=== PATIENT | female | born 1945 | race Caucasian/White ===

== ENCOUNTER 2022-12-16 03:12 | Emergency (ER) | payer MEDICARE, OTHER, SELFPAY ==
[2022-12-16 03:15] VITALS: BP 134/64; PULSE 85; RESP 14; TEMP 36.8; O2SAT 97; BMI 23.8
--- NOTE | 2022-12-16 03:32 | XR_ITS ---
The [address] [address] Patient Name: CORNELIUS CAMPBELL MRN: [id number] date: 1945 Sex: F Assigned Patient Location: ER Current Patient Location: ER Accession/Order Number: [id number] Exam Date: 12/16/2022 03:45 Report Date: 12/16/2022 03:57 At the request of: ROBBIE MARKER Procedure: XR chest 1V EXAM: XR chest 1V HISTORY: SOB COMPARISON: None. TECHNIQUE: One view of the chest was obtained. FINDINGS: The cardiac silhouette is mildly enlarged. There is a small hiatal hernia. There is mild bibasilar atelectasis and/or scarring. There is no significant pneumothorax or pleural effusion. No acute osseous abnormality is seen. XR/XR chest 1V IMPRESSION: 1. Mildly enlarged cardiac silhouette with bibasilar atelectasis. 2. Small hiatal hernia. Electronically authenticated by: Anrdes ANGEL Date: 12/16/2022 03:57
--- NOTE | 2022-12-16 03:33 | CT_ITS ---
The [address] [address] Patient Name: CORNELIUS CAMPBELL MRN: [id number] date: 1945 Sex: F Assigned Patient Location: ER Current Patient Location: ER Accession/Order Number: [id number] Exam Date: 12/16/2022 04:18 Report Date: 12/16/2022 05:14 At the request of: ROBBIE MARKER Procedure: CT abdomen pelvis w con EXAM: CT abdomen pelvis w con HISTORY: Abdominal and back pain. COMPARISON: None. TECHNIQUE: Routine CT abdomen/pelvis with intravenous contrast. FINDINGS: There are atelectatic densities at both lung bases. There are several hypodense lesions scattered within the liver, largest measuring 0.9 cm (0.7 Hounsfield units) which most commonly represent cysts and/or hemangioma. The gallbladder and biliary tree are unremarkable. The pancreas and spleen are unremarkable. The bilateral adrenal glands and the bilateral kidneys are unremarkable. There are diverticula along the sigmoid colon. There is bowel wall thickening along the mid sigmoid colon with associated pericolonic inflammatory reaction. In the right clinical setting these findings can be associated with acute diverticulitis. In the absence of appropriate clinical symptoms, a developing mass lesion cannot be excluded. There is no free air, free fluid or abscess. There is a moderate amount of formed and liquid stool within the colon. There is a large hiatal hernia. There is thickening of the gastric mucosal which may in part be related to underdistention. Fluid and air-fluid levels are seen within jejunal and ileal small bowel loops. Some of the jejunal small bowel loops appear dilated thickened. Correlation should be made with clinical findings of an enteritis. The appendix is not visualized. There are a few small atheromatous calcifications within the abdominal aorta. The IVC is unremarkable. There are no pathologically enlarged lymph nodes within the abdomen/pelvis. The underdistended unopacified urinary bladder is unremarkable. The patient has had a prior hysterectomy. There is a 1.5 cm left ovarian cyst. There are several pelvic phleboliths. The bony structures are osteopenic. There is moderate levoscoliosis of the lumbar spine. There are degenerative changes throughout the thoracolumbar spine. There is a 0.3 cm bone island within the intertrochanteric region of the left femur. CT/CT abdomen pelvis w con IMPRESSION: There are diverticula along the sigmoid colon. There is bowel wall thickening along the mid sigmoid colon with associated pericolonic inflammatory reaction. In the right clinical setting these findings can be associated with acute diverticulitis. In the absence of appropriate clinical symptoms, a developing mass lesion cannot be excluded. There is no free air, free fluid or abscess. There is a moderate amount of formed and liquid stool within the colon. There is a large hiatal hernia. There is thickening of the gastric mucosal which may in part be related to underdistention. Fluid and air-fluid levels are seen within jejunal and ileal small bowel loops. Some of the jejunal small bowel loops appear dilated thickened. Correlation should be made with clinical findings of an enteritis. Several hypodense lesions scattered within the liver, largest measuring 0.9 cm (0.7 Hounsfield units) which most commonly represent cysts and/or hemangioma. Electronically authenticated by: ARCENIO MALCOLM Date: 12/16/2022 05:14
--- NOTE | 2022-12-16 03:37 | ECG_ITS ---
The [facility] Test Date: 2022-12-16 Pat Name: CORNELIUS CAMPBELL Department: Room: - Gender: Female Resident Caregiver: : 1945 Requested By: BEKAH DIAZ Order Number: [id number] Reading MD: BEKAH DIAZ Measurements Intervals [place] Rate: 70 P: 67 LA: 174 QRS: -53 QRSD: 92 T: 51 QT: 382 QTc: 404 Interpretive Statements 1100 Sinus rhythm 2630 Left anterior fascicular block 8003 Consistent with pulmonary disease 9150 abnormal ECG No previous ECG available for comparison Electronically Signed On 12-16-2022 6:38:13 EDT by BEKAH DIAZ
--- NOTE | 2022-12-16 03:39 | ED_ITS ---
HPI - Abdominal Pain General Chief Complaint: Abdominal Pain Stated Complaint: ABD BACK PAIN Time Seen by Provider: 12/16/22 03:32 Source: patient History of Present Illness HPI narrative: This 77-year-old female presents for evaluation of lower abdominal pain that is now radiating into her low back. The patient states she started having lower abdominal pain yesterday and was going to call her family physician later today however during the night the pain became worse. She states it is sharp and stabbing in her lower abdomen and now radiates into her low back where her kidneys are. She denies any nausea or vomiting. She has no hematuria or dysuria. She denies any fever or chills. She states she has not had an appetite since yesterday. She has been having normal bowel movements without any diarrhea or constipation. She has a history of rheumatoid arthritis. She denies any cardiac history. She denies any chest pain, shortness of breath, dizziness or syncope. She has chronic swelling of her left lower leg greater than her right which is not new. She states she has not taken any medications for the pain because she did not know what to take. She states that she had her appendix removed when she had a hysterectomy years ago. MD elicited complaint: Reports abdominal pain and flank pain Related Data Home Medications Medication Instructions Recorded Confirmed folic acid 1 mg tablet 1 mg PO DAILY 12/16/22 12/16/22 methotrexate sodium 2.5 mg tablet 2.5 mg PO .weekly 12/16/22 12/16/22 prednisone 5 mg tablet 5 mg PO Q12H PRN pain 12/16/22 12/16/22 Allergies Allergy/AdvReac Type Severity Reaction Status Date / Time No Known Drug Allergies Allergy Verified 12/16/22 03:19 Review of Systems ROS Status of ROS 10 or more systems reviewed and unremarkable except as noted in history and below [facility] Medical History (Updated 12/16/22 @ 05:51 by Tracy Jamison MD) Exam Narrative Exam Narrative: Nurses note and vital signs reviewed and patient is not hypoxic. General: The patient appears well and in no apparent distress. Patient is resting comfortably on cart. Skin: Warm, dry, no pallor noted. Mild chronic erythematous skin changes of bilateral lower extremities noted Head: Normocephalic, atraumatic Eye: Normal conjunctiva, no drainage, EOMI. PERRL Ears, Nose, Mouth, and Throat: oral mucosa is dry Cardiovascular: Regular Rate and Rhythm S1S2, no murmurs, rubs or gallops noted. Radial and femoral pulses are brisk and equal bilaterally Respiratory: Patient is in no distress, no accessory muscle use, lungs are clear to auscultation, no wheezing, rales or rhonchi Back: non-tender, no CVA tenderness bilaterally to percussion. GI: Decreased bowel sounds, RLQ tenderness to palpation with voluntary guarding and rebound, questionable Rovsings test, She has a well-healed Pfannenstiel incision but no notable incision in the right lower quadrant Musculoskeletal: LLE is mildly erythematous and slightly larger than the right, (this is normal for the patient according to her), There is no CVA tenderness or midline bony vertebral tenderness of the thoracic or lumbar spine. Neurological: A&O x4, normal speech Psychiatric: Cooperative Constitutional Vital Signs, click to edit/add: Last Vital Signs Temp 98.2 F 12/16/22 03:15 Pulse 85 12/16/22 03:15 Resp 14 12/16/22 03:15 BP 134/64 H 12/16/22 03:15 Pulse Ox 97 12/16/22 03:15 Course Vital Signs Vital signs: Vital Signs Temperature 98.2 F 12/16/22 03:15 Pulse Rate 85 12/16/22 03:15 Respiratory Rate 14 12/16/22 03:15 Blood Pressure 134/64 H 12/16/22 03:15 Pulse Oximetry 97 12/16/22 03:15 Temperature 98.2 F 12/16/22 03:15 Pulse Rate 85 12/16/22 03:15 Respiratory Rate 14 12/16/22 03:15 Blood Pressure 134/64 H 12/16/22 03:15 Pulse Oximetry 97 12/16/22 03:15 MDM - Abdominal Pain MDM Narrative Medical decision making narrative: This 77-year-old female with a history of rheumatoid arthritis presents for evaluation of lower abdominal pain that is radiating into her low back. The pain started presently 24 hours prior to arrival and a lower abdomen and then radiated into her back. She had no appetite. She denies any fever. She had no chest pain or shortness of breath. She denies any urinary symptoms. She is status post appendectomy and hysterectomy although is only able to find a Pfannenstiel incision and was concerned that she is still may have appendicitis as she was tender in the right lower quadrant with voluntary guarding and re bound. An IV was placed and she is medicated with IV fluids, Zofran and 2 mg of morphine. This reduced her pain but did not take it away however she declined any additional pain medication. Routine labs including CBC with differential, comprehensive metabolic profile, lactic acid and troponin were ordered and are reviewed and are normal. CT scan of the abdomen and pelvis with IV contrast shows diverticula along the sigmoid colon with bowel wall thickening along the mid sigmoid colon associated with pericolonic inflammatory reaction consistent with acute diverticulitis. There is no free air, free fluid or abscess. There is moderate amount of formed and liquid stool in the colon is a large hiatal hernia. The results of the CT scan were discussed with the patient and she was given a copy of the CT scan to share with her family physician. Reevaluation she was feeling better. Her symptoms are consistent with acute diverticulitis. She was medicated emergency department with oral Cipro and oral Flagyl and was given a [place] prior to being discharged. She'll be discharged home with a prescription for Zofran, [place] and Cipro and Flagyl to use for the next week. She was encouraged to drink plenty of fluids. I did explain to her that she may end up having diarrhea as well but she states she can deal with that. Differential Diagnosis Differential diagnosis: Likely abdominal pain, acute appendicitis, calculus of kidney, constipation, diverticulitis and small bowel obstruction Lab Data Attestation: I reviewed the patient's lab results. Lab results narrative: Labs are reviewed and are normal Labs: Lab Results 12/16/22 12/16/22 Range/Units 03:34 05:37 WBC 9.7 (4.0-11.0) 10^3/uL RBC 4.21 (4.20-5.40) 10^6/uL Hgb 13.2 (12.0-16.0) g/dL Hct 38.1 (36.0-48.0) % MCV 90.5 (81.0-99.0) fL MCH 31.4 (26.7-34.0) pg MCHC 34.6 (29.9-35.2) g/dL RDW 13.2 (11.0-15.0) % Plt Count 218 (150-450) 10^3/uL MPV 11.0 (9.5-13.5) fL Neut % (Auto) 82.8 H (43.0-75.0) % Lymph % (Auto) 5.4 L (20.5-60.0) % Miller % (Auto) 9.3 (1.7-12.0) % Eos % (Auto) 1.9 (0.9-7.0) % Baso % (Auto) 0.3 (0.2-2.0) % Neut # (Auto) 8.1 H (1.4-6.5) 10^3/uL Lymph # (Auto) 0.5 L (1.2-3.8) 10^3/uL Miller # (Auto) 0.9 H (0.3-0.8) 10^3/uL Eos # (Auto) 0.2 (0.0-0.7) 10^3/uL Baso # (Auto) 0.0 (0.0-0.1) 10^3/uL Abs Immat Gran (auto) 0.03 (0.00-0.03) 10^3/uL Imm/Tot Granulo (auto) 0.3 (0.0-0.5) % Sodium 136 (136-145) mmol/L Potassium 3.6 (3.5-5.1) mmol/L Chloride 102 (98-107) mmol/L Carbon Dioxide 26.1 (21.0-32.0) mmol/L Anion Gap 11.5 BUN 9.0 (7.0-18.0) mg/dL Creatinine 0.82 (0.55-1.02) mg/dL Est GFR ( Amer) >60 (>=60) Est GFR (Non-Af Amer) >60 (>=60) BUN/Creatinine Ratio 11.0 Glucose 105 (74-106) mg/dL Lactate 0.9 (0.4-2.0) mmol/L Calcium 9.7 (8.5-10.1) mg/dL Total Bilirubin 0.6 (0.2-1.0) mg/dL AST 17 (15-37) U/L ALT 22 (14-59) U/L Alkaline Phosphatase 94 (46-116) U/L Troponin I High Sens 7.0 (4.0-51.3) pg/mL Total Protein 6.9 (6.4-8.2) g/dL Albumin 3.6 (3.4-5.0) g/dL Globulin 3.3 g/dL Albumin/Globulin Ratio 1.1 Urine Color Lt. yellow (YELLOW) Urine Clarity Clear (CLEAR) Urine pH 6.0 (5.0-9.0) Ur Specific [place] <=1.005 A (1.005-1.025) Urine Protein Negative (NEG/TRACE) mg/dL Urine Glucose (UA) Negative (NEGATIVE) mg/dL Urine Ketones Negative (NEGATIVE) mg/dL Urine Occult Blood Negative (NEGATIVE) Urine Nitrite Negative (NEGATIVE) Urine Bilirubin Negative (NEGATIVE) Urine Urobilinogen 0.2 (0.2-1.0) EU/dL Ur Leukocyte Esterase Small A (NEGATIVE) Urine RBC 0-2 (0-2) #/HPF Urine WBC 2-5 A (NONE SEEN) #/HPF Ur Squamous Epith Cells Rare (NONE/RARE) #/LPF Urine Crystals None seen (None Seen) #/HPF Urine Bacteria None seen (NONE SEEN) #/HPF Urine Casts None seen (NONE SEEN) #/LPF Urine Mucus None seen (NONE SEEN) Ur Culture Indicated? No ECG Data Attestation: I personally reviewed and interpreted this ECG as follows: (Sinus rhythm at 70 beats for minute, left axis deviation, left anterior hemiblock, no acute ST segment elevation or T-wave inversion) Discharge Plan Discharge Chief Complaint: Abdominal Pain Clinical Impression: Diverticulitis Patient Disposition: Home, Self-Care Time of Disposition Decision: 05:51 Condition: Good Prescriptions / Home Meds: No Action methotrexate sodium 2.5 mg tablet 2.5 mg PO .weekly prednisone 5 mg tablet 5 mg PO Q12H PRN (Reason: pain) folic acid 1 mg tablet 1 mg PO DAILY Instructions: Diverticulitis (ED) Stand Alone Forms: Portal Instructions Referrals: ELAINE AGUILAR [Primary Care Provider] - 1 week
[2022-12-16] MEDS: MORPHINE SULFATE 2 MG/ML SYRINGE IV (03:50)
[2022-12-16] MEDS: 0.9 % SODIUM CHLORIDE 1,000 ML 1000 ML IV (03:51)
[2022-12-16] MEDS: ONDANSETRON PF 4 MG/2 ML VIAL IV (03:51)
[2022-12-16 03:54] LABS: Basophils Percent Auto 0.3 % (0.2-2.0); Eosinophils Absolute Auto 0.2 10^3/uL (0.0-0.7); Eosinophils Percent Auto 1.9 % (0.9-7.0); Hematocrit 38.1 % (36.0-48.0); Hemoglobin 13.2 g/dL (12.0-16.0); Immature Granulocytes Abs Auto 0.03 10^3/uL (0.00-0.03); Immature Granulocytes Pct Auto 0.3 % (0.0-0.5); Lymphocytes Absolute Auto 0.5 10^3/uL (1.2-3.8); Lymphocytes Percent Auto 5.4 % (20.5-60.0); Mean Corpuscular HGB Conc 34.6 g/dL (29.9-35.2); Mean Corpuscular Hemoglobin 31.4 pg (26.7-34.0); Mean Corpuscular Volume 90.5 fL (81.0-99.0); Monocytes Absolute Auto 0.9 10^3/uL (0.3-0.8); Monocytes Percent Auto 9.3 % (1.7-12.0); Neutrophils Absolute Auto 8.1 10^3/uL (1.4-6.5); Neutrophils Percent Auto 82.8 % (43.0-75.0); Platelet Count 218 10^3/uL (150-450); Red Blood Count 4.21 10^6/uL (4.20-5.40); Red Cell Distribution Width 13.2 % (11.0-15.0); White Blood Count 9.7 10^3/uL (4.0-11.0)
[2022-12-16 04:08] LABS: Alanine Aminotransferase 22 U/L (14-59); Albumin Globulin Ratio 1.1; Albumin Level 3.6 g/dL (3.4-5.0); Alkaline Phosphatase 94 U/L (46-116); Anion Gap 11.5; Aspartate Amino Transferase 17 U/L (15-37); Bilirubin Total 0.6 mg/dL (0.2-1.0); Calcium 9.7 mg/dL (8.5-10.1); Carbon Dioxide 26.1 mmol/L (21.0-32.0); Chloride 102 mmol/L (98-107); Estimated GFR (African America >60 (>=60); Estimated GFR (Non-African Ame >60 (>=60); Globulin 3.3 g/dL; Glucose 105 mg/dL (74-106); Potassium 3.6 mmol/L (3.5-5.1); Sodium 136 mmol/L (136-145); Total Protein 6.9 g/dL (6.4-8.2)
[2022-12-16 04:13] LABS: Lactate/Lactic Acid 0.9 mmol/L (0.4-2.0)
[2022-12-16 05:44] LABS: Bilirubin Urine NEGATIVE (NEGATIVE); Blood Urine NEGATIVE (NEGATIVE); Clarity Urine CLEAR (CLEAR); Color Urine LT. YELLOW (YELLOW); Glucose Urine UA NEGATIVE (NEGATIVE); Ketones Urine NEGATIVE (NEGATIVE); Leukocyte Esterase Urine SMALL (NEGATIVE); Nitrite Urine NEGATIVE (NEGATIVE); Protein Urine NEGATIVE (NEG/TRACE); Specific Gravity Urine <=1.005 (1.005-1.025); Urobilinogen Urine 0.2 EU/dL (0.2-1.0)
[2022-12-16 05:52] LABS: Bacteria Urine NONE SEEN #/HPF (NONE SEEN); Cast Seen? NONE SEEN #/LPF (NONE SEEN); Crystals Seen? None Seen #/HPF (None Seen); Mucus Urine NONE SEEN (NONE SEEN); RBC Urine 0-2 #/HPF (0-2); Squamous Epithelial Cell Urine RARE #/LPF (NONE/RARE); Urine Culture Indicated NO
[2022-12-16] MEDS: METRONIDAZOLE 250 MG TABLET 500 MG PO (06:07)
[2022-12-16] MEDS: CIPROFLOXACIN HCL 500 MG TABLET PO (06:07)
[2022-12-16] MEDS: HYDROCODONE/ACETAMINOPHEN 5-325 MG TABLET 0.5 TAB PO (06:07)
== END 2022-12-16 06:18 | disposition home or self-care (01) ==
PROVIDERS: Emergency Provider Emergency Medicine; PCP Family Medicine
DX: K57.32 Diverticulitis of large intestine without perforation or abscess without bleeding (principal); M06.9 Rheumatoid arthritis, unspecified; K44.9 Diaphragmatic hernia without obstruction or gangrene; Z79.899 Other long term (current) drug therapy; Z90.710 Acquired absence of both cervix and uterus
CPT/HCPCS: 36415; 71045; 74177; 80053; 81001; 83605; 84484; 85025; 93005; 96374; 96375; 99285; Q9967

== ENCOUNTER 2023-02-09 12:07 | Outpatient (OUT) | payer MEDICARE, OTHER, SELFPAY ==
[2023-02-09 12:39] LABS: Basophils Percent Auto 0.7 % (0.2-2.0); Eosinophils Absolute Auto 0.2 10^3/uL (0.0-0.7); Eosinophils Percent Auto 3.2 % (0.9-7.0); Hematocrit 38.8 % (36.0-48.0); Immature Granulocytes Abs Auto 0.02 10^3/uL (0.00-0.03); Immature Granulocytes Pct Auto 0.3 % (0.0-0.5); Lymphocytes Absolute Auto 0.9 10^3/uL (1.2-3.8); Lymphocytes Percent Auto 14.6 % (20.5-60.0); Mean Corpuscular HGB Conc 33.5 g/dL (29.9-35.2); Mean Corpuscular Hemoglobin 30.6 pg (26.7-34.0); Mean Corpuscular Volume 91.3 fL (81.0-99.0); Monocytes Absolute Auto 0.9 10^3/uL (0.3-0.8); Monocytes Percent Auto 15.6 % (1.7-12.0); Neutrophils Absolute Auto 3.9 10^3/uL (1.4-6.5); Neutrophils Percent Auto 65.6 % (43.0-75.0); Platelet Count 189 10^3/uL (150-450); Red Blood Count 4.25 10^6/uL (4.20-5.40); Red Cell Distribution Width 13.2 % (11.0-15.0)
[2023-02-09 12:53] LABS: Erythrocyte Sedimentation Rate 10 mm/hr (<=30)
[2023-02-09 12:57] LABS: Alanine Aminotransferase 27 U/L (14-59); Albumin Globulin Ratio 1.2; Albumin Level 3.6 g/dL (3.4-5.0); Alkaline Phosphatase 88 U/L (46-116); Aspartate Amino Transferase 18 U/L (15-37); Bilirubin Direct 0.1 mg/dL (0.0-0.2); Bilirubin Total 0.4 mg/dL (0.2-1.0); Estimated GFR (African America >60 (>=60); Estimated GFR (Non-African Ame >60 (>=60); Total Protein 6.6 g/dL (6.4-8.2)
== END 2023-02-09 12:08 | disposition home or self-care (01) ==
LOC: LAB 12:09
PROVIDERS: PCP Family Medicine; Visit Provider Internal Medicine Rheumatology
DX: M05.79 Rheumatoid arthritis with rheumatoid factor of multiple sites without organ or systems involvement (principal); Z79.899 Other long term (current) drug therapy
CPT/HCPCS: 36415; 80076; 82565; 85025; 85652

== ENCOUNTER 2023-06-09 12:20 | Outpatient (OUT) | payer MEDICARE, OTHER, SELFPAY ==
[2023-06-09 12:58] LABS: Basophils Percent Auto 0.4 % (0.2-2.0); Eosinophils Absolute Auto 0.1 10^3/uL (0.0-0.7); Eosinophils Percent Auto 2.7 % (0.9-7.0); Hematocrit 38.9 % (36.0-48.0); Hemoglobin 13.4 g/dL (12.0-16.0); Immature Granulocytes Abs Auto 0.01 10^3/uL (0.00-0.03); Immature Granulocytes Pct Auto 0.2 % (0.0-0.5); Lymphocytes Absolute Auto 0.9 10^3/uL (1.2-3.8); Lymphocytes Percent Auto 18.1 % (20.5-60.0); Mean Corpuscular HGB Conc 34.4 g/dL (29.9-35.2); Mean Corpuscular Hemoglobin 31.6 pg (26.7-34.0); Mean Corpuscular Volume 91.7 fL (81.0-99.0); Mean Platelet Volume 11.2 fL (9.5-13.5); Monocytes Absolute Auto 0.6 10^3/uL (0.3-0.8); Monocytes Percent Auto 11.7 % (1.7-12.0); Neutrophils Absolute Auto 3.5 10^3/uL (1.4-6.5); Neutrophils Percent Auto 66.9 % (43.0-75.0); Platelet Count 225 10^3/uL (150-450); Red Blood Count 4.24 10^6/uL (4.20-5.40); Red Cell Distribution Width 13.6 % (11.0-15.0); White Blood Count 5.2 10^3/uL (4.0-11.0)
[2023-06-09 13:03] LABS: Erythrocyte Sedimentation Rate 10 mm/hr (<=30)
[2023-06-09 14:23] LABS: Alanine Aminotransferase 22 U/L (14-59); Albumin Globulin Ratio 1.2; Albumin Level 3.7 g/dL (3.4-5.0); Alkaline Phosphatase 105 U/L (46-116); Aspartate Amino Transferase 15 U/L (15-37); Bilirubin Direct 0.1 mg/dL (0.0-0.2); Bilirubin Total 0.5 mg/dL (0.2-1.0); Estimated GFR (African America >60 (>=60); Estimated GFR (Non-African Ame >60 (>=60); Globulin 3.2 g/dL; Total Protein 6.9 g/dL (6.4-8.2)
== END 2023-06-09 12:21 | disposition home or self-care (01) ==
LOC: LAB 12:22
PROVIDERS: PCP Family Medicine; Visit Provider Internal Medicine Rheumatology
DX: M05.79 Rheumatoid arthritis with rheumatoid factor of multiple sites without organ or systems involvement (principal); Z79.899 Other long term (current) drug therapy
CPT/HCPCS: 36415; 80076; 82565; 85025; 85652

== ENCOUNTER 2023-11-24 11:12 | Outpatient (OUT) | payer MEDICARE, OTHER, SELFPAY ==
--- OUTSIDE RECORDS SUMMARY | 2023-11-24 11:26 | XMS_ITS | CCD ---
Author Organization [facility] Care Team Providers Care Monotype Machinist Name Role Phone NANCY GOODWIN Unavailable Unavailable NANCY GOODWIN Unavailable Unavailable CHANELLE CHO Unavailable Unavailable BRENDA, DR ROCA Consulting Unavailable BRENDA, DR ROCA Admitting Unavailable JEFF, DR HENRY Primary Care Unavailable BRENDA, DR ROCA Attending Unavailable BRENDA, DR ROCA Admitting Unavailable BRENDA, DR ROCA Attending Unavailable JEFF, DR HENRY Referring Unavailable JEFF, DR HENRY Primary Care Unavailable HALINDIANA, DR ROCA Consulting Unavailable BRENDA, DR ROCA Consulting Unavailable BRENDA, DR ROCA Admitting Unavailable JEFF, DR HENRY Primary Care Unavailable HALINDIANA, DR ROCA Attending Unavailable BRENDA, DR ROCA Admitting Unavailable JEFF, DR HENRY Primary Care Unavailable BRENDA, DR ROCA Attending Unavailable MD Salvador Hernandez Primary Care Provider [phone] MD Chanelle Cho Attending Provider MD Salvador Hernandez Primary Care Provider [phone] MD Salvador Hernandez Attending Provider [phone] MD Joe Anderson Attending Provider Joe Anderson Admitting UnavailJoe Dumas Attending UnavailSalvador Ross Primary Care Unavailable Chanelle Cho Admitting Unavailable Chanelle Cho Attending Unavailable Salvador Hernandez Primary Care Unavailable Salvador Hernandez Admitting Unavailable Salvador Hernandez Primary Care Unavailable Salvador Hernandez Attending Unavailable Unavailable Primary Care Provider UnavailALEKSANDR Doan Attending Unavailable JOSE LEVINE Attending Unavailable ALEKSANDR CLAIRE Attending Unavailable Medications Current Medications Medication Drug Class(es) Dates Sig (Normalized) Sig (Original) calcium carbonate 1500 mg / cholecalciferol 200 unt oral tablet (1 source) Vitamin D Start: 3 take 1 tablet by mouth once daily Calcium Carbonate-Vitamin D3 Active 1 TAB PO Daily March 23, 2023 12:00am folic acid 1 mg oral tablet (3 sources) Start: 7 take 1 mg by mouth once daily Folic Acid Active 1 MG PO Daily February 16, 2017 12:00am hydroxychloroquine sulfate 200 mg oral tablet (1 source) Antimalarial, Antirheumatic Agent Start: 3 take 1 tablet by mouth once daily Hydroxychloroquine (Plaquenil) 200 mg Tablet Active 200 MG PO Daily March 23, 2023 12:00am methotrexate 2.5 mg oral tablet (3 sources) Folate Analog Metabolic Inhibitor Start: 7 take 20 mg by mouth every week Methotrexate Sodium Active 20 MG PO every week February 16, 2017 12:00am Start: 02-16-2017 take 17.5 mg by mout h every week Methotrexate Sodium Active 17.5 MG PO every week February 16, 2017 12:00am pantoprazole 40 mg delayed release oral tablet (1 source) Proton Pump Inhibitor Start: 03-23-2023 take 40 mg by mouth once daily Pantoprazole Active 40 MG PO Daily March 23, 2023 12:00am Completed/Discontinued Medications Medication Drug Class(es) Dates Sig (Normalized) Sig (Original) acetaminophen 500 mg oral tablet (3 sources) Start: 10-15-2020 End: 01-22-2021 take 2 tablets by mouth every eight hours Acetaminophen (Tylenol Extra Strength) 500 mg tablet Discontinued 1000 MG PO Every 8 hours 180 30 October 15, 2020 12:00am January 22, 2021 6:08am acetaminophen 325 mg / HYDROcodone bitartrate 5 mg oral tablet (3 sources) Opioid Agonist Start: 10-15-2020 End: 03-23-2023 take 1 tablet by mouth every four hours Hydrocodone-Acetami nophen Discontinued 5 - 325 TAB PO Every 4 hours October 15, 2020 12:00am March 23, 2023 9:08am aspirin 81 mg delayed release oral tablet (3 sources) Platelet Aggregation Inhibitor, Nonsteroidal Anti-inflammatory Drug Start: 10-15-2020 End: 03-23-2023 take 81 mg by mouth twice daily Aspirin Discontinued 81 MG PO Twice daily 42 October 15, 2020 12:00am March 23, 2023 9:08am Wsaqxawd-Dpk-Bg-Lyc open-Lutein (Centrum Silver) 0.4-300-250 mg-mcg-mcg Tablet (3 sources) Start: 02-16-2017 End: 07-19-2019 take 1 tablet by mouth once daily Wjyxytbc-Ynj-Bg-Lyc open-Lutein (Centrum Silver) 0.4-300-250 mg-mcg-mcg Tablet Discontinued 1 TAB PO Daily February 16, 2017 12:00am July 19, 2019 9:51am naproxen sodium 220 mg oral capsule (3 sources) Nonsteroidal Anti-inflammatory Drug Start: 10-14-2020 End: 03-23-2023 take 1 capsule by mouth twice daily Naproxen Sodium (Aleve) 220 mg Capsule Discontinued 220 MG PO Twice daily October 14, 2020 12:00am March 23, 2023 9:08am omeprazole 20 mg delayed release oral tablet (3 sources) Proton Pump Inhibitor Start: 02-16-2017 End: 07-19-2019 take 20 mg by mouth once daily Omeprazole Discontinued 20 MG PO Daily February 16, 2017 12:00am July 19, 2019 9:52am oxyCODONE hydrochloride 5 mg oral tablet (3 sources) Opioid Agonist Start: 10-15-2020 End: 01-22-2021 take 1 tablet by mouth every six hours Oxycodone (Roxicodone) 5 mg tablet Discontinued 5 MG PO Q6H 20 7 October 15, 2020 January 22, 2021 6:08am predniSONE 5 mg oral tablet (3 sources) Start: 02-16-2017 End: 03-23-2023 Prednisone Discontinued 5 MG PO As Directed February 16, 2017 12:00am March 23, 2023 9:08am Needed Problems Active Problems Problem Classification Problem Date Documented Da te Episodic/Chronic Essential hypertension (1 source) Essential (primary) hypertension; Translations: [Essential (primary) hypertension] Onset: 01-19-2023 Chronic Fracture of lower limb (3 sources) Fracture of patella; Translations: [Unspecified fracture of unspecified patella, initial encounter for closed fracture] 10-15-2020 Episodic Other aftercare (1 source) Other parts counterman (current) drug therapy; Translations: [OTH DIRECTOR MOBILE MEDIA SOLUTIONS CURRENT DRUG THERAPY] Onset: 10-06-2022 Episodic Other endocrine disorders (1 source) Other adrenocortical insufficiency; Translations: [Other adrenocortical insufficiency] Onset: 04-07-2017 Chronic Other gastrointestinal disorders (1 source) Occult blood in stools; Translations: [Other fecal abnormalities] 03-23-2023 Episodic Other gastrointestinal disorders (2 sources) Other fecal abnormalities; Translations: [Nonspecific abnormal findings in stool contents] Onset: 03-23-2023 03-23-2023 Episodic Rheumatoid arthritis and related disease (4 sources) Rheumatoid arthritis with rheumatoid factor of multiple sites without organ or systems involvement; Translations: [RA W/RH FACTOR MX SITE NO ORGAN/SYS] Onset: 09-29-2022 Chronic Unclassified (1 source) Unknown / UNK(Unknown) Onset: 04-07-2017 Unclassified (1 source) Rheumatoid arthritis with rheumatoid factor of multiple sites without organ or systems involvement; Translations: [Rheumatoid arthritis with rheumatoid factor of multiple sites without organ or systems involvement] Onset: 10-07-2022 Past or Other Problems Problem Classification Problem Date Documented Da te Episodic/Chronic Administrative/social admission (1 source) Dietary counseling and surveillance; Translations: [DIETARY COUNSELING AND SURVEILLANCE] Onset: 01-01-2022 Episodic Results Test Name Value Interpretation Reference Range Facility Alanine aminotransferase [En zymatic activity/volume] in Serum or PlasmaOrdered By: Salvador Hernandez on 01-19-2023 ALT [Catalytic activity/Vol] 11 U/L 7-52 [facility] Albumin [Mass/volume] in Ser um or Plasma by Bromocresol green (BCG) dye binding methoOrdered By: Salvador Hernandez on 01-19-2023 Albumin BCG dye [Mass/Vol] 3.9 g/dL 3.5-5.7 [facility] Alkaline phosphatase [Enzyma tic activity/volume] in Serum or PlasmaOrdered By: Salvador Hernandez on 01-19-2023 ALP [Catalytic activity/Vol] 72 U/L 34-104 [facility] Aspartate aminotransferase [ Enzymatic activity/volume] in Serum or PlasmaOrdered By: Salvador Hernandez on 01-19-2023 AST [Catalytic activity/Vol] 15 U/L 13-39 [facility] Basophils Auto (Bld) [#/Vol] Ordered By: Salvador Hernandez on 01-19-2023 Basophils (Bld) [#/Vol] 0.1 10*3/uL 0.0-0.2 [facility] Basophils/100 WBC Auto (Bld) Ordered By: Salvador Hernandez on 01-19-2023 Basophils/100 WBC (Bld) 1.0 % . [facility] Bilirubin.total [Mass/volume ] in Serum or PlasmaOrdered By: Salvador Hernandez on 01-19-2023 Bilirubin [Mass/Vol] 0.6 mg/dL 0.3-1.0 [facility] Calcium [Mass/volume] in Ser um or PlasmaOrdered By: Salvador Hernandez on 01-19-2023 Calcium [Mass/Vol] 9.3 mg/dL 8.6-10.3 [facility] Carbon dioxide, total [Moles /volume] in Serum or PlasmaOrdered By: Salvador Hernandez on 01-19-2023 CO2 [Moles/Vol] 27.6 mmol/L 21.0-31.0 [facility] Chloride [Moles/volume] in S inocente or PlasmaOrdered By: Salvador Hernandez on 01-19-2023 Chloride [Moles/Vol] 111 mmol/L 98-107 [facility] Cholesterol [Mass/volume] in Serum or PlasmaOrdered By: Salvador Hernandez on 01-19-2023 Cholesterol [Mass/Vol] 195 mg/dL 140-200 [facility] Comment on above: Chol less than 200 m g/dl low riskChol 201-239 mg/dl borderline riskChol 240 mg/dl and greater high risk Cholesterol in LDL Calc [Mas s/Vol]Ordered By: Salvador Hernandez on 01-19-2023 Cholesterol in LDL [Mass/Vol] 112 mg/dL 0-100 [facility] Comment on above: LDL ATP III CLASSIFI CATIONLDL less than 100 mg/dL OptimalLDL 100-129 mg/dL Near or above optimalLDL 130-159 mg/dL Borderline highLDL 160-189 mg/dL HighLDL greater than 189 mg/dL Very high Cholesterol in VLDL Calc [Ma ss/Vol]Ordered By: Salvador Hernandez on 01-19-2023 Cholesterol in VLDL [Mass/Vol] 20 mg/dL [facility] Complete Blood Count Auto Di ffon 01-19-2023 Basophils (Bld) [#/Vol] 0.1 10*3/uL Normal 0.0-0.2 [facility] Comment on above: Result Comment: PERF ORMED BY: [place] [address] PATHOLOGIST BEEF GRINDER JAEL REED M.D. Performed By: #### T SH3, LIPID, CMP, T4F, CBC #### [address] Basophils/100 WBC (Bld) 1.0 % Normal . [facility] Comment on above: Performed By: #### T SH3, LIPID, CMP, T4F, CBC #### [address] Eosinophils (Bld) [#/Vol] 0.3 10*3/uL Normal 0.0-0.45 [facility] Comment on above: Performed By: #### T SH3, LIPID, CMP, T4F, CBC #### [address] Eosinophils/100 WBC (Bld) 4.8 % Normal . [facility] Comment on above: Performed By: #### T SH3, LIPID, CMP, T4F, CBC #### [address] Erythrocyte distribution width (RBC) [Ratio] 14.7 % Normal 11.9-15.3 [facility] Comment on above: Performed By: #### T SH3, LIPID, CMP, T4F, CBC #### [address] Hematocrit (Bld) [Volume fraction] 39.1 % Normal 34.0-46.4 [facility] Comment on above: Performed By: #### T SH3, LIPID, CMP, T4F, CBC #### [address] Hemoglobin (Bld) [Mass/Vol] 13.1 g/dL Normal 11.8-15.4 [facility] Comment on above: Performed By: #### T SH3, LIPID, CMP, T4F, CBC #### [address] [address] [place] Lymphocytes (Bld) [#/Vol] 1.0 10*3/uL Normal 1.00-4.8 [facility] Comment on above: Performed By: #### T SH3, LIPID, CMP, T4F, CBC #### [address] Lymphocytes/100 WBC (Bld) 17.6 % Normal . [facility] Comment on above: Performed By: #### T SH3, LIPID, CMP, T4F, CBC #### [address] MCH (RBC) [Entitic mass] 30.5 pg Normal 24.7-34.3 [facility] Comment on above: Performed By: #### T SH3, LIPID, CMP, T4F, CBC #### [address] MCV (RBC) [Entitic vol] 90.9 fL Normal 80-100 [facility] Comment on above: Performed By: #### T SH3, LIPID, CMP, T4F, CBC #### [facility] [address] [place] [address] Mean Corpuscular HGB Conc 33.5 g/dL Normal 32.0-35.0 [facility] Comment on above: Performed By: #### T SH3, LIPID, CMP, T4F, CBC #### [address] Monocytes (Bld) [#/Vol] 0.7 10*3/uL Normal 0.0-0.8 [facility] Comment on above: Performed By: #### T SH3, LIPID, CMP, T4F, CBC #### [address] Monocytes/100 WBC (Bld) 13.1 % Normal . [facility] Comment on above: Performed By: #### T SH3, LIPID, CMP, T4F, CBC #### [address] Neutrophils (Bld) [#/Vol] 3.6 10*3/uL Normal 1.8-7.7 [facility] Comment on above: Performed By: #### T SH3, LIPID, CMP, T4F, CBC #### [facility] [address] [place] [address] Neutrophils/100 WBC (Bld) 63.5 % Normal . [facility] Comment on above: Performed By: #### T SH3, LIPID, CMP, T4F, CBC #### [facility] [address] [place] [address] NRBC% 0.1 /100{WBC} Normal 0-0.5 [facility] Comment on above: Performed By: #### T SH3, LIPID, CMP, T4F, CBC #### [address] Platelet mean volume (Bld) [Entitic vol] 9.9 fL Normal 6.3-10.7 [facility] Comment on above: Performed By: #### T SH3, LIPID, CMP, T4F, CBC #### [address] Platelets (Bld) [#/Vol] 202 10*3/uL Normal 150-450 [facility] Comment on above: Performed By: #### T SH3, LIPID, CMP, T4F, CBC #### [address] RBC (Bld) [#/Vol] 4.30 10*6/uL Normal 3.60-5.00 [facility] Comment on above: Performed By: #### T SH3, LIPID, CMP, T4F, CBC #### [address] WBC (Bld) [#/Vol] 5.6 10*3/uL Normal 3.8-11.6 [facility] Comment on above: Performed By: #### T SH3, LIPID, CMP, T4F, CBC #### [address] Comprehensive Metabolic Pane maury 01-19-2023 Albumin [Mass/Vol] 3.9 g/dL Normal 3.5-5.7 [facility] Comment on above: Performed By: #### T SH3, LIPID, CMP, T4F, CBC #### [address] Albumin/Globulin [Mass ratio] 1.9 {ratio} Normal [facility] Comment on above: Performed By: #### T SH3, LIPID, CMP, T4F, CBC #### [address] ALP [Catalytic activity/Vol] 72 U/L Normal 34-104 [facility] Comment on above: Performed By: #### T SH3, LIPID, CMP, T4F, CBC #### [address] ALT [Catalytic activity/Vol] 11 U/L Normal 7-52 [facility] Comment on above: Performed By: #### T SH3, LIPID, CMP, T4F, CBC #### [address] Anion gap [Moles/Vol] 9.5 mmol/L Normal 6.0-15.0 [facility] Comment on above: Performed By: #### T SH3, LIPID, CMP, T4F, CBC #### [address] AST [Catalytic activity/Vol] 15 U/L Normal 13-39 [facility] Comment on above: Performed By: #### T SH3, LIPID, CMP, T4F, CBC #### [address] Bilirubin [Mass/Vol] 0.6 mg/dL Normal 0.3-1.0 [facility] Comment on above: Performed By: #### T SH3, LIPID, CMP, T4F, CBC #### [address] Calcium [Mass/Vol] 9.3 mg/dL Normal 8.6-10.3 [facility] Comment on above: Performed By: #### T SH3, LIPID, CMP, T4F, CBC #### [facility] [address] Chloride [Moles/Vol] 111 mmol/L High 98-107 [facility] Comment on above: Performed By: #### T SH3, LIPID, CMP, T4F, CBC #### [facility] [address] CO2 [Moles/Vol] 27.6 mmol/L Normal 21.0-31.0 [facility] Comment on above: Performed By: #### T SH3, LIPID, CMP, T4F, CBC #### [facility] [address] Creatinine [Mass/Vol] 0.65 mg/dL Normal 0.60-1.20 [facility] Comment on above: Performed By: #### T SH3, LIPID, CMP, T4F, CBC #### [facility] [address] GFR/1.73 sq M.predicted MDRD (S/P/Bld) [Vol rate/Area] mL/min/{1.73_m2} Normal [facility] Comment on above: Performed By: #### T SH3, LIPID, CMP, T4F, CBC #### [facility] [address] Globulin (S) [Mass/Vol] 2.1 g/dL Normal [facility] Comment on above: Performed By: #### T SH3, LIPID, CMP, T4F, CBC #### [facility] [address] Glucose [Mass/Vol] 86 mg/dL Normal 70-100 [facility] Comment on above: Result Comment: [place] Glucose Reference Range is dependent on time and content of last meal. Glucose of more than 200 mg/dL in a nonstressed, ambulatory subject supports the diagnosis of Diabetes Mellitus. ADA recommended reference range Performed By: #### T SH3, LIPID, CMP, T4F, CBC #### [facility] [address] Potassium [Moles/Vol] 4.1 mmol/L Normal 3.5-5.1 [facility] Comment on above: Performed By: #### T SH3, LIPID, CMP, T4F, CBC #### [facility] [address] Protein [Mass/Vol] 6.0 g/dL Low 6.4-8.9 [facility] Comment on above: Performed By: #### T SH3, LIPID, CMP, T4F, CBC #### [facility] [address] Sodium [Moles/Vol] 144 mmol/L Normal 136-145 [facility] Comment on above: Performed By: #### T SH3, LIPID, CMP, T4F, CBC #### [facility] [address] Urea nitrogen [Mass/Vol] 10 mg/dL Normal 7-25 [facility] Comment on above: Performed By: #### T SH3, LIPID, CMP, T4F, CBC #### [facility] [address] [place] [address] Creatinine [Mass/volume] in Serum or PlasmaOrdered By: Salvador Hernandez on 01-19-2023 Creatinine [Mass/Vol] 0.65 mg/dL 0.60-1.20 [facility] Eosinophils Auto (Bld) [#/Vo l]Ordered By: Salvador Hernandez on 01-19-2023 Eosinophils (Bld) [#/Vol] 0.3 10*3/uL 0.0-0.45 [facility] Eosinophils/100 WBC Auto (Bl d)Ordered By: Salvador Hernandez on 01-19-2023 Eosinophils/100 WBC (Bld) 4.8 % . [facility] Erythrocyte distribution wid th Auto (RBC) [Ratio]Ordered By: Salvador Hernandez on 01-19-2023 Erythrocyte distribution width (RBC) [Ratio] 14.7 % 11.9-15.3 [facility] Free T4 (Free Thyroxine)on 0 01-19-2023 Free T4 [Mass/Vol] 0.95 ng/dL Normal 0.61-1.12 [facility] Comment on above: Performed By: #### T SH3, LIPID, CMP, T4F, CBC #### [facility] [address] [place] [id number] [facility] Globulin Calc (S) [Mass/Vol] Ordered By: Salvador Hernandez on 01-19-2023 Globulin (S) [Mass/Vol] 2.1 g/dL [facility] Glucose [Mass/volume] in Ser um or PlasmaOrdered By: Salvador Hernandez on 01-19-2023 Glucose [Mass/Vol] 86 mg/dL 70-100 [facility] Comment on above: ADA recommended refe rence rangeRandom Glucose Reference Range is dependent on time and content of last meal. Glucose of more than 200 mg/dL in a nonstressed, ambulatory subject supports the diagnosis of Diabetes Mellitus. Hematocrit Auto (Bld) [Volum e fraction]Ordered By: Salvador Hernandez on 01-19-2023 Hematocrit (Bld) [Volume fraction] 39.1 % 34.0-46.4 [facility] Hemoglobin [Mass/volume] in BloodOrdered By: Salvador Hernandez on 01-19-2023 Hemoglobin (Bld) [Mass/Vol] 13.1 g/dL 11.8-15.4 [facility] Leukocytes [#/volume] correc maurice for nucleated erythrocytes in Blood by Automated counOrdered By: Salvador Hernandez on 01-19-2023 WBC corrected for nucl RBC Auto (Bld) [#/Vol] 5.6 10*3/uL 3.8-11.6 [facility] Lipid Panelon 01-19-2023 Cholesterol [Mass/Vol] 195 mg/dL Normal 140-200 [facility] Comment on above: Result Comment: Chol less than 200 mg/dl low risk Chol 201-239 mg/dl borderline risk Chol 240 mg/dl and greater high risk Performed By: #### T SH3, LIPID, CMP, T4F, CBC #### [facility] [address] [place] [address] [facility] Cholesterol in HDL [Mass/Vol] 62 mg/dL Normal 23-92 [facility] Comment on above: Result Comment: HDL CHOL ATP-III CLASSIFICATION Cardiovascular Risk HDL > or equal to 60 mg/dL LOW HDL < 40 mg/dL HIGH Performed By: #### T SH3, LIPID, CMP, T4F, CBC #### [facility] [address] Cholesterol.total/Frances sterol in HDL [Mass ratio] 3.1 {ratio} Normal <5.0 [facility] Comment on above: Performed By: #### T SH3, LIPID, CMP, T4F, CBC #### [facility] [address] LDL Cholesterol,Calculated 112 mg/dL High 0-100 [facility] Comment on above: Result Comment: LDL ATP III CLASSIFICATION LDL less than 100 mg/dL Optimal LDL 100-129 mg/dL Near or above optimal LDL 130-159 mg/dL Borderline high LDL 160-189 mg/dL High LDL greater than 189 mg/dL Very high Performed By: #### T SH3, LIPID, CMP, T4F, CBC #### [facility] [address] Triglyceride w/Reflex 103 mg/dL Normal 0-149 [facility] Comment on above: Result Comment: TRIG ATP III CLASSIFICATION TRIG less than 150 mg/dL Normal TRIG 150-199 mg/dL Borderline high TRIG 200-500 mg/dL High TRIG greater than 500 mg/dL Very high Standard traceable to the Center for Disease Conrtrol and Prevention (CDC) test method. Performed By: #### T SH3, LIPID, CMP, T4F, CBC #### [facility] [address] VLDL CHOLESTEROL 20 mg/dL Normal [facility] Comment on above: Performed By: #### T SH3, LIPID, CMP, T4F, CBC #### [facility] [address] Lymphocytes Auto (Bld) [#/Vo l]Ordered By: Salvador Hernandez on 01-19-2023 Lymphocytes (Bld) [#/Vol] 1.0 10*3/uL 1.00-4.8 [facility] Lymphocytes/100 WBC Auto (Bl d)Ordered By: Salvador Hernandez on 01-19-2023 Lymphocytes/100 WBC (Bld) 17.6 % . [facility] MCH Auto (RBC) [Entitic mass ]Ordered By: Salvador Hernandez on 01-19-2023 MCH (RBC) [Entitic mass] 30.5 pg 24.7-34.3 [facility] MCHC Auto (RBC) [Mass/Vol]Or dered By: Salvador Hernandez on 01-19-2023 MCHC (RBC) [Mass/Vol] 33.5 g/dL 32.0-35.0 [facility] MCV Auto (RBC) [Entitic vol] Ordered By: Salvador Hernandez on 01-19-2023 MCV (RBC) [Entitic vol] 90.9 fL 80-100 [facility] Monocytes Auto (Bld) [#/Vol] Ordered By: Salvador Hernandez on 01-19-2023 Monocytes (Bld) [#/Vol] 0.7 10*3/uL 0.0-0.8 [facility] Monocytes/100 WBC Auto (Bld) Ordered By: Salvador Hernandez on 01-19-2023 Monocytes/100 WBC (Bld) 13.1 % . [facility] Neutrophils Auto (Bld) [#/Vo l]Ordered By: Salvador Hernandez on 01-19-2023 Neutrophils (Bld) [#/Vol] 3.6 10*3/uL 1.8-7.7 [facility] Neutrophils/100 WBC Auto (Bl d)Ordered By: Salvador Hernandez on 01-19-2023 Neutrophils/100 WBC (Bld) 63.5 % . [facility] No Panel InformationOrdered By: Salvador Hernandez on 01-19-2023 Estimated GFR (CKD-EPI) > 60.0 mL/Min [facility] Creatinine Clearance (Chem N/A [facility] Nucleated erythrocytes [Pres ence] in Blood by Automated countOrdered By: Salvador Hernandez on 01-19-2023 Nucleated RBC Auto Ql (Bld) 0.1 /100{WBC} 0-0.5 [facility] Platelet mean volume Auto (B ld) [Entitic vol]Ordered By: Salvador Hernandez on 01-19-2023 Platelet mean volume (Bld) [Entitic vol] 9.9 fL 6.3-10.7 [facility] Platelets Auto (Bld) [#/Vol] Ordered By: Salvador Hernandez on 01-19-2023 Platelets (Bld) [#/Vol] 202 10*3/uL 150-450 [facility] Potassium [Moles/volume] in Serum or PlasmaOrdered By: Salvador Hernandez on 01-19-2023 Potassium [Moles/Vol] 4.1 mmol/L 3.5-5.1 [facility] Protein [Mass/volume] in Ser um or PlasmaOrdered By: Salvador Hernandez on 01-19-2023 Protein [Mass/Vol] 6.0 g/dL 6.4-8.9 [facility] RBC Auto (Bld) [#/Vol]Ordere d By: Salvador Hernandez on 01-19-2023 RBC (Bld) [#/Vol] 4.30 10*6/uL 3.60-5.00 [facility] Serum or plasma albumin/glob ulin mass ratioOrdered By: Salvador Hernandez on 01-19-2023 Albumin/Globulin [Mass ratio] 1.9 {ratio} [facility] Serum or plasma anion gap de terminationOrdered By: Salvador Hernandez on 01-19-2023 Anion gap [Moles/Vol] 9.5 mmol/L 6.0-15.0 [facility] Serum or plasma high density lipoprotein (HDL) cholesterol measurementOrdered By: Salvador Hernandez on 01-19-2023 Cholesterol in HDL [Mass/Vol] 62 mg/dL 23-92 [facility] Comment on above: HDL CHOL ATP-III CLA SSIFICATION Cardiovascular RiskHDL > or equal to 60 mg/dL LOWHDL < 40 mg/dL HIGH Serum or plasma total choles terol/high density lipoprotein (HDL) cholesterol mass ratOrdered By: Salvador Hernandez on 01-19-2023 Cholesterol.total/Frances sterol in HDL [Mass ratio] 3.1 {ratio} <5.0 [facility] Sodium [Moles/volume] in Ser um or PlasmaOrdered By: Salvador Hernandez on 01-19-2023 Sodium [Moles/Vol] 144 mmol/L 136-145 [facility] Thyroid Stimulating Hormoneo n 01-19-2023 TSH Qn 1.44 m[IU]/L Normal 0.45-5.33 [facility] Comment on above: Result Comment: PERF ORMED BY: [facility] [address] [place] [address] PATHOLOGIST BEEF GRINDER JAEL REED M.D. Performed By: #### E SR, CRP, CBC #### [facility] [address] #### QUANT TB, ROSA SERUM, SPE #### [facility] , Thyrotropin [Units/volume] i n Serum or PlasmaOrdered By: Salvador Hernandez on 01-19-2023 TSH Qn 1.44 m[IU]/L 0.45-5.33 [facility] Thyroxine (T4) free [Mass/vo lume] in Serum or PlasmaOrdered By: Salvador Hernandez on 01-19-2023 Free T4 [Mass/Vol] 0.95 ng/dL 0.61-1.12 [facility] Triglyceride [Mass/volume] i n Serum or PlasmaOrdered By: Salvador Hernandez on 01-19-2023 Triglyceride [Mass/Vol] 103 mg/dL 0-149 [facility] Comment on above: TRIG ATP III CLASSIF ICATIONTRIG less than 150 mg/dL NormalTRIG 150-199 mg/dL Borderline highTRIG 200-500 mg/dL High TRIG greater than 500 mg/dL Very highStandard traceable to the Center for Disease Conrtrol and Prevention (CDC) test method. Urea nitrogen [Mass/volume] in Serum or PlasmaOrdered By: Salvador Hernandez on 01-19-2023 Urea nitrogen [Mass/Vol] 10 mg/dL 7-25 [facility] WBC Auto (Bld) [#/Vol]Ordere d By: Salvador Hernandez on 01-19-2023 WBC (Bld) [#/Vol] 5.6 10*3/uL 3.8-11.6 [facility] Basophils Auto (Bld) [#/Vol] Ordered By: Chanelle Cho on 10-07-2022 Basophils (Bld) [#/Vol] 0.0 10*3/uL 0.0-0.2 [facility] Basophils/100 WBC Auto (Bld) Ordered By: Chanelle Cho on 10-07-2022 Basophils/100 WBC (Bld) 0.4 % . [facility] C reactive protein [Mass/vol ume] in Serum or PlasmaOrdered By: Chanelle Cho on 10-07-2022 CRP [Mass/Vol] 3.1 mg/dL 0.0-0.5 [facility] C-Reactive Proteinon 023 C-Reactive Protein 3.1 mg/dL High 0.0-0.5 [facility] Comment on above: Result Comment: PERF ORMED BY: [place] [address] PATHOLOGIST BEEF GRINDER JAEL REED M.D. Performed By: #### E SR, CRP, CBC #### [address] #### QUANT TB, ROSA SERUM, SPE #### [facility] , Complete Blood Count Auto Di ffon 10-07-2022 Basophils (Bld) [#/Vol] 0.0 10*3/uL Normal 0.0-0.2 [facility] Comment on above: Performed By: #### E SR, CRP, CBC #### [address] #### QUANT TB, ROSA SERUM, SPE #### [facility] , Basophils/100 WBC (Bld) 0.4 % Normal . [facility] Comment on above: Performed By: #### E SR, CRP, CBC #### [address] #### QUANT TB, ROSA SERUM, SPE #### [facility] , Eosinophils (Bld) [#/Vol] 0.1 10*3/uL Normal 0.0-0.45 [facility] Comment on above: Performed By: #### E SR, CRP, CBC #### [place] [address] [place] #### QUANT TB, ORSA SERUM, SPE #### [facility] , Eosinophils/100 WBC (Bld) 2.2 % Normal . [facility] Comment on above: Performed By: #### E SR, CRP, CBC #### [address] #### QUANT TB, ROSA SERUM, SPE #### [facility] , Erythrocyte distribution width (RBC) [Ratio] 13.9 % Normal 11.9-15.3 [facility] Comment on above: Performed By: #### E SR, CRP, CBC #### [place] [address] [place] #### QUANT TB, ROSA SERUM, SPE #### [facility] , Hematocrit (Bld) [Volume fraction] 41.8 % Normal 34.0-46.4 [facility] Comment on above: Performed By: #### E SR, CRP, CBC #### [address] #### QUANT TB, ROSA SERUM, SPE #### [facility] , Hemoglobin (Bld) [Mass/Vol] 14.1 g/dL Normal 11.8-15.4 [facility] Comment on above: Performed By: #### E SR, CRP, CBC #### [address] #### QUANT TB, ROSA SERUM, SPE #### [facility] , Lymphocytes (Bld) [#/Vol] 1.5 10*3/uL Normal 1.00-4.8 [facility] Comment on above: Performed By: #### E SR, CRP, CBC #### [place] [address] [place] #### QUANT TB, ROSA SERUM, SPE #### [facility] , Lymphocytes/100 WBC (Bld) 24.2 % Normal . [facility] Comment on above: Performed By: #### E SR, CRP, CBC #### [address] #### QUANT TB, ROSA SERUM, SPE #### [facility] , MCH (RBC) [Entitic mass] 31.1 pg Normal 24.7-34.3 [facility] Comment on above: Performed By: #### E SR, CRP, CBC #### [address] #### QUANT TB, ROSA SERUM, SPE #### [facility] , MCV (RBC) [Entitic vol] 92.2 fL Normal 80-100 [facility] Comment on above: Performed By: #### E SR, CRP, CBC #### [address] #### QUANT TB, ROSA SERUM, SPE #### [facility] , Mean Corpuscular HGB Conc 33.7 g/dL Normal 32.0-35.0 [facility] Comment on above: Performed By: #### E SR, CRP, CBC #### [address] #### QUANT TB, ROSA SERUM, SPE #### [facility] , Monocytes (Bld) [#/Vol] 0.7 10*3/uL Normal 0.0-0.8 [facility] Comment on above: Performed By: #### E SR, CRP, CBC #### [place] [address] [place] #### QUANT TB, ROSA SERUM, SPE #### [facility] , Monocytes/100 WBC (Bld) 11.7 % Normal . [facility] Comment on above: Performed By: #### E SR, CRP, CBC #### [place] [address] [place] #### QUANT TB, ROSA SERUM, SPE #### [facility] , Neutrophils (Bld) [#/Vol] 3.8 10*3/uL Normal 1.8-7.7 [facility] Comment on above: Performed By: #### E SR, CRP, CBC #### [place] [address] [place] #### QUANT TB, ROSA SERUM, SPE #### [facility] , Neutrophils/100 WBC (Bld) 61.5 % Normal . [facility] Comment on above: Performed By: #### E SR, CRP, CBC #### [address] #### QUANT TB, ROSA SERUM, SPE #### [facility] , NRBC% 0.2 /100{WBC} Normal 0-0.5 [facility] Comment on above: Performed By: #### E SR, CRP, CBC #### [address] #### QUANT TB, ROSA SERUM, SPE #### [facility] , Platelet mean volume (Bld) [Entitic vol] 9.5 fL Normal 6.3-10.7 [facility] Comment on above: Performed By: #### E SR, CRP, CBC #### [address] #### QUANT TB, ROSA SERUM, SPE #### [facility] , Platelets (Bld) [#/Vol] 250 10*3/uL Normal 150-450 [facility] Comment on above: Performed By: #### E SR, CRP, CBC #### [place] [address] [place] #### QUANT TB, ORSA SERUM, SPE #### [facility] , RBC (Bld) [#/Vol] 4.53 10*6/uL Normal 3.60-5.00 [facility] Comment on above: Performed By: #### E SR, CRP, CBC #### [place] [address] [place] #### QUANT TB, ROSA SERUM, SPE #### [facility] , WBC (Bld) [#/Vol] 6.1 10*3/uL Normal 3.8-11.6 [facility] Comment on above: Performed By: #### E SR, CRP, CBC #### [facility] [address] [place] [address] #### QUANT TB, ROSA SERUM, SPE #### [facility] , Eosinophils Auto (Bld) [#/Vo l]Ordered By: Chanelle Cho on 10-07-2022 Eosinophils (Bld) [#/Vol] 0.1 10*3/uL 0.0-0.45 [facility] Eosinophils/100 WBC Auto (Bl d)Ordered By: Chanelle Cho on 10-07-2022 Eosinophils/100 WBC (Bld) 2.2 % . [facility] Erythrocyte Sedimentation Ra kanika 10-07-2022 ESR (Bld) [Velocity] 26 mm/h Normal 0-29 [facility] Comment on above: Result Comment: PERF ORMED BY: [place] [address] PATHOLOGIST BEEF GRINDER JAEL REED M.D. Performed By: #### E SR, CRP, CBC #### [facility] [address] [place] [address] #### QUANT TB, ROSA SERUM, SPE #### [facility] , Erythrocyte distribution wid th Auto (RBC) [Ratio]Ordered By: Chanelle Cho on 10-07-2022 Erythrocyte distribution width (RBC) [Ratio] 13.9 % 11.9-15.3 [facility] Erythrocyte sedimentation ra te by Photometric methodOrdered By: Chanelle Cho on 10-07-2022 ESR Photometric method (Bld) [Velocity] 26 mm/hr 0-29 [facility] Hematocrit Auto (Bld) [Volum e fraction]Ordered By: Chanelle Cho on 10-07-2022 Hematocrit (Bld) [Volume fraction] 41.8 % 34.0-46.4 [facility] Hemoglobin [Mass/volume] in BloodOrdered By: Chanelle Cho on 10-07-2022 Hemoglobin (Bld) [Mass/Vol] 14.1 g/dL 11.8-15.4 [facility] Immunofixation,Serumon 10-07 Immunofixation, Serum Normal . [facility] Comment on above: Result Comment: No m onoclonality detected. Performed By: #### E SR, CRP, CBC #### [facility] [address] [place] [address] [place] #### QUANT TB, ROSA SERUM, SPE #### [facility] , Immunoglobulin A, Serum 293 mg/dL Normal 64-422 [facility] Comment on above: Performed By: #### E SR, CRP, CBC #### [facility] [address] [place] [address] [place] #### QUANT TB, ROSA SERUM, SPE #### [facility] , Immunoglobulin G 671 mg/dL Normal 586-1602 [facility] Comment on above: Performed By: #### E SR, CRP, CBC #### [facility] [address] [place] [address] [place] #### QUANT TB, ROSA SERUM, SPE #### [facility] , Immunoglobulin M, Serum 82 mg/dL Normal 26-217 [facility] Comment on above: Result Comment: Perf ormed at: - [facility] [place] [id number] Purchasing Coordinator: Nish Russell PhD, Phone: [phone] Performed By: #### E SR, CRP, CBC #### [facility] [address] [place] [address] [place] #### QUANT TB, ROSA SERUM, SPE #### [facility] , Leukocytes [#/volume] correc maurice for nucleated erythrocytes in Blood by Automated counOrdered By: Chanelle Cho on 10-07-2022 WBC corrected for nucl RBC Auto (Bld) [#/Vol] 6.1 10*3/uL 3.8-11.6 [facility] Lymphocytes Auto (Bld) [#/Vo l]Ordered By: Chanelle Cho on 10-07-2022 Lymphocytes (Bld) [#/Vol] 1.5 10*3/uL 1.00-4.8 [facility] Lymphocytes/100 WBC Auto (Bl d)Ordered By: Chanelle Cho on 10-07-2022 Lymphocytes/100 WBC (Bld) 24.2 % . [facility] MCH Auto (RBC) [Entitic mass ]Ordered By: Chanelle Cho on 10-07-2022 MCH (RBC) [Entitic mass] 31.1 pg 24.7-34.3 [facility] MCHC Auto (RBC) [Mass/Vol]Or dered By: Chanelle Cho on 10-07-2022 MCHC (RBC) [Mass/Vol] 33.7 g/dL 32.0-35.0 [facility] MCV Auto (RBC) [Entitic vol] Ordered By: Chanelle Cho on 10-07-2022 MCV (RBC) [Entitic vol] 92.2 fL 80-100 [facility] Monocytes Auto (Bld) [#/Vol] Ordered By: Chanelle Cho on 10-07-2022 Monocytes (Bld) [#/Vol] 0.7 10*3/uL 0.0-0.8 [facility] Monocytes/100 WBC Auto (Bld) Ordered By: hCanelle Cho on 10-07-2022 Monocytes/100 WBC (Bld) 11.7 % . [facility] Neutrophils Auto (Bld) [#/Vo l]Ordered By: Chanelle Cho on 10-07-2022 Neutrophils (Bld) [#/Vol] 3.8 10*3/uL 1.8-7.7 [facility] Neutrophils/100 WBC Auto (Bl d)Ordered By: Chanelle Cho on 10-07-2022 Neutrophils/100 WBC (Bld) 61.5 % . [facility] Nucleated erythrocytes [Pres ence] in Blood by Automated countOrdered By: Chanelle Cho on 10-07-2022 Nucleated RBC Auto Ql (Bld) 0.2 /100{WBC} 0-0.5 [facility] Platelet mean volume Auto (B ld) [Entitic vol]Ordered By: Chanelle Cho on 10-07-2022 Platelet mean volume (Bld) [Entitic vol] 9.5 fL 6.3-10.7 [facility] Platelets Auto (Bld) [#/Vol] Ordered By: Chanelle Cho on 10-07-2022 Platelets (Bld) [#/Vol] 250 10*3/uL 150-450 [facility] Protein Electrophoresis, Ser umon 10-07-2022 Albumin [Mass/Vol] 3.9 g/dL Normal 2.9-4.4 [facility] Comment on above: Performed By: #### E SR, CRP, CBC #### [address] #### QUANT TB, ROSA SERUM, SPE #### [facility] , Albumin/Globulin [Mass ratio] 1.4 {ratio} Normal 0.7-1.7 [facility] Comment on above: Performed By: #### E SR, CRP, CBC #### [facility] [address] [place] [address] [place] #### QUANT TB, ROSA SERUM, SPE #### [facility] , Ueqpo-1-Kswojsjs 0.3 g/dL Normal 0.0-0.4 [facility] Comment on above: Performed By: #### E SR, CRP, CBC #### [facility] [address] [place] [address] [place] #### QUANT TB, ROSA SERUM, SPE #### [facility] , Qxdmz-3-Pxrtxmll 0.9 g/dL Normal 0.4-1.0 [facility] Comment on above: Performed By: #### E SR, CRP, CBC #### [place] [address] [place] #### QUANT TB, ROSA SERUM, SPE #### [facility] , Beta Globulin 1.0 g/dL Normal 0.7-1.3 [facility] Comment on above: Performed By: #### E SR, CRP, CBC #### [address] #### QUANT TB, ROSA SERUM, SPE #### [facility] , Gamma Globulin 0.6 g/dL Normal 0.4-1.8 [facility] Comment on above: Performed By: #### E SR, CRP, CBC #### [address] #### QUANT TB, ROSA SERUM, SPE #### [facility] , Globulin (S) [Mass/Vol] 2.8 g/dL Normal 2.2-3.9 [facility] Comment on above: Performed By: #### E SR, CRP, CBC #### [address] #### QUANT TB, ROSA SERUM, SPE #### [facility] , M-Kvng Not Observed Normal Not Observed [facility] Comment on above: Performed By: #### E SR, CRP, CBC #### [address] #### QUANT TB, ROSA SERUM, SPE #### [facility] , Protein [Mass/Vol] 6.7 g/dL Normal 6.0-8.5 [facility] Comment on above: Performed By: #### E SR, CRP, CBC #### [address] #### QUANT TB, ROSA SERUM, SPE #### [facility] , SPE-Note Normal . [facility] Comment on above: Result Comment: Prot ein electrophoresis scan will follow via computer, mail, or grinder carbon plant delivery. PERFORMED BY: [place] [address] PATHOLOGIST BEEF GRINDER JIANLAN SUN M.D. Performed By: #### E SR, CRP, CBC #### [facility] [address] [place] [address] [place] #### QUANT TB, ROSA SERUM, SPE #### [facility] , QuantiFERON TB Goldon 2022 QFTB Criteria Normal . [facility] Comment on above: Result Comment: Onel tiFERON-TB Gold Plus is a qualitative indirect test for M tuberculosis infection (including disease) and is intended for use in conjunction with risk assessment, radiography, and other medical and diagnostic evaluations. The QuantiFERON-TB Gold Plus result is determined by subtracting the Nil value from either TB antigen (Ag) value. The Mitogen tube serves as a control for the test. Performed By: #### E SR, CRP, CBC #### [place] [address] [place] #### QUANT TB, ROSA SERUM, SPE #### [facility] , Quant TB Ag Value 0.09 Normal . [facility] Comment on above: Performed By: #### E SR, CRP, CBC #### [place] [address] [place] #### QUANT TB, ROSA SERUM, SPE #### [facility] , Quant TB Gold Plus Negative Normal Negative [facility] Comment on above: Result Comment: No r esponse to M tuberculosis antigens detected. Infection with M tuberculosis is unlikely, but high risk individuals should be considered for additional testing (ATS/IDSA/CDC Clinical Practice Guidelines, 2017). The reference range is an Antigen minus Nil result of <0.35 IU/mL. The specimen received for QuantiFERON testing was incubated by the ordering institution. Specific procedures outlined in our Directory of Services and in the package insert for the QuantiFERON Gold (In Tube) test must be followed to enable for proper stimulation of cells for the production of interferon gamma. Chemiluminescence immunoassay methodology Performed at: [facility] [address] [id number] Purchasing Coordinator: Nish Russell PhD, Phone: [phone] PERFORMED BY: [address] [address] PATHOLOGIST BEEF GRINDER JAEL REED M.D. Performed By: #### E SR, CRP, CBC #### [place] [address] [place] #### QUANT TB, ROSA SERUM, SPE #### [facility] , Quant TB2 Ag Value 0.19 Normal . [facility] Comment on above: Performed By: #### E SR, CRP, CBC #### [place] [address] [place] #### QUANT TB, ROSA SERUM, SPE #### [facility] , Quantiferon Nil Value 0.[address] [facility] Comment on above: Performed By: #### E SR, CRP, CBC #### [place] [address] [place] #### QUANT TB, ROSA SERUM, SPE #### [facility] , Quantiferon TB Mitogen 3.[address] [facility] Comment on above: Performed By: #### E SR, CRP, CBC #### [facility] [address] [place] [address] [place] #### QUANT TB, ROSA SERUM, SPE #### [facility] , RBC Auto (Bld) [#/Vol]Ordere d By: Chanelle Cho on 10-07-2022 RBC (Bld) [#/Vol] 4.53 10*6/uL 3.60-5.00 [facility] WBC Auto (Bld) [#/Vol]Ordere d By: Chanelle Cho on 10-07-2022 WBC (Bld) [#/Vol] 6.1 10*3/uL 3.8-11.6 [facility] CBC AUTO DIFFon 09-29-2022 BASO # 0.0 103/ul Normal 0.0-0.1 [facility] Comment on above: Performed By: #### C BC #### [facility] [address] [place] [address] Dr. Quintin Kaur Basophils/100 WBC (Bld) 0.5 % Normal 0.2-2.0 [facility] Comment on above: Performed By: #### C BC #### [facility] [address] [place] [address] Dr. Quintin Kaur EO # 0.2 103/ul Normal 0.0-0.7 [facility] Comment on above: Performed By: #### C BC #### [facility] [address] [place] [address] Dr. Quintin Kaur Eosinophils/100 WBC (Bld) 3.2 % Normal 0.9-7.0 [facility] Comment on above: Performed By: #### C BC #### [facility] [address] [place] [address] Dr. Quintin Kaur Erythrocyte distribution width (RBC) [Ratio] 13.2 % Normal 11.0-15.0 [facility] Comment on above: Performed By: #### C BC #### [facility] [address] [place] [address] Dr. Quintin Kaur Hematocrit (Bld) [Volume fraction] 41.3 % Normal 36.0-48.0 [facility] Comment on above: Performed By: #### C BC #### [facility] [address] [place] [address] Dr. Quintin Kaur Hemoglobin (Bld) [Mass/Vol] 13.9 g/dL Normal 12.0-16.0 [facility] Comment on above: Performed By: #### C BC #### [facility] [address] [place] [address] Dr. Quintin Kaur IG # 0.02 10e3/ul Normal 0.00-0.03 [facility] Comment on above: Performed By: #### C BC #### [facility] [address] [place] [address] Dr. Quintin Kaur IG % 0.3 % Normal 0.0-0.5 [facility] Comment on above: Performed By: #### C BC #### [facility] [address] [place] [address] Dr. Quintin Kaur LYMPH # 1.0 103/ul Critically low 1.2-3.8 [facility] Comment on above: Performed By: #### C BC #### [facility] [address] [place] [address] Dr. Quintin Kaur Lymphocytes/100 WBC (Bld) 13.9 % Critically low 20.5-60.0 [facility] Comment on above: Performed By: #### C BC #### [facility] [address] [place] [address] Dr. Quintin Kaur MANUAL DIFF REQ NO Normal [facility] Comment on above: Performed By: #### C BC #### [facility] [address] [place] [address] Dr. Quintin Kaur MCH (RBC) [Entitic mass] 30.9 pg Normal 26.7-34.0 [facility] Comment on above: Performed By: #### C BC #### [facility] [address] [place] [address] Dr. Quintin Kaur MCHC (RBC) [Mass/Vol] 33.7 g/dL Normal 29.9-35.2 [facility] Comment on above: Performed By: #### C BC #### [facility] [address] [place] [address] Dr. Quintin Kaur MCV (RBC) [Entitic vol] 91.8 fL Normal 81.0-99.0 [facility] Comment on above: Performed By: #### C BC #### [facility] [address] [place] [address] Dr. Quintin Kaur MONO # 0.6 103/ul Normal 0.3-0.8 [facility] Comment on above: Performed By: #### C BC #### [facility] [address] [place] [address] Dr. Quintin Kaur Monocytes/100 WBC (Bld) 8.1 % Normal 1.7-12.0 [facility] Comment on above: Performed By: #### C BC #### [facility] [address] [place] [address] Dr. Quintin Kaur NEUT # 5.4 103/ul Normal 1.4-6.5 [facility] Comment on above: Performed By: #### C BC #### [facility] [address] [place] [address] Dr. Quintin Kaur Neutrophils/100 WBC (Bld) 74.0 % Normal 43.0-75.0 [facility] Comment on above: Performed By: #### C BC #### [facility] [address] [place] [address] Dr. Quintin Kaur Platelet mean volume (Bld) [Entitic vol] 10.7 fL Normal 9.5-13.5 [facility] Comment on above: Performed By: #### C BC #### [facility] [address] [place] [address] Dr. Quintin Kaur PLT 228 103/ul Normal 150-450 [facility] Comment on above: Performed By: #### C BC #### [facility] [address] [place] [address] Dr. Quintin Kaur RBC 4.50 106/ul Normal 4.20-5.40 [facility] Comment on above: Performed By: #### C BC #### [facility] [address] [place] [address] Dr. Quintin Kaur WBC 7.3 103/ul Normal 4.0-11.0 [facility] Comment on above: Performed By: #### C BC #### [facility] [address] [place] [address] Dr. Quintin Kaur CREATININEon 09-29-2022 Creatinine [Mass/Vol] 0.72 mg/dL Normal 0.55-1.02 [facility] Comment on above: Performed By: #### SERGEI WEAVER #### [facility] [address] [place] [address] Dr. Quintin Kaur EGFR-AF WELSH >60 Normal >=60 [facility] Comment on above: Performed By: #### SERGEI WEAVER #### [facility] [address] [place] [address] Dr. Quintin Kaur EGFR-NON AF WELSH >60 Normal >=60 [facility] Comment on above: Performed By: #### SERGEI WEAVER #### [facility] [address] [place] [address] Dr. Quintin Kaur LIVER PROFILEon 09-29-2022 Albumin [Mass/Vol] 3.7 g/dL Normal 3.4-5.0 [facility] Comment on above: Performed By: #### SERGEI WEAVER #### [facility] [address] [place] [address] Dr. Quintin Kaur Albumin/Globulin [Mass ratio] 1.0 {ratio} Normal [facility] Comment on above: Performed By: #### SERGEI WEAVER #### [facility] [address] [place] [address] Dr. Quintin Kaur ALP [Catalytic activity/Vol] 100 U/L Normal 46-116 [facility] Comment on above: Performed By: #### SERGEI WEAVER #### [facility] [address] [place] [address] Dr. Quintin Kaur ALT [Catalytic activity/Vol] 22 U/L Normal 14-59 [facility] Comment on above: Performed By: #### SERGEI WEAVER #### [facility] [address] [place] [address] Dr. Quintin Kaur AST [Catalytic activity/Vol] 12 U/L Critically low 15-37 [facility] Comment on above: Performed By: #### SERGEI WEAVER #### [facility] [address] [place] [address] Dr. Quintin Karu BILI, CONJUGATED 0.1 mg/dL Normal 0.0-0.2 [facility] Comment on above: Performed By: #### SERGEI WEAVER #### [facility] [address] [place] [address] Dr. Quintin Kaur Bilirubin [Mass/Vol] 0.3 mg/dL Normal 0.2-1.0 [facility] Comment on above: Performed By: #### SERGEI WEAVER #### [facility] [address] [place] [address] Dr. Quintin Kaur Globulin (S) [Mass/Vol] 3.6 g/dL Normal [facility] Comment on above: Performed By: #### Andrei HARDY CREA #### [facility] Laboratory [address] [place] [address] Dr. Quintin Kaur Protein [Mass/Vol] 7.3 g/dL Normal 6.4-8.2 [facility] Comment on above: Performed By: #### Andrei HARDY CREA #### [facility] [address] [place] [address] Dr. Quintin Kaur SED RATE WESTERGRENon 2022 SED RATE 10 mm/hr Normal <=30 [facility] Comment on above: Performed By: #### Andrei HARDY CREA #### [facility] [address] [place] [address] Dr. Quintin Kaur CBC AUTO DIFFon 06-02-2022 BASO # 0.0 103/ul Normal 0.0-0.1 [facility] Comment on above: Performed By: #### Andrei HARDY CREA #### [facility] [address] [place] [address] Dr. Quintin Kaur Basophils/100 WBC (Bld) 0.6 % Normal 0.2-2.0 [facility] Comment on above: Performed By: #### Andrei HARDY CREA #### [facility] [address] [place] [address] Dr. Quintin Kaur EO # 0.2 103/ul Normal 0.0-0.7 [facility] Comment on above: Performed By: #### L HAYLEY CREA #### [facility] [address] [place] [address] Dr. Quintin Kaur Eosinophils/100 WBC (Bld) 3.9 % Normal 0.9-7.0 [facility] Comment on above: Performed By: #### L HAYLEY CREA #### [facility] [address] [place] [address] Dr. Quintin Kaur Erythrocyte distribution width (RBC) [Ratio] 12.2 % Normal 11.0-15.0 [facility] Comment on above: Performed By: #### SERGEI WEAVER #### [facility] [address] [place] [address] Dr. Quintin Kaur Hematocrit (Bld) [Volume fraction] 40.8 % Normal 36.0-48.0 [facility] Comment on above: Performed By: #### SERGEI WEAVER #### [facility] [address] [place] [address] Dr. Quintin Kaur Hemoglobin (Bld) [Mass/Vol] 13.7 g/dL Normal 12.0-16.0 [facility] Comment on above: Performed By: #### SERGEI WEAVER #### [facility] [address] [place] [address] Dr. Quintin Kaur IG # 0.01 10e3/ul Normal 0.00-0.03 [facility] Comment on above: Performed By: #### SERGEI WEAVER #### [facility] [address] [place] [address] Dr. Quintin Kaur IG % 0.2 % Normal 0.0-0.5 [facility] Comment on above: Performed By: #### SERGEI WEAVER #### [facility] [address] [place] [address] Dr. Quintin Kaur LYMPH # 1.2 103/ul Normal 1.2-3.8 [facility] Comment on above: Performed By: #### SERGEI WEAVER #### [facility] [address] [place] [address] Dr. Quintin Kaur Lymphocytes/100 WBC (Bld) 25.2 % Normal 20.5-60.0 [facility] Comment on above: Performed By: #### SERGEI WEAVER #### [facility] [address] [place] [address] Dr. Quintin Kaur MANUAL DIFF REQ NO Normal [facility] Comment on above: Performed By: #### SERGEI WEAVER #### [facility] [address] [place] [address] Dr. Quintin Kaur MCH (RBC) [Entitic mass] 30.5 pg Normal 26.7-34.0 [facility] Comment on above: Performed By: #### SERGEI WEAVER #### [facility] [address] [place] [address] Dr. Quintin Kaur MCHC (RBC) [Mass/Vol] 33.6 g/dL Normal 29.9-35.2 [facility] Comment on above: Performed By: #### Andrei HARDY CREA #### [facility] [address] [place] [address] Dr. Quintin Kaur MCV (RBC) [Entitic vol] 90.9 fL Normal 81.0-99.0 [facility] Comment on above: Performed By: #### TREVON WEAVERA #### [facility] [address] [place] [address] Dr. Quintin Kaur MONO # 0.6 103/ul Normal 0.3-0.8 [facility] Comment on above: Performed By: #### TREVON WEAVERA #### [facility] [address] [place] [address] Dr. Quintin Kaur Monocytes/100 WBC (Bld) 12.3 % Critically high 1.7-12. 0 [facility] Comment on above: Performed By: #### TREVON WEAVERA #### [facility] [address] [place] [address] Dr. Quintin Kaur NEUT # 2.7 103/ul Normal 1.4-6.5 [facility] Comment on above: Performed By: #### Andrei HARDY CREA #### [facility] [address] [place] [address] Dr. Quintin Kaur Neutrophils/100 WBC (Bld) 57.8 % Normal 43.0-75.0 [facility] Comment on above: Performed By: #### TREVON WEAVERA #### [facility] [address] [place] [address] Dr. Quintin Kaur Platelet mean volume (Bld) [Entitic vol] 10.9 fL Normal 9.5-13.5 [facility] Comment on above: Performed By: #### L HAYLEY CREA #### [facility] [address] [place] [address] Dr. Quintin Kaur PLT 204 103/ul Normal 150-450 [facility] Comment on above: Performed By: #### L HAYLEY CREA #### [facility] [address] [place] [address] Dr. Quintin Kaur RBC 4.49 106/ul Normal 4.20-5.40 [facility] Comment on above: Performed By: #### L HAYLEY CREA #### [facility] [address] [place] [address] Dr. Quintin Kaur WBC 4.6 103/ul Normal 4.0-11.0 [facility] Comment on above: Performed By: #### L HAYLEY CREA #### [facility] [address] [place] [address] Dr. Quintin Kaur CREATININEon 06-02-2022 Creatinine [Mass/Vol] 0.66 mg/dL Normal 0.55-1.02 [facility] Comment on above: Performed By: #### Andrei HARDY CREA #### [facility] [address] [place] [address] Dr. Quintin Kaur EGFR-AF WELSH >60 Normal >=60 [facility] Comment on above: Performed By: #### Andrei HARDY CREA #### [facility] [address] [place] [address] Dr. Quintin Kaur EGFR-NON AF WELSH >60 Normal >=60 [facility] Comment on above: Performed By: #### L HAYLEY CREA #### [facility] [address] [place] [address] Dr. Quintin Kaur LIVER PROFILEon 06-02-2022 Albumin [Mass/Vol] 3.6 g/dL Normal 3.4-5.0 [facility] Comment on above: Performed By: #### L HAYLEY CREA #### [facility] [address] [place] [address] Dr. Quintin Kaur Albumin/Globulin [Mass ratio] 1.2 {ratio} Normal [facility] Comment on above: Performed By: #### L HAYLEY CREA #### [facility] [address] [address] [address] Quintin Kaur ALP [Catalytic activity/Vol] 92 U/L Normal 46-116 [facility] Comment on above: Performed By: #### L HAYLEY, CREA #### [facility] [address] [address] [address] Quintin Kaur ALT [Catalytic activity/Vol] 16 U/L Normal 14-59 [facility] Comment on above: Performed By: #### L HAYLEY CREA #### [facility] [address] [address] [address] Quintin Kaur AST [Catalytic activity/Vol] 17 U/L Normal 15-37 [facility] Comment on above: Performed By: #### L HAYLEY CREA #### [facility] [address] [place] [address] Dr. Quintin Kaur BILI, CONJUGATED 0.1 mg/dL Normal 0.0-0.2 [facility] Comment on above: Performed By: #### L HAYLEY CREA #### [facility] [address] [address] [address] Quintin Kaur Bilirubin [Mass/Vol] 0.4 mg/dL Normal 0.2-1.0 [facility] Comment on above: Performed By: #### L HAYLEY CREA #### [facility] [address] [address] [address] Quintin Kaur Globulin (S) [Mass/Vol] 3.1 g/dL Normal [facility] Comment on above: Performed By: #### L HAYLEY CREA #### [facility] [address] [address] [address] Quintin Kaur Protein [Mass/Vol] 6.7 g/dL Normal 6.4-8.2 [facility] Comment on above: Performed By: #### L HAYLEY CREA #### [facility] [address] [place] [address] Dr. Quintin Kaur SED [facility]on 2022 SED RATE 6 mm/hr Normal <=30 [facility] Comment on above: Performed By: #### S EDR #### [facility] [address] [place] [address] Dr. Quintin Kaur CBC AUTO DIFFon 12-12-2021 BASO # 0.0 103/ul Normal 0.0-0.1 [facility] Comment on above: Performed By: #### C BC #### [facility] [address] [place] [address] Dr. Quintin Kaur Basophils/100 WBC (Bld) 0.6 % Normal 0.2-2.0 [facility] Comment on above: Performed By: #### C BC #### [facility] [address] [place] [address] Dr. Quintin Kaur EO # 0.3 103/ul Normal 0.0-0.7 [facility] Comment on above: Performed By: #### C BC #### [facility] [address] [place] [address] Dr. Quintin Kaur Eosinophils/100 WBC (Bld) 5.3 % Normal 0.9-7.0 [facility] Comment on above: Performed By: #### C BC #### [facility] [address] [place] [address] Dr. Quintin Kaur Erythrocyte distribution width (RBC) [Ratio] 13.4 % Normal 11.0-15.0 [facility] Comment on above: Performed By: #### C BC #### [facility] [address] [place] [address] Dr. Quintin Kaur Hematocrit (Bld) [Volume fraction] 38.1 % Normal 36.0-48.0 [facility] Comment on above: Performed By: #### C BC #### [facility] [address] [place] [address] Dr. Quintin Kaur Hemoglobin (Bld) [Mass/Vol] 13.0 g/dL Normal 12.0-16.0 [facility] Comment on above: Performed By: #### C BC #### [facility] [address] [place] [address] Dr. Quintin Kaur IG # 0.01 10e3/ul Normal 0.00-0.03 [facility] Comment on above: Performed By: #### C BC #### [facility] [address] [place] [address] Dr. Quintin Kaur IG % 0.2 % Normal 0.0-0.5 [facility] Comment on above: Performed By: #### C BC #### [facility] [address] [place] [address] Dr. Quintin Kaur LYMPH # 1.0 103/ul Critically low 1.2-3.8 [facility] Comment on above: Performed By: #### C BC #### [facility] [address] [place] [address] Dr. Quintin Kaur Lymphocytes/100 WBC (Bld) 19.0 % Critically low 20.5-60.0 [facility] Comment on above: Performed By: #### C BC #### [facility] [address] [place] [address] Dr. Quintin Kaur MANUAL DIFF REQ NO Normal [facility] Comment on above: Performed By: #### C BC #### [facility] [address] [place] [address] Dr. Quintin Kaur MCH (RBC) [Entitic mass] 31.3 pg Normal 26.7-34.0 [facility] Comment on above: Performed By: #### C BC #### [facility] [address] [place] [address] Dr. Quintin Kaur MCHC (RBC) [Mass/Vol] 34.1 g/dL Normal 29.9-35.2 [facility] Comment on above: Performed By: #### C BC #### [facility] [address] [place] [address] Dr. Quintin Kaur MCV (RBC) [Entitic vol] 91.8 fL Normal 81.0-99.0 [facility] Comment on above: Performed By: #### C BC #### [facility] [address] [place] [address] Dr. Quintin Kaur MONO # 0.5 103/ul Normal 0.3-0.8 [facility] Comment on above: Performed By: #### C BC #### [facility] [address] [place] [address] Dr. Quintin Kaur Monocytes/100 WBC (Bld) 9.9 % Normal 1.7-12.0 [facility] Comment on above: Performed By: #### C BC #### [facility] [address] [place] [address] Dr. Quintin Kaur NEUT # 3.3 103/ul Normal 1.4-6.5 [facility] Comment on above: Performed By: #### C BC #### [facility] [address] [place] [address] Dr. Quintin Kaur Neutrophils/100 WBC (Bld) 65.0 % Normal 43.0-75.0 [facility] Comment on above: Performed By: #### C BC #### [facility] [address] [place] [address] Dr. Quintin Kaur Platelet mean volume (Bld) [Entitic vol] 10.7 fL Normal 9.5-13.5 [facility] Comment on above: Performed By: #### C BC #### [facility] [address] [place] [address] Dr. Quintin Kaur PLT 196 103/ul Normal 150-450 [facility] Comment on above: Performed By: #### C BC #### [facility] [address] [place] [address] Dr. Quintin Kaur RBC 4.15 106/ul Critically low 4.20-5.40 [facility] Comment on above: Performed By: #### C BC #### [facility] [address] [place] [address] Dr. Quintin Kaur WBC 5.1 103/ul Normal 4.0-11.0 [facility] Comment on above: Performed By: #### C BC #### [facility] [address] [place] [address] Dr. Quintin Kaur CREATININEon 12-12-2021 Creatinine [Mass/Vol] 0.85 mg/dL Normal 0.55-1.02 [facility] Comment on above: Performed By: #### L HAYLEY CREA #### [facility] [address] [place] [address] Dr. Quintin Kaur EGFR-AF WELSH >60 Normal >=60 [facility] Comment on above: Performed By: #### L HAYLEY CREA #### [facility] [address] [place] [address] Dr. Quintin Kaur EGFR-NON AF WELSH >60 Normal >=60 [facility] Comment on above: Performed By: #### Andrei HARDY CREA #### [facility] [address] [place] [address] Dr. Quintin Kaur LIVER PROFILEon 12-12-2021 Albumin [Mass/Vol] 3.7 g/dL Normal 3.4-5.0 [facility] Comment on above: Performed By: #### TREVON WEAVERA #### [facility] [address] [place] [address] Dr. Quintin Kaur Albumin/Globulin [Mass ratio] 1.4 {ratio} Normal [facility] Comment on above: Performed By: #### TREVON WEAVERA #### [facility] [address] [place] [address] Dr. Quintin Kaur ALP [Catalytic activity/Vol] 86 U/L Normal 46-116 [facility] Comment on above: Performed By: #### TREVON WEAVERA #### [facility] [address] [place] [address] Dr. Quintin Kaur ALT [Catalytic activity/Vol] 21 U/L Normal 14-59 [facility] Comment on above: Performed By: #### Andrei HARDY CREA #### [facility] [address] [place] [address] Dr. Quintin Kaur AST [Catalytic activity/Vol] 16 U/L Normal 15-37 [facility] Comment on above: Performed By: #### L HAYLEY CREA #### [facility] [address] [place] [address] Dr. Quintin Kaur BILI, CONJUGATED 0.1 mg/dL Normal 0.0-0.2 [facility] Comment on above: Performed By: #### L SERGEI HARDY #### [facility] [address] [place] [address] Dr. Quintin Kaur Bilirubin [Mass/Vol] 0.4 mg/dL Normal 0.2-1.0 [facility] Comment on above: Performed By: #### L SERGEI HARDY #### [facility] [address] [place] [address] Dr. Quintin Kaur Globulin (S) [Mass/Vol] 2.7 g/dL Normal [facility] Comment on above: Performed By: #### L SERGEI HARDY #### [facility] [address] [place] [address] Dr. Quintin Kaur Protein [Mass/Vol] 6.4 g/dL Normal 6.4-8.2 [facility] Comment on above: Performed By: #### L SERGEI HARDY #### [facility] [address] [place] [address] Dr. Quintin Kaur SED RATE [facility] 2021 SED RATE 3 mm/hr Normal <=30 [facility] Comment on above: Performed By: #### S EDR #### [facility] [address] [place] [address] Dr. Quintin Lorenz 04-09-2017 [facility] [place] CAMPBELL ([id number]) 1945 [facility] Time Provider Bicsrtsdtb15/10/17 NANCY GOODWIN [facility] During your visit today, we recorded the following information about you:Nancy Goodwin MD 04/09/2017 3:39 PM SignedLeft on home phone.ACTH stimulation test for adrenal function was normal. This means patient doesnot need prednisone for adrenal, but she may need it for her rheumatoidarthritis as per her doctor's directions.Please send ACTH stimulation lab result from 04/07/2017 toReferring Physician: Chanelle Cho MD ([facility])[address] [place] [address]Ytshw Obey Gonzales 04/09/2017 4:29 PM SignedOffice note and ACTH stimulation test results faxed to Dr. Chanelle Cho'soffice at [phone].Confirmatio n received.Leah Ornelas R.N.Allergies As of Date: 04/09/2017(No Known Allergies)Date Reviewed: 04/07/2017Reviewed by: Mario Rolon Ma - Fully AssessedReason for Visit: Results [95]Prescriptions as of 04/09/2017 Sig: OMEPRAZOLE 40 MG CAPSULE,ANN* Take 1 capsule by mouth once * COSYNTROPIN 0.25 MG SOLUTION * Inject 0.25 mg once * FOLIC ACID 1 MG TABLET Take 1 mg by mouth once daily. * PREDNISONE 5 MG TABLET Take 5 mg by mouth once daily. * METHOTREXATE SODIUM 2.5 MG TA* Take 7.5 mg by mouth once eac*Problem List As Of Date: 04/09/2017(None)[facility] r Number: [id number] Status:Closed by NANCY GOODWIN MD on 04/09/17 Normal [facility] ACTH Stim 3 Time Ptson 04-07 .Cortisol,Basal LK USE ONLY 10.5 ug/dL Normal [facility] Comment on above: Result Comment: Lonnie isol Reference Range: AM = 5.3-22.5, PM = 3.4-16.8 Performed By: #### A CTHST ####[facility] [address], [place] [phone] Cortisol, 30 min 19.8 ug/dL Normal [facility] Comment on above: Performed By: #### A CTHST ####[facility] [address], [place] [phone] Cortisol, 60 min 25.8 ug/dL Normal [facility] Comment on above: Performed By: #### A CTHST ####[facility] [address] [place], [place] [phone] Interpretation A peak value of at l east 18 ug/dL is a normal response to cortrosyn stimulation. Normal [facility] Comment on above: Performed By: #### A CTHST ####[facility] [address] [place], [place] [phone] CNOVon 04-07-2017 CNOV Office Visit ([facility]) [place] CAMPBELL ([id number]) 1945 [facility] Cbgyryojgb52/8/17 2:45 PM NANCY GOODWIN [facility] During your visit today, we recorded the following information about you: Pulse Blood pressure Weight Height 67/minute 104/67 76.1 kg 1.676 Cresencio Goodwin MD 04/07/2017 3:36 PM SignedReason for Consultation: Secondary adrenal insufficiencyReferring Physician: Chanelle Cho MD ([facility])[address] [place] [phone] final recommendations will be communicated back to the requesting physicianby way of shared Medical record or letter via US mail.Date: April 07, 2017HISTORY OF PRESENT ILLNESS;Ms. Campbell is a 71 year old female presenting as a new patient to me regardingassessment of adrenal insufficiency. She reports a longstanding history ofprogressive rheumatoid arthritis. She was treated with Humira and is now onRituxan infusions every 6 months in addition to methotrexate 7.5 mg per weekand folic acid. The patient takes Ca/D supplement once daily. She isfollowing with lead medical technologist Dr. Chanelle Cho in [place]. She has been onprednisone for 25 years. Her maintenance prednisone dose is 5 mg daily, butshe has not taken it in 2 weeks at the direction of her doctor. She is to useprednisone if needed. She triples dose of prednisone about 6 times per yearfor RA flare, last 2 months ago. The patient was briefly treated with Fosamax1.5 years ago for a couple of months but had GI upset on bisphosphonate. Shesuffered a right ankle fracture 3-4 years ago treated with a cast but deniesprior vertebral or hip fracture. She has no hx of HTN, HPL, or DM. She isfeeling fatigued and weak without lightheadedness or dizziness. She deniesnausea, emesis or abdominal pain. She admits decreased appetite. She feelsmuch better (in her words normal) on prednisone.ANDquot; She lost 5 lbs in last2 months. She has easy bruising of the skin.BP 104/67 Pulse 67 Ht 167.6 cm (5' 6ANDquot;) Wt 76.1 kg (167 lb 12.8 oz) BMI 27.08 kg/m9Aqwnaisv, modifying factors, context and associated signs and symptoms are asfollows:? Hypertension: no? Palpitations: no? Diaphoresis: no? Headache: no? Pallor: no? Tremor: no? Proximal Muscle Weakness: yes: proximal left thigh? Thin Skin: yes: hands? [place]ushing: no? Hirsutism: noOverall, patient has complains of fatigue.PAST MEDICAL HISTORYDiagnosis Date- Rheumatoid arthritis- Steroid long-term usePAST SURGICAL HISTORYProcedure Laterality Date- CATARACT EXTRACTION HX Bilateral 09/2016- PAST SURGICAL HISTORY OF 1967, 1969 parotid tumor excision- TOTAL ABDOM HYSTERECTOMY Hysterectomy, TAHFAMILY HISTORYProblem Relation Age of Onset- Cancer Mother lymphoma- Heart Father MISocial History Marital status: Spouse name: Years of education: Number of children:Social History Main Topics Smoking status: Never Smoker Smokeless status: Never Used Alcohol use: No Drug use: NoCurrent Outpatient Prescriptions:folic acid 1 mg ORAL tablet Take 1 mg by mouth once daily. Disp: Rfl:predniSONE 5 mg ORAL tablet Take 5 mg by mouth once daily. Disp: Rfl:Methotrexate Sodium (METHOTREXATE, ANTI-RHEUMATIC,) 2.5 mg ORAL tablet Take 7.5mg by mouth once each week. Disp: Rfl:gabapentin (NEURONTIN) 300 mg ORAL capsule Take by mouth. 1 cap qhs x 3 daysthen bid x 3 days thereafter 2 caps qhs, 1 cap q am Disp: 90 capsule Rfl: 1acetaminophen-codeine (TYLENOL-CODEINE #3) 300-30 mg per tablet Take 1 tabletby mouth every 6 hours as needed. Disp: 40 tablet Rfl: 0No current facility-administered medications for this visit.Allergies As of Date: 04/07/2017(No Known Allergies)Fully Assessed 04/07/2017REVIEW OF SYSTEMS:General: no fever, chills. Lost 5 lbs in past 2 months.Skin: no rashes, pruritus or dry skinEyes: no blurred or double vision or eye painCardiac: denies chest pain, heart palpitations or orthopneaResp: denies wheezing, productive cough or exertional dyspneaHematologic: Negative for anemia, easy bleeding but reports easy bruising.Genitourinary: denies nocturia,polyuriaOther systems were reviewed per HPI.PHYSICAL EXAM:BP 104/67 Pulse 67 Ht 167.6 cm (5' 6ANDquot;) Wt 76.1 kg (167 lb 12.8 oz) BMI 27.08 kg/g0Lrzdngi: Well appearing, alert, in no acute distress, well-hydrated, wellnourished.Skin: color, texture, turgor normal, no rashes or lesionsHead:normocephali c, no masses, lesions, tenderness or abnormalities.Eyes: Anicteric sclera. Pupils are equally round and reactive to light.Extraocular movements are intact.Oropharynx: Lips, mucosa, and tongue normal, teeth and gums normal, oropharynxnormalNeck: Supple, no adenopathy; thyroid symmetric, normal size, no bruitsHeart: RRR without murmur, gallop, or rubs. No ectopyLungs: CTABAbdomen: soft, non-tenderExtremities: no edema, no anterior tibial tenderness is present.DATA:No labs or imaging for review.ASSESSMENT:Ms. Campbell is a 71 year old female presenting as a new patient to me regardingadrenal function. The patient reports longstanding history of rheumatoidarthritis with long-term systemic steroid treatment. She should be presumed tohave secondary adrenal insufficiency. She has been off 5 mg of prednisone forover 2 weeks and reports fatigue, weight loss, decreased appetite, andweakness. Blood pressure is 104/67.RECOMMENDATIONS:? I will evaluate the patient with ACTH stimulation test today. 60 minutecortisol level should be above 18.? If the patient is found to have suboptimal response to ACTH steroids shouldbe resumed. Patient's body surface area is 1.88 meters squared. Physiologicalsteroid replacement would be 15 mg of hydrocortisone per day or 2.5-5 mg ofprednisone per day.? If adrenal insufficiency is confirmed, doubling or tripling steroid dose isadvised on ANDquot;sickANDquot; days (e.g. febrile illness)? Serum 25OHD levels should be checked and optimized to above 32 ng/mL. Agreewith calcium/D supplement at least once daily as patient is doing.? Bone density should be monitored and treatment of low bone density should beconsidered due to long-term systemic steroid exposure. As patient could nottolerate oral bisphosphonate, consider IV zoledronic acid yearly or denosumabtwice per yearReturn to clinic as neededLeslie Blanco MD 04/07/2017 3:17 PM SignedACTH stimulation test today.Consider taking 1/2 of your 5 mg prednisone tablet daily instead of none.Will call you with results.Return to clinic as needed.Referring Provider: CHANELLE CHO [[id number]]Allergies As of Date: 04/07/2017(No Known Allergies)Date Reviewed: 04/07/2017Reviewed by: Mario Rolon Ma - Fully AssessedReason for Visit: New Patient [172]Primary Visit Diagnosis:Secondary adrenal insufficiency (HCC) [E27.49]Order(s):Omepraz ole (PRILOSEC) 40 mg capsuleTake 1 capsule by mouth once daily.Disp: Rfl: 0 ACTH STIMULATION,3 TIME POINTS [SQACTHST] Order #: [id number] FUTURE cosyntropin (CORTROSYN) 0.25 mg injectionInject 0.25 mg onceDisp: 1 EachRfl: 0Prescriptions as of 04/07/2017 Sig: * FOLIC ACID 1 MG TABLET Take 1 mg by mouth once daily. * PREDNISONE 5 MG TABLET Take 5 mg by mouth once daily. * METHOTREXATE SODIUM 2.5 MG TA* Take 7.5 mg by mouth once eac* OMEPRAZOLE 40 MG CAPSULE,ANN* Take 1 capsule by mouth once * COSYNTROPIN 0.25 MG SOLUTION * Inject 0.25 mg onceProblem List As Of Date: 04/07/2017(None) Other instructions from your clinician: ACTH stimulation test today. Consider taking 1/2 of your 5 mg prednisone tablet daily instead of none. Will call you with results. Return to clinic as needed.Prescriptions ordered this encounter Disp Refills Start End OMEPRAZOLE 40 MG CAPSULE,DELAYED REL* 0 04/07/2017 Class: Med Update Route: ORAL Sig: Take 1 capsule by mouth once daily. COSYNTROPIN 0.25 MG SOLUTION FOR INJ* 1 Ea* 0 04/07/2017 Class: In Office Sig: Inject 0.25 mg onceMedications Discontinued During This Encounter acetaminophen-codeine (TYLENOL-CODEI* 40 t* 0 11/06/2011 04/07/2017 Class: Print RX Route: ORAL Sig: Take 1 tablet by mouth every 6 hours as needed. Disc: Reason for discontinue is not on file. gabapentin (NEURONTIN) 300 mg ORAL c* 90 c* 1 08/31/2011 04/07/2017 Class: Print RX Route: ORAL Sig: Take by mouth. 1 cap qhs x 3 days then bid x 3 days thereafter 2 caps qhs, 1 cap q am Disc: Reason for discontinue is not on file.Level of Service: NEW PATIENT VISIT LEVEL 4 [[id number]]Follow-up and Disposition History RecordedEncounter Number: [id number] Status:Closed by NANCY GOODWIN MD on 04/07/17 [facility] PROGRESSon 04-07-2017 PROGRESS HNO ID: [id number]: Nancy Prasadervice: (none)Author Type: PhysicianType: Progress NotesFiled: 04/07/2017 3:36 PMNote Text:Reason for Consultation: Secondary adrenal insufficiencyReferring Physician: Chanelle Cho MD ([facility])[address] [facility] [place] [address]Fd final recommendations will be communicated back to the requestingphysician by way of shared Medical record or letter via [place] mail.Date: April 07, 2017HISTORY OF PRESENT ILLNESS;Ms. Campbell is a 71 year old female presenting as a new patient to meregarding assessment of adrenal insufficiency. She reports a longstandinghistory of progressive rheumatoid arthritis. She was treated with Humiraand is now on Rituxan infusions every 6 months in addition to methotrexate7.5 mg per week and folic acid. The patient takes Ca/D supplement oncedaily. She is following with lead medical technologist Dr. Chanelle Falk. She has been on prednisone for 25 years. Her maintenanceprednisone dose is 5 mg daily, but she has not taken it in 2 weeks at thedirection of her doctor. She is to use prednisone if needed. She triplesdose of prednisone about 6 times per year for RA flare, last 2 months ago. The patient was briefly treated with Fosamax 1.5 years ago for a coupleof months but had GI upset on bisphosphonate. She suffered a right anklefracture 3-4 years ago treated with a cast but denies prior vertebral orhip fracture. She has no hx of HTN, HPL, or DM. She is feeling fatiguedand weak without lightheadedness or dizziness. She denies nausea, emesisor abdominal pain. She admits decreased appetite. She feels much better(in her words normal) on prednisone. She lost 5 lbs in last 2 months.She has easy bruising of the skin.BP 104/67 Pulse 67 Ht 167.6 cm (5' 6 ) Wt 76.1 kg (167 lb 12.8 oz) BMI 27.08 kg/e0Qtokeuhh, modifying factors, context and associated signs and symptoms areas follows:? Hypertension: no? Palpitations: no? Diaphoresis: no? Headache: no? Pallor: no? Tremor: no? Proximal Muscle Weakness: yes: proximal left thigh? Thin Skin: yes: hands? Flushing: no? Hirsutism: noOverall, patient has complains of fatigue.PAST MEDICAL HISTORYDiagnosis Date- Rheumatoid arthritis- Steroid long-term usePAST SURGICAL HISTORYProcedure Laterality Date- CATARACT EXTRACTION HX Bilateral 09/2016- PAST SURGICAL HISTORY OF 1967, 1969 parotid tumor excision- TOTAL ABDOM HYSTERECTOMY Hysterectomy, TAHFAMILY HISTORYProblem Relation Age of Onset- Cancer Mother lymphoma- Heart Father MISocial History Marital status: Spouse name: Years of education: Number of children:Social History Main Topics Smoking status: Never Smoker Smokeless status: Never Used Alcohol use: No Drug use: NoCurrent Outpatient Prescriptions:folic acid 1 mg ORAL tablet Take 1 mg by mouth once daily. Disp: Rfl:predniSONE 5 mg ORAL tablet Take 5 mg by mouth once daily. Disp: Rfl:Methotrexate Sodium (METHOTREXATE, ANTI-RHEUMATIC,) 2.5 mg ORAL tabletTake 7.5 mg by mouth once each week. Disp: Rfl:gabapentin (NEURONTIN) 300 mg ORAL capsule Take by mouth. 1 cap qhs x 3days then bid x 3 days thereafter 2 caps qhs, 1 cap q am Disp: 90 capsuleRfl: 1acetaminophen-codeine (TYLENOL-CODEINE #3) 300-30 mg per tablet Take 1tablet by mouth every 6 hours as needed. Disp: 40 tablet Rfl: 0No current facility-administered medications for this visit.Allergies As of Date: 04/07/2017(No Known Allergies)Fully Assessed 04/07/2017REVIEW OF SYSTEMS:General: no fever, chills. Lost 5 lbs in past 2 months.Skin: no rashes, pruritus or dry skinEyes: no blurred or double vision or eye painCardiac: denies chest pain, heart palpitations or orthopneaResp: denies wheezing, productive cough or exertional dyspneaHematologic: Negative for anemia, easy bleeding but reports easy bruising.Genitourinary: denies nocturia,polyuriaOther systems were reviewed per HPI.PHYSICAL EXAM:BP 104/67 Pulse 67 Ht 167.6 cm (5' 6 ) Wt 76.1 kg (167 lb 12.8 oz) BMI 27.08 kg/f6Zpwimif: Well appearing, alert, in no acute distress, well-hydrated, wellnourished.Skin: color, texture, turgor normal, no rashes or lesionsHead:normocephali c, no masses, lesions, tenderness or abnormalities.Eyes: Anicteric sclera. Pupils are equally round and reactive to light.Extraocular movements are intact.Oropharynx: Lips, mucosa, and tongue normal, teeth and gums normal,oropharynx normalNeck: Supple, no adenopathy; thyroid symmetric, normal size, no bruitsHeart: RRR without murmur, gallop, or rubs. No ectopyLungs: CTABAbdomen: soft, non-tenderExtremities: no edema, no anterior tibial tenderness is present.DATA:No labs or imaging for review.ASSESSMENT:Ms. Campbell is a 71 year old female presenting as a new patient to [facility] adrenal function. The patient reports longstanding history ofrheumatoid arthritis with long-term systemic steroid treatment. Sheshould be presumed to have secondary adrenal insufficiency. She has beenoff 5 mg of prednisone for over 2 weeks and reports fatigue, weight loss,decreased appetite, and weakness. Blood pressure is 104/67.RECOMMENDATIONS:? I will evaluate the patient with ACTH stimulation test today. 60 minutecortisol level should be above 18.? If the patient is found to have suboptimal response to ACTH steroidsshould be resumed. Patient's body surface area is 1.88 meters squared.Physiological steroid replacement would be 15 mg of hydrocortisone per dayor 2.5-5 mg of prednisone per day.? If adrenal insufficiency is confirmed, doubling or tripling steroid doseis advised on sick days (e.g. febrile illness)? Serum 25OHD levels should be checked and optimized to above 32 ng/mL.Agree with calcium/D supplement at least once daily as patient is doing.? Bone density should be monitored and treatment of low bone densityshould be considered due to long-term systemic steroid exposure. Aspatient could not tolerate oral bisphosphonate, consider IV zoledronicacid yearly or denosumab twice per yearReturn to clinic as neededNancy Goodwin MD Normal [facility] Vital Signs Date Time Vital Sign Value Performing Clinician Sullyi taz 03-23-2023 10:36-0400 Diastolic blood pressure 61 mm[Hg] MD Salvador Hernandez Work Phone: [facility] 03-23-2023 10:36-0400 Heart rate 69 /min MD Salvador Hernandez Work Phone: [facility] 03-23-2023 10:36-0400 Respiratory rate 16 /min MD Salvador Hernandez Work Phone: [facility] 03-23-2023 10:36-0400 SaO2% (BldA) [Mass fraction] 97 % MD Salvador Hernandez Work Phone: [facility] 03-23-2023 10:36-0400 Systolic blood pressure 110 mm[Hg] MD Salvador Hernandez Work Phone: [facility] 03-23-2023 09:17040 Body height 152.4 cm MD Salvador Hernandez Work Phone: [facility] 03-23-2023 09:17040 Body weight 63.5 kg MD Salvador Hernandez Work Phone: [facility] Encounters Encounter Date Encounter Type Care Provider Facility Start: 09-13-2023 End: 09-13-2023 ambulatory ALEKSANDR CLAIRE Not Available Start: 08-02-2023 End: 08-02-2023 ambulatory JOSE MELENDEZLOGAN Not Available Start: 07-06-2023 Chart abstracting Aleksandr Claire DPM Work Phone: [facility] Start: 07-06-2023 End: 07-06-2023 ambulatory ALEKSANDR CLAIRE Not Available Start: 03-23-2023 End: 03-23-2023 ambulatory Joe Anderson Facility:[facility] Start: 03-23-2023 End: 03-23-2023 Admission to same day surgery center MD Salvador Hernandez Work Phone: [facility] Work Phone: Start: 03-23-2023 End: 03-23-2023 ambulatory MD Salvador Hernandez Work Phone: [facility] Work Phone: Start: 01-19-2023 End: 01-19-2023 ambulatory Salvador Hernandez Facility:[facility] Start: 01-19-2023 End: 01-19-2023 ambulatory MD Salvador Hernandez Work Phone: [facility] Work Phone: Start: 01-19-2023 End: 01-19-2023 Patient encounter procedure MD Salvador Hernandez Work Phone: [facility] Start: 10-07-2022 End: 10-07-2022 ambulatory Chanelle Cho Facility:[facility] Start: 10-07-2022 End: 10-07-2022 ambulatory MD Salvador Hernandez Work Phone: [facility] Work Phone: Start: 10-07-2022 End: 10-07-2022 Patient encounter procedure MD Salvador Hernandez Work Phone: [facility] [address] Work Phone: Start: 09-29-2022 End: 09-30-[address] CHANELLE CHO Facility:[facility] Start: 06-02-2022 End: 06-03-[address] CHANELLE CHO Facility:[facility] Start: 01-01-[address] CHANELLE CHO [facility] ity:[facility] Start: 12-12-2021 End: 12-13-[address] CHANELLE CHO Facility:[facility] Start: 04-07-2017 End: 04-07-2017 Ambulatory NANCY GOODWIN [facility] Procedures Date Procedure Procedure Detail Performing Clinician Start: 03-23-2023 Screening colonoscopy Matt Hernandez Work Phone: Plan of Treatment Date Care Activity Detail Author Start: 07-06-2023 End: 07-06-2023 Patient encounter procedure 07/06/2023 11:00 AM EST Office Visit [facility] [address] [place] [address] Aleksandr Claire DPM [address] [place] [address] [facility] Start: 03-23-2023 [facility] Start: 10-07-2022 [facility] Albumin [Mass/volume ] in Serum or Plasma [facility] Albumin/Globulin ratio [facility] Electrophoresis: [id number] [facility] Electrophoresis: [id number] [facility] Electrophoresis: beta-globulin [facility] Electrophoresis: roberto ma globulin [facility] Globulin [Mass/volum e] in Serum [facility] IgA [Mass/volume] in Serum or Plasma [facility] IgG [Mass/volume] in Serum or Plasma [facility] IgM [Mass/volume] in Serum or Plasma [facility] Interferon gamma assay [facility] and[facility] Mycobacterium tuberculosis stimulated gamma interferon [Interpretation] in Blood Qualitative [facility] Mycobacterium tuberculosis stimulated gamma interferon release by CD4+ and CD8+ T-cells [Units/volume] corrected for background in Blood [facility] Mycobacterium tuberculosis tuberculin stimulated gamma interferon [Presence] in Blood [facility] Patient Education Hemorrhoids (D C) Diverticulosis (DC) [facility] Work Phone: Protein [Mass/volume ] in Serum or Plasma [facility] Serum immunofixation [facility] Payers Date Payer Category Payer Self-pay [id number] 2009 Medicare MEDICARE MEDICAR E RAILROAD [id number] 2009-Present [facility] RAIL[facility]AD MEDICARE [address] [address] [place] [address] Medicare [id number] 1959 Medicare [id number] 1959 Private Health Insurance [id number] 1959 Self-pay [id number] 1944 Unknown [id number] .593 1944 Unknown [id number] [id number] .59 1944 Unknown [id number] [id number] .593 1944 Unknown [id number] 2.16.840.1.098981.3.579.2 .593 1944 Unknown [id number] 2.16.840.1.230312.3.579.2 .1259 1944 Unknown [id number] 2.16.840.1.896538.3.579.2 .1259 1944 Unknown [id number] 2..[id number] .1259 Unknown [id number] 2.16.840.1.345991.3.579.2 .531 Unknown [id number] [id number] .531 Unknown [id number] 2..[id number] .531 Social History Date Type Detail Facility Start: 01-22-2021 End: 07-06-2023 Tobacco smoking status NHIS Never smoked tobacco (finding) [facility] Start: 1945 Sex Assigned At Female F [facility] Start: 07-06-2023 Tobacco use and exposure Smokeless tobacco non-user [facility] Start: 07-06-2023 Alcohol intake Lifetime non-d laure (finding) [facility] Start: 1945 Sex Assigned At Not on file [facility] Gender identity Not on file [facility] are Medical Equipment Procedure Code Equipment Code Equipment Origin al Text Equipment Identifier Dates ORIF, fracture, patella Orthopaedic bone screw, non-bioabsorbable, non-sterile ()[id number] FDA Start: 10-15-2020 ORIF, fracture, patella Orthopaedic bone screw, non-bioabsorbable, non-sterile ()[id number] FDA Start: 10-15-2020 ORIF, fracture, patella Orthopaedic bone screw, non-bioabsorbable, non-sterile ()[id number] FDA Start: 10-15-2020 ORIF, fracture, patella Orthopaedic bone wire ()[id number] FDA Start: 10-15-2020 Goals Date Patient Goal Desired Activity /State Procedure note 03-23-2023 Note Date & Type Note Facility 03-23-2023 Procedure note [facility] Evaluation note Note Date & Type Note Facility Evaluation note No assessment information availa ble [facility] Work Phone: Evaluation note Note Date & Type Note Facility Evaluation note Diagnosis Onset Date Heme + stool acute [facility] Work Phone: Hospital Discharge instructions Note Date & Type Note Facility Hospital Discharge instructions Additional Instructions DISCHARGE INSTRUCTIONS FOR ENDOSCOPY FOR COLONOSCOPY: -Expect a gassy or full feeling after a colonoscopy. Report any NEW abdominal pain or vomiting. -Watch for rectal bleeding. You may have oozing, but notify the doctor if you pass clots. -It is important to keep your appointments for follow up examinations because polyps can grow back. FOR SEDATION FOR 24 HOURS: -NO driving -Do NOT operate machinery such as power tools, lawn mowers, snow blowers, sewing machines, etc. -Avoid alcoholic beverages and drugs for allergies, nerves, or sleep. -Do NOT stay alone. Do NOT leave your child unattended. -Do NOT make important personal or business decisions or sign any legal documents. -Eat solid foods and drink liquids in smaller amounts than usual until normal appetite returns. If you should experience an upset stomach, liquids high in sugar content (soda, Franc-aid, non-acid juices) are recommended. -You can resume normal activities tomorrow. FOLLOW UP Please call the office and make a follow up appointment to see me as needed. No need for further screening colonoscopies -Notify the doctor if you have any problems. -Office number [phone] [facility] Work Phone: Summary Purpose Family History No Family History Records Found Relationship Condition Age at Onset Recorded Date/T soni grandparent Rheumatoid arthritis Unknown Not Specified Lymphoma Unknown father Myocardial infarction Unknown Relationship Condition Age at Onset Recorded Date/T soni grandparent Rheumatoid arthritis Unknown Not Specified Lymphoma Unknown father Myocardial infarction Unknown natural son Neoplasm of brain Unknown Advance Directives No Advanced Directives Records Found Advance Directive Response Recorded Date/ Time Advance Directives No January 10:20am Chief Complaint and Reason for Visit Chief Complaint I10 E78.0 Z13.296 Chief Complaint I10 E78.0 Z13.296 Screening Reason for Visit Heme + stool Additional Source Comments INFORMATION SOURCE (unrecogn ized section and content) DATE CREATED AUTHOR 11/23/2017 [facility] DATE CREATED AUTHOR AUTHOR'S ORGANIZ ATION 10/07/2022 [facility] DATE CREATED AUTHOR AUTHOR'S ORGANIZ ATION 03/24/2023 [facility] DATE CREATED AUTHOR AUTHOR'S ORGANIZ ATION 09/14/2023 [facility] EPIC Care Teams (unrecognized sec tion and content) Team Status: Active Member Role Status Dates Salvador Hernandez MD Primary Care Provider Active Team Status: Inactive Member Role Status Dates Salvador Hernandez MD Primary Care Provider Active Chanelle Cho MD Attending Provider Active Team Status: Inactive Member Role Status Dates Salvador Hernandez MD Primary Care Provider, Attending Jelani granados Active Team Status: Inactive Member Role Status Dates Salvador Hernandez MD Primary Care Provider Active Joe Anderson MD Attending Provider Active Goals (unrecognized section and content) Goals may be documented in a n alternate sectionGoals may be documented in an alternate section FOR RECORDS PERTAINING TO PATIENTS WHO ARE OR HAVE BEEN ENROLLED IN A CHEMICAL DEPENDENCY/SUBSTANCEABUSE PROGRAM, SOME INFORMATION MAY BE OMITTED. This clinical summary was aggregated from multiple sources. Caution should be exercised in using it in the provision of clinical care. This summary normalizes information from multiple sources, and as a consequence, information in this document may materially change the coding, format and clinical context of patient data. In addition, data may be omitted in some cases. CLINICAL DECISIONS SHOULD BE BASED ON THE PRIMARY CLINICAL RECORDS. [facility]. provides no warranty or guarantee of the accuracy or completeness of information in this document.
[2023-11-24 11:40] LABS: Basophils Percent Auto 0.8 % (0.2-2.0); Eosinophils Absolute Auto 0.2 10^3/uL (0.0-0.7); Hematocrit 36.8 % (36.0-48.0); Hemoglobin 12.5 g/dL (12.0-16.0); Lymphocytes Percent Auto 20.9 % (20.5-60.0); Mean Corpuscular Hemoglobin 31.8 pg (26.7-34.0); Mean Corpuscular Volume 93.6 fL (81.0-99.0); Monocytes Absolute Auto 0.6 10^3/uL (0.3-0.8); Monocytes Percent Auto 11.7 % (1.7-12.0); Neutrophils Percent Auto 62.6 % (43.0-75.0); Platelet Count 196 10^3/uL (150-450); Red Blood Count 3.93 10^6/uL (4.20-5.40); Red Cell Distribution Width 13.2 % (11.0-15.0); White Blood Count 4.8 10^3/uL (4.0-11.0)
[2023-11-24 12:02] LABS: Erythrocyte Sedimentation Rate 10 mm/hr (<=30)
[2023-11-24 12:10] LABS: Alanine Aminotransferase 19 U/L (14-59); Albumin Globulin Ratio 1.3; Albumin Level 3.6 g/dL (3.4-5.0); Alkaline Phosphatase 88 U/L (46-116); Aspartate Amino Transferase 18 U/L (15-37); Bilirubin Direct 0.1 mg/dL (0.0-0.2); Bilirubin Total 0.4 mg/dL (0.2-1.0); Estimated GFR (African America >60 (>=60); Estimated GFR (Non-African Ame >60 (>=60); Globulin 2.8 g/dL; Total Protein 6.4 g/dL (6.4-8.2)
== END 2023-11-24 11:13 | disposition home or self-care (01) ==
LOC: LAB 11:13
PROVIDERS: PCP Family Medicine; Visit Provider Internal Medicine Rheumatology
DX: M05.79 Rheumatoid arthritis with rheumatoid factor of multiple sites without organ or systems involvement (principal); Z79.899 Other long term (current) drug therapy
CPT/HCPCS: 36415; 80076; 82565; 85025; 85652

== ENCOUNTER 2024-01-14 12:55 | Outpatient (OUT) | payer MEDICARE, OTHER, SELFPAY ==
[2024-01-14 14:04] LABS: C Reactive Protein <0.50 mg/dL (<=0.50)
[2024-01-14 19:13] LABS: Erythrocyte Sedimentation Rate 10 mm/hr (<=30)
[2024-01-15 04:10] LABS: Immunoglobulin G, Qn 672 mg/dL (586-1602)
[2024-01-17 12:08] LABS: Albumin 3.7 g/dL (2.9-4.4); Alpha-1-Globulin 0.3 g/dL (0.0-0.4); Alpha-2-Globulin 0.6 g/dL (0.4-1.0); Gamma Globulin 0.7 g/dL (0.4-1.8); Protein, Total 6.2 g/dL (6.0-8.5)
== END 2024-01-14 12:56 | disposition home or self-care (01) ==
LOC: LAB 12:59
PROVIDERS: PCP Family Medicine; Visit Provider Internal Medicine Rheumatology
DX: M05.79 Rheumatoid arthritis with rheumatoid factor of multiple sites without organ or systems involvement (principal); Z79.899 Other long term (current) drug therapy
CPT/HCPCS: 36415; 82784; 84155; 84165; 85652; 86140

== ENCOUNTER 2024-03-27 08:58 | Outpatient (OUT) | payer MEDICARE, OTHER, SELFPAY ==
--- OUTSIDE RECORDS SUMMARY | 2024-03-27 09:22 | XMS_ITS | CCD ---
Author Organization [facility] Inform ion Partnership [facility] Care Team Providers Care Central Supply Manager Name Role Phone NANCY GOODWIN Unavailable Unavailable NANCY GOODWIN Unavailable Unavailable CHANELLE CHO Unavailable Unavailable BRENDA, DR ROCA Consulting Unavailable BRENDA, DR ROCA Admitting Unavailable DAVID, DR HENRY Primary Care Unavailable HALINDIANA, DR ROCA Attending Unavailable BRENDA, DR ROCA Admitting Unavailable BRENDA, DR ROCA Attending Unavailable DAVID, DR HENRY Referring Unavailable DAVID, DR HENRY Primary Care Unavailable HALADARamses, DR ROCA Consulting Unavailable BRENDA, DR ROCA Consulting Unavailable BRENDA, DR ROCA Admitting Unavailable DAVID, DR HENRY Primary Care Unavailable HALADARamses, DR ROCA Attending Unavailable BRENDA, DR ROCA Admitting Unavailable DAVID, DR HENRY Primary Care Unavailable BRENDA, DR ROCA Attending Unavailable MD Salvador Hernandez Primary Care Provider [phone] MD Chanelle Cho Attending Provider [phone] MD Salvador Hernandez Primary Care Provider [phone] MD Salvador Hernandez Attending Provider MD Joe Anderson Attending Provider Unavailable Primary Care Provider UnavailMD Salvador Ross Primary Care Provider [phone] MD Chanelle Cho Attending Provider MD Salvador Hernandez Attending Provider Joe Anderson Admitting UnavailJoe Dumas Attending UnavailSalvador Ross Primary Care Unavailable Chanelle Cho Admitting Unavailable Chanelle Cho Attending Unavailable Salvador Hernandez Primary Care Unavailable Salvador Hernandez Admitting Unavailable Salvador Hernandez Primary Care Unavailable Salvador Hernandez Attending Unavailable ALEKSANDR CLAIRE Attending Unavailable JOSE LEVINE Attending Unavailable ALEKSANDR CLAIRE Attending Unavailable ALEKSANDR CLAIRE Attending Unavailable ALEKSANDR CLAIRE Attending Unavailable David DENNIS, Salvador Churchill Primary Care Provider [phone] Medications Current Medications Medication Drug Class(es) Dates Sig (Normalized) Sig (Original) acetaminophen 325 mg / HYDROcodone bitartrate 5 mg oral tablet (7 sources) Opioid Agonist Start: 12-16-2022 take 0.5-1 tablets by mouth every four to six hours as needed for pain HYDROcodone-aceta minophen ([place]) 5-325 MG tablet TAKE 1/2 - 1 TABLET BY MOUTH EVERY 4 TO 6 HOURS NEEDED FOR PAIN 12/16/2022 Active Start: 10-15-2020 End: 03-23-2023 take 1 tablet by mouth every four hours Hydrocodone-Acetaminophen Discontinued 5 - 325 TAB PO Every 4 hours October 15, 2020 12:00am March 23, 2023 9:08am calcium carbonate 1500 mg / cholecalciferol 200 unt oral tablet (3 sources) Vitamin D Start: 03-23-2023 take 1 tablet by mouth once daily Calcium Carbonate-Vitamin D3 Active 1 TAB PO Daily March 23, 2023 12:00am ciprofloxacin 500 mg oral tablet (2 sources) Quinolone Antimicrobial Start: 12-16-2022 take 1 tablet by mouth in the morning ciprofloxacin (Cipro) 500 MG tablet Take 500 mg by mouth in the morning and 500 mg before bedtime. 12/16/2022 Active folic acid 1 mg oral tablet (7 sources) Start: 02-16-2017 take 1 mg by mouth once daily Folic Acid Active 1 MG PO Daily February 16, 2017 12:00am hydroxychloroquine sulfate 200 mg oral tablet (5 sources) Antimalarial, Antirheumatic Agent Start: 03-23-2023 take 1 tablet by mouth once daily Hydroxychloroquine (Plaquenil) 200 mg Tablet Active 200 MG PO Daily March 23, 2023 12:00am methotrexate 2.5 mg oral tablet (7 sources) Folate Analog Metabolic Inhibitor Start: 06-30-2023 methotrexate 2.5 MG tablet TAKE 7 TABS BY MOUTH EVERY WEEK, ONCE A WEEK, REMEBER YOUR STANDING LAB 06/30/2023 Active Start: 02-16-2017 take 20 mg by mouth every week Methotrexate Sodium Active 20 MG PO every week February 16, 2017 12:00am Start: 02-16-2017 take 17.5 mg by mout h every week Methotrexate Sodium Active 17.5 MG PO every week February 16, 2017 12:00am metroNIDAZOLE 500 mg oral tablet (2 sources) Nitroimidazole Antimicrobial Start: 12-16-2022 take 1 tablet by mouth in the morning metroNIDAZOLE (Flagyl) 500 MG tablet Take 500 mg by mouth in the morning and 500 mg before bedtime. 12/16/2022 Active pantoprazole 40 mg delayed release oral tablet (5 sources) Proton Pump Inhibitor Start: 03-23-2023 take 40 mg by mouth once daily Pantoprazole Active 40 MG PO Daily March 23, 2023 12:00am Completed/Discontinued Medications Medication Drug Class(es) Dates Sig (Normalized) Sig (Original) acetaminophen 500 mg oral tablet (5 sources) Start: 10-15-2020 End: 01-22-2021 take 2 tablets by mouth every eight hours Acetaminophen (Tylenol Extra Strength) 500 mg tablet Discontinued 1000 MG PO Every 8 hours 180 October 15, 2020 12:00am January 22, 2021 6:08am aspirin 81 mg delayed release oral tablet (5 sources) Platelet Aggregation Inhibitor, Nonsteroidal Anti-inflammatory Drug Start: 10-15-2020 End: 03-23-2023 take 81 mg by mouth twice daily Aspirin Discontinued 81 MG PO Twice daily 42 October 15, 2020 12:00am March 23, 2023 9:08am Iljbcbut-Zqa-Gf-Lyc open-Lutein (Centrum Silver) 0.4-300-250 mg-mcg-mcg Tablet (5 sources) Start: 02-16-2017 End: 07-19-2019 take 1 tablet by mouth once daily Vgiolann-Ste-Ra-Lyc open-Lutein (Centrum Silver) 0.4-300-250 mg-mcg-mcg Tablet Discontinued 1 TAB PO Daily February 16, 2017 12:00am July 19, 2019 9:51am naproxen sodium 220 mg oral capsule (5 sources) Nonsteroidal Anti-inflammatory Drug Start: 10-14-2020 End: 03-23-2023 take 1 capsule by mouth twice daily Naproxen Sodium (Aleve) 220 mg Capsule Discontinued 220 MG PO Twice daily October 14, 2020 12:00am October 24th, 2023 9:08am omeprazole 20 mg delayed release oral tablet (5 sources) Proton Pump Inhibitor Start: 02-16-2017 End: 07-19-2019 take 20 mg by mouth once daily Omeprazole Discontinued 20 MG PO Daily February 16, 2017 12:00am July 19, 2019 9:52am oxyCODONE hydrochloride 5 mg oral tablet (5 sources) Opioid Agonist Start: 10-15-2020 End: 01-22-2021 take 1 tablet by mouth every six hours Oxycodone (Roxicodone) 5 mg tablet Discontinued 5 MG PO Q6H 20 7 October 15, 2020 January 22, 2021 6:08am predniSONE 5 mg oral tablet (5 sources) Start: 02-16-2017 End: 03-23-2023 Prednisone Discontinued 5 MG PO As Directed February 16, 2017 12:00am March 23, 2023 9:08am Needed Problems Active Problems Problem Classification Problem Date Documented Da te Episodic/Chronic Disorders of lipid metabolism (1 source) Pure hypercholesterolemia , unspecified; Translations: [Pure hypercholesterolemia , unspecified] Onset: 01-18-2024 Chronic Fracture of lower limb (5 sources) Fracture of patella; Translations: [Unspecified fracture of unspecified patella, initial encounter for closed fracture] 10-15-2020 Episodic Mycoses (1 source) Onychomycosis; Translations: [Tinea unguium] 03-08-2024 Episodic Osteoporosis (1 source) Age-related osteoporosis without current pathological fracture; Translations: [Age-related osteoporosis without current pathological fracture] Onset: 01-14-2024 Chronic Other aftercare (1 source) Other longterm (current) drug therapy; Translations: [OTH [facility] CURRENT DRUG THERAPY] Onset: 10-06-2022 Episodic Other connective tissue disease (1 source) Pain in both feet; Translations: [Pain in right foot] 03-08-2024 Episodic Other endocrine disorders (1 source) Other adrenocortical insufficiency; Translations: [Other adrenocortical insufficiency] Onset: 04-07-2017 Chronic Other gastrointestinal disorders (3 sources) Occult blood in stools; Translations: [Other fecal abnormalities] 03-23-2023 Episodic Other nervous system disorders (1 source) Neuropathy; Translations: [Polyneuropathy, unspecified] 03-08-2024 Chronic Other skin disorders (1 source) Callosity; Translations: [Corns and callosities] 03-08-2024 Episodic Rheumatoid arthritis and related disease (4 sources) Rheumatoid arthritis with rheumatoid factor of multiple sites without organ or systems involvement; Translations: [RA W/RH FACTOR MX SITE NO ORGAN/SYS] Onset: 09-29-2022 Chronic Unclassified (1 source) Unknown / UNK(Unknown) Onset: 04-07-2017 Past or Other Problems Problem Classification Problem Date Documented Da te Episodic/Chronic Administrative/social admission (1 source) Dietary counseling and surveillance; Translations: [DIETARY COUNSELING AND SURVEILLANCE] Onset: 01-01-2022 Episodic Other gastrointestinal disorders (2 sources) Other fecal abnormalities; Translations: [Nonspecific abnormal findings in stool contents] Onset: 03-23-2023 03-23-2023 Episodic Results Test Name Value Interpretation Reference Range Facility Alanine aminotransferase [En zymatic activity/volume] in Serum or PlasmaOrdered By: Salvador Hernandez on 01-18-2024 ALT [Catalytic activity/Vol] 11 U/L Normal 7-52 [facility] Comment on above: Performed By: #### C MP, LIPID, T4F, TSH3, CBC, [id number] #### [facility] [address] [place] [address] [place] Albumin [Mass/volume] in Ser um or Plasma by Bromocresol green (BCG) dye binding methoOrdered By: Salvador Hernandez on 01-18-2024 Albumin BCG dye [Mass/Vol] 4.1 g/dL 3.5-5.7 [facility] Alkaline phosphatase [Enzyma tic activity/volume] in Serum or PlasmaOrdered By: Salvador Hernandez on 01-18-2024 ALP [Catalytic activity/Vol] 77 U/L Normal 34-104 [facility] Comment on above: Performed By: #### C MP, LIPID, T4F, TSH3, CBC, [id number] #### [facility] [address] [place] [address] [place] Aspartate aminotransferase [ Enzymatic activity/volume] in Serum or PlasmaOrdered By: Salvador Hernandez on 01-18-2024 AST [Catalytic activity/Vol] 15 U/L Normal 13-39 [facility] Comment on above: Performed By: #### C MP, LIPID, T4F, TSH3, CBC, [id number] #### [address] Automated basophil %Ordered By: Salvador Hernandez on 01-18-2024 Basophils/100 WBC (Bld) 0.7 % Normal . [facility] Comment on above: Performed By: #### C MP, LIPID, T4F, TSH3, CBC, [id number] #### [address] Automated basophil countOrde red By: Salvador Hernandez on 01-18-2024 Basophils (Bld) [#/Vol] 0.0 10*3/uL Normal 0.0-0.2 [facility] Comment on above: Result Comment: PERF ORMED BY: [place] [address] PATHOLOGIST FLOOR RUNNER JAEL REED M.D. Performed By: #### C MP, LIPID, T4F, TSH3, CBC, [id number] #### [address] Automated blood monocyte cou ntOrdered By: Salvador Hernandez on 01-18-2024 Monocytes (Bld) [#/Vol] 0.5 10*3/uL Normal 0.0-0.8 [facility] Comment on above: Performed By: #### C MP, LIPID, T4F, TSH3, CBC, [id number] #### [address] Automated eosinophil %Ordere d By: Salvador Hernandez on 01-18-2024 Eosinophils/100 WBC (Bld) 5.3 % Normal . [facility] Comment on above: Performed By: #### C MP, LIPID, T4F, TSH3, CBC, [id number] #### [address] Automated eosinophil countOr dered By: Salvador Hernandez on 01-18-2024 Eosinophils (Bld) [#/Vol] 0.2 10*3/uL Normal 0.0-0.45 [facility] Comment on above: Performed By: #### C MP, LIPID, T4F, TSH3, CBC, [id number] #### [facility] [address] Automated monocyte %Ordered By: Salvador Hernandez on 01-18-2024 Monocytes/100 WBC (Bld) 11.7 % Normal . [facility] Comment on above: Performed By: #### C MP, LIPID, T4F, TSH3, CBC, [id number] #### [facility] [address] Automated neutrophil %Ordere d By: Salvador Hernandez on 01-18-2024 Neutrophils/100 WBC (Bld) 59.5 % Normal . [facility] Comment on above: Performed By: #### C MP, LIPID, T4F, TSH3, CBC, [id number] #### [address] Bilirubin.total [Mass/volume ] in Serum or PlasmaOrdered By: Salvador Hernandez on 01-18-2024 Bilirubin [Mass/Vol] 0.7 mg/dL Normal 0.3-1.0 [facility] Comment on above: Performed By: #### C MP, LIPID, T4F, TSH3, CBC, [id number] #### [address] Calcium [Mass/volume] in Ser um or PlasmaOrdered By: Salvador Hernandez on 01-18-2024 Calcium [Mass/Vol] 9.4 mg/dL Normal 8.6-10.3 [facility] Comment on above: Performed By: #### C MP, LIPID, T4F, TSH3, CBC, [id number] #### [address] Carbon dioxide, total [Moles /volume] in Serum or PlasmaOrdered By: Salvador Hernandez on 01-18-2024 CO2 [Moles/Vol] 26.8 mmol/L Normal 21.0-31.0 [facility] Comment on above: Performed By: #### C MP, LIPID, T4F, TSH3, CBC, [id number] #### [facility] [address] [place] [id number] [place] Chloride [Moles/volume] in S inocente or PlasmaOrdered By: Salvador Hernandez on 01-18-2024 Chloride [Moles/Vol] 107 mmol/L Normal 98-107 [facility] Comment on above: Performed By: #### C MP, LIPID, T4F, TSH3, CBC, [id number] #### [facility] [address] [place] [id number] [place] Cholesterol [Mass/volume] in Serum or PlasmaOrdered By: Salvador Hernandez on 01-18-2024 Cholesterol [Mass/Vol] 185 mg/dL Normal 140-200 [facility] Comment on above: Chol less than 200 m g/dl low riskChol 201-239 mg/dl borderline riskChol 240 mg/dl and greater high risk Result Comment: Chol less than 200 mg/dl low risk Chol 201-239 mg/dl borderline risk Chol 240 mg/dl and greater high risk Performed By: #### C MP, LIPID, T4F, TSH3, CBC, [id number] #### [facility] [address] [place] [id number] [facility] Cholesterol in LDL Calc [Mas s/Vol]Ordered By: Salvador Hernandez on 01-18-2024 Cholesterol in LDL [Mass/Vol] 103 mg/dL High 0-100 [facility] Comment on above: LDL ATP III CLASSIFI CATIONLDL less than 100 mg/dL OptimalLDL 100-129 mg/dL Near or above optimalLDL 130-159 mg/dL Borderline highLDL 160-189 mg/dL HighLDL greater than 189 mg/dL Very high Cholesterol in VLDL Calc [Ma ss/Vol]Ordered By: Salvador Hernandez on 01-18-2024 Cholesterol in VLDL [Mass/Vol] 21 mg/dL [facility] Complete Blood Count Auto Di ffon 01-18-2024 Mean Corpuscular HGB Conc 34.6 g/dL Normal 32.0-35.0 [facility] Comment on above: Performed By: #### C MP, LIPID, T4F, TSH3, CBC, [id number] #### [facility] [address] [place] [phone] [facility] NRBC% 0.1 /100{WBC} Normal 0-0.5 [facility] Comment on above: Performed By: #### C MP, LIPID, T4F, TSH3, CBC, [id number] #### [address] Comprehensive Metabolic Pane maury 01-18-2024 Albumin [Mass/Vol] 4.1 g/dL Normal 3.5-5.7 [facility] Comment on above: Performed By: #### C MP, LIPID, T4F, TSH3, CBC, [id number] #### [address] GFR/1.73 sq M.predicted MDRD (S/P/Bld) [Vol rate/Area] mL/min/{1.73_m2} Normal [facility] Comment on above: Performed By: #### C MP, LIPID, T4F, TSH3, CBC, [id number] #### [address] Creatinine [Mass/volume] in Serum or PlasmaOrdered By: Salvador Hernandez on 01-18-2024 Creatinine [Mass/Vol] 0.77 mg/dL Normal 0.60-1.20 [facility] Comment on above: Performed By: #### C MP, LIPID, T4F, TSH3, CBC, [id number] #### [address] Erythrocyte distribution wid th [Ratio] by Automated countOrdered By: Salvador Hernandez on 01-18-2024 Erythrocyte distribution width (RBC) [Ratio] 13.3 % Normal 11.9-15.3 [facility] Comment on above: Performed By: #### C MP, LIPID, T4F, TSH3, CBC, [id number] #### [address] Erythrocytes [#/volume] in B lood by Automated countOrdered By: Salvador Hernandez on 01-18-2024 RBC (Bld) [#/Vol] 4.15 10*6/uL Normal 3.60-5.00 [facility] Comment on above: Performed By: #### C MP, LIPID, T4F, TSH3, CBC, [id number] #### [facility] [address] Glucose [Mass/volume] in Ser um or PlasmaOrdered By: Salvador Hernandez on 01-18-2024 Glucose [Mass/Vol] 81 mg/dL Normal 70-100 [facility] Comment on above: ADA recommended refe rence rangeRandom Glucose Reference Range is dependent on time and content of last meal. Glucose of more than 200 mg/dL in a nonstressed, ambulatory subject supports the diagnosis of Diabetes Mellitus. Result Comment: [place] om Glucose Reference Range is dependent on time and content of last meal. Glucose of more than 200 mg/dL in a nonstressed, ambulatory subject supports the diagnosis of Diabetes Mellitus. ADA recommended reference range Performed By: #### C MP, LIPID, T4F, TSH3, CBC, [id number] #### [address] Hematocrit [Volume Fraction] of Blood by Automated countOrdered By: Salvador Hernandez on 01-18-2024 Hematocrit (Bld) [Volume fraction] 38.8 % Normal 34.0-46.4 [facility] Comment on above: Performed By: #### C MP, LIPID, T4F, TSH3, CBC, [id number] #### [facility] [address] Hemoglobin [Mass/volume] in BloodOrdered By: Salvador Hernandez on 01-18-2024 Hemoglobin (Bld) [Mass/Vol] 13.4 g/dL Normal 11.8-15.4 [facility] Comment on above: Performed By: #### C MP, LIPID, T4F, TSH3, CBC, [id number] #### [facility] [address] [place] [address] [place] Leukocytes [#/volume] correc maurice for nucleated erythrocytes in Blood by Automated counOrdered By: Salvador Hernandez on 01-18-2024 WBC corrected for nucl RBC Auto (Bld) [#/Vol] 4.5 10*3/uL 3.8-11.6 [facility] Leukocytes [#/volume] in Blo od by Automated countOrdered By: Salvador Hernandez on 01-18-2024 WBC (Bld) [#/Vol] 4.5 10*3/uL Normal 3.8-11.6 [facility] Comment on above: Performed By: #### C MP, LIPID, T4F, TSH3, CBC, [id number] #### [facility] [address] Lipid Panelon 01-18-2024 LDL Cholesterol,Calculated 103 mg/dL High 0-100 [facility] Comment on above: Result Comment: LDL ATP III CLASSIFICATION LDL less than 100 mg/dL Optimal LDL 100-129 mg/dL Near or above optimal LDL 130-159 mg/dL Borderline high LDL 160-189 mg/dL High LDL greater than 189 mg/dL Very high Performed By: #### C MP, LIPID, T4F, TSH3, CBC, [id number] #### [facility] [address] Triglyceride w/Reflex 109 mg/dL Normal 0-149 [facility] Comment on above: Result Comment: TRIG ATP III CLASSIFICATION TRIG less than 150 mg/dL Normal TRIG 150-199 mg/dL Borderline high TRIG 200-500 mg/dL High TRIG greater than 500 mg/dL Very high Standard traceable to the Center for Disease Conrtrol and Prevention (CDC) test method. Performed By: #### C MP, LIPID, T4F, TSH3, CBC, [id number] #### [facility] [address] VLDL CHOLESTEROL 21 mg/dL Normal [facility] Comment on above: Performed By: #### C MP, LIPID, T4F, TSH3, CBC, [id number] #### [facility] [address] Lymphocytes [#/volume] in Bl ood by Automated countOrdered By: Salvador Hernandez on 01-18-2024 Lymphocytes (Bld) [#/Vol] 1.0 10*3/uL Normal 1.00-4.8 [facility] Comment on above: Performed By: #### C MP, LIPID, T4F, TSH3, CBC, [id number] #### [address] Lymphocytes/100 leukocytes i n Blood by Automated countOrdered By: Salvador Hernandez on 01-18-2024 Lymphocytes/100 WBC (Bld) 22.8 % Normal . [facility] Comment on above: Performed By: #### C MP, LIPID, T4F, TSH3, CBC, [id number] #### [address] MCH [Entitic mass] by Automa maurice countOrdered By: Salvador Hernandez on 01-18-2024 MCH (RBC) [Entitic mass] 32.4 pg Normal 24.7-34.3 [facility] Comment on above: Performed By: #### C MP, LIPID, T4F, TSH3, CBC, [id number] #### [address] MCHC Auto (RBC) [Mass/Vol]Or dered By: Salvador Hernandez on 01-18-2024 MCHC (RBC) [Mass/Vol] 34.6 g/dL 32.0-35.0 [facility] MCV [Entitic volume] by Auto mated countOrdered By: Salvador Hernandez on 01-18-2024 MCV (RBC) [Entitic vol] 93.6 fL Normal 80-100 [facility] Comment on above: Performed By: #### C MP, LIPID, T4F, TSH3, CBC, [id number] #### [address] Neutrophils [#/volume] in Bl ood by Automated countOrdered By: Salvador Hernandez on 01-18-2024 Neutrophils (Bld) [#/Vol] 2.7 10*3/uL Normal 1.8-7.7 [facility] Comment on above: Performed By: #### C MP, LIPID, T4F, TSH3, CBC, [id number] #### [address] No Panel InformationOrdered By: Salvador Hernandez on 01-18-2024 Estimated GFR (CKD-EPI) > 60.0 mL/Min [facility] Creatinine Clearance (Chem N/A [facility] Nucleated erythrocytes [Pres ence] in Blood by Automated countOrdered By: Salvador Hernandez on 01-18-2024 Nucleated RBC Auto Ql (Bld) 0.1 /100{WBC} 0-0.5 [facility] Platelet mean volume [Entiti c volume] in Blood by Automated countOrdered By: Salvador Hernandez on 01-18-2024 Platelet mean volume (Bld) [Entitic vol] 10.1 fL Normal 6.3-10.7 [facility] Comment on above: Performed By: #### C MP, LIPID, T4F, TSH3, CBC, [id number] #### [facility] [address] [place] [address] [place] Platelets [#/volume] in Bloo d by Automated countOrdered By: Salvador Hernandez on 01-18-2024 Platelets (Bld) [#/Vol] 183 10*3/uL Normal 150-450 [facility] Comment on above: Performed By: #### C MP, LIPID, T4F, TSH3, CBC, [id number] #### [facility] [address] [place] [address] [place] Potassium [Moles/volume] in Serum or PlasmaOrdered By: Salvador Hernandez on 01-18-2024 Potassium [Moles/Vol] 4.3 mmol/L Normal 3.5-5.1 [facility] Comment on above: Performed By: #### C MP, LIPID, T4F, TSH3, CBC, [id number] #### [facility] [address] [place] [address] [place] Protein [Mass/volume] in Ser um or PlasmaOrdered By: Salvador Hernandez on 01-18-2024 Protein [Mass/Vol] 6.3 g/dL Low 6.4-8.9 [facility] Comment on above: Performed By: #### C MP, LIPID, T4F, TSH3, CBC, [id number] #### [facility] [address] [place] [address] Serum globulin measurement b y calculation (mass/volume)Ordered By: Salvador Hernandez on 01-18-2024 Globulin (S) [Mass/Vol] 2.2 g/dL Normal [facility] Comment on above: Performed By: #### C MP, LIPID, T4F, TSH3, CBC, [id number] #### [facility] [address] Serum or plasma albumin/glob ulin mass ratioOrdered By: Salvador Hernandez on 01-18-2024 Albumin/Globulin [Mass ratio] 1.9 {ratio} Normal [facility] Comment on above: Performed By: #### C MP, LIPID, T4F, TSH3, CBC, [id number] #### [facility] [address] [place] [address] Serum or plasma anion gap de terminationOrdered By: Salvador Hernandez on 01-18-2024 Anion gap [Moles/Vol] 11.5 mmol/L Normal 6.0-15.0 [facility] Comment on above: Performed By: #### C MP, LIPID, T4F, TSH3, CBC, [id number] #### [facility] [address] [place] [address] Serum or plasma high density lipoprotein (HDL) cholesterol measurementOrdered By: Salvador Hernandez on 01-18-2024 Cholesterol in HDL [Mass/Vol] 60 mg/dL Normal 23-92 [facility] Comment on above: HDL CHOL ATP-III CLA SSIFICATION Cardiovascular RiskHDL > or equal to 60 mg/dL LOWHDL < 40 mg/dL HIGH Result Comment: HDL CHOL ATP-III CLASSIFICATION Cardiovascular Risk HDL > or equal to 60 mg/dL LOW HDL < 40 mg/dL HIGH Performed By: #### C MP, LIPID, T4F, TSH3, CBC, [id number] #### [facility] [address] [place] [address] Serum or plasma total choles terol/high density lipoprotein (HDL) cholesterol mass ratOrdered By: Salvador Hernandez on 01-18-2024 Cholesterol.total/Fracnes sterol in HDL [Mass ratio] 3.1 {ratio} Normal <5.0 [facility] Comment on above: Performed By: #### C MP, LIPID, T4F, TSH3, CBC, [id number] #### [address] Sodium [Moles/volume] in Ser um or PlasmaOrdered By: Salvador Hernandez on 01-18-2024 Sodium [Moles/Vol] 141 mmol/L Normal 136-145 [facility] Comment on above: Performed By: #### C MP, LIPID, T4F, TSH3, CBC, [id number] #### [facility] [address] Thyrotropin [Units/volume] i n Serum or PlasmaOrdered By: Salvador Hernandez on 01-18-2024 TSH Qn 1.64 m[IU]/L Normal 0.45-5.33 [facility] [facility] Comment on above: Performed By: #### C MP, LIPID, T4F, TSH3, CBC, [id number] #### [address] Thyroxine (T4) free [Mass/vo lume] in Serum or PlasmaOrdered By: Salvador Hernandez on 01-18-2024 Free T4 [Mass/Vol] 0.82 ng/dL Normal 0.61-1.12 [facility] Comment on above: Performed By: #### C MP, LIPID, T4F, TSH3, CBC, [id number] #### [address] Triglyceride [Mass/volume] i n Serum or PlasmaOrdered By: Salvador Hernandez on 01-18-2024 Triglyceride [Mass/Vol] 109 mg/dL 0-149 [facility] Comment on above: TRIG ATP III CLASSIF ICATIONTRIG less than 150 mg/dL NormalTRIG 150-199 mg/dL Borderline highTRIG 200-500 mg/dL High TRIG greater than 500 mg/dL Very highStandard traceable to the Center for Disease Conrtrol and Prevention (CDC) test method. Urea nitrogen [Mass/volume] in Serum or PlasmaOrdered By: Salvador Hernandez on 01-18-2024 Urea nitrogen [Mass/Vol] 12 mg/dL Normal 7-25 [facility] Comment on above: Performed By: #### C MP, LIPID, T4F, TSH3, CBC, [id number] #### [facility] [address] Vitamin D 25 Hydroxy Totalon 01-18-2024 Vitamin D 25 Hydroxy Total 34.7 ng/mL Normal 30-100 [facility] Comment on above: Result Comment: KIANNA MIN D STATUS 25(OH)VITAMIN D RANGE (ng/mL) Deficient <20 Insufficient 20 to <30 Sufficient 30 to 100 Reference: Kalyan Mckeon, Hawa CARDOZO et al. Evaluation,treatment, and prevention of vitamin D deficiency; an Endocrine Society clinical practice guideline. JCEM. 2010; 96(7):1911-. PERFORMED BY: [place] [address] PATHOLOGIST FLOOR [employer]NER JAEL REED M.D. Performed By: #### C MP, LIPID, T4F, TSH3, CBC, [id number] #### [facility] [address] [id number] [facility] Vitamin D+Metabolites [Mass/ volume] in Serum or PlasmaOrdered By: Salvador Hernandez on 01-18-2024 Vitamin D+Metabolites [Mass/Vol] 34.7 ng/mL 30-100 [facility] Comment on above: VITAMIN D STATUS 25( OH)VITAMIN D RANGE (ng/mL) Deficient <20 Insufficient 20 to <30Sufficient 30 to 100Reference: Kalyan Mckeon, Hawa CARDOZO, et al. Evaluation,treatment, and prevention of vitamin D deficiency; an Endocrine Society clinical practice guideline. JCEM. 2010; 96(7):1911-30. Alanine aminotransferase [En zymatic activity/volume] in Serum or PlasmaOrdered By: Salvador Hernandez on 01-19-2023 ALT [Catalytic activity/Vol] 11 U/L 7-52 [facility] Albumin [Mass/volume] in Ser um or Plasma by Bromocresol green (BCG) dye binding methoOrdered By: Salvador Hernandez on 01-19-2023 Albumin BCG dye [Mass/Vol] 3.9 g/dL 3.5-5.7 [facility] Alkaline phosphatase [Enzyma tic activity/volume] in Serum or PlasmaOrdered By: Salvador Hernandez on 01-19-2023 ALP [Catalytic activity/Vol] 72 U/L 34-104 [facility] Aspartate aminotransferase [ Enzymatic activity/volume] in Serum or PlasmaOrdered By: Salvador Hernandez on 01-19-2023 AST [Catalytic activity/Vol] 15 U/L 13-39 [facility] Basophils Auto (Bld) [#/Vol] Ordered By: Salvador Hernandez on 01-19-2023 Basophils (Bld) [#/Vol] 0.1 10*3/uL 0.0-0.2 [facility] Basophils/100 WBC Auto (Bld) Ordered By: Salvador Hernandez on 01-19-2023 Basophils/100 WBC (Bld) 1.0 % . [facility] Bilirubin.total [Mass/volume ] in Serum or PlasmaOrdered By: Salvador Hernandez 01-19-2023 Bilirubin [Mass/Vol] 0.6 mg/dL 0.3-1.0 [facility] Calcium [Mass/volume] in Ser um or PlasmaOrdered By: Salvador Hernandez on 01-19-2023 Calcium [Mass/Vol] 9.3 mg/dL 8.6-10.3 [facility] Carbon dioxide, total [Moles /volume] in Serum or PlasmaOrdered By: Salvador Hernandez 01-19-2023 CO2 [Moles/Vol] 27.6 mmol/L 21.0-31.0 [facility] Chloride [Moles/volume] in S inocente or PlasmaOrdered By: Salvador Hernandez on 01-19-2023 Chloride [Moles/Vol] 111 mmol/L 98-107 [facility] Cholesterol [Mass/volume] in Serum or PlasmaOrdered By: Salvador Hernandez on 01-19-2023 Cholesterol [Mass/Vol] 195 mg/dL 140-200 [facility] Comment on above: Chol less than 200 m g/dl low riskChol 201-239 mg/dl borderline riskChol 240 mg/dl and greater high risk Cholesterol in LDL Calc [Mas s/Vol]Ordered By: Salvador Hernandez on 01-19-2023 Cholesterol in LDL [Mass/Vol] 112 mg/dL 0-100 [facility] Comment on above: LDL ATP III CLASSIFI CATIONLDL less than 100 mg/dL OptimalLDL 100-129 mg/dL Near or above optimalLDL 130-159 mg/dL Borderline highLDL 160-189 mg/dL HighLDL greater than 189 mg/dL Very high Cholesterol in VLDL Calc [Ma ss/Vol]Ordered By: Salvador Hernandez on 01-19-2023 Cholesterol in VLDL [Mass/Vol] 20 mg/dL [facility] Creatinine [Mass/volume] in Serum or PlasmaOrdered By: Salvador Hernandez on 01-19-2023 Creatinine [Mass/Vol] 0.65 mg/dL 0.60-1.20 [facility] Eosinophils Auto (Bld) [#/Vo l]Ordered By: Salvador Hernandez on 01-19-2023 Eosinophils (Bld) [#/Vol] 0.3 10*3/uL 0.0-0.45 [facility] Eosinophils/100 WBC Auto (Bl d)Ordered By: Salvador Hernandez on 01-19-2023 Eosinophils/100 WBC (Bld) 4.8 % . [facility] Erythrocyte distribution wid th Auto (RBC) [Ratio]Ordered By: Salvador Hernandez on 01-19-2023 Erythrocyte distribution width (RBC) [Ratio] 14.7 % 11.9-15.3 [facility] Globulin Calc (S) [Mass/Vol] Ordered By: Salvador Hernandez on 01-19-2023 Globulin (S) [Mass/Vol] 2.1 g/dL [facility] Glucose [Mass/volume] in Ser um or PlasmaOrdered By: Salvador Hernandez on 01-19-2023 Glucose [Mass/Vol] 86 mg/dL 70-100 [facility] Comment on above: ADA recommended refe rence rangeRandom Glucose Reference Range is dependent on time and content of last meal. Glucose of more than 200 mg/dL in a nonstressed, ambulatory subject supports the diagnosis of Diabetes Mellitus. Hematocrit Auto (Bld) [Volum e fraction]Ordered By: Salvador Hernandez on 01-19-2023 Hematocrit (Bld) [Volume fraction] 39.1 % 34.0-46.4 [facility] Hemoglobin [Mass/volume] in BloodOrdered By: Salvador Hernandez on 01-19-2023 Hemoglobin (Bld) [Mass/Vol] 13.1 g/dL 11.8-15.4 [facility] Leukocytes [#/volume] correc maurice for nucleated erythrocytes in Blood by Automated counOrdered By: Salvador Hernandez on 01-19-2023 WBC corrected for nucl RBC Auto (Bld) [#/Vol] 5.6 10*3/uL 3.8-11.6 [facility] Lymphocytes Auto (Bld) [#/Vo l]Ordered By: Salvador Hernandez on 01-19-2023 Lymphocytes (Bld) [#/Vol] 1.0 10*3/uL 1.00-4.8 [facility] Lymphocytes/100 WBC Auto (Bl d)Ordered By: Salvador Hernandez on 01-19-2023 Lymphocytes/100 WBC (Bld) 17.6 % . [facility] MCH Auto (RBC) [Entitic mass ]Ordered By: Salvador Hernandez on 01-19-2023 MCH (RBC) [Entitic mass] 30.5 pg 24.7-34.3 [facility] MCHC Auto (RBC) [Mass/Vol]Or dered By: Salvador Hernandez on 01-19-2023 MCHC (RBC) [Mass/Vol] 33.5 g/dL 32.0-35.0 [facility] MCV Auto (RBC) [Entitic vol] Ordered By: Salvador Hernandez on 01-19-2023 MCV (RBC) [Entitic vol] 90.9 fL 80-100 [facility] Monocytes Auto (Bld) [#/Vol] Ordered By: Salvador Hernandez on 01-19-2023 Monocytes (Bld) [#/Vol] 0.7 10*3/uL 0.0-0.8 [facility] Monocytes/100 WBC Auto (Bld) Ordered By: Salvador Hernandez on 01-19-2023 Monocytes/100 WBC (Bld) 13.1 % . [facility] Neutrophils Auto (Bld) [#/Vo l]Ordered By: Salvador Hernandez on 01-19-2023 Neutrophils (Bld) [#/Vol] 3.6 10*3/uL 1.8-7.7 [facility] Neutrophils/100 WBC Auto (Bl d)Ordered By: Salvador Hernandez on 01-19-2023 Neutrophils/100 WBC (Bld) 63.5 % . [facility] No Panel InformationOrdered By: Salvador Hernandez on 01-19-2023 Estimated GFR (CKD-EPI) > 60.0 mL/Min [facility] Creatinine Clearance (Chem N/A [facility] Nucleated erythrocytes [Pres ence] in Blood by Automated countOrdered By: Salvador Hernandez on 01-19-2023 Nucleated RBC Auto Ql (Bld) 0.1 /100{WBC} 0-0.5 [facility] Platelet mean volume Auto (B ld) [Entitic vol]Ordered By: Salvador Hernandez on 01-19-2023 Platelet mean volume (Bld) [Entitic vol] 9.9 fL 6.3-10.7 [facility] Platelets Auto (Bld) [#/Vol] Ordered By: Salvador Hernandez on 01-19-2023 Platelets (Bld) [#/Vol] 202 10*3/uL 150-450 [facility] Potassium [Moles/volume] in Serum or PlasmaOrdered By: Salvador Hernandez on 01-19-2023 Potassium [Moles/Vol] 4.1 mmol/L 3.5-5.1 [facility] Protein [Mass/volume] in Ser um or PlasmaOrdered By: Salvador Hernandez on 01-19-2023 Protein [Mass/Vol] 6.0 g/dL 6.4-8.9 [facility] RBC Auto (Bld) [#/Vol]Ordere d By: Salvador Hernandez on 01-19-2023 RBC (Bld) [#/Vol] 4.30 10*6/uL 3.60-5.00 [facility] Serum or plasma albumin/glob ulin mass ratioOrdered By: Salvador Hernandez on 01-19-2023 Albumin/Globulin [Mass ratio] 1.9 {ratio} [facility] Serum or plasma anion gap de terminationOrdered By: Salvador Hernandez on 01-19-2023 Anion gap [Moles/Vol] 9.5 mmol/L 6.0-15.0 [facility] Serum or plasma high density lipoprotein (HDL) cholesterol measurementOrdered By: Salvador Hernandez on 01-19-2023 Cholesterol in HDL [Mass/Vol] 62 mg/dL 23-92 [facility] Comment on above: HDL CHOL ATP-III CLA SSIFICATION Cardiovascular RiskHDL > or equal to 60 mg/dL LOWHDL < 40 mg/dL HIGH Serum or plasma total choles terol/high density lipoprotein (HDL) cholesterol mass ratOrdered By: Salvador Hernandez on 01-19-2023 Cholesterol.total/Frances sterol in HDL [Mass ratio] 3.1 {ratio} <5.0 [facility] Sodium [Moles/volume] in Ser um or PlasmaOrdered By: Salvador Hernandez on 01-19-2023 Sodium [Moles/Vol] 144 mmol/L 136-145 [facility] Thyrotropin [Units/volume] i n Serum or PlasmaOrdered By: Salvador Hernandez on 01-19-2023 TSH Qn 1.44 m[IU]/L 0.45-5.33 [facility] Thyroxine (T4) free [Mass/vo lume] in Serum or PlasmaOrdered By: Salvador Hernandez on 01-19-2023 Free T4 [Mass/Vol] 0.95 ng/dL 0.61-1.12 [facility] Triglyceride [Mass/volume] i n Serum or PlasmaOrdered By: Salvador Hernandez on 01-19-2023 Triglyceride [Mass/Vol] 103 mg/dL 0-149 [facility] Comment on above: TRIG ATP III CLASSIF ICATIONTRIG less than 150 mg/dL NormalTRIG 150-199 mg/dL Borderline highTRIG 200-500 mg/dL High TRIG greater than 500 mg/dL Very highStandard traceable to the Center for Disease Conrtrol and Prevention (CDC) test method. Urea nitrogen [Mass/volume] in Serum or PlasmaOrdered By: Salvador Hernandez on 01-19-2023 Urea nitrogen [Mass/Vol] 10 mg/dL 7-25 [facility] WBC Auto (Bld) [#/Vol]Ordere d By: Salvador Hernandez on 01-19-2023 WBC (Bld) [#/Vol] 5.6 10*3/uL 3.8-11.6 [facility] Basophils Auto (Bld) [#/Vol] Ordered By: Chanelle Cho on 10-07-2022 Basophils (Bld) [#/Vol] 0.0 10*3/uL 0.0-0.2 [facility] Basophils/100 WBC Auto (Bld) Ordered By: Chanelle Cho on 10-07-2022 Basophils/100 WBC (Bld) 0.4 % . [facility] C reactive protein [Mass/vol ume] in Serum or PlasmaOrdered By: Chanelle Cho on 10-07-2022 CRP [Mass/Vol] 3.1 mg/dL 0.0-0.5 [facility] Eosinophils Auto (Bld) [#/Vo l]Ordered By: Chanelle Cho on 10-07-2022 Eosinophils (Bld) [#/Vol] 0.1 10*3/uL 0.0-0.45 [facility] Eosinophils/100 WBC Auto (Bl d)Ordered By: Chanelle Cho on 10-07-2022 Eosinophils/100 WBC (Bld) 2.2 % . [facility] Erythrocyte distribution wid th Auto (RBC) [Ratio]Ordered By: Cahnelle Cho on 10-07-2022 Erythrocyte distribution width (RBC) [Ratio] 13.9 % 11.9-15.3 [facility] Erythrocyte sedimentation ra te by Photometric methodOrdered By: Chanelle Cho on 10-07-2022 ESR Photometric method (Bld) [Velocity] 26 mm/hr 0-29 [facility] Hematocrit Auto (Bld) [Volum e fraction]Ordered By: Chanelle Cho on 10-07-2022 Hematocrit (Bld) [Volume fraction] 41.8 % 34.0-46.4 [facility] Hemoglobin [Mass/volume] in BloodOrdered By: Chanelle Cho on 10-07-2022 Hemoglobin (Bld) [Mass/Vol] 14.1 g/dL 11.8-15.4 [facility] Leukocytes [#/volume] correc maurice for nucleated erythrocytes in Blood by Automated counOrdered By: Chanelle Cho on 10-07-2022 WBC corrected for nucl RBC Auto (Bld) [#/Vol] 6.1 10*3/uL 3.8-11.6 [facility] Lymphocytes Auto (Bld) [#/Vo l]Ordered By: Chanelle Cho on 10-07-2022 Lymphocytes (Bld) [#/Vol] 1.5 10*3/uL 1.00-4.8 [facility] Lymphocytes/100 WBC Auto (Bl d)Ordered By: Chanelle Cho on 10-07-2022 Lymphocytes/100 WBC (Bld) 24.2 % . [facility] MCH Auto (RBC) [Entitic mass ]Ordered By: Chanelle Cho on 10-07-2022 MCH (RBC) [Entitic mass] 31.1 pg 24.7-34.3 [facility] MCHC Auto (RBC) [Mass/Vol]Or dered By: Chanelle Cho on 10-07-2022 MCHC (RBC) [Mass/Vol] 33.7 g/dL 32.0-35.0 [facility] MCV Auto (RBC) [Entitic vol] Ordered By: Chanelle Cho on 10-07-2022 MCV (RBC) [Entitic vol] 92.2 fL 80-100 [facility] Monocytes Auto (Bld) [#/Vol] Ordered By: Chanelle Cho on 10-07-2022 Monocytes (Bld) [#/Vol] 0.7 10*3/uL 0.0-0.8 [facility] Monocytes/100 WBC Auto (Bld) Ordered By: Chanelle Cho on 10-07-2022 Monocytes/100 WBC (Bld) 11.7 % . [facility] Neutrophils Auto (Bld) [#/Vo l]Ordered By: Chanelle Cho on 10-07-2022 Neutrophils (Bld) [#/Vol] 3.8 10*3/uL 1.8-7.7 [facility] Neutrophils/100 WBC Auto (Bl d)Ordered By: Chanelle Cho on 10-07-2022 Neutrophils/100 WBC (Bld) 61.5 % . [facility] Nucleated erythrocytes [Pres ence] in Blood by Automated countOrdered By: Chanelle Cho on 10-07-2022 Nucleated RBC Auto Ql (Bld) 0.2 /100{WBC} 0-0.5 [facility] Platelet mean volume Auto (B ld) [Entitic vol]Ordered By: Chanelle Cho on 10-07-2022 Platelet mean volume (Bld) [Entitic vol] 9.5 fL 6.3-10.7 [facility] Platelets Auto (Bld) [#/Vol] Ordered By: Chanelle Cho on 10-07-2022 Platelets (Bld) [#/Vol] 250 10*3/uL 150-450 [facility] RBC Auto (Bld) [#/Vol]Ordere d By: Chanelle Cho on 10-07-2022 RBC (Bld) [#/Vol] 4.53 10*6/uL 3.60-5.00 [facility] WBC Auto (Bld) [#/Vol]Ordere d By: Chanelle Cho on 10-07-2022 WBC (Bld) [#/Vol] 6.1 10*3/uL 3.8-11.6 [facility] CBC AUTO DIFFon 09-29-2022 BASO # 0.0 103/ul Normal 0.0-0.1 [facility] Comment on above: Performed By: #### C BC #### [facility] [address] [place] [address] Dr. Quintin Kaur Basophils/100 WBC (Bld) 0.5 % Normal 0.2-2.0 [facility] Comment on above: Performed By: #### C BC #### [facility] [address] [place] [address] Dr. Quintin Kaur EO # 0.2 103/ul Normal 0.0-0.7 [facility] Comment on above: Performed By: #### C BC #### [facility] [address] [address] [address] Quintin Kaur Eosinophils/100 WBC (Bld) 3.2 % Normal 0.9-7.0 [facility] Comment on above: Performed By: #### C BC #### [facility] [address] [place] [address] Dr. Quintin Kaur Erythrocyte distribution width (RBC) [Ratio] 13.2 % Normal 11.0-15.0 [facility] Comment on above: Performed By: #### C BC #### [facility] [address] [place] [address] Dr. Quintin Kaur Hematocrit (Bld) [Volume fraction] 41.3 % Normal 36.0-48.0 [facility] Comment on above: Performed By: #### C BC #### [facility] [address] [place] [address] Dr. Quintin Kaur Hemoglobin (Bld) [Mass/Vol] 13.9 g/dL Normal 12.0-16.0 [facility] Comment on above: Performed By: #### C BC #### [facility] [address] [place] [address] Dr. Quintin Kaur IG # 0.02 10e3/ul Normal 0.00-0.03 [facility] Comment on above: Performed By: #### C BC #### [facility] [address] [place] [address] Dr. Quintin Kaur IG % 0.3 % Normal 0.0-0.5 [facility] Comment on above: Performed By: #### C BC #### [facility] [address] [place] [address] Dr. Quintin Kaur LYMPH # 1.0 103/ul Critically low 1.2-3.8 [facility] Comment on above: Performed By: #### C BC #### [facility] [address] [place] [address] Dr. Quintin Kaur Lymphocytes/100 WBC (Bld) 13.9 % Critically low 20.5-60.0 [facility] Comment on above: Performed By: #### C BC #### [facility] [address] [place] [address] Dr. Quintin Kaur MANUAL DIFF REQ NO Normal [facility] Comment on above: Performed By: #### C BC #### [facility] [address] [place] [address] Dr. Quintin Kaur MCH (RBC) [Entitic mass] 30.9 pg Normal 26.7-34.0 [facility] Comment on above: Performed By: #### C BC #### [facility] [address] [address] [address] Quintin Kaur MCHC (RBC) [Mass/Vol] 33.7 g/dL Normal 29.9-35.2 [facility] Comment on above: Performed By: #### C BC #### [facility] [address] [place] [address] Dr. Quintin Kaur MCV (RBC) [Entitic vol] 91.8 fL Normal 81.0-99.0 [facility] Comment on above: Performed By: #### C BC #### [facility] [address] [place] [address] Dr. Quintin Kaur MONO # 0.6 103/ul Normal 0.3-0.8 [facility] Comment on above: Performed By: #### C BC #### [facility] [address] [place] [address] Dr. Quintin Kaur Monocytes/100 WBC (Bld) 8.1 % Normal 1.7-12.0 [facility] Comment on above: Performed By: #### C BC #### [facility] [address] [place] [address] Dr. Quintin Kaur NEUT # 5.4 103/ul Normal 1.4-6.5 [facility] Comment on above: Performed By: #### C BC #### [facility] [address] [place] [address] Dr. Quintin Kaur Neutrophils/100 WBC (Bld) 74.0 % Normal 43.0-75.0 [facility] Comment on above: Performed By: #### C BC #### [facility] [address] [place] [address] Dr. Quintin Kaur Platelet mean volume (Bld) [Entitic vol] 10.7 fL Normal 9.5-13.5 [facility] Comment on above: Performed By: #### C BC #### [facility] [address] [place] [address] Dr. Quintin Kaur PLT 228 103/ul Normal 150-[address] [facility] Comment on above: Performed By: #### C BC #### [facility] [address] [place] [address] Dr. Quintin Kaur RBC 4.50 106/ul Normal 4.20-5.[address] [facility] Comment on above: Performed By: #### C BC #### [facility] [address] [place] [address] Dr. Quintin Kaur WBC 7.3 103/ul Normal 4.0-11.[address] [facility] Comment on above: Performed By: #### C BC #### [facility] [address] [place] [address] Dr. Quintin Kaur CREATININEon 09-29-2022 Creatinine [Mass/Vol] 0.72 mg/dL Normal 0.55-1.02 [facility] Comment on above: Performed By: #### SERGEI WEAVER #### [facility] [address] [place] [address] Dr. Quintin Kaur EGFR-AF SAUDI ARABIAN >60 Normal >=[address] [facility] Comment on above: Performed By: #### SERGEI WEAVER #### [facility] [address] [place] [address] Dr. Quintin Kaur EGFR-NON AF SAUDI ARABIAN >60 Normal >=[address] [facility] Comment on above: Performed By: #### SERGEI WEAVER #### [facility] [address] [place] [address] Dr. Quintin Kaur LIVER PROFILEon 09-29-2022 Albumin [Mass/Vol] 3.7 g/dL Normal 3.4-5.0 [facility] Comment on above: Performed By: #### SERGEI WEAVER #### [facility] [address] [place] [address] Dr. Quintin Kaur Albumin/Globulin [Mass ratio] 1.0 {ratio} Normal [facility] Comment on above: Performed By: #### SERGEI WEAVER #### [facility] [address] [place] [address] Dr. Quintin Kaur ALP [Catalytic activity/Vol] 100 U/L Normal 46-[address] [facility] Comment on above: Performed By: #### SERGEI WEAVER #### [facility] [address] [address] [address] Quintin Kaur ALT [Catalytic activity/Vol] 22 U/L Normal 14-59 [facility] Comment on above: Performed By: #### L HAYLEY, CREA #### [facility] [address] [address] [address] Quintin Kaur AST [Catalytic activity/Vol] 12 U/L Critically low 15-37 [facility] Comment on above: Performed By: #### L HAYLEY CREA #### [facility] [address] [place] [address] Dr. Quintin Kaur BILI, CONJUGATED 0.1 mg/dL Normal 0.0-0.2 [facility] Comment on above: Performed By: #### L HAYLEY CREA #### [facility] [address] [place] [address] Dr. Quintin Kaur Bilirubin [Mass/Vol] 0.3 mg/dL Normal 0.2-1.0 [facility] Comment on above: Performed By: #### L HAYLEY CREA #### [facility] [address] [place] [address] Dr. Quintin Kaur Globulin (S) [Mass/Vol] 3.6 g/dL Normal [facility] Comment on above: Performed By: #### L HAYLEY CREA #### [facility] [address] [place] [address] Dr. Quintin Kaur Protein [Mass/Vol] 7.3 g/dL Normal 6.4-8.2 [facility] Comment on above: Performed By: #### L HAYLEY CREA #### [facility] [address] [place] [address] Dr. Quintin Kaur SED RATE WESTERGRENon 2022 SED RATE 10 mm/hr Normal <=30 [facility] Comment on above: Performed By: #### L HAYLEY CREA #### [facility] [address] [place] [address] Dr. Quintin Kaur CBC AUTO DIFFon 01-03-2023 BASO # 0.0 103/ul Normal 0.0-0.1 [facility] Comment on above: Performed By: #### SERGEI WEAVER #### [facility] [address] [place] [address] Dr. Quintin Kaur Basophils/100 WBC (Bld) 0.6 % Normal 0.2-2.0 [facility] Comment on above: Performed By: #### SERGEI WEAVER #### [facility] [address] [place] [address] Dr. Quintin Kaur EO # 0.2 103/ul Normal 0.0-0.7 [facility] Comment on above: Performed By: #### SERGEI WEAVER #### [facility] [address] [place] [address] Dr. Quintin Kaur Eosinophils/100 WBC (Bld) 3.9 % Normal 0.9-7.0 [facility] Comment on above: Performed By: #### SERGEI WEAVER #### [facility] [address] [place] [address] Dr. Quintin Kaur Erythrocyte distribution width (RBC) [Ratio] 12.2 % Normal 11.0-15.0 [facility] [facility] Comment on above: Performed By: #### SERGEI WEAVER #### [facility] [address] [place] [address] Dr. Quintin Kaur Hematocrit (Bld) [Volume fraction] 40.8 % Normal 36.0-48.0 [facility] Comment on above: Performed By: #### SERGEI WEAVER #### [facility] [address] [place] [address] Dr. Quintin Kaur Hemoglobin (Bld) [Mass/Vol] 13.7 g/dL Normal 12.0-16.0 [facility] Comment on above: Performed By: #### SERGEI WEAVER #### [facility] [address] [place] [address] Dr. Quintin Kaur IG # 0.01 10e3/ul Normal 0.00-0.03 [facility] Comment on above: Performed By: #### SERGEI WEAVER #### [facility] [address] [place] [address] Dr. Quintin Kaur IG % 0.2 % Normal 0.0-0.5 [facility] Comment on above: Performed By: #### L HAYLEY, CREA #### [facility] [address] [place] [address] Dr. Quintin Kaur LYMPH # 1.2 103/ul Normal 1.2-3.8 [facility] Comment on above: Performed By: #### L HAYLEY, CREA #### [facility] [address] [place] [address] Dr. Quintin Kaur Lymphocytes/100 WBC (Bld) 25.2 % Normal 20.5-60.0 [facility] Comment on above: Performed By: #### L HAYLEY CREA #### [facility] [address] [place] [address] Dr. Quintin Kaur MANUAL DIFF REQ NO Normal [facility] Comment on above: Performed By: #### L HAYLEY CREA #### [facility] [address] [place] [address] Dr. Quintin Kaur MCH (RBC) [Entitic mass] 30.5 pg Normal 26.7-34.0 [facility] Comment on above: Performed By: #### L HAYLEY, CREA #### [facility] [address] [place] [address] Dr. Quintin Kaur MCHC (RBC) [Mass/Vol] 33.6 g/dL Normal 29.9-35.2 [facility] Comment on above: Performed By: #### L HAYLEY, CREA #### [facility] [address] [place] [address] Dr. Quintin Kaur MCV (RBC) [Entitic vol] 90.9 fL Normal 81.0-99.0 [facility] Comment on above: Performed By: #### L HAYLEY, CREA #### [facility] [address] [place] [address] Dr. Quintin Kaur MONO # 0.6 103/ul Normal 0.3-0.8 [facility] Comment on above: Performed By: #### L TREVON HARDYA #### [facility] [address] [place] [address] Dr. Quintin Kaur Monocytes/100 WBC (Bld) 12.3 % Critically high 1.7-12. 0 [facility] Comment on above: Performed By: #### L HAYLEY CREA #### [facility] [address] [place] [address] Dr. Quintin Kaur NEUT # 2.7 103/ul Normal 1.4-6.5 [facility] Comment on above: Performed By: #### TREVON WEAVERA #### [facility] [address] [place] [address] Dr. Quintin Kaur Neutrophils/100 WBC (Bld) 57.8 % Normal 43.0-75.[address] [facility] Comment on above: Performed By: #### SERGEI WEAVER #### [facility] [address] [place] [address] Dr. Quintin Kaur Platelet mean volume (Bld) [Entitic vol] 10.9 fL Normal 9.5-13.[address] [facility] Comment on above: Performed By: #### SERGEI WEAVER #### [facility] [address] [place] [address] Dr. Quintin Kaur PLT 204 103/ul Normal 150-[address] [facility] Comment on above: Performed By: #### TREVON WEAVERA #### [facility] [address] [place] [address] Dr. Quintin Kaur RBC 4.49 106/ul Normal 4.20-5.[address] [facility] Comment on above: Performed By: #### TREVON WEAVERA #### [facility] [address] [place] [address] Dr. Quintin Kaur WBC 4.6 103/ul Normal 4.0-11.[address] [facility] Comment on above: Performed By: #### TREVON WEAVERA #### [facility] [address] [place] [address] Dr. Quintin Kaur CREATININEon 06-02-2022 Creatinine [Mass/Vol] 0.66 mg/dL Normal 0.55-1.02 [facility] Comment on above: Performed By: #### SERGEI WEAVER #### [facility] [address] [place] [address] Dr. Quintin Kaur EGFR-AF SAUDI ARABIAN >60 Normal >=[address] [facility] Comment on above: Performed By: #### SERGEI WEAVER #### [facility] [address] [place] [address] Dr. Quintin Kaur EGFR-NON AF SAUDI ARABIAN >60 Normal >=[address] [facility] Comment on above: Performed By: #### SERGEI WEAVER #### [facility] [address] [place] [address] Dr. Quintin Kaur LIVER PROFILEon 06-02-2022 Albumin [Mass/Vol] 3.6 g/dL Normal 3.4-5.0 [facility] Comment on above: Performed By: #### SERGEI WEAVER #### [facility] [address] [place] [address] Dr. Quintin Kaur Albumin/Globulin [Mass ratio] 1.2 {ratio} Normal [facility] Comment on above: Performed By: #### SERGEI WEAVER #### [facility] [address] [place] [address] Dr. Quintin Kaur ALP [Catalytic activity/Vol] 92 U/L Normal 46-[address] [facility] Comment on above: Performed By: #### SERGEI WEAVER #### [facility] [address] [place] [address] Dr. Quintin Kaur ALT [Catalytic activity/Vol] 16 U/L Normal 14-[address] [facility] Comment on above: Performed By: #### SERGEI WEAVER #### [facility] [address] [place] [address] Dr. Quintin Kaur AST [Catalytic activity/Vol] 17 U/L Normal 15-[address] [facility] Comment on above: Performed By: #### SERGEI WEAVER #### [facility] [address] [place] [address] Dr. Quintin Kaur BILI, CONJUGATED 0.1 mg/dL Normal 0.0-0.2 [facility] Comment on above: Performed By: #### SERGEI WEAVER #### [facility] [address] [place] [address] Dr. Quintin Kaur Bilirubin [Mass/Vol] 0.4 mg/dL Normal 0.2-1.0 [facility] Comment on above: Performed By: #### SERGEI WEAVER #### [facility] [address] [place] [address] Dr. Quintin Kaur Globulin (S) [Mass/Vol] 3.1 g/dL Normal [facility] Comment on above: Performed By: #### SERGEI WEAVER #### [facility] [address] [place] [address] Dr. Quintin Kaur Protein [Mass/Vol] 6.7 g/dL Normal 6.4-8.2 [facility] Comment on above: Performed By: #### SERGEI WEAVER #### [facility] [address] [place] [address] Dr. Quintin Kaur [facility] SED [facility]ATE 6 mm/hr Normal <=30 [facility] Comment on above: Performed By: #### S EDR #### [facility] [address] [place] [address] Dr. Quintin Kaur CBC AUTO DIFFon 12-12-2021 BASO # 0.0 103/ul Normal 0.0-0.1 [facility] Comment on above: Performed By: #### C BC #### [facility] [address] [place] [address] Dr. Quintin Kaur Basophils/100 WBC (Bld) 0.6 % Normal 0.2-2.0 [facility] Comment on above: Performed By: #### C BC #### [facility] [address] [place] [address] Dr. Quintin Kaur EO # 0.3 103/ul Normal 0.0-0.7 [facility] Comment on above: Performed By: #### C BC #### [facility] [address] [place] [address] Dr. Quintin Kaur Eosinophils/100 WBC (Bld) 5.3 % Normal 0.9-7.0 [facility] Comment on above: Performed By: #### C BC #### [facility] [address] [place] [address] Dr. Quintin Kaur Erythrocyte distribution width (RBC) [Ratio] 13.4 % Normal 11.0-15.[address] [facility] Comment on above: Performed By: #### C BC #### [facility] [address] [place] [address] Dr. Quintin Kaur Hematocrit (Bld) [Volume fraction] 38.1 % Normal 36.0-48.0 [facility] Comment on above: Performed By: #### C BC #### [facility] [address] [place] [address] Dr. Quintin Kaur Hemoglobin (Bld) [Mass/Vol] 13.0 g/dL Normal 12.0-16.0 [facility] Comment on above: Performed By: #### C BC #### [facility] [address] [place] [address] Dr. Quintin Kaur IG # 0.01 10e3/ul Normal 0.00-0.03 [facility] Comment on above: Performed By: #### C BC #### [facility] [address] [place] [address] Dr. Quintin Kaur IG % 0.2 % Normal 0.0-0.[address] [facility] Comment on above: Performed By: #### C BC #### [facility] [address] [place] [address] Dr. Quintin Kaur LYMPH # 1.0 103/ul Critically low 1.2-3.[address] [facility] Comment on above: Performed By: #### C BC #### [facility] [address] [place] [address] Dr. Quintin Kaur Lymphocytes/100 WBC (Bld) 19.0 % Critically low 20.5-60.[address] [facility] Comment on above: Performed By: #### C BC #### [facility] [address] [place] [address] Dr. Quintin Kaur MANUAL DIFF REQ NO Normal [facility] Comment on above: Performed By: #### C BC #### [facility] [address] [place] [address] Dr. Quintin Kaur MCH (RBC) [Entitic mass] 31.3 pg Normal 26.7-34.0 [facility] Comment on above: Performed By: #### C BC #### [facility] [address] [place] [address] Dr. Quintin Kaur MCHC (RBC) [Mass/Vol] 34.1 g/dL Normal 29.9-35.2 [facility] Comment on above: Performed By: #### C BC #### [facility] [address] [place] [address] Dr. Quintin Kaur MCV (RBC) [Entitic vol] 91.8 fL Normal 81.0-99.0 [facility] Comment on above: Performed By: #### C BC #### [facility] [address] [place] [address] Dr. Quintin Kaur MONO # 0.5 103/ul Normal 0.3-0.8 [facility] Comment on above: Performed By: #### C BC #### [facility] [address] [place] [address] Dr. Quintin Kaur Monocytes/100 WBC (Bld) 9.9 % Normal 1.7-12.0 [facility] Comment on above: Performed By: #### C BC #### [facility] [address] [place] [address] Dr. Quintin Kaur NEUT # 3.3 103/ul Normal 1.4-6.5 [facility] Comment on above: Performed By: #### C BC #### [facility] [address] [place] [address] Dr. Quintin Kaur Neutrophils/100 WBC (Bld) 65.0 % Normal 43.0-75.0 [facility] Comment on above: Performed By: #### C BC #### [facility] [address] [place] [address] Dr. Quintin Kaur Platelet mean volume (Bld) [Entitic vol] 10.7 fL Normal 9.5-13.[address] [facility] Comment on above: Performed By: #### C BC #### [facility] [address] [place] [address] Dr. Quintin Kaur PLT 196 103/ul Normal 150-[address] [facility] Comment on above: Performed By: #### C BC #### [facility] [address] [address] [address] Quintin Kaur RBC 4.15 106/ul Critically low 4.20-5.[address] [facility] Comment on above: Performed By: #### C BC #### [facility] [address] [place] [address] Dr. Quintin Kaur WBC 5.1 103/ul Normal 4.0-11.[address] [facility] Comment on above: Performed By: #### C BC #### [facility] [address] [place] [address] Dr. Quintin Kaur CREATININEon 12-12-2021 Creatinine [Mass/Vol] 0.85 mg/dL Normal 0.55-1.02 [facility] Comment on above: Performed By: #### SERGEI WEAVER #### [facility] [address] [place] [address] Dr. Quintin Kaur EGFR-AF SAUDI ARABIAN >60 Normal >=[address] [facility] Comment on above: Performed By: #### SERGEI WEAVER #### [facility] [address] [place] [address] Dr. Quintin Kaur EGFR-NON AF SAUDI ARABIAN >60 Normal >=[address] [facility] Comment on above: Performed By: #### SERGEI WEAVER #### [facility] [address] [place] [address] Dr. Quintin Kaur LIVER PROFILEon 12-12-2021 Albumin [Mass/Vol] 3.7 g/dL Normal 3.4-5.[address] [facility] Comment on above: Performed By: #### SERGEI WEAVER #### [facility] [address] [address] [address] Quintin Kaur Albumin/Globulin [Mass ratio] 1.4 {ratio} Normal [facility] Comment on above: Performed By: #### TREVON WEAVERA #### [facility] [address] [place] [address] Dr. Quintin Kaur ALP [Catalytic activity/Vol] 86 U/L Normal 46-116 [facility] Comment on above: Performed By: #### TREVON WEAVERA #### [facility] [address] [place] [address] Dr. Quintin Kaur ALT [Catalytic activity/Vol] 21 U/L Normal 14-59 [facility] Comment on above: Performed By: #### TREVON WEAVERA #### [facility] [address] [place] [address] Dr. Quintin Kaur AST [Catalytic activity/Vol] 16 U/L Normal 15-37 [facility] Comment on above: Performed By: #### TREVON WEAVERA #### [facility] [address] [place] [address] Dr. Quintin Kaur BILI, CONJUGATED 0.1 mg/dL Normal 0.0-0.2 [facility] Comment on above: Performed By: #### TREVON WEAVERA #### [facility] [address] [place] [address] Dr. Quintin Kaur Bilirubin [Mass/Vol] 0.4 mg/dL Normal 0.2-1.0 [facility] Comment on above: Performed By: #### TREVON WEAVERA #### [facility] [address] [place] [address] Dr. Quintin Kaur Globulin (S) [Mass/Vol] 2.7 g/dL Normal [facility] Comment on above: Performed By: #### TREVON WEAVERA #### [facility] [address] [place] [address] Dr. Quintin Kaur Protein [Mass/Vol] 6.4 g/dL Normal 6.4-8.2 [facility] Comment on above: Performed By: #### TREVON WEAVERA #### [facility] [address] [address] [address] Quintin Kaur SED RATE [facility] 2021 SED RATE 3 mm/hr Normal <=[address] [facility] Comment on above: Performed By: #### S EDR #### [facility] [address] [address] [address] Quintin Lorenz 04-09-2017 [facility]N Telephone [facility] [place] CAMPBELL ([id number]) 1945 FDate Time Provider Ehycjcdtvr21/10/17 NANCY GOODWIN [facility] During your visit today, we recorded the following information about you:Nancy Goodwin MD 04/09/2017 3:39 PM SignedLeft VM on home phone.ACTH stimulation test for adrenal function was normal. This means patient doesnot need prednisone for adrenal, but she may need it for her rheumatoidarthritis as per her doctor's directions.Please send ACTH stimulation lab result from 04/07/2017 toReferring Physician: Chanelle Cho MD ([facility])[address] [place], [place] [address] [address]Zzcvu Obey Gonzales 04/09/2017 4:29 PM SignedOffice note and ACTH stimulation test results faxed to Dr. Chanelle Cho'soffice at [phone].Confirmatio n received.Leah Ornelas R.N.Allergies As of Date: [...] mouth once eac*Problem List As Of Date: 04/09/2017(None)[facility] r Number: [id number] Status:Closed by NANCY GOODWIN MD on 04/09/17 [facility] ACTH Stim 3 Time Ptson 04-07 .Cortisol,Basal LK USE ONLY 10.5 ug/dL Normal [facility] Comment on above: Result Comment: Lonnie isol Reference Range: AM = 5.3-22.5, PM = 3.4-16.8 Performed By: #### A CTHST ####[address] [phone] Cortisol, 30 min 19.8 ug/dL [facility] Comment on above: Performed By: #### A CTHST ####[address] [phone] Cortisol, 60 min 25.8 ug/dL [facility] Comment on above: Performed By: #### A CTHST ####[address] [phone] Interpretation A peak value of at l east 18 ug/dL is a normal response to cortrosyn stimulation. Normal [facility] Comment on above: Performed By: #### A CTHST ####[address] [phone] CNOVon 04-07-2017 [facility]OV [facility] [place] CAMPBELL ([id number]) 1945 FDate Time Provider Nxefrhplou01/8/17 2:45 PM NANCY GOODWIN [facility] During your visit today, we recorded the following information about you: Pulse Blood pressure Weight Height 67/minute 104/67 76.1 kg 1.676 Cresencio Goodwin MD 04/07/2017 3:36 PM SignedReason for Consultation: Secondary adrenal insufficiencyReferring Physician: Chanelle Cho MD ([facility])[address] [facility] [id number] final recommendations will be communicated back to [...] Ca/D supplement once daily. 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 Chanelle Cho [place]. She has been onprednisone for 25 years. [...] kg (167 lb 12.8 oz) BMI 27.08 kg/g8Budimjjn, modifying factors, context and associated signs and [...] kg (167 lb 12.8 oz) BMI 27.08 kg/i6Ryrwrwg: Well appearing, alert, in no acute distress, [...] or denosumabtwice per yearReturn to clinic as neededDorota Christa, MDDorota Eminence, MD 04/07/2017 3:17 PM SignedACTH stimulation test today.Consider taking 1/2 of your 5 mg prednisone tablet daily instead of none.Will call you with results.Return to clinic as needed.Referring Provider: CHANELLE CHO [[id number]]Allergies As of Date: 04/07/2017(No Known Allergies)Date Reviewed: 04/07/2017Reviewed by: Mario Rolon Ma - Fully AssessedReason for Visit: New Patient [172]Primary Visit Diagnosis:Secondary adrenal insufficiency (HCC) [E27.49]Order(s):Omepraz ole (PRILOSEC) 40 mg capsuleTake 1 capsule by mouth once daily.Disp: Rfl: 0 ACTH STIMULATION,3 TIME POINTS [SQACTHST] Order #: [id number] FUTURE cosyntropin (CORTROSYN) 0.25 mg injectionInject 0.25 [...] of Service: NEW PATIENT VISIT LEVEL 4 [[id number]]Follow-up and Disposition History RecordedEncounter Number: [id number] Status:Closed by NANCY GOODWIN MD on 04/07/17 [facility] PROGRESSon 04-07-2017 PROGRESS HNO ID: [id number]: Nancy Prasadervice: (none)Author Type: PhysicianType: Progress NotesFiled: 04/07/2017 3:36 PMNote Text:Reason for Consultation: Secondary adrenal insufficiencyReferring Physician: Chanelle Cho MD ([facility])[address] [place] [address]Uf final recommendations will be communicated back to the requestingphysician by way of shared Medical record or letter via [place] mail.Date: April 07, 2017HISTORY OF PRESENT ILLNESS;Ms. Campbell is a 71 year old female presenting as a new patient to [facility] assessment of adrenal insufficiency. She reports a longstandinghistory of progressive rheumatoid arthritis. She was treated with Humiraand is now on Rituxan infusions every 6 months in addition to methotrexate7.5 mg per week and folic acid. The patient takes Ca/D supplement oncedaily. She is following with [facility] She has been on prednisone for 25 [...] kg (167 lb 12.8 oz) BMI 27.08 kg/r8Xaophetc, modifying factors, context and associated signs and [...] kg (167 lb 12.8 oz) BMI 27.08 kg/w1Iqluvcs: Well appearing, alert, in no acute distress, [...] female [facility] a [facility]. The patient reports longstanding history ofrheumatoid arthritis [...] to clinic as neededNancy Goodwin MD Normal [facility] Vital Signs Date Time Vital Sign Value Performing Clinician Faci lity 03-23-2023 10:36-0400 Diastolic blood pressure 61 mm[Hg] MD Salvador Hernandez Work Phone: [facility] 03-23-2023 10:36-0400 Heart rate 69 /min MD Salvador Hernandez Work Phone: [facility] 03-23-2023 10:36-0400 Respiratory rate 16 /min MD Salvador Hernandez Work Phone: [facility] 03-23-2023 10:36-0400 SaO2% (BldA) [Mass fraction] 97 % MD Salvador Hernandez Work Phone: [facility] 03-23-2023 10:36-0400 Systolic blood pressure 110 mm[Hg] MD Salvador Hernandez Work Phone: [facility] 03-23-2023 09:17-0400 Body height 152.4 cm MD Salvador Hernandez Work Phone: [facility] 03-23-2023 09:17-0400 Body weight 63.5 kg MD Salvador Hernandez Work Phone: [facility] Encounters Encounter Date Encounter Type Care Provider Facility Start: 03-08-2024 End: 03-08-2024 Bamboo flowsheet Aleksandr Claire DPM Work Phone: [facility] Start: 03-08-2024 End: 03-08-2024 Bamboo flowsheet Aleksandr Claire DPM Work Phone: [facility] Start: 03-08-2024 End: 03-08-2024 Patient encounter procedure Aleksandr Claire DPM Work Phone: [facility] Comment on above: Onychomycosis (Prima ry Dx); Pain in both feet; Corns and callosities; Neuropathy Start: 03-08-2024 End: 03-08-2024 ambulatory ALEKSANDR CLAIRE Not Available Start: 01-18-2024 End: 01-18-2024 Patient encounter procedure MD Salvador Hernandez Work Phone: [facility] Start: 01-18-2024 End: 01-18-2024 ambulatory MD Salvador Hernandez Work Phone: [facility] Work Phone: Start: 01-14-2024 End: 01-14-2024 Patient encounter procedure MD Salvador Hernandez Work Phone: [facility] Work Phone: Start: 01-14-2024 End: 01-14-2024 ambulatory MD Salvador Hernandez Work Phone: [facility] Work Phone: Start: 12-07-2023 End: 12-07-2023 ambulatory ALEKSANDR CLAIRE Not Available Start: 09-13-2023 End: 09-13-2023 ambulatory ALEKSANDR CLAIRE Not Available Start: 08-02-2023 End: 08-02-2023 ambulatory JOSE Barby ABNER Not Available Start: 07-06-2023 Chart abstracting Aleksandr Claire DP Work Phone: [facility] Start: 07-06-2023 End: 07-06-2023 ambulatory ALEKSANDR CLAIRE Not Available Start: 03-23-2023 End: 03-23-2023 Admission to same day surgery center MD Salvador Hernandez Work Phone: [facility] Work Phone: Start: 03-23-2023 End: 03-23-2023 ambulatory MD Salvador Hernandez Work Phone: [facility] Work Phone: Start: 01-19-2023 End: 01-19-2023 ambulatory MD Salvador Hernandez Work Phone: [facility] Work Phone: Start: 01-19-2023 End: 01-19-2023 Patient encounter procedure MD Salvador Hernandez Work Phone: [facility] Start: 10-07-2022 End: 10-07-2022 ambulatory MD Salvador Hernandez Work Phone: [facility] Work Phone: Start: 10-07-2022 End: 10-07-2022 Patient encounter procedure MD Salvador Hernandez Work Phone: [facility] [address] Work Phone: Start: 09-29-2022 End: 09-30-[address] CHANELLE CHO Facility:[facility] Start: 06-02-2022 End: 06-03-[address] CHANELLE CHO Facility:[facility] Start: 01-01-[address] CHANELLE CHO [facility] ity:[facility] Start: 12-12-2021 End: 12-13-[address] CHANELLE CHO Facility:[facility] Start: 04-07-2017 End: 04-07-2017 Ambulatory NANCY CHRISTA [facility] Procedures Date Procedure Procedure Detail Performing Clinician Start: 01-14-2024 Dual energy X-ray absorptiometry MD Salvador Hernandez Work Phone: Start: 03-23-2023 Screening colonoscopy Matt Hernandez Work Phone: Plan of Treatment Date Care Activity Detail Author Start: 06-15-2024 End: 06-15-2024 Patient encounter procedure 06/15/2024 10:15 AM EST Procedure Visit [facility] [address] [place] [id number] Aleksandr Claire DPM [address] [place] [address] [facility] Start: 03-08-2024 End: 03-08-2024 Patient encounter procedure 03/08/2024 10:15 AM EDT Procedure Visit [facility] [address] [place] [phone] Aleksandr Claire, DPM [address] [place] [address] Arrived [facility] Comment on above: Arrived Start: 07-06-2023 End: 07-06-2023 Patient encounter procedure 07/06/2023 11:00 AM EST Office Visit [facility] [address] [place] [phone] Aleksandr Claire, DPM [address] [place] [address] [facility] Start: 03-23-2023 [facility] Start: 10-07-2022 [facility] Albumin [Mass/volume ] in Serum or Plasma [facility] Albumin/Globulin ratio [facility] Electrophoresis: [id number] [facility] Electrophoresis: [id number] [facility] Electrophoresis: beta-globulin [facility] Electrophoresis: roberto ma globulin [facility] Globulin [Mass/volum e] in Serum [facility] IgA [Mass/volume] in Serum or Plasma [facility] IgG [Mass/volume] in Serum or Plasma [facility] IgM [Mass/volume] in Serum or Plasma [facility] Interferon gamma assay [facility] Mycobacterium tuberculosis stimulated gamma interferon [Interpretation] in Blood Qualitative [facility] Mycobacterium tuberculosis stimulated gamma interferon release by CD4+ and CD8+ T-cells [Units/volume] corrected for background in Blood [facility] Mycobacterium tuberculosis tuberculin stimulated gamma interferon [Presence] in Blood [facility] Patient Education Hemorrhoids (D C) Diverticulosis (DC) [facility] Work Phone: Protein [Mass/volume ] in Serum or Plasma [facility] Serum immunofixation [facility] Payers Date Payer Category Payer Private Health Insurance [facility] [id number] 2023-Present [address] [address] [place] [address] [id number] 2023 Self-pay [id number] 2009 Medicare MEDICARE MEDICAR E [employer]ROAD [id number] 2009-Present [employer] MEDICARE [address] [address] [place] [address] Medicare [id number] 1959 Medicare [id number] 1959 Private Health Insurance [id number] 1959 Self-pay [id number] 1945 Unknown [id number] [id number]. 2.593 1944 Unknown [id number] 2.16.840.1.866275.3.579. 2.593 1944 Unknown [id number] 2.16.840.1.875678.3.579. 2.593 1944 Unknown [id number] 2.16.840.1.773604.3.579. 2.593 1944 Unknown [id number] 2.16.840.1.873923.3.579. 2.1259 1944 Unknown [id number] 2.16.840.1.630126.3.579. 2.1259 1944 Unknown [id number] 2.16.840.1.832071.3.579. 2.1259 1944 Unknown [id number] 2.16.840.1.149714.3.579. 2.1259 1944 Unknown [id number] 2.16.840.1.961786.3.579. 2.1259 Unknown [id number] 2.16.840.1.239976.3.579. 2.531 Unknown [id number] 2.16.840.1.239622.3.579. 2.531 Unknown [id number] 2.16.840.1.948457.3.579. 2.531 Social History Date Type Detail Facility Start: 01-22-2021 End: 07-06-2023 Tobacco smoking status NHIS Never smoked tobacco (finding) [facility] Start: 1945 Sex Assigned At Female F [facility] Start: 07-06-2023 Tobacco use and exposure Smokeless tobacco non-user [facility] Start: 07-06-2023 End: 03-08-2024 Alcohol intake Lifetime non-drinker (finding) [facility] Start: 1945 Sex Assigned At Not on file [facility] Start: 12-07-2023 End: 03-08-2024 Gender identity Not on file [facility] Start: 12-07-2023 End: 03-08-2024 History of Social function [facility] Medical Equipment Procedure Code Equipment Code Equipment Origin al Text Equipment Identifier Dates ORIF, fracture, patella Orthopaedic bone screw, non-bioabsorbable, non-sterile ()[id number] FDA Start: 10-15-2020 ORIF, fracture, patella Orthopaedic bone screw, non-bioabsorbable, non-sterile ()[id number] FDA Start: 10-15-2020 ORIF, fracture, patella Orthopaedic bone screw, non-bioabsorbable, non-sterile ()[id number] FDA Start: 10-15-2020 ORIF, fracture, patella Orthopaedic bone wire ()[id number] FDA Start: 10-15-2020 Goals Date Patient Goal Desired Activity /State History of Present illness Narrative 03-08-2024 Aleksandr Claire DPM - 03/08/2024 10:15 AM EDT Note Date & Type Note Facility 03-08-2024 History of Presen t illness Narrative Images from the original note were not included. HPI: Patient presents in office today for routine toenail care. Patient c/o callous/corn on the left foot. They have noticed this for the past months. Patient has pain with walking and standing due to this lesion. Patient has tried trimming for treatment. Patient is not diabetic. She denies any history of wounds on the feet. She does have some problems with tingling in the toes. No other complaints. Exam: General Examination: GENERAL APPEARANCE: awake, aware of surroundings, in no acute distress Vascular: DORSALIS PEDIS PULSE: 2/4, left, 0/4 right POSTERIOR TIBIAL PULSE: 1/4, bilaterally TEMPERATURE GRADIENT: warm to cool EDEMA: to the ankle bilateral CAPILLARY FILLING TIME(sec): capillary fill intact bilateral digits less than 3 secs Neurologic: NEUROLOGIC: light touch is intact to the plantar foot VIBRATORY: decreased to the hallux IPJ bilateral SEMMES-MICH 5.07 MONOFILAMENT: intact to the plantar ball of the foot and toes Dermatologic: SKIN FINDINGS: dry, fissure to the posterior lateral right heel HYPERKERATOSIS: Location: plantar IPJ right hallux, distal right 3rd digit, sub 2nd MPJ left NAIL PATHOLOGY: digits 1-5 bilateral are intact SKIN PATHOLOGY: texture, turgor, hair growth, within normal limits Nail Pathology: Left Foot: 1 (great toe): Long, Thick, Crumbly, Deformed, Discolored, Brittle, Dystrophic 2: Long, Thick, Crumbly, Deformed, Discolored, Brittle, Dystrophic 3: Long, Thick, Crumbly, Deformed, Discolored, Brittle, Dystrophic 4: Long, Thick, Crumbly, Deformed, Discolored, Brittle, Dystrophic 5: Long, Thick, Crumbly, Deformed, Discolored, Brittle, Dystrophic Nail Pathology: Right Foot: 1 (great toe): Long, Thick, Crumbly, Deformed, Discolored, Brittle, Dystrophic 2: Long, Thick, Crumbly, Deformed, Discolored, Brittle, Dystrophic 3: Long, Thick, Crumbly, Deformed, Discolored, Brittle, Dystrophic 4: Long, Thick, Crumbly, Deformed, Discolored, Brittle, Dystrophic 5: Long, Thick, Crumbly, Deformed, Discolored, Brittle, Dystrophic Orthopedic: FOOT MORPHOLOGY: normal JOINT RANGE OF MOTION: normal ROM to the ankle, subtalar joints and 1st MPJ bilateral with no evidence of pain with ROM DEFORMITIES: hammertoes 2-4 bilateral, prior arthrodesis left 1st MPJ PAIN ELICITED WITH PALPATION OF: overlying the callous site on the bilateral foot MUSCLE STRENGTH: 5/5 for all pedal groups tested Assessments: ICD L84 - Corns and callosities: ICD M79.671 - Pain in right foot: ICD M79.672 - Pain in left foot: Onychomycosis Hammertoes 2-4 bilateral Prior foot surgery bilateral Hammertoes, arthrodesis Rheumatoid Arthritis Idiopathic peripheral neuropathy Treatment Note: Callous: 1. Hyperkeratosis/porokeratosis as above noted was debrided. 2. Instructed patient on use of aperture pads or Silipos padding/toe spacers to prevent rubbing and continued development of the hyperkeratosis. 3. Also discussed use of moisturizing creams for overall increased hydration to the skin. 4. Discussed continued use of proper foot gear to avoid excess pressure over the callous site. 1. All mycotic and/or dystrophic nails were debrided in length and thickness by manual and mechanical means. 2. Advised patient of proper foot care to prevent any future complications including daily monitoring of the feet. 3. RTC: 9-12 weeks or as needed if problems arise as patient would like to continue to come in for routine nail care appointments to prevent future pain and problems developing from the overgrowth of the toenails. documented in this encounter [facility] Procedure note 03-23-2023 Note Date & Type Note Facility 03-23-2023 Procedure note [facility] Evaluation note Note Date & Type Note Facility Evaluation note No assessment information availa ble [facility] Work Phone: Evaluation note Note Date & Type Note Facility Evaluation note Diagnosis Onset Date Heme + stool acute [facility] Work Phone: Evaluation note Note Date & Type Note Facility Evaluation note Diagnosis Onychomycosis- Primary Dermatophytosis of nail Pain in both feet Corns and callosities Neuropathy Mononeuritis of unspecified site documented in this encounter [facility] Discharge instructions Note Date & Type [...] if you have any problems. -Office number [phone] [facility] Work Phone: Summary Purpose Family History Relationship Condition Age at Onset Recorded Date/T soni grandparent Rheumatoid arthritis Unknown Not Specified Lymphoma Unknown father Myocardial infarction Unknown Relationship Condition Age at Onset Recorded Date/T soni grandparent Rheumatoid arthritis Unknown Not Specified Lymphoma Unknown father Myocardial infarction Unknown natural son Neoplasm of brain Unknown Relationship Condition Age at Onset Recorded Date/T soni grandparent Rheumatoid arthritis Unknown mother Lymphoma Unknown father Myocardial infarction Unknown son Neoplasm of brain Unknown Unknown Malignant neoplasm Unknown Advance Directives Advance Directive Response Recorded Date/ Time Advance Directives No January 10:20am Chief Complaint and Reason for Visit Chief Complaint I10 E78.0 Z13.296 Chief Complaint I10 E78.0 Z13.296 Screening Reason for Visit Heme + stool Chief Complaint m81.0 Chief Complaint m81.0 I10 E78.00 E55.9 Z13.296 Additional Source Comments INFORMATION SOURCE (unrecogn ized section and content) DATE CREATED AUTHOR 11/23/[address] [facility] DATE CREATED AUTHOR AUTHOR'S ORGANIZ ATION 10/07/2022 [facility] DATE CREATED AUTHOR AUTHOR'S ORGANIZ ATION 01/25/2024 [facility] DATE CREATED AUTHOR AUTHOR'S ORGANIZ ATION 03/10/2024 [facility] EPIC Care Teams (unrecognized [...] Active Joe Anderson MD Attending Provider Active Team Status: Inactive Member Role Status Dates Salvador Hernandez MD Primary Care Provider Active Start: January 14, 2024 End: January 14, 2024 Chanelle Cho MD Attending Provider Active St art: January 14, 2024 End: January 14, 2024 Team Status: Inactive Member Role Status Dates Salvador Hernandez MD Primary Care Provide r, Attending Provider Active Start: January 18, 2024 End: January 18, 2024 Central Supply Manager Relationship Specialty Start Date End Date Salvador Hernandez MD [address] [place] [address] PCP - General Family Medicine 07/06/23 Central Supply Manager Relationship Specialty Start Date End Date Salvador Hernandez MD [address] [place] [address] PCP - General Family Medicine 07/06/23 Goals (unrecognized section and content) Goals may be documented in a n alternate sectionGoals may be documented in an alternate sectionGoals may be documented in an alternate sectionGoals may be documented in an [...] BE BASED ON THE PRIMARY CLINICAL RECORDS. [facility]. provides no warranty or guarantee of the accuracy or completeness of information in this document.
[2024-03-27 09:30] LABS: Basophils Percent Auto 0.7 % (0.2-2.0); Eosinophils Absolute Auto 0.1 10^3/uL (0.0-0.7); Eosinophils Percent Auto 2.8 % (0.9-7.0); Hematocrit 40.5 % (36.0-48.0); Hemoglobin 13.5 g/dL (12.0-16.0); Lymphocytes Absolute Auto 0.9 10^3/uL (1.2-3.8); Lymphocytes Percent Auto 19.3 % (20.5-60.0); Mean Corpuscular HGB Conc 33.3 g/dL (29.9-35.2); Mean Corpuscular Hemoglobin 31.1 pg (26.7-34.0); Mean Corpuscular Volume 93.3 fL (81.0-99.0); Mean Platelet Volume 10.6 fL (9.5-13.5); Monocytes Absolute Auto 0.5 10^3/uL (0.3-0.8); Monocytes Percent Auto 10.9 % (1.7-12.0); Neutrophils Percent Auto 66.3 % (43.0-75.0); Platelet Count 220 10^3/uL (150-450); Red Blood Count 4.34 10^6/uL (4.20-5.40); Red Cell Distribution Width 12.8 % (11.0-15.0); White Blood Count 4.6 10^3/uL (4.0-11.0)
[2024-03-27 09:42] LABS: Albumin Globulin Ratio 1.1; Estimated GFR (African America >60 (>=60 mL/min/1.73m^2); Estimated GFR (Non-African Ame >60 (>=60 mL/min/1.73m^2); Globulin 3.2 g/dL
[2024-03-27 09:51] LABS: Aspartate Amino Transferase 16 U/L (15-37); Bilirubin Direct 0.1 mg/dL (0.0-0.2); Bilirubin Total 0.6 mg/dL (0.2-1.0)
[2024-03-27 09:52] LABS: Alanine Aminotransferase 20 U/L (14-59); Albumin Level 3.4 g/dL (3.4-5.0); Alkaline Phosphatase 82 U/L (46-116); Total Protein 6.6 g/dL (6.4-8.2)
[2024-03-27 11:01] LABS: Erythrocyte Sedimentation Rate 24 mm/hr (<=30)
== END 2024-03-27 08:59 | disposition home or self-care (01) ==
LOC: LAB 09:00
PROVIDERS: PCP Family Medicine; Visit Provider Internal Medicine Rheumatology
DX: M05.79 Rheumatoid arthritis with rheumatoid factor of multiple sites without organ or systems involvement (principal); Z79.899 Other long term (current) drug therapy
CPT/HCPCS: 36415; 80076; 82565; 85025; 85652

== ENCOUNTER 2024-04-12 12:17 | Outpatient (OUT) | payer MEDICARE, OTHER, SELFPAY ==
--- OUTSIDE RECORDS SUMMARY | 2024-04-12 12:26 | XMS_ITS | CCD ---
Author Organization [facility]ini[facility] Care Team Providers Care Groover Operator Name Role Phone NANCY GOODWIN Unavailable Unavailable NANCY GOODWIN Unavailable Unavailable CHANELLE CHO Unavailable Unavailable HALINDIANA, DR ROCA Consulting Unavailable HALINDIANA, DR ROCA Admitting Unavailable JEFF, DR HENRY Primary Care Unavailable HALADAY, DR ROCA Attending Unavailable DWIGHTADAY, DR ROCA Admitting Unavailable DWIGHTADAY, DR ROCA Attending Unavailable JEFF, DR HENRY Referring Unavailable JEFF, DR HENRY Primary Care Unavailable HALADAY, DR ROCA Consulting Unavailable DWIGHTADAY, DR ROCA Consulting Unavailable HALADAY, DR ROCA Admitting Unavailable HERNANDEZ, DR HENRY Primary Care Unavailable HALADAY, DR ROCA Attending Unavailable HALADAY, DR ROCA Admitting Unavailable JEFF, DR EHNRY Primary Care Unavailable BRENDA, DR ROCA Attending Unavailable MD Salvador Hernandez Primary Care Provider MD Chanelle Cho Attending Provider [phone] MD Salvador Hernandez Primary Care Provider MD Salvador Hernandez Attending Provider MD Joe Anderson Attending Provider Unavailable Primary Care Provider UnavailMD Salvador Ross Primary Care Provider MD Chanelle Cho Attending Provider MD Salvador Hernandez Attending Provider [phone] ALEKSANDR CLAIRE Attending Unavailable JOSE LEVINE Attending Unavailable ALEKSANDR CLAIRE Attending Unavailable ALEKSANDR CLAIRE Attending Unavailable ALEKSANDR CLAIRE Attending Unavailable Salvador Hernandez MD Primary Care Provider MD Salvador Hernandez Primary Care Provider MD Chanelle Cho Attending Provider [phone] MD Salvador Hernandez Attending Provider Chanelle Cho Admitting Unavailable Chanelle Cho Attending Unavailable Salvador Hernandez Primary Care Unavailable Salvador Hernandez Admitting Unavailable Salvador Hernandez Attending Unavailable Salvador Hernandez Primary Care Unavailable Chanelle Cho Admitting Unavailable Chanelle Cho Attending Unavailable Salvador Hernandez Primary Care Unavailable Medications Current Medications Medication Drug Class(es) Dates Sig (Normalized) Sig (Original) acetaminophen 325 mg / HYDROcodone bitartrate 5 mg oral tablet (8 sources) Opioid Agonist Start: 12-16-2022 take 0.5-1 tablets by mouth every four to six hours as needed for pain HYDROcodone-aceta minophen ([place]) 5-325 MG tablet TAKE 1/2 - 1 TABLET BY MOUTH EVERY 4 TO 6 HOURS NEEDED FOR PAIN 12/16/2022 Active Start: 10-15-2020 End: 03-23-2023 take 1 tablet by mouth every four hours Hydrocodone-Acetaminophen Discontinued 5 - 325 TAB PO Every 4 hours October 14, 2020 11:00pm March 23, 2023 8:08am calcium carbonate 1500 mg / cholecalciferol 200 unt oral tablet (4 sources) Vitamin D Start: 03-23-2023 take 1 tablet by mouth once daily Calcium Carbonate-Vitamin D3 Active 1 TAB PO Daily March 22, 2023 11:00pm ciprofloxacin 500 mg oral tablet (2 sources) Quinolone Antimicrobial Start: 12-16-2022 take 1 tablet by mouth in the morning ciprofloxacin (Cipro) 500 MG tablet Take 500 mg by mouth in the morning and 500 mg before bedtime. 12/16/2022 Active folic acid 1 mg oral tablet (8 sources) Start: 02-16-2017 take 1 mg by mouth once daily Folic Acid Active 1 MG PO Daily February 15, 2017 11:00pm hydroxychloroquine sulfate 200 mg oral tablet (6 sources) Antimalarial, Antirheumatic Agent Start: 03-23-2023 take 1 tablet by mouth once daily Hydroxychloroquine (Plaquenil) 200 mg Tablet Active 200 MG PO Daily March 22, 2023 11:00pm methotrexate 2.5 mg oral tablet (8 sources) Folate Analog Metabolic Inhibitor Start: 06-30-2023 methotrexate 2.5 MG tablet TAKE 7 TABS BY MOUTH EVERY WEEK, ONCE A WEEK, REMEBER YOUR STANDING LAB 06/30/2023 Active Start: 02-16-2017 take 20 mg by mouth every week Methotrexate Sodium Active 20 MG PO every week February 15, 2017 11:00pm Start: 02-16-2017 take 17.5 mg by mout [...] pantoprazole 40 mg delayed release oral tablet (6 sources) Proton Pump Inhibitor Start: 03-23-2023 take 40 mg by mouth once daily Pantoprazole Active 40 MG PO Daily March 22, 2023 11:00pm Completed/Discontinued Medications Medication Drug Class(es) Dates Sig (Normalized) Sig (Original) acetaminophen 500 mg oral tablet (6 sources) Start: 10-15-2020 End: 01-22-2021 take 2 tablets by mouth every eight hours Acetaminophen (Tylenol Extra Strength) 500 mg tablet Discontinued 1000 MG PO Every 8 hours 180 October 14, 2020 11:00pm January 22, 2021 5:08am aspirin 81 mg delayed release oral tablet (6 sources) Platelet Aggregation Inhibitor, Nonsteroidal Anti-inflammatory Drug Start: 10-15-2020 End: 03-23-2023 take 81 mg by mouth twice daily Aspirin Discontinued 81 MG PO Twice daily 42 October 14, 2020 11:00pm March 23, 2023 8:08am Amcaytyz-Dkg-Zc-Lyc open-Lutein (Centrum Silver) 0.4-300-250 mg-mcg-mcg Tablet (6 sources) Start: 02-16-2017 End: 07-19-2019 take 1 tablet by mouth once daily Nynjohlg-Ntb-Iu-Lyc open-Lutein (Centrum Silver) 0.4-300-250 mg-mcg-mcg Tablet Discontinued 1 TAB PO Daily February 15, 2017 11:00pm July 19, 2019 8:51am Start: 02-16-2017 End: 07-19-2019 take 1 tablet by mouth once daily Itooasfa-Xhu-Ul-Lycopen-Lutein (Centrum Silver) 0.4-300-250 mg-mcg-mcg Tablet Discontinued 1 TAB PO Daily February 16, 2017 12:00am July 19, 2019 9:51am naproxen sodium 220 mg oral capsule (6 sources) Nonsteroidal Anti-inflammatory Drug Start: 10-14-2020 End: 03-23-2023 take 1 capsule by mouth twice daily Naproxen Sodium (Aleve) 220 mg Capsule Discontinued 220 MG PO Twice daily October 13, 2020 11:00pm March 23, 2023 8:08am omeprazole 20 mg delayed release oral tablet (6 sources) Proton Pump Inhibitor Start: 02-16-2017 End: 07-19-2019 take 20 mg by mouth once daily Omeprazole Discontinued 20 MG PO Daily February 15, 2017 11:00pm July 19, 2019 8:52am oxyCODONE hydrochloride 5 mg oral tablet (6 sources) Opioid Agonist Start: 10-15-2020 End: 01-22-2021 take 1 tablet by mouth every six hours Oxycodone (Roxicodone) 5 mg tablet Discontinued 5 MG PO Q6H 20 7 October 15, 2020 January 22, 2021 5:08am predniSONE 5 mg oral tablet (6 sources) Start: 02-16-2017 End: 03-23-2023 Prednisone Discontinued 5 MG PO As Directed February 15, 2017 11:00pm March 23, 2023 8:08am Needed Problems Active Problems Problem Classification Problem Date Documented Da te Episodic/Chronic Disorders of lipid metabolism (1 source) Pure hypercholesterolemia , unspecified; Translations: [Pure hypercholesterolemia , unspecified] Onset: 01-18-2024 Chronic Fracture of lower limb (6 sources) Fracture of patella; Translations: [Unspecified fracture of unspecified patella, initial encounter for closed fracture] 10-15-2020 Episodic Mycoses (1 source) Onychomycosis; Translations: [Tinea unguium] 03-08-2024 Episodic Osteoporosis (1 source) Age-related osteoporosis without current pathological fracture; Translations: [Age-related osteoporosis without current pathological fracture] Onset: 01-14-2024 Chronic Other aftercare (1 source) 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; Translations: [OTH RETIREMENT CURRENT DRUG THERAPY] Onset: 10-06-2022 Episodic Other connective tissue disease (1 source) Pain in both feet; Translations: [Pain in right foot] 03-08-2024 Episodic Other endocrine disorders (1 source) Other adrenocortical insufficiency; Translations: [Other adrenocortical insufficiency] Onset: 04-07-2017 Chronic Other gastrointestinal disorders (4 sources) Occult blood in stools; Translations: [Other fecal abnormalities] 03-23-2023 Episodic Other gastrointestinal disorders (1 source) Other fecal abnormalities; Translations: [Nonspecific abnormal findings in stool contents] 03-23-2023 Episodic Other nervous system disorders (1 [...] Test Name Value Interpretation Reference Range Facility Immunofixation,Serumon 04-04 Immunofixation, Serum Comment Normal . [facility] Comment on above: Result Comment: No m onoclonality detected. Performed By: #### S PE, ROSA SERUM, IGE #### [facility] , Immunoglobulin A, Serum 368 mg/dL Normal 64-422 [facility] Comment on above: Performed By: #### S PE, ROSA SERUM, IGE #### [facility] , Immunoglobulin G 747 mg/dL Normal 586-1602 [facility] Comment on above: Performed By: #### S PE, ROSA SERUM, IGE #### [facility] , Immunoglobulin M, Serum 72 mg/dL Normal 26-217 [facility] Comment on above: Result Comment: Perf ormed at: - [facility] [address] [id number] Sas Analyst: Nish Russell PhD, Phone: [phone] Performed By: #### S PE, ROSA SERUM, IGE #### [facility] , Immunoglobulin Tristan 4 Immunoglobulin E 4 Low 6-495 [facility] Comment on above: Result Comment: Perf ormed at: - [facility] [address] [id number] Sas Analyst: Nancy Ley MD, Phone: [phone] Performed By: #### S PE, ROSA SERUM, IGE #### [facility] , Protein Electrophoresis, Ser umon 04-04-2024 Albumin [Mass/Vol] 3.7 g/dL Normal 2.9-4.4 [facility] Comment on above: Performed By: #### S PE, ROSA SERUM, IGE #### [facility] , Albumin/Globulin [Mass ratio] 1.3 {ratio} Normal 0.7-1.7 [facility] Comment on above: Performed By: #### S PE, ROSA SERUM, IGE #### [facility] , Crtlt-7-Nknomadi 0.3 g/dL Normal 0.0-0.4 [facility] Comment on above: Performed By: #### S PE, ROSA SERUM, IGE #### [facility] , Dzmit-9-Nqpxxige 0.7 g/dL Normal 0.4-1.0 [facility] Comment on above: Performed By: #### S PE, ROSA SERUM, IGE #### [facility] , Beta Globulin 1.1 g/dL Normal 0.7-1.3 [facility] Comment on above: Performed By: #### S PE, ROSA SERUM, IGE #### [facility] , Gamma Globulin 0.7 g/dL Normal 0.4-1.8 [facility] Comment on above: Performed By: #### S PE, ROSA SERUM, IGE #### [facility] , Globulin (S) [Mass/Vol] 2.9 g/dL Normal 2.2-3.9 [facility] Comment on above: Performed By: #### S PE, ROSA SERUM, IGE #### [facility] , M-Kvng Not Observed Normal Not Observed [facility] Comment on above: Performed By: #### S PE, ROSA SERUM, IGE #### [facility] , Protein [Mass/Vol] 6.6 g/dL Normal 6.0-8.5 [facility] Comment on above: Performed By: #### S PE, ROSA SERUM, IGE #### [facility] , SPE-Note Comment Normal . [facility] Comment on above: Result Comment: Prot ein electrophoresis scan will follow via computer, mail, or circular distributor delivery. Performed at: [address] [id number] Sas Analyst: Nish Russell PhD, Phone: [phone] PERFORMED BY: [place] [address] PATHOLOGIST MERCERIZER MACHINE OPERATOR JAEL REED M.D. Performed By: #### S PE, ROSA SERUM, IGE #### [facility] , Alanine aminotransferase [En zymatic activity/volume] in Serum or PlasmaOrdered By: Salvador Hernandez on 01-18-2024 ALT [Catalytic activity/Vol] 11 U/L Normal 7-52 [facility] Comment on above: Performed By: #### C BC, [id number], CMP, LIPID, T4F, TSH3 #### [address] Albumin [Mass/volume] in Ser um or Plasma by Bromocresol green (BCG) dye binding methoOrdered By: Salvador Hernandez on 01-18-2024 Albumin BCG dye [Mass/Vol] 4.1 g/dL 3.5-5.7 [facility] Alkaline phosphatase [Enzyma tic activity/volume] in Serum or PlasmaOrdered By: Salvador Hernandez on 01-18-2024 ALP [Catalytic activity/Vol] 77 U/L Normal 34-104 [facility] Comment on above: Performed By: #### C BC, [id number], CMP, LIPID, T4F, TSH3 #### [address] Aspartate aminotransferase [ Enzymatic activity/volume] in Serum or PlasmaOrdered By: Salvador Hernandez on 01-18-2024 AST [Catalytic activity/Vol] 15 U/L Normal 13-39 [facility] Comment on above: Performed By: #### C BC, [id number], CMP, LIPID, T4F, TSH3 #### [address] Automated basophil %Ordered By: Salvador Hernandez on 01-18-2024 Basophils/100 WBC (Bld) 0.7 % Normal . [facility] Comment on above: Performed By: #### C BC, [id number], CMP, LIPID, T4F, TSH3 #### [address] Automated basophil countOrde red By: Salvador Hernandez on 01-18-2024 Basophils (Bld) [#/Vol] 0.0 10*3/uL Normal 0.0-0.2 [facility] Comment on above: Result Comment: PERF ORMED BY: [place] [address] PATHOLOGIST MERCERIZER MACHINE OPERATOR JAEL REED M.D. Performed By: #### C BC, [id number], CMP, LIPID, T4F, TSH3 #### [address] Automated blood monocyte cou ntOrdered By: Salvador Hernandez on 01-18-2024 Monocytes (Bld) [#/Vol] 0.5 10*3/uL Normal 0.0-0.8 [facility] Comment on above: Performed By: #### C BC, [id number], CMP, LIPID, T4F, TSH3 #### [address] Automated eosinophil %Ordere d By: Salvador Hernandez on 01-18-2024 Eosinophils/100 WBC (Bld) 5.3 % Normal . [facility] Comment on above: Performed By: #### C BC, [id number], CMP, LIPID, T4F, TSH3 #### [facility] [address] Automated eosinophil countOr dered By: Salvador Hernandez on 01-18-2024 Eosinophils (Bld) [#/Vol] 0.2 10*3/uL Normal 0.0-0.45 [facility] Comment on above: Performed By: #### C BC, [id number], CMP, LIPID, T4F, TSH3 #### [facility] [address] Automated monocyte %Ordered By: Salvador Hernandez on 01-18-2024 Monocytes/100 WBC (Bld) 11.7 % Normal . [place] Comment on above: Performed By: #### C BC, [id number], CMP, LIPID, T4F, TSH3 #### [facility] [address] Automated neutrophil %Ordere d By: Salvador Hernandez on 01-18-2024 Neutrophils/100 WBC (Bld) 59.5 % Normal . [facility] Comment on above: Performed By: #### C BC, [id number], CMP, LIPID, T4F, TSH3 #### [address] Bilirubin.total [Mass/volume ] in Serum or PlasmaOrdered By: Salvador Hernandez on 01-18-2024 Bilirubin [Mass/Vol] 0.7 mg/dL Normal 0.3-1.0 [facility] Comment on above: Performed By: #### C BC, [id number], CMP, LIPID, T4F, TSH3 #### [address] Calcium [Mass/volume] in Ser um or PlasmaOrdered By: Salvador Hernandez on 01-18-2024 Calcium [Mass/Vol] 9.4 mg/dL Normal 8.6-10.3 [facility] Comment on above: Performed By: #### C BC, [id number], CMP, LIPID, T4F, TSH3 #### [facility] [address] [place] [address] [place] Carbon dioxide, total [Moles /volume] in Serum or PlasmaOrdered By: Salvador Hernandez on 01-18-2024 CO2 [Moles/Vol] 26.8 mmol/L Normal 21.0-31.0 [facility] Comment on above: Performed By: #### C BC, [id number], CMP, LIPID, T4F, TSH3 #### [facility] [address] [place] [address] [place] Chloride [Moles/volume] in S inocente or PlasmaOrdered By: Salvador Hernandez on 01-18-2024 Chloride [Moles/Vol] 107 mmol/L Normal 98-107 [facility] Comment on above: Performed By: #### C BC, [id number], CMP, LIPID, T4F, TSH3 #### [facility] [address] [place] [address] [place] Cholesterol [Mass/volume] in Serum or PlasmaOrdered By: Salvador Hernandez on 01-18-2024 Cholesterol [Mass/Vol] 185 mg/dL Normal 140-200 [facility] Comment on above: Chol less than 200 m g/dl low riskChol 201-239 mg/dl borderline riskChol 240 mg/dl and greater high risk Result Comment: Chol less than 200 mg/dl low risk Chol 201-239 mg/dl borderline risk Chol 240 mg/dl and greater high risk Performed By: #### C BC, [id number], CMP, LIPID, T4F, TSH3 #### [facility] [address] [place] [id number] [place] Cholesterol in LDL Calc [Mas s/Vol]Ordered By: Salvador Hernandez on 01-18-2024 Cholesterol in LDL [Mass/Vol] 103 mg/dL High 0-100 [facility] Comment on above: LDL ATP III CLASSIFI CATIONLDL less than 100 mg/dL OptimalLDL 100-129 mg/dL Near or above optimalLDL 130-159 mg/dL Borderline highLDL 160-189 mg/dL HighLDL greater than 189 mg/dL Very high Cholesterol in VLDL Calc [Ma ss/Vol]Ordered By: Salvador Hernandez on 01-18-2024 Cholesterol in VLDL [Mass/Vol] 21 mg/dL [facility] Complete Blood Count Auto Di ffon 01-18-2024 Mean Corpuscular HGB Conc 34.6 g/dL Normal 32.0-35.0 [facility] Comment on above: Performed By: #### C BC, [id number], CMP, LIPID, T4F, TSH3 #### [address] NRBC% 0.1 /100{WBC} Normal 0-0.5 [facility] Comment on above: Performed By: #### C BC, [id number], CMP, LIPID, T4F, TSH3 #### [address] Comprehensive Metabolic Pane maury 01-18-2024 Albumin [Mass/Vol] 4.1 g/dL Normal 3.5-5.7 [facility] Comment on above: Performed By: #### C BC, [id number], CMP, LIPID, T4F, TSH3 #### [address] GFR/1.73 sq M.predicted MDRD (S/P/Bld) [Vol rate/Area] mL/min/{1.73_m2} Normal [facility] Comment on above: Performed By: #### C BC, [id number], CMP, LIPID, T4F, TSH3 #### [address] Creatinine [Mass/volume] in Serum or PlasmaOrdered By: Salvador Hernandez on 01-18-2024 Creatinine [Mass/Vol] 0.77 mg/dL Normal 0.60-1.20 [facility] Comment on above: Performed By: #### C BC, [id number], CMP, LIPID, T4F, TSH3 #### [address] Erythrocyte distribution wid th [Ratio] by Automated countOrdered By: Salvador Hernandez on 01-18-2024 Erythrocyte distribution width (RBC) [Ratio] 13.3 % Normal 11.9-15.3 [facility] Comment on above: Performed By: #### C BC, [id number], CMP, LIPID, T4F, TSH3 #### [facility] [address] Erythrocytes [#/volume] in B lood by Automated countOrdered By: Salvador Hernandez on 01-18-2024 RBC (Bld) [#/Vol] 4.15 10*6/uL Normal 3.60-5.00 [facility] Comment on above: Performed By: #### C BC, [id number], CMP, LIPID, T4F, TSH3 #### [facility] [address] Glucose [Mass/volume] in Ser um or PlasmaOrdered By: Salvador Hernandez on 01-18-2024 Glucose [Mass/Vol] 81 mg/dL Normal 70-100 [facility] Comment on above: ADA recommended refe rence rangeRandom Glucose Reference Range is dependent on time and content of last meal. Glucose of more than 200 mg/dL in a nonstressed, ambulatory subject supports the diagnosis of Diabetes Mellitus. Result Comment: [place] om Glucose Reference Range is dependent on time and content of last meal. Glucose of more than 200 mg/dL in a nonstressed, ambulatory subject supports the diagnosis of Diabetes Mellitus. ADA recommended reference range Performed By: #### C BC, [id number], CMP, LIPID, T4F, TSH3 #### [facility] [address] [place] [address] [place] Hematocrit [Volume Fraction] of Blood by Automated countOrdered By: Salvador Hernandez on 01-18-2024 Hematocrit (Bld) [Volume fraction] 38.8 % Normal 34.0-46.4 [facility] Comment on above: Performed By: #### C BC, [id number], CMP, LIPID, T4F, TSH3 #### [facility] [address] Hemoglobin [Mass/volume] in BloodOrdered By: Salvador Hernandez on 01-18-2024 Hemoglobin (Bld) [Mass/Vol] 13.4 g/dL Normal 11.8-15.4 [facility] Comment on above: Performed By: #### C BC, [id number], CMP, LIPID, T4F, TSH3 #### [facility] [address] Leukocytes [#/volume] correc maurice for nucleated erythrocytes in Blood by Automated counOrdered By: Salvador Hernandez on 01-18-2024 WBC corrected for nucl RBC Auto (Bld) [#/Vol] 4.5 10*3/uL 3.8-11.6 [facility] Leukocytes [#/volume] in Blo od by Automated countOrdered By: Salvador Hernandez on 01-18-2024 WBC (Bld) [#/Vol] 4.5 10*3/uL Normal 3.8-11.6 [facility] Comment on above: Performed By: #### C BC, [id number], CMP, LIPID, T4F, TSH3 #### [address] Lipid Panelon 01-18-2024 LDL Cholesterol,Calculated 103 mg/dL High 0-100 [facility] Comment on above: Result Comment: LDL ATP III CLASSIFICATION LDL less than 100 mg/dL Optimal LDL 100-129 mg/dL Near or above optimal LDL 130-159 mg/dL Borderline high LDL 160-189 mg/dL High LDL greater than 189 mg/dL Very high Performed By: #### C BC, [id number], CMP, LIPID, T4F, TSH3 #### [address] Triglyceride w/Reflex 109 mg/dL Normal 0-149 [facility] Comment on above: Result Comment: TRIG ATP III CLASSIFICATION TRIG less than 150 mg/dL Normal TRIG 150-199 mg/dL Borderline high TRIG 200-500 mg/dL High TRIG greater than 500 mg/dL Very high Standard traceable to the Center for Disease Conrtrol and Prevention (CDC) test method. Performed By: #### C BC, [id number], CMP, LIPID, T4F, TSH3 #### [address] VLDL CHOLESTEROL 21 mg/dL Normal [facility] Comment on above: Performed By: #### C BC, [id number], CMP, LIPID, T4F, TSH3 #### [address] Lymphocytes [#/volume] in Bl ood by Automated countOrdered By: Salvador Hernandez on 01-18-2024 Lymphocytes (Bld) [#/Vol] 1.0 10*3/uL Normal 1.00-4.8 [facility] Comment on above: Performed By: #### C BC, [id number], CMP, LIPID, T4F, TSH3 #### [address] Lymphocytes/100 leukocytes i n Blood by Automated countOrdered By: Salvador Hernandez on 01-18-2024 Lymphocytes/100 WBC (Bld) 22.8 % Normal . [facility] Comment on above: Performed By: #### C BC, [id number], CMP, LIPID, T4F, TSH3 #### [address] MCH [Entitic mass] by Automa maurice countOrdered By: Salvador Hernandez on 01-18-2024 MCH (RBC) [Entitic mass] 32.4 pg Normal 24.7-34.3 [facility] Comment on above: Performed By: #### C BC, [id number], CMP, LIPID, T4F, TSH3 #### [address] MCHC Auto (RBC) [Mass/Vol]Or dered By: Salvador Hernandez on 01-18-2024 MCHC (RBC) [Mass/Vol] 34.6 g/dL 32.0-35.0 [facility] MCV [Entitic volume] by Auto mated countOrdered By: Salvador Hernandez on 01-18-2024 MCV (RBC) [Entitic vol] 93.6 fL Normal 80-100 [facility] Comment on above: Performed By: #### C BC, [id number], CMP, LIPID, T4F, TSH3 #### [address] Neutrophils [#/volume] in Bl ood by Automated countOrdered By: Salvador Hernandez on 01-18-2024 Neutrophils (Bld) [#/Vol] 2.7 10*3/uL Normal 1.8-7.7 [facility] Comment on above: Performed By: #### C BC, [id number], CMP, LIPID, T4F, TSH3 #### [facility] [address] No Panel InformationOrdered By: Salvador Hernandez on 01-18-2024 Estimated GFR (CKD-EPI) > 60.0 mL/Min [facility] Creatinine Clearance (Chem N/A [facility] Nucleated erythrocytes [Pres ence] in Blood by Automated countOrdered By: Salvador Hernandez on 01-18-2024 Nucleated RBC Auto Ql (Bld) 0.1 /100{WBC} 0-0.5 [facility] Platelet mean volume [Entiti c volume] in Blood by Automated countOrdered By: Salvador Hernandez on 01-18-2024 Platelet mean volume (Bld) [Entitic vol] 10.1 fL Normal 6.3-10.7 [facility] Comment on above: Performed By: #### C BC, [id number], CMP, LIPID, T4F, TSH3 #### [facility] [address] [place] [address] [place] Platelets [#/volume] in Bloo d by Automated countOrdered By: Salvador Hernandez on 01-18-2024 Platelets (Bld) [#/Vol] 183 10*3/uL Normal 150-450 [facility] Comment on above: Performed By: #### C BC, [id number], CMP, LIPID, T4F, TSH3 #### [facility] [address] [place] [address] [place] Potassium [Moles/volume] in Serum or PlasmaOrdered By: Salvador Hernandez on 01-18-2024 Potassium [Moles/Vol] 4.3 mmol/L Normal 3.5-5.1 [facility] Comment on above: Performed By: #### C BC, [id number], CMP, LIPID, T4F, TSH3 #### [address] Protein [Mass/volume] in Ser um or PlasmaOrdered By: Salvador Hernandez on 01-18-2024 Protein [Mass/Vol] 6.3 g/dL Low 6.4-8.9 [facility] Comment on above: Performed By: #### C BC, [id number], CMP, LIPID, T4F, TSH3 #### [address] Serum globulin measurement b y calculation (mass/volume)Ordered By: Salvador Hernandez on 01-18-2024 Globulin (S) [Mass/Vol] 2.2 g/dL Normal [place] Comment on above: Performed By: #### C BC, [id number], CMP, LIPID, T4F, TSH3 #### [address] Serum or plasma albumin/glob ulin mass ratioOrdered By: Salvador Hernandez on 01-18-2024 Albumin/Globulin [Mass ratio] 1.9 {ratio} Normal [facility] Comment on above: Performed By: #### C BC, [id number], CMP, LIPID, T4F, TSH3 #### [address] Serum or plasma anion gap de terminationOrdered By: Salvador Hernandez on 01-18-2024 Anion gap [Moles/Vol] 11.5 mmol/L Normal 6.0-15.0 [facility] Comment on above: Performed By: #### C BC, [id number], CMP, LIPID, T4F, TSH3 #### [address] Serum or plasma high density lipoprotein (HDL) cholesterol measurementOrdered By: Salvador Hernandez on 01-18-2024 Cholesterol in HDL [Mass/Vol] 60 mg/dL Normal 23-92 [facility] Comment on above: HDL CHOL ATP-III CLA SSIFICATION Cardiovascular RiskHDL > or equal to 60 mg/dL LOWHDL < 40 mg/dL HIGH Result Comment: HDL CHOL ATP-III CLASSIFICATION Cardiovascular Risk HDL > or equal to 60 mg/dL LOW HDL < 40 mg/dL HIGH Performed By: #### C BC, [id number], CMP, LIPID, T4F, TSH3 #### [facility] [address] [place] [address] Serum or plasma total choles terol/high density lipoprotein (HDL) cholesterol mass ratOrdered By: Salvador Hernandez on 01-18-2024 Cholesterol.total/Frances sterol in HDL [Mass ratio] 3.1 {ratio} Normal <5.0 [facility] Comment on above: Performed By: #### C BC, [id number], CMP, LIPID, T4F, TSH3 #### [address] Sodium [Moles/volume] in Ser um or PlasmaOrdered By: Salvador Hernandez on 01-18-2024 Sodium [Moles/Vol] 141 mmol/L Normal 136-145 [facility] Comment on above: Performed By: #### C BC, [id number], CMP, LIPID, T4F, TSH3 #### [address] Thyrotropin [Units/volume] i n Serum or PlasmaOrdered By: Salvador Hernandez on 01-18-2024 TSH Qn 1.64 m[IU]/L Normal 0.45-5.33 [facility] Comment on above: Performed By: #### C BC, [id number], CMP, LIPID, T4F, TSH3 #### [facility] [address] [place] [address] Thyroxine (T4) free [Mass/vo lume] in Serum or PlasmaOrdered By: Salvador Hernandez on 01-18-2024 Free T4 [Mass/Vol] 0.82 ng/dL Normal 0.61-1.12 [facility] Comment on above: Performed By: #### C BC, [id number], CMP, LIPID, T4F, TSH3 #### [address] Triglyceride [Mass/volume] i n Serum or PlasmaOrdered By: Salvador Hernandez on 01-18-2024 Triglyceride [Mass/Vol] 109 mg/dL 0-149 [facility] Comment on above: TRIG ATP III CLASSIF ICATIONTRIG less than 150 mg/dL NormalTRIG 150-199 mg/dL Borderline highTRIG 200-500 mg/dL High TRIG greater than 500 mg/dL Very highStandard traceable to the Center for Disease Conrtrol and Prevention (CDC) test method. Urea nitrogen [Mass/volume] in Serum or PlasmaOrdered By: Salvador Hernandez on 01-18-2024 Urea nitrogen [Mass/Vol] 12 mg/dL Normal 7-25 [facility] Comment on above: Performed By: #### C BC, [id number], CMP, LIPID, T4F, TSH3 #### [facility] [address] Vitamin D 25 Hydroxy Totalon 01-18-2024 Vitamin D 25 Hydroxy Total 34.7 ng/mL Normal 30-100 [facility] Comment on above: Result Comment: KIANNA MIN D STATUS 25(OH)VITAMIN D RANGE (ng/mL) Deficient <20 Insufficient 20 to <30 Sufficient 30 to 100 Reference: Kalyan Mckeon, Hawa CARDOZO, et al. Evaluation,treatment, and prevention of vitamin D deficiency; an Endocrine Society clinical practice guideline. JCEM. 2010; 96(7):1911-30. PERFORMED BY: [place] [address] PATHOLOGIST [employer] MACHINE OPERATOR JAEL REED M.D. Performed By: #### C BC, [id number], CMP, LIPID, T4F, TSH3 #### [address] Vitamin D+Metabolites [Mass/ volume] in Serum or PlasmaOrdered By: Salvador Hernandez on 01-18-2024 Vitamin D+Metabolites [Mass/Vol] 34.7 ng/mL 30-100 [facility] Comment on above: VITAMIN D STATUS 25( [place])VITAMIN D RANGE (ng/mL) Deficient <20 Insufficient 20 to <30Sufficient 30 to 100Reference: Kalyan Mckeon, Hawa CARDOZO, et al. Evaluation,treatment, and prevention of vitamin D deficiency; an Endocrine Society clinical practice guideline. JCEM. 2010; 96(7):1911-30. Alanine aminotransferase [En zymatic activity/volume] in Serum or PlasmaOrdered By: Salvador Hernandez on 01-19-2023 ALT [Catalytic activity/Vol] 11 U/L 7-52 [facility] Albumin [Mass/volume] in Ser um or Plasma by Bromocresol green (BCG) dye binding methoOrdered By: Salvador Hernandez on 01-19-2023 Albumin BCG dye [Mass/Vol] 3.9 g/dL 3.5-5.7 [facility] Alkaline phosphatase [Enzyma tic activity/volume] in Serum or PlasmaOrdered By: Salvador Hernandez on 01-19-2023 ALP [Catalytic activity/Vol] 72 U/L 34-104 [facility] Aspartate aminotransferase [ Enzymatic activity/volume] in Serum or PlasmaOrdered By: Salvador Hernandez on 01-19-2023 AST [Catalytic activity/Vol] 15 U/L 13-39 [facility] Basophils Auto (Bld) [#/Vol] Ordered By: Salvador Hernandez on 01-19-2023 Basophils (Bld) [#/Vol] 0.1 10*3/uL 0.0-0.2 [facility] Basophils/100 WBC Auto (Bld) Ordered By: Salvador Hernandez on 01-19-2023 Basophils/100 WBC (Bld) 1.0 % . F [facility] Bilirubin.total [Mass/volume ] in Serum or PlasmaOrdered By: Salvador Hernandez 01-19-2023 Bilirubin [Mass/Vol] 0.6 mg/dL 0.3-1.0 [facility] Calcium [Mass/volume] in Ser um or PlasmaOrdered By: Salvador Hernandez 01-19-2023 Calcium [Mass/Vol] 9.3 mg/dL 8.6-10.3 [facility] Carbon dioxide, total [Moles /volume] in Serum or PlasmaOrdered By: Salvador Hernandez 01-19-2023 CO2 [Moles/Vol] 27.6 mmol/L 21.0-31.0 [facility] Chloride [Moles/volume] in S inocente or PlasmaOrdered By: Salvador Hernandez 01-19-2023 Chloride [Moles/Vol] 111 mmol/L 98-107 [facility] Cholesterol [Mass/volume] in Serum or PlasmaOrdered By: Salvador Hernandez on 01-19-2023 Cholesterol [Mass/Vol] 195 mg/dL 140-200 [facility] Comment on above: Chol less than 200 m g/dl low riskChol 201-239 mg/dl borderline riskChol 240 mg/dl and greater high risk Cholesterol in LDL Calc [Mas s/Vol]Ordered By: Salvador Hernandez on 01-19-2023 Cholesterol in LDL [Mass/Vol] 112 mg/dL 0-100 [facility] Comment on above: LDL ATP III CLASSIFI CATIONLDL less than 100 mg/dL OptimalLDL 100-129 mg/dL Near or above optimalLDL 130-159 mg/dL Borderline highLDL 160-189 mg/dL HighLDL greater than 189 mg/dL Very high Cholesterol in VLDL Calc [Ma ss/Vol]Ordered By: Salvador Hernandez on 01-19-2023 Cholesterol in VLDL [Mass/Vol] 20 mg/dL [facility] Creatinine [Mass/volume] in Serum or PlasmaOrdered By: Salvador Hernandez on 01-19-2023 Creatinine [Mass/Vol] 0.65 mg/dL 0.60-1.20 [facility] Eosinophils Auto (Bld) [#/Vo l]Ordered By: Salvador Hernandez on 01-19-2023 Eosinophils (Bld) [#/Vol] 0.3 10*3/uL 0.0-0.45 [facility] Eosinophils/100 WBC Auto (Bl d)Ordered By: Salvador Hernandez on 01-19-2023 Eosinophils/100 WBC (Bld) 4.8 % . [facility] Erythrocyte distribution wid th Auto (RBC) [Ratio]Ordered By: Salvador Hernandez on 01-19-2023 Erythrocyte distribution width (RBC) [Ratio] 14.7 % 11.9-15.3 [facility] Globulin Calc (S) [Mass/Vol] Ordered By: Salvador Hernandez on 01-19-2023 Globulin (S) [Mass/Vol] 2.1 g/dL [place] Glucose [Mass/volume] in Ser um or PlasmaOrdered By: Salvador Hernandez on 01-19-2023 Glucose [Mass/Vol] 86 mg/dL 70-100 [facility] Comment on above: ADA recommended refe rence rangeRandom Glucose Reference Range is dependent on time and content of last meal. Glucose of more than 200 mg/dL in a nonstressed, ambulatory subject supports the diagnosis of Diabetes Mellitus. Hematocrit Auto (Bld) [Volum e fraction]Ordered By: Salvador Hernandez on 01-19-2023 Hematocrit (Bld) [Volume fraction] 39.1 % 34.0-46.4 [facility] Hemoglobin [Mass/volume] in BloodOrdered By: Salvador Hernandez on 01-19-2023 Hemoglobin (Bld) [Mass/Vol] 13.1 g/dL 11.8-15.4 [facility] Leukocytes [#/volume] correc maurice for nucleated erythrocytes in Blood by Automated counOrdered By: Salvador Hernandez on 01-19-2023 WBC corrected for nucl RBC Auto (Bld) [#/Vol] 5.6 10*3/uL 3.8-11.6 [facility] Lymphocytes Auto (Bld) [#/Vo l]Ordered By: Salvador Hernandez on 01-19-2023 Lymphocytes (Bld) [#/Vol] 1.0 10*3/uL 1.00-4.8 [facility] Lymphocytes/100 WBC Auto (Bl d)Ordered By: Salvador Hernandez on 01-19-2023 Lymphocytes/100 WBC (Bld) 17.6 % . [facility] MCH Auto (RBC) [Entitic mass ]Ordered By: Salvador Hernandez on 01-19-2023 MCH (RBC) [Entitic mass] 30.5 pg 24.7-34.3 [facility] MCHC Auto (RBC) [Mass/Vol]Or dered By: Salvador Hernandez on 01-19-2023 MCHC (RBC) [Mass/Vol] 33.5 g/dL 32.0-35.0 [facility] MCV Auto (RBC) [Entitic vol] Ordered By: Salvador Hernandez on 01-19-2023 MCV (RBC) [Entitic vol] 90.9 fL 80-100 [facility] Monocytes Auto (Bld) [#/Vol] Ordered By: Salvador Hernandez on 01-19-2023 Monocytes (Bld) [#/Vol] 0.7 10*3/uL 0.0-0.8 [facility] Monocytes/100 WBC Auto (Bld) Ordered By: Salvador Hernandez on 01-19-2023 Monocytes/100 WBC (Bld) 13.1 % . [facility] Neutrophils Auto (Bld) [#/Vo l]Ordered By: Salvador Hernandez on 01-19-2023 Neutrophils (Bld) [#/Vol] 3.6 10*3/uL 1.8-7.7 [facility] Neutrophils/100 WBC Auto (Bl d)Ordered By: Salvador Hernandez on 01-19-2023 Neutrophils/100 WBC (Bld) 63.5 % . [facility] No Panel InformationOrdered By: Salvador Hernandez on 01-19-2023 Estimated GFR (CKD-EPI) > 60.0 mL/Min [facility] Creatinine Clearance (Chem N/A [facility] Nucleated erythrocytes [Pres ence] in Blood by Automated countOrdered By: Salvador Hernandez on 01-19-2023 Nucleated RBC Auto Ql (Bld) 0.1 /100{WBC} 0-0.5 [facility] Platelet mean volume Auto (B ld) [Entitic vol]Ordered By: Salvador Hernandez on 01-19-2023 Platelet mean volume (Bld) [Entitic vol] 9.9 fL 6.3-10.7 [facility] Platelets Auto (Bld) [#/Vol] Ordered By: Salvador Hernandez on 01-19-2023 Platelets (Bld) [#/Vol] 202 10*3/uL 150-450 [facility] Potassium [Moles/volume] in Serum or PlasmaOrdered By: Salvador Hernandez on 01-19-2023 Potassium [Moles/Vol] 4.1 mmol/L 3.5-5.1 [facility] Protein [Mass/volume] in Ser um or PlasmaOrdered By: Salvador Hernandez on 01-19-2023 Protein [Mass/Vol] 6.0 g/dL 6.4-8.9 [facility] RBC Auto (Bld) [#/Vol]Ordere d By: Salvador Hernandez on 01-19-2023 RBC (Bld) [#/Vol] 4.30 10*6/uL 3.60-5.00 [facility] Serum or plasma albumin/glob ulin mass ratioOrdered By: Salvador Hernandez on 01-19-2023 Albumin/Globulin [Mass ratio] 1.9 {ratio} [facility] Serum or plasma anion gap de terminationOrdered By: Salvador Hernandez on 01-19-2023 Anion gap [Moles/Vol] 9.5 mmol/L 6.0-15.0 [facility] Serum or plasma high density lipoprotein (HDL) cholesterol measurementOrdered By: Salvador Hernandez on 01-19-2023 Cholesterol in HDL [Mass/Vol] 62 mg/dL 23- [facility] Comment on above: HDL CHOL ATP-III CLA SSIFICATION Cardiovascular RiskHDL > or equal to 60 mg/dL LOWHDL < 40 mg/dL HIGH Serum or plasma total choles terol/high density lipoprotein (HDL) cholesterol mass ratOrdered By: Salvador Hernandez on 01-19-2023 Cholesterol.total/Frances sterol in HDL [Mass ratio] 3.1 {ratio} <5.0 [facility] Sodium [Moles/volume] in Ser um or PlasmaOrdered By: Salvador Hernandez on 01-19-2023 Sodium [Moles/Vol] 144 mmol/L 136-145 [facility] Thyrotropin [Units/volume] i n Serum or PlasmaOrdered By: Salvador Hernandez on 01-19-2023 TSH Qn 1.44 m[IU]/L 0.45-5.33 [facility] Thyroxine (T4) free [Mass/vo lume] in Serum or PlasmaOrdered By: Salvador Hernandez on 01-19-2023 Free T4 [Mass/Vol] 0.95 ng/dL 0.61-1.12 [facility] Triglyceride [Mass/volume] i n Serum or PlasmaOrdered By: Salvador Hernandez on 01-19-2023 Triglyceride [Mass/Vol] 103 mg/dL 0-149 [facility] Comment on above: TRIG ATP III CLASSIF ICATIONTRIG less than 150 mg/dL NormalTRIG 150-199 mg/dL Borderline highTRIG 200-500 mg/dL High TRIG greater than 500 mg/dL Very highStandard traceable to the Center for Disease Conrtrol and Prevention (CDC) test method. Urea nitrogen [Mass/volume] in Serum or PlasmaOrdered By: Salvador Hernandez on 01-19-2023 Urea nitrogen [Mass/Vol] 10 mg/dL 7-25 [facility] WBC Auto (Bld) [#/Vol]Ordere d By: Salvador Hernandez on 01-19-2023 WBC (Bld) [#/Vol] 5.6 10*3/uL 3.8-11.6 [facility] Basophils Auto (Bld) [#/Vol] Ordered By: Chanelle Cho on 10-07-2022 Basophils (Bld) [#/Vol] 0.0 10*3/uL 0.0-0.2 [facility] Basophils/100 WBC Auto (Bld) Ordered By: Chanelle Cho on 10-07-2022 Basophils/100 WBC (Bld) 0.4 % . [facility] C reactive protein [Mass/vol ume] in Serum or PlasmaOrdered By: Chanelle Cho on 10-07-2022 CRP [Mass/Vol] 3.1 mg/dL 0.0-0.5 [facility] Eosinophils Auto (Bld) [#/Vo l]Ordered By: Chanelle Cho on 10-07-2022 Eosinophils (Bld) [#/Vol] 0.1 10*3/uL 0.0-0.45 [facility] Eosinophils/100 WBC Auto (Bl d)Ordered By: Chanelle Cho on 10-07-2022 Eosinophils/100 WBC (Bld) 2.2 % . [facility] Erythrocyte distribution wid th Auto (RBC) [Ratio]Ordered By: Chanelle Cho on 10-07-2022 Erythrocyte distribution width (RBC) [Ratio] 13.9 % 11.9-15.3 [facility] Erythrocyte sedimentation ra te by Photometric methodOrdered By: Chanelle Cho on 10-07-2022 ESR Photometric method (Bld) [Velocity] 26 mm/hr 0-29 [facility] Hematocrit Auto (Bld) [Volum e fraction]Ordered By: Chanelle Cho on 10-07-2022 Hematocrit (Bld) [Volume fraction] 41.8 % 34.0-46.4 [facility] Hemoglobin [Mass/volume] in BloodOrdered By: Chanelle Cho on 10-07-2022 Hemoglobin (Bld) [Mass/Vol] 14.1 g/dL 11.8-15.4 [facility] Leukocytes [#/volume] correc maurice for nucleated erythrocytes in Blood by Automated counOrdered By: Chanelle Cho on 10-07-2022 WBC corrected for nucl RBC Auto (Bld) [#/Vol] 6.1 10*3/uL 3.8-11.6 [facility] Lymphocytes Auto (Bld) [#/Vo l]Ordered By: Chanelle Cho on 10-07-2022 Lymphocytes (Bld) [#/Vol] 1.5 10*3/uL 1.00-4.8 [facility] Lymphocytes/100 WBC Auto (Bl d)Ordered By: Chanelle Cho on 10-07-2022 Lymphocytes/100 WBC (Bld) 24.2 % . [facility] MCH Auto (RBC) [Entitic mass ]Ordered By: Chanelle Cho on 10-07-2022 MCH (RBC) [Entitic mass] 31.1 pg 24.7-34.3 [facility] MCHC Auto (RBC) [Mass/Vol]Or dered By: Chanelle Cho on 10-07-2022 MCHC (RBC) [Mass/Vol] 33.7 g/dL 32.0-35.0 [facility] MCV Auto (RBC) [Entitic vol] Ordered By: Chanelle Cho on 10-07-2022 MCV (RBC) [Entitic vol] 92.2 fL 80-100 [facility] Monocytes Auto (Bld) [#/Vol] Ordered By: Chanelle Cho on 10-07-2022 Monocytes (Bld) [#/Vol] 0.7 10*3/uL 0.0-0.8 [facility] Monocytes/100 WBC Auto (Bld) Ordered By: Chanelle Cho on 10-07-2022 Monocytes/100 WBC (Bld) 11.7 % . [facility] Neutrophils Auto (Bld) [#/Vo l]Ordered By: Chanelle Cho on 10-07-2022 Neutrophils (Bld) [#/Vol] 3.8 10*3/uL 1.8-7.7 [facility] Neutrophils/100 WBC Auto (Bl d)Ordered By: Chanelle Cho on 10-07-2022 Neutrophils/100 WBC (Bld) 61.5 % . [facility] Nucleated erythrocytes [Pres ence] in Blood by Automated countOrdered By: Chanelle Cho on 10-07-2022 Nucleated RBC Auto Ql (Bld) 0.2 /100{WBC} 0-0.5 [facility] Platelet mean volume Auto (B ld) [Entitic vol]Ordered By: Chnaelle Cho on 10-07-2022 Platelet mean volume (Bld) [Entitic vol] 9.5 fL 6.3-10.7 [facility] Platelets Auto (Bld) [#/Vol] Ordered By: Chanelle Cho on 10-07-2022 Platelets (Bld) [#/Vol] 250 10*3/uL 150-450 [facility] RBC Auto (Bld) [#/Vol]Ordere d By: Chanelle Cho on 10-07-2022 RBC (Bld) [#/Vol] 4.53 10*6/uL 3.60-5.00 [facility] WBC Auto (Bld) [#/Vol]Ordere d By: Chanelle Cho on 10-07-2022 WBC (Bld) [#/Vol] 6.1 10*3/uL 3.8-11.6 [facility] CBC AUTO DIFFon 09-29-2022 BASO # 0.0 103/ul Normal 0.0-0.1 [facility] Comment on above: Performed By: #### C BC #### [facility] [address] [address] [address] Quintin Kaur Basophils/100 WBC (Bld) 0.5 % Normal 0.2-2.0 [facility] Comment on above: Performed By: #### C BC #### [facility] [address] [place], [place] [address] Dr. Quintin Kaur EO # 0.2 103/ul Normal 0.0-0.7 [facility] Comment on above: Performed By: #### C BC #### [facility] [address] [place] [address] Dr. Quintin Kaur Eosinophils/100 WBC (Bld) 3.2 % Normal 0.9-7.0 [facility] Comment on above: Performed By: #### C BC #### [facility] [address] [place] [address] Dr. Quintin Kaur Erythrocyte distribution width (RBC) [Ratio] 13.2 % Normal 11.0-15.0 [facility] Comment on above: Performed By: #### C BC #### [facility] [address] [place] [address] Dr. Quintin Kaur Hematocrit (Bld) [Volume fraction] 41.3 % Normal 36.0-48.0 [facility] Comment on above: Performed By: #### C BC #### [facility] [address] [place] [address] Dr. Quintin Kaur Hemoglobin (Bld) [Mass/Vol] 13.9 g/dL Normal 12.0-16.0 [facility] Comment on above: Performed By: #### C BC #### [facility] [address] [place] [address] Dr. Quintin Kaur IG # 0.02 10e3/ul Normal 0.00-0.03 [facility] Comment on above: Performed By: #### C BC #### [facility] [address] [place] [address] Dr. Quintin Kaur IG % 0.3 % Normal 0.0-0.5 [facility] Comment on above: Performed By: #### C BC #### [facility] [address] [place] [address] Dr. Quintin Kaur LYMPH # 1.0 103/ul Critically low 1.2-3.8 [facility] Comment on above: Performed By: #### C BC #### [facility] [address] [place] [address] Dr. Quintin Kaur Lymphocytes/100 WBC (Bld) 13.9 % Critically low 20.5-60.0 [facility] Comment on above: Performed By: #### C BC #### [facility] [address] [place] [address] Dr. Quintin Kaur MANUAL DIFF REQ NO Normal [facility] Comment on above: Performed By: #### C BC #### [facility] [address] [place] [address] Dr. Quintin Kaur MCH (RBC) [Entitic mass] 30.9 pg Normal 26.7-34.0 [facility] Comment on above: Performed By: #### C BC #### [facility] [address] [place] [address] Dr. Quintin Kaur MCHC (RBC) [Mass/Vol] 33.7 g/dL Normal 29.9-35.2 [facility] Comment on above: Performed By: #### C BC #### [facility] [address] [place] [address] Dr. Quintin Kaur MCV (RBC) [Entitic vol] 91.8 fL Normal 81.0-99.0 [facility] Comment on above: Performed By: #### C BC #### [facility] [address] [place] [address] Dr. Quintin Kaur MONO # 0.6 103/ul Normal 0.3-0.8 [facility] Comment on above: Performed By: #### C BC #### [facility] [address] [place] [address] Dr. Quintin Kaur Monocytes/100 WBC (Bld) 8.1 % Normal 1.7-12.0 [facility] Comment on above: Performed By: #### C BC #### [facility] [address] [place] [address] Dr. Quintin Kaur NEUT # 5.4 103/ul Normal 1.4-6.5 [facility] Comment on above: Performed By: #### C BC #### [facility] [address] [place] [address] Dr. Quintin Kaur Neutrophils/100 WBC (Bld) 74.0 % Normal 43.0-75.0 [facility] Comment on above: Performed By: #### C BC #### [facility] [address] [place] [address] Dr. Quintin Kaur Platelet mean volume (Bld) [Entitic vol] 10.7 fL Normal 9.5-13.5 [facility] Comment on above: Performed By: #### C BC #### [facility] [address] [place] [address] Dr. Quintin Karu PLT 228 103/ul Normal 150-450 [facility] Comment on above: Performed By: #### C BC #### [facility] [address] [place] [address] Dr. Quintin Kaur RBC 4.50 106/ul Normal 4.20-5.40 [facility] Comment on above: Performed By: #### C BC #### [facility] [address] [place] [address] Dr. Quintin Kaur WBC 7.3 103/ul Normal 4.0-11.0 [facility] Comment on above: Performed By: #### C BC #### [facility] [address] [place] [address] Dr. Quintin Kaur CREATININEon 09-29-2022 Creatinine [Mass/Vol] 0.72 mg/dL Normal 0.55-1.02 [facility] Comment on above: Performed By: #### SERGEI WEAVER #### [facility] [address] [place] [address] Dr. Quintin Kaur EGFR-AF CROATIAN >60 Normal >=60 [facility] Comment on above: Performed By: #### SERGEI WEAVER #### [facility] [address] [place] [address] Dr. Quintin Kaur EGFR-NON AF CROATIAN >60 Normal >=60 [facility] Comment on above: Performed By: #### SERGEI WEAVER #### [facility] [address] [place] [address] Dr. Quintin Kaur LIVER PROFILEon 09-29-2022 Albumin [Mass/Vol] 3.7 g/dL Normal 3.4-5.0 [facility] Comment on above: Performed By: #### Andrei DE JESUSER, CREA #### [facility] [address] [address] [address] Quintin Kaur Albumin/Globulin [Mass ratio] 1.0 {ratio} Normal [facility] Comment on above: Performed By: #### L IVLOGAN, CREA #### [facility] [address] [address] [address] Quintin Kaur ALP [Catalytic activity/Vol] 100 U/L Normal 46-116 [facility] Comment on above: Performed By: #### L HAYLEY, CREA #### [facility] [address] [address] [address] Quintin Kaur ALT [Catalytic activity/Vol] 22 U/L Normal 14-59 [facility] Comment on above: Performed By: #### L HAYLEY CREA #### [facility] [address] [place] [address] Dr. Quintin Kaur AST [Catalytic activity/Vol] 12 U/L Critically low 15-37 [facility] Comment on above: Performed By: #### L HAYLEY CREA #### [facility] [address] [place] [address] Dr. Quintin Kaur BILI, CONJUGATED 0.1 mg/dL Normal 0.0-0.2 [facility] Comment on above: Performed By: #### L HAYLEY CREA #### [facility] [address] [place] [address] Dr. Quintin Kaur Bilirubin [Mass/Vol] 0.3 mg/dL Normal 0.2-1.0 [facility] Comment on above: Performed By: #### L HAYLEY CREA #### [facility] [address] [address] [address] Quintin Kaur Globulin (S) [Mass/Vol] 3.6 g/dL Normal [facility] Comment on above: Performed By: #### L HAYLEY, CREA #### [facility] [address] [place] [address] Dr. Quintin Kaur Protein [Mass/Vol] 7.3 g/dL Normal 6.4-8.2 [facility] Comment on above: Performed By: #### SERGEI WEAVER #### [facility] [address] [place] [address] Dr. Quintin Kaur SED [facility] 2022 SED RATE 10 mm/hr Normal <=30 [facility] Comment on above: Performed By: #### SERGEI WEAVER #### [facility] [address] [place] [address] Dr. Quintin Kaur CBC AUTO DIFFon 06-02-2022 BASO # 0.0 103/ul Normal 0.0-0.1 [facility] Comment on above: Performed By: #### SERGEI WEAVER #### [facility] [address] [place] [address] Dr. Quintin Kaur Basophils/100 WBC (Bld) 0.6 % Normal 0.2-2.0 [facility] Comment on above: Performed By: #### SERGEI WEAVER #### [facility] [address] [place] [address] Dr. Quintin Kaur EO # 0.2 103/ul Normal 0.0-0.7 [facility] Comment on above: Performed By: #### SERGEI WEAVER #### [facility] [address] [place] [address] Dr. Quintin Kaur Eosinophils/100 WBC (Bld) 3.9 % Normal 0.9-7.0 [facility] Comment on above: Performed By: #### SERGEI WEAVER #### [facility] [address] [place] [address] Dr. Quintin Karu Erythrocyte distribution width (RBC) [Ratio] 12.2 % Normal 11.0-15.0 [facility] Comment on above: Performed By: #### SERGEI WEAVER #### [facility] [address] [place] [address] Dr. Quintin Kaur Hematocrit (Bld) [Volume fraction] 40.8 % Normal 36.0-48.0 [facility] Comment on above: Performed By: #### SERGEI WEAVER #### [facility] [address] [place] [address] Dr. Quintin Kaur Hemoglobin (Bld) [Mass/Vol] 13.7 g/dL Normal 12.0-16.0 [facility] Comment on above: Performed By: #### L HAYLEY, CREA #### [facility] [address] [place] [address] Dr. Quintin Kaur IG # 0.01 10e3/ul Normal 0.00-0.03 [facility] Comment on above: Performed By: #### L HAYLEY CREA #### [facility] [address] [place] [address] Dr. Quintin Kaur IG % 0.2 % Normal 0.0-0.5 [facility] Comment on above: Performed By: #### Andrei HARDY CREA #### [facility] [address] [place] [address] Dr. Quintin Kaur LYMPH # 1.2 103/ul Normal 1.2-3.8 [facility] Comment on above: Performed By: #### Andrei HARDY CREA #### [facility] [address] [place] [address] Dr. Quintin Kaur Lymphocytes/100 WBC (Bld) 25.2 % Normal 20.5-60.0 [facility] Comment on above: Performed By: #### Andrei HARDY CREA #### [facility] [address] [place] [address] Dr. Quintin Kaur MANUAL DIFF REQ NO Normal [facility] Comment on above: Performed By: #### L HAYLEY CREA #### [facility] [address] [place] [address] Dr. Quintin Kaur MCH (RBC) [Entitic mass] 30.5 pg Normal 26.7-34.0 [facility] Comment on above: Performed By: #### L HAYLEY, CREA #### [facility] [address] [place] [address] Dr. Quintin Kaur MCHC (RBC) [Mass/Vol] 33.6 g/dL Normal 29.9-35.2 [facility] Comment on above: Performed By: #### L TREVON HARDYA #### [facility] [address] [place] [address] Dr. Quintin Kaur MCV (RBC) [Entitic vol] 90.9 fL Normal 81.0-99.0 [facility] Comment on above: Performed By: #### L HAYLEY CREA #### [facility] [address] [place] [address] Dr. Quintin Kaur MONO # 0.6 103/ul Normal 0.3-0.8 [facility] Comment on above: Performed By: #### Andrei HARDY CREA #### [facility] [address] [place] [address] Dr. Quintin Kaur Monocytes/100 WBC (Bld) 12.3 % Critically high 1.7-12. 0 [facility] Comment on above: Performed By: #### TREVON WEAVERA #### [facility] [address] [place] [address] Dr. Quintin Kaur NEUT # 2.7 103/ul Normal 1.4-6.5 [facility] Comment on above: Performed By: #### SERGEI WEAVER #### [facility] [address] [place] [address] Dr. Quintin Kaur Neutrophils/100 WBC (Bld) 57.8 % Normal 43.0-75.0 [facility] Comment on above: Performed By: #### TREVON WEAVERA #### [facility] [address] [place] [address] Dr. Quintin Kaur Platelet mean volume (Bld) [Entitic vol] 10.9 fL Normal 9.5-13.5 [facility] Comment on above: Performed By: #### TREVON WEAVERA #### [facility] [address] [place] [address] Dr. Quintin Kaur PLT 204 103/ul Normal 150-450 [facility] Comment on above: Performed By: #### Andrei HARDY CREA #### [facility] [address] [place] [address] Dr. Quintin Kaur RBC 4.49 106/ul Normal 4.20-5.40 [facility] Comment on above: Performed By: #### SERGEI WEAVER #### [facility] [address] [place] [address] Dr. Quintin Kaur WBC 4.6 103/ul Normal 4.0-11.0 [facility] Comment on above: Performed By: #### SERGEI WEAVER #### [facility] [address] [place] [address] Dr. Quintin Kaur CREATININEon 06-02-2022 Creatinine [Mass/Vol] 0.66 mg/dL Normal 0.55-1.02 [facility] Comment on above: Performed By: #### SERGEI WEAVER #### [facility] [address] [place] [address] Dr. Quintin Kaur EGFR-AF CROATIAN >60 Normal >=60 [facility] Comment on above: Performed By: #### SERGEI WEAVER #### [facility] [address] [place] [address] Dr. Quintin Kaur EGFR-NON AF CROATIAN >60 Normal >=60 [facility] Comment on above: Performed By: #### SERGEI WEAVER #### [facility] [address] [place] [address] Dr. Quintin Kaur LIVER PROFILEon 06-02-2022 Albumin [Mass/Vol] 3.6 g/dL Normal 3.4-5.0 [facility] Comment on above: Performed By: #### SERGEI WEAVER #### [facility] [address] [place] [address] Dr. Quintin Kaur Albumin/Globulin [Mass ratio] 1.2 {ratio} Normal [facility] Comment on above: Performed By: #### SERGEI WEAVER #### [facility] [address] [place] [address] Dr. Quintin Kaur ALP [Catalytic activity/Vol] 92 U/L Normal 46-116 [facility] Comment on above: Performed By: #### SERGEI WEAVER #### [facility] [address] [place] [address] Dr. Quintin Kaur ALT [Catalytic activity/Vol] 16 U/L Normal 14-59 [facility] Comment on above: Performed By: #### SERGEI WEAVER #### [facility] [address] [place] [address] Dr. Quintin Kaur AST [Catalytic activity/Vol] 17 U/L Normal 15-37 [facility] Comment on above: Performed By: #### SERGEI WEAVER #### [facility] [address] [place] [address] Dr. Quintin Kaur BILI, CONJUGATED 0.1 mg/dL Normal 0.0-0.2 [facility] Comment on above: Performed By: #### SERGEI WEAVER #### [facility] [address] [place] [address] Dr. Quintin Kaur Bilirubin [Mass/Vol] 0.4 mg/dL Normal 0.2-1.0 [facility] Comment on above: Performed By: #### SERGEI WEAVER #### [facility] [address] [place] [address] Dr. Quintin Kaur Globulin (S) [Mass/Vol] 3.1 g/dL Normal [facility] Comment on above: Performed By: #### SERGEI WEAVER #### [facility] [address] [place] [address] Dr. Quintin Kaur Protein [Mass/Vol] 6.7 g/dL Normal 6.4-8.2 [facility] Comment on above: Performed By: #### SERGEI WEAVER #### [facility] [address] [place] [address] Dr. Quintin Kaur SED RATE WESTERGRENon 2022 SED RATE 6 mm/hr Normal <=30 [facility] Comment on above: Performed By: #### S EDR #### [facility] [address] [place] [address] Dr. Quintin Kaur CBC AUTO DIFFon 12-12-2021 BASO # 0.0 103/ul Normal 0.0-0.1 [facility] Comment on above: Performed By: #### C BC #### [facility] [address] [place] [address] Dr. Quintin Kaur Basophils/100 WBC (Bld) 0.6 % Normal 0.2-2.0 [facility] Comment on above: Performed By: #### C BC #### [facility] [address] [place] [address] Dr. Quintin Kaur EO # 0.3 103/ul Normal 0.0-0.7 [facility] Comment on above: Performed By: #### C BC #### [facility] [address] [place] [address] Dr. Quintin Kaur Eosinophils/100 WBC (Bld) 5.3 % Normal 0.9-7.0 [facility] Comment on above: Performed By: #### C BC #### [facility] [address] [place] [address] Dr. Quintin Kaur Erythrocyte distribution width (RBC) [Ratio] 13.4 % Normal 11.0-15.0 [facility] Comment on above: Performed By: #### C BC #### [facility] [address] [place] [address] Dr. Quintin Kaur Hematocrit (Bld) [Volume fraction] 38.1 % Normal 36.0-48.0 [facility] Comment on above: Performed By: #### C BC #### [facility] [address] [place] [address] Dr. Quintin Kaur Hemoglobin (Bld) [Mass/Vol] 13.0 g/dL Normal 12.0-16.0 [facility] Comment on above: Performed By: #### C BC #### [facility] [address] [place] [address] Dr. Quintin Kaur IG # 0.01 10e3/ul Normal 0.00-0.03 [facility] Comment on above: Performed By: #### C BC #### [facility] [address] [place] [address] Dr. uQintin Kaur IG % 0.2 % Normal 0.0-0.5 [facility] Comment on above: Performed By: #### C BC #### [facility] [address] [place] [address] Dr. Quintin Kaur LYMPH # 1.0 103/ul Critically low 1.2-3.8 [facility] Comment on above: Performed By: #### C BC #### [facility] [address] [place] [address] Dr. Quintin Kaur Lymphocytes/100 WBC (Bld) 19.0 % Critically low 20.5-60.0 [facility] Comment on above: Performed By: #### C BC #### [facility] [address] [place] [address] Dr. Quintin Kaur MANUAL DIFF REQ NO Normal [facility] Comment on above: Performed By: #### C BC #### [facility] [address] [place] [address] Dr. Quintin Kaur MCH (RBC) [Entitic mass] 31.3 pg Normal 26.7-34.0 [facility] Comment on above: Performed By: #### C BC #### [facility] [address] [place] [address] Dr. Quintin Kaur MCHC (RBC) [Mass/Vol] 34.1 g/dL Normal 29.9-35.2 [facility] Comment on above: Performed By: #### C BC #### [facility] [address] [place] [address] Dr. Quintin Kaur MCV (RBC) [Entitic vol] 91.8 fL Normal 81.0-99.0 [facility] Comment on above: Performed By: #### C BC #### [facility] [address] [place] [address] Dr. Quintin Kaur MONO # 0.5 103/ul Normal 0.3-0.8 [facility] Comment on above: Performed By: #### C BC #### [facility] [address] [place] [address] Dr. Quintin Kaur Monocytes/100 WBC (Bld) 9.9 % Normal 1.7-12.0 [facility] Comment on above: Performed By: #### C BC #### [facility] [address] [place] [address] Dr. Quintin Kaur NEUT # 3.3 103/ul Normal 1.4-6.5 [facility] Comment on above: Performed By: #### C BC #### [facility] [address] [place] [address] Dr. Quintin Kaur Neutrophils/100 WBC (Bld) 65.0 % Normal 43.0-75.0 [facility] Comment on above: Performed By: #### C BC #### [facility] [address] [place] [address] Dr. Quintin Kaur Platelet mean volume (Bld) [Entitic vol] 10.7 fL Normal 9.5-13.5 [facility] Comment on above: Performed By: #### C BC #### [facility] [address] [place] [address] Dr. Quintin Kaur PLT 196 103/ul Normal 150-450 [facility] Comment on above: Performed By: #### C BC #### [facility] [address] [place] [address] Dr. Quintin Kaur RBC 4.15 106/ul Critically low 4.20-5.40 [facility] Comment on above: Performed By: #### C BC #### [facility] [address] [place] [address] Dr. Quintin Kaur WBC 5.1 103/ul Normal 4.0-11.0 [facility] Comment on above: Performed By: #### C BC #### [facility] [address] [place] [address] Dr. Quintin Kaur CREATININEon 12-12-2021 Creatinine [Mass/Vol] 0.85 mg/dL Normal 0.55-1.02 [facility] Comment on above: Performed By: #### SERGEI WEAVER #### [facility] [address] [place] [address] Dr. Quintin Kaur EGFR-AF CROATIAN >60 Normal >=60 [facility] Comment on above: Performed By: #### SERGEI WEAVER #### [facility] [address] [place] [address] Dr. Quintin Kaur EGFR-NON AF CROATIAN >60 Normal >=60 [facility] Comment on above: Performed By: #### SERGEI WEAVER #### [facility] [address] [place] [address] Dr. Quintin Kaur LIVER PROFILEon 12-12-2021 Albumin [Mass/Vol] 3.7 g/dL Normal 3.4-5.0 [facility] Comment on above: Performed By: #### SERGEI WEAVER #### [facility] [address] [place] [address] Dr. Quintin Kaur Albumin/Globulin [Mass ratio] 1.4 {ratio} Normal [facility] Comment on above: Performed By: #### SERGEI WEAVER #### [facility] [address] [place] [address] Dr. Quintin Kaur ALP [Catalytic activity/Vol] 86 U/L Normal 46-116 [facility] Comment on above: Performed By: #### SERGEI WEAVER #### [facility] [address] [place] [address] Dr. Quintin Kaur ALT [Catalytic activity/Vol] 21 U/L Normal 14-59 [facility] Comment on above: Performed By: #### SERGEI WEAVER #### [facility] [address] [place] [address] Dr. Quintin Kaur AST [Catalytic activity/Vol] 16 U/L Normal 15-37 [facility] Comment on above: Performed By: #### TREVON WEAVERA #### [facility] [address] [place] [address] Dr. Quintin Kaur BILI, CONJUGATED 0.1 mg/dL Normal 0.0-0.2 [facility] Comment on above: Performed By: #### SERGEI WEAVER #### [facility] [address] [place] [address] Dr. Quintin Kaur Bilirubin [Mass/Vol] 0.4 mg/dL Normal 0.2-1.0 [facility] Comment on above: Performed By: #### SERGEI WEAVER #### [facility] [address] [address] [address] Quintin Kaur Globulin (S) [Mass/Vol] 2.7 g/dL Normal [facility] Comment on above: Performed By: #### L HAYLEY CREA #### [facility] [address] [address] [address] Quintin Kaur Protein [Mass/Vol] 6.4 g/dL Normal 6.4-8.2 [facility] Comment on above: Performed By: #### L HAYLEY CREA #### [facility] [address] [address] [address] Quintin Kaur SED RATE [facility] 2021 SED RATE 3 mm/hr Normal <=30 [facility] Comment on above: Performed By: #### S EDR #### [facility] [address] [address] [address] Quintin [facility]aur [facility]2017 [facility] Tele[facility] ([facility]) [place] CAMPBELL ([id number]) 1945 [facility] Time Provider Mhkgsemgjw09/10/17 NANCY GOODWIN [facility] During your visit today, we recorded the following information about you:Nancy Goodwin MD 04/09/2017 3:39 PM SignedLeft VM on home phone.ACTH stimulation test for adrenal function was normal. This means patient doesnot need prednisone for adrenal, but she may need it for her rheumatoidarthritis as per her doctor's directions.Please send ACTH stimulation lab result from 04/07/2017 toReferring Physician: Chanelle Cho MD (DrC)[address] [place] [address]Bpvoz Elissa Goodwin MDtiara Ornelas 04/09/2017 4:29 PM SignedOffice note and ACTH stimulation test results faxed to [facility] at [phone].Confirmatidavid sanchez.Leah Ornelas R.N.Allergies As of Date: 04/09/2017(No Known [...] mouth once eac*Problem List As Of Date: 04/09/2017(None)[facility] r Number: [id number] Status:Closed by NANCY GOODWIN MD on 04/09/17 Normal [facility] ACTH Stim 3 Time Ptson 04-07 .Cortisol,Basal LK USE ONLY 10.5 ug/dL Normal [facility] Comment on above: Result Comment: Lonnie isol Reference Range: AM = 5.3-22.5, PM = 3.4-16.8 Performed By: #### A CTHST ####[facility] [place], [place] [phone] Cortisol, 30 min 19.8 ug/dL Normal [facility] Comment on above: Performed By: #### A CTHST ####[facility] [place], [place] [phone] Cortisol, 60 min 25.8 ug/dL Normal [facility] Comment on above: Performed By: #### A CTHST ####[facility] [place], [place] [phone] Interpretation A peak value of at l east 18 ug/dL is a normal response to cortrosyn stimulation. Normal [facility] Comment on above: Performed By: #### A CTHST ####[facility] [place], [place] [phone] CNOVon 04-07-2017 CNOV Office Visit (ENLKD) [place] CAMPBELL ([id number]) 1945 FDate Time Provider [id number]/8/17 2:45 PM NANCY GOODWIN [facility] During your visit today, we recorded the following information about you: Pulse Blood pressure Weight Height 67/minute 104/67 76.1 kg 1.676 Cresencio Goodwin MD 04/07/2017 3:36 PM SignedReason for Consultation: Secondary adrenal insufficiencyReferring Physician: Chanelle Cho MD ([facility])[address] [facility] [id number] final recommendations will be communicated back to [...] Ca/D supplement once daily. She isfollowing with cover mat machine operator Dr. Chanelle [place] in [place]. She has been onprednisone for 25 years. [...] kg (167 lb 12.8 oz) BMI 27.08 kg/y0Xfitqvkh, modifying factors, context and associated signs and [...] kg (167 lb 12.8 oz) BMI 27.08 kg/l4Pptgbua: Well appearing, alert, in no acute distress, [...] to clinic as needed.Referring Provider: CHANELLE CHO [[id number]]Allergies As of Date: 04/07/2017(No Known Allergies)Date Reviewed: 04/07/2017Reviewed by: Mario Rolon Ma - Fully AssessedReason for Visit: New Patient [172]Primary Visit Diagnosis:Secondary adrenal insufficiency (HCC) [E27.49]Order(s):Omepraz ole (PRILOSEC) 40 mg capsuleTake 1 capsule by mouth once daily.Disp: Rfl: 0 ACTH STIMULATION,3 TIME POINTS [SQACTHST] Order #: [id number] FUTURE cosyntropin (CORTROSYN) 0.25 mg injectionInject 0.25 [...] of Service: NEW PATIENT VISIT LEVEL 4 [[id number]]Follow-up and Disposition History RecordedEncounter Number: [id number] Status:Closed by NANCY GOODWIN MD on 04/07/17 Normal [facility] PROGRESSon 04-07-2017 PROGRESS HNO ID: [id number]: Nancy Prasadervice: (none)Author Type: PhysicianType: Progress NotesFiled: 04/07/2017 3:36 PMNote Text:Reason for Consultation: Secondary adrenal insufficiencyReferring Physician: Chanelle Cho MD ([facility])[address] [facility] [place] [address] final recommendations will be communicated back to the requestingphysician by way of shared Medical record or letter via [place] mail.Date: April 07, 2017HISTORY OF PRESENT ILLNESS;Ms. Campbell is a 71 year old female presenting as a new patient to [facility] assessment of adrenal insufficiency. She reports a longstandinghistory of progressive rheumatoid arthritis. She was treated with Humiraand is now on Rituxan infusions every 6 months in addition to methotrexate7.5 mg per week and folic acid. The patient takes Ca/D supplement oncedaily. She is following with cover mat machine operator Dr. Chanelle Falk. She has been on [...] kg (167 lb 12.8 oz) BMI 27.08 kg/k3Dyqxystx, modifying factors, context and associated signs and [...] kg (167 lb 12.8 oz) BMI 27.08 kg/l3Htftyna: Well appearing, alert, in no acute distress, [...] female presenting as a new patient to [facility] adrenal function. The patient reports longstanding history [...] to clinic as neededNancy Goodwin MD Normal [facility] Vital Signs Date Time Vital Sign Value Performing Clinician Patrice mcghee 03-23-2023 10:36-0400 Diastolic blood pressure 61 mm[Hg] MD Salvador Hernandez Work Phone: [facility] 03-23-2023 10:36-0400 Heart rate 69 /min MD Salvador Hernandez Work Phone: [facility] 03-23-2023 10:36-0400 Respiratory rate 16 /min MD Salvador Hernandez Work Phone: [facility] 03-23-2023 10:36-0400 SaO2% (BldA) [Mass fraction] 97 % MD Salvador Hernandez Work Phone: [facility] 03-23-2023 10:36-0400 Systolic blood pressure 110 mm[Hg] MD Salvador Hernandez Work Phone: [facility] 03-23-2023 09:17-0400 Body height 152.4 cm MD Salvador Hernandez Work Phone: [facility] 03-23-2023 09:17-0400 Body weight 63.5 kg MD Salvador Hernandez Work Phone: [facility] Encounters Encounter Date Encounter Type Care Provider Facility Start: 04-04-2024 End: 04-04-2024 Patient encounter procedure MD Salvador Hernandez Work Phone: [facility] [address] Work Phone: Start: 04-04-2024 End: 04-04-2024 ambulatory MD Salvador Hernandez Work Phone: [facility] Work Phone: Start: 03-08-2024 End: 03-08-2024 Bamboo flowsheet Aleksandr Claire DPM Work Phone: [facility] Start: 03-08-2024 End: 03-08-2024 Bamboo flowsheet Aleksandr Claire DPM Work Phone: [facility] Start: 03-08-2024 End: 03-08-2024 Patient encounter procedure Aleksandr Claire DPM Work Phone: [facility] Comment on above: Onychomycosis (Prima ry Dx); Pain in both feet; Corns and callosities; Neuropathy Start: 03-08-2024 End: 03-08-2024 ambulatory ALEKSANDR CLAIRE Not Available Start: 01-18-2024 End: 01-18-2024 Patient encounter procedure MD Salvador Hernandez Work Phone: [facility] Start: 01-18-2024 End: 01-18-2024 ambulatory MD Salvador Hernandez Work Phone: [facility] Work Phone: Start: 01-14-2024 End: 01-14-2024 Patient encounter procedure MD Salvador Hernandez Work Phone: [facility] Work Phone: Start: 01-14-2024 End: 01-14-2024 ambulatory MD Salvador Hernandez Work Phone: [facility] Work Phone: Start: 12-07-2023 End: 12-07-2023 ambulatory ALEKSANDR Valderrama DAKOTAH Not Available Start: 09-13-2023 End: 09-13-2023 ambulatory ALEKSANDR Valderrama CLAIRE Not Available Start: 08-02-2023 End: 08-02-2023 ambulatory JOSE LEVINE Not Available Start: 07-06-2023 Chart abstracting Aleksandr H Dakotah DPM Work Phone: [facility] Start: 07-06-2023 End: 07-06-2023 ambulatory ALEKSANDR H CLAIRE Not Available Start: 03-23-2023 End: 03-23-2023 Admission to same day surgery center MD Salvador Hernandez Work Phone: [facility] Work Phone: Start: 03-23-2023 End: 03-23-2023 ambulatory MD Salvador Hernandez Work Phone: [facility] Work Phone: Start: 01-19-2023 End: 01-19-2023 ambulatory MD Salvador Hernandez Work Phone: [facility] Work Phone: Start: 01-19-2023 End: 01-19-2023 Patient encounter procedure MD Salvador Hernandez Work Phone: [facility] Start: 10-07-2022 End: 10-07-2022 ambulatory MD Salvador Hernandez Work Phone: [facility] Work Phone: Start: 10-07-2022 End: 10-07-2022 Patient encounter procedure MD Salvador Hernandez Work Phone: [facility] [address] Work Phone: Start: 09-29-2022 End: 09-30-[address] CHANELLE CHO Facility:[facility] Start: 06-02-2022 End: 06-03-[address] CHANELLE CHO Facility:[facility] Start: 01-01-[address] CHANELLE CHO Facil ity:[facility] Start: 12-12-2021 End: 12-13-[address] CHANELLE CHO Facility:[facility] Start: 04-07-2017 End: 04-07-2017 Ambulatory NANCY GOODWIN [facility] Procedures Date Procedure Procedure Detail Performing Clinician Start: 01-14-2024 Dual energy X-ray absorptiometry MD Salvador Hernandez Work Phone: Start: 03-23-2023 Screening colonoscopy Matt Hernandez Work Phone: Plan of Treatment Date Care Activity Detail Author Start: 06-15-2024 End: 06-15-2024 Patient encounter procedure 06/15/2024 10:15 AM EST Procedure Visit [facility] [address] [place] [id number] Aleksandr Claire, DPM [address] [place] [address] [facility] Start: 04-04-2024 [facility] Start: 03-08-2024 End: 03-08-2024 Patient encounter procedure 03/08/2024 10:15 AM EDT Procedure Visit [facility] [address] [place] [address] Aleksandr Claire, DPM [address] [place] [address] Arrived [facility] Comment on above: Arrived Start: 07-06-2023 End: 07-06-2023 Patient encounter procedure 07/06/2023 11:00 AM EST Office Visit [facility] [address] [place] [id number] Aleksandr Claire, DPM [address] [place] [address] [facility] Start: 03-23-2023 [facility] Start: 10-07-2022 [facility] Albumin [Mass/volume ] in Serum or Plasma [facility] Albumin [Mass/volume ] in Serum or Plasma [facility] Albumin/Globulin ratio [facility] Albumin/Globulin ratio [facility] Electrophoresis: [id number] [facility] Electrophoresis: oggbu-3-qglcdudc [facility] Electrophoresis: [id number] [facility] Electrophoresis: [id number]-[id number] [facility] Electrophoresis: beta-globulin [facility] Electrophoresis: beta-globulin [facility] Electrophoresis: roberto ma globulin [facility] Electrophoresis: roberto ma globulin [facility] Globulin [Mass/volum e] in Serum [facility] Globulin [Mass/volum e] in Serum [facility] IgA [Mass/volume] in Serum or Plasma [facility] IgA [Mass/volume] in Serum or Plasma [facility] IgE [Units/volume] i n Serum or Plasma [facility] IgG [Mass/volume] in Serum or Plasma [facility] IgG [Mass/volume] in Serum or Plasma [facility] IgM [Mass/volume] in Serum or Plasma [facility] IgM [Mass/volume] in Serum or Plasma [facility] Interferon gamma assay [facility] Mycobacterium tuberculosis stimulated gamma interferon [Interpretation] in Blood Qualitative [facility] Mycobacterium tuberculosis stimulated gamma interferon release by CD4+ and CD8+ T-cells [Units/volume] corrected for background in Blood [facility] Mycobacterium tuberculosis tuberculin stimulated gamma interferon [Presence] in Blood [facility] Patient Education Hemorrhoids (D C) Diverticulosis (DC) [facility] Work Phone: Protein [Mass/volume ] in Serum or Plasma [facility] Protein [Mass/volume ] in Serum or Plasma [facility] Serum immunofixation [facility] Payers Date Payer Category Payer Self-pay [id number] 2023 Private Health Insurance [facility] [id number] 2023-Present [address] [address] [place] [address] [id number] 2009 Medicare MEDICARE MEDICAR E RAILROAD [id number] 2009-Present [employer] MEDICARE [address] [address] [place] [address] Medicare [id number] 1959 Medicare [id number] 1959 Private Health Insurance [id number] 1959 Self-pay [id number] 1944 Unknown [id number] [id number]. 2.593 1944 Unknown [id number] 2.16.840.1.685157.3.579. 2.593 1944 Unknown [id number] 2.16.840.1.482314.3.579. 2.593 1944 Unknown [id number] 2.16.840.1.950727.3.579. 2.593 1944 Unknown [id number] 2.16.840.1.499405.3.579. 2.1259 1944 Unknown [id number] 2.16.840.1.914268.3.579. 2.1259 1944 Unknown [id number] 2.16.840.1.077171.3.579. 2.1259 1944 Unknown [id number] 2.16.840.1.447297.3.579. 2.1259 1944 Unknown [id number] 2.16.840.1.134398.3.579. 2.1259 Unknown [id number] 2.16.840.1.879700.3.579. 2.531 Unknown [id number] 2.16.840.1.994951.3.579. 2.531 Unknown [id number] 2.16.840.1.447276.3.579. 2.531 Social History Date Type Detail Facility Start: 01-22-2021 End: 03-23-2023 Tobacco smoking status NHIS Never smoked tobacco (finding) [facility] Start: 1945 Sex Assigned At Female F [facility] Start: 07-06-2023 Tobacco use and exposure Smokeless tobacco non-user [facility] Start: 07-06-2023 End: 03-08-2024 Alcohol intake Lifetime non-drinker (finding) [facility] Start: 1945 Sex Assigned At Not on file [facility] Start: 12-07-2023 End: 03-08-2024 Gender identity Not on file [facility] Start: 12-07-2023 End: 03-08-2024 History of Social function [facility] Medical Equipment Procedure Code Equipment Code Equipment Origin al Text Equipment Identifier Dates ORIF, fracture, patella Orthopaedic bone screw, non-bioabsorbable, non-sterile ()[id number] FDA Start: 10-15-2020 ORIF, fracture, patella Orthopaedic bone screw, non-bioabsorbable, non-sterile ()[id number] [facility] Start: 10-15-2020 ORIF, fracture, patella Orthopaedic bone screw, non-bioabsorbable, non-sterile ()[id number] FDA Start: 10-15-2020 ORIF, fracture, patella Orthopaedic bone wire ()[id number] [facility] Start: 10-15-2020 Goals Date Patient Goal Desired [...] of the toenails. documented in this encounter [facility] Procedure note 03-23-2023 Note Date & Type Note Facility 03-23-2023 Procedure note [facility] Evaluation note Note Date & Type Note Facility Evaluation note No assessment information availa ble [facility] Work Phone: Evaluation note Note Date & Type Note Facility Evaluation note Diagnosis Onset Date Heme + stool acute [facility] Work Phone: Evaluation note Note Date & Type Note Facility Evaluation note Diagnosis Onychomycosis- Primary Dermatophytosis of nail Pain in both feet Corns and callosities Neuropathy Mononeuritis of unspecified site documented in this encounter [facility] Hospital Discharge instructions Note Date & Type [...] if you have any problems. -Office number [phone] [facility] Work Phone: Summary Purpose Family History No [...] Unknown Unknown Malignant neoplasm Unknown Advance Directives No Advanced Directives Records Found Advance Directive Response Recorded Date/ Time Advance Directives No January 10:20am Advance Directive Response Recorded Date/ Time Advance Directives No January 9:20am Chief Complaint and Reason for Visit Chief Complaint I10 E78.0 Z13.296 Chief Complaint I10 E78.0 Z13.296 Screening Reason for Visit Heme + stool Chief Complaint m81.0 Chief Complaint m81.0 I10 E78.00 E55.9 Z13.296 Additional Source Comments INFORMATION SOURCE (unrecogn ized section and content) DATE CREATED AUTHOR 11/23/2017 [facility] DATE CREATED AUTHOR AUTHOR'S ORGANIZ ATION 10/07/2022 [facility] DATE CREATED AUTHOR AUTHOR'S ORGANIZ ATION 03/10/2024 [facility] EPIC DATE CREATED AUTHOR AUTHOR'S ORGANIZ ATION 04/10/2024 [facility] Care Teams (unrecognized sec tion and content) [...] January 18, 2024 End: January 18, 2024 Groover Operator Relationship Specialty Start Date End Date Salvador Hernandez MD [address] [place] [address] PCP - General Family Medicine 07/06/23 Groover Operator Relationship Specialty Start Date End Date Salvador Hernandez MD [address] [place] [address] PCP - General Family Medicine 07/06/23 Team Status: Inactive Member Role Status Dates Salvador Hernandez MD Primary Care Provider Active Start: April 04, 2024 End: April 04, 2024 Chanelle Cho MD Attending Provider Active St art: April 04, 2024 End: April 04, 2024 Goals (unrecognized section and content) Goals may [...] BE BASED ON THE PRIMARY CLINICAL RECORDS. [employer] [facility]. provides no warranty or guarantee of the accuracy or completeness of information in this document.
[2024-04-13 06:10] LABS: Immunoglobulin G, Qn 708 mg/dL (586-1602)
[2024-04-17 18:07] LABS: Immunoglobulin E, Total 4 IU/mL (6-495)
== END 2024-04-12 12:18 | disposition home or self-care (01) ==
LOC: LAB 12:20
PROVIDERS: PCP Family Medicine; Visit Provider Internal Medicine Rheumatology
DX: M05.79 Rheumatoid arthritis with rheumatoid factor of multiple sites without organ or systems involvement (principal); Z11.59 Encounter for screening for other viral diseases; Z79.899 Other long term (current) drug therapy
CPT/HCPCS: 36415; 82784; 82785

== ENCOUNTER 2024-05-16 18:59 | Emergency (ER) | payer MEDICARE, OTHER, SELFPAY ==
[2024-05-16 19:05] VITALS: BP 139/71; PULSE 83; TEMP 36.7; O2SAT 96; BMI 21.8
--- OUTSIDE RECORDS SUMMARY | 2024-05-16 19:12 | XMS_ITS | CCD ---
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 Name Role Phone NANCY GOODWIN Unavailable Unavailable NANCY GOODWIN Unavailable Unavailable CHANELLE CHO Unavailable Unavailable BRENDA, DR ROCA Consulting Unavailable BRENDA, DR ROCA Admitting Unavailable JEFF, DR HENRY Primary Care Unavailable HALADAY, DR ROCA Attending Unavailable BRENDA, DR ROCA Admitting Unavailable DWIGHTADARamses, DR ROCA Attending Unavailable JEFF, DR HENRY Referring Unavailable JEFF, DR HENRY Primary Care Unavailable HALADAY, DR ROCA Consulting Unavailable DWIGHTADARamses, DR ROCA Consulting Unavailable HALADAY, DR ROCA Admitting Unavailable JEFF, DR HENRY Primary Care Unavailable HALADAY, DR ROCA Attending Unavailable HALADAY, DR ROCA Admitting Unavailable JEFF, DR HENRY Primary Care Unavailable BRENDA, DR ROCA Attending Unavailable MD Salvador Hernandez Primary Care Provider MD Chanelle Cho Attending Provider MD Salvador Hernandez Primary Care Provider MD Salvador Hernandez Attending Provider [phone] MD Joe Anderson Attending Provider Unavailable Primary Care Provider UnavailMD Salvador Ross Primary Care Provider [phone] MD Chanelle Cho Attending Provider MD Salvador Hernandez Attending Provider Salvador Hernandez MD Primary Care Provider MD Salvador Hernandez Primary Care Provider [phone] MD Chanelle Cho Attending Provider [phone] MD Salvador Hernandez Attending Provider [phone] Chanelle Cho Attending Unavailable Chanelle Cho Admitting Unavailable Salvador Hernandez Primary Care Unavailable Salvador Hernandez Attending Unavailable Salvador Hernandez Primary Care Unavailable Salvador Hernandez Admitting Unavailable Chanelle Cho Attending Unavailable Chanelle Cho Admitting Unavailable Salvador Hernandez Primary Care Unavailable ALEKSANDR CLAIRE Attending Unavailable JOSE LEVINE Attending Unavailable ALEKSANDR CLAIRE Attending Unavailable ALEKSANDR CLAIRE Attending Unavailable ALEKSANDR CLAIRE Attending Unavailable SANGEETHA DELGADO Attending Unavailable Medications Current Medications Medication Drug Class(es) Dates Sig (Normalized) Sig (Original) acetaminophen 325 mg / HYDROcodone bitartrate 5 mg oral tablet (11 sources) Opioid Agonist Start: 12-16-2022 take 0.5-1 tablets by mouth every four to six hours as needed for pain HYDROcodone-aceta minophen (Aneta) 5-325 MG tablet TAKE 1/2 - 1 [...] 2023 11:00pm ciprofloxacin 500 mg oral tablet (5 sources) Quinolone Antimicrobial Start: 12-16-2022 take 1 tablet by mouth in the morning ciprofloxacin (Cipro) 500 MG tablet Take 500 mg by mouth in the morning and 500 mg before bedtime. 12/16/2022 Active folic acid 1 mg oral tablet (11 sources) Start: 02-16-2017 take 1 mg by mouth once daily Folic Acid Active 1 MG PO Daily February 15, 2017 11:00pm hydroxychloroquine sulfate 200 mg oral tablet (9 sources) Antimalarial, Antirheumatic Agent Start: 03-23-2023 take 1 tablet by mouth once daily Hydroxychloroquine (Plaquenil) 200 mg Tablet Active 200 MG PO Daily March 22, 2023 11:00pm methotrexate 2.5 mg oral tablet (11 sources) Folate Analog Metabolic Inhibitor Start: 06-30-2023 methotrexate 2.5 MG tablet TAKE 7 TABS BY MOUTH EVERY WEEK, ONCE A WEEK, [facility] 06/30/2023 Active Start: 02-16-2017 take 20 mg by mouth every week Methotrexate Sodium Active 20 MG PO every week February 15, 2017 11:00pm Start: 02-16-2017 take 17.5 mg by mout h every week Methotrexate Sodium Active 17.5 MG PO every week February 16, 2017 12:00am metroNIDAZOLE 500 mg oral tablet (5 sources) Nitroimidazole Antimicrobial Start: 12-16-2022 take 1 tablet by mouth in the morning metroNIDAZOLE (Flagyl) 500 MG tablet Take 500 mg by mouth in the morning and 500 mg before bedtime. 12/16/2022 Active pantoprazole 40 mg delayed release oral tablet (9 sources) Proton Pump Inhibitor Start: 03-23-2023 take [...] 14, 2020 11:00pm March 23, 2023 8:08am Uhmqgbtw-Sav-Fd-Lyc open-Lutein (Centrum Silver) 0.4-300-250 mg-mcg-mcg Tablet (6 sources) Start: 02-16-2017 End: 07-19-2019 take 1 tablet by mouth once daily Idnithcl-Uwf-Md-Lyc open-Lutein (Centrum Silver) 0.4-300-250 mg-mcg-mcg Tablet Discontinued 1 TAB PO Daily February 15, 2017 11:00pm July 19, 2019 8:51am Start: 02-16-2017 End: 07-19-2019 take 1 tablet by mouth once daily Zsbueylv-Olv-Sj-Lycopen-Lutein (Centrum Silver) 0.4-300-250 mg-mcg-mcg Tablet Discontinued 1 [...] initial encounter for closed fracture] 10-15-2020 Episodic Immunizations and screening for infectious disease (2 sources) Decreased immunoglobulin; Translations: [Other specified abnormal immunological findings in serum] 05-01-2024 Episodic Mycoses (1 source) Onychomycosis; Translations: [Tinea unguium] 03-08-2024 Episodic Osteoporosis (1 source) Age-related osteoporosis without current pathological fracture; Translations: [Age-related osteoporosis without current pathological fracture] Onset: 01-14-2024 Chronic Other aftercare (1 source) 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 [facility] Comment on above: Result Comment: No m onoclonality detected. Performed By: #### S PE, ROSA SERUM, IGE #### [facility] , Immunoglobulin A, Serum 368 mg/dL Normal 64-422 [facility] Comment on above: Performed By: #### S PE, ROSA SERUM, IGE #### [facility] , Immunoglobulin G 747 mg/dL Normal 586-1602 [facility] Comment on above: Performed By: #### S PE, ROSA SERUM, IGE #### [facility] , Immunoglobulin M, Serum 72 mg/dL Normal 26-217 [facility] Comment on above: Result Comment: Perf ormed at: - [facility] [address] [id number] Supervisor Die Casting: Nish Russell PhD, Phone: [phone] Performed By: #### S PE, ROSA SERUM, IGE #### [facility] , Immunoglobulin Tristan 4 Immunoglobulin E 4 Low 6-495 [facility] Comment on above: Result Comment: Perf ormed at: - [facility] [address] [id number] Supervisor Die Casting: Nancy Ley MD, Phone: [phone] Performed By: #### S PE, ROSA SERUM, IGE #### [facility] , Protein Electrophoresis, Ser umon 04-04-2024 Albumin [Mass/Vol] 3.7 g/dL Normal 2.9-4.4 [facility] Comment on above: Performed By: #### S PE, ROSA SERUM, IGE #### [facility] , Albumin/Globulin [Mass ratio] 1.3 {ratio} Normal 0.7-1.7 [facility] Comment on above: Performed By: #### S PE, ROSA SERUM, IGE #### [facility] , Ddluj-8-Rsdvtges 0.3 g/dL Normal 0.0-0.4 [facility] Comment on above: Performed By: #### S PE, ROSA SERUM, IGE #### [facility] , Naxvh-4-Ikbkspul 0.7 g/dL Normal 0.4-1.0 [facility] Comment on above: Performed By: #### S PE, ROSA SERUM, IGE #### [facility] , Beta Globulin 1.1 g/dL Normal 0.7-1.3 [facility] Comment on above: Performed By: #### S PE, ROSA SERUM, IGE #### [facility] , Gamma Globulin 0.7 g/dL Normal 0.4-1.8 [facility] Comment on above: Performed By: #### S PE, ROSA SERUM, IGE #### [facility] , Globulin (S) [Mass/Vol] 2.9 g/dL Normal 2.2-3.9 [facility] Comment on above: Performed By: #### S PE, ROSA SERUM, IGE #### [facility] , M-Kvng Not Observed Normal Not Observed [facility] Comment on above: Performed By: #### S PE, ROSA SERUM, IGE #### [facility] , Protein [Mass/Vol] 6.6 g/dL Normal 6.0-8.5 [facility] Comment on above: Performed By: #### S PE, ROSA SERUM, IGE #### [facility] , SPE-Note Comment Normal . [facility] Comment on above: Result Comment: Prot ein electrophoresis scan will follow via computer, mail, or polymer engineer delivery. Performed at: [address] [id number] Supervisor Die Casting: Nish Russell PhD, Phone: [phone] PERFORMED BY: [place] [address] PATHOLOGIST GLASS ETCHER HELPER JAEL REED M.D. Performed By: #### S PE, ROSA SERUM, IGE #### [facility] , Alanine aminotransferase [En zymatic activity/volume] in Serum or PlasmaOrdered By: Salvador Hernandez on 01-18-2024 ALT [Catalytic activity/Vol] 11 U/L Normal 7-52 [facility] Comment on above: Performed By: #### C BC, [id number], CMP, LIPID, T4F, TSH3 #### [place] [address] [place] Albumin [Mass/volume] in Ser um or Plasma by Bromocresol green (BCG) dye binding methoOrdered By: Salavdor Hernandez on 01-18-2024 Albumin BCG dye [Mass/Vol] 4.1 g/dL 3.5-5.7 [facility] Alkaline phosphatase [Enzyma tic activity/volume] in Serum or PlasmaOrdered By: Salvador Hernandez on 01-18-2024 ALP [Catalytic activity/Vol] 77 U/L Normal 34-104 [facility] Comment on above: Performed By: #### C BC, [id number], CMP, LIPID, T4F, TSH3 #### [address] Aspartate aminotransferase [ Enzymatic activity/volume] in Serum or PlasmaOrdered By: Salvador Hernandez on 01-18-2024 AST [Catalytic activity/Vol] 15 U/L Normal 13-39 [facility] Comment on above: Performed By: #### C BC, [id number], CMP, LIPID, T4F, TSH3 #### [address] Automated basophil %Ordered By: Salvador Hernandez on 01-18-2024 Basophils/100 WBC (Bld) 0.7 % Normal . [facility] Comment on above: Performed By: #### C BC, [id number], CMP, LIPID, T4F, TSH3 #### [address] Automated basophil countOrde red By: Salvador Hernandez on 01-18-2024 Basophils (Bld) [#/Vol] 0.0 10*3/uL Normal 0.0-0.2 [facility] Comment on above: Result Comment: PERF ORMED BY: [place] [address] PATHOLOGIST GLASS ETCHER HELPER JAEL REED M.D. Performed By: #### C BC, [id number], CMP, LIPID, T4F, TSH3 #### [address] Automated blood monocyte cou ntOrdered By: Salvador Hernandez on 01-18-2024 Monocytes (Bld) [#/Vol] 0.5 10*3/uL Normal 0.0-0.8 [facility] Comment on above: Performed By: #### C BC, [id number], CMP, LIPID, T4F, TSH3 #### [facility] [address] Automated eosinophil %Ordere d By: Salvador Hernandez on 01-18-2024 Eosinophils/100 WBC (Bld) 5.3 % Normal . [facility] Comment on above: Performed By: #### C BC, [id number], CMP, LIPID, T4F, TSH3 #### [address] Automated eosinophil countOr dered By: Salvador Hernandez on 01-18-2024 Eosinophils (Bld) [#/Vol] 0.2 10*3/uL Normal 0.0-0.45 [facility] Comment on above: Performed By: #### C BC, [id number], CMP, LIPID, T4F, TSH3 #### [address] Automated monocyte %Ordered By: Salvador Hernandez on 01-18-2024 Monocytes/100 WBC (Bld) 11.7 % Normal . [facility] Comment on above: Performed By: #### C BC, [id number], CMP, LIPID, T4F, TSH3 #### [address] Automated neutrophil %Ordere d By: Salvador Hernandez on 01-18-2024 Neutrophils/100 WBC (Bld) 59.5 % Normal . [facility] Comment on above: Performed By: #### C BC, [id number], CMP, LIPID, T4F, TSH3 #### [address] Bilirubin.total [Mass/volume ] in Serum or PlasmaOrdered By: Salvador Hernandez on 01-18-2024 Bilirubin [Mass/Vol] 0.7 mg/dL Normal 0.3-1.0 [facility] Comment on above: Performed By: #### C BC, [id number], CMP, LIPID, T4F, TSH3 #### [facility] [address] [place] [address] [place] Calcium [Mass/volume] in Ser um or PlasmaOrdered By: Salvador Hernandez on 01-18-2024 Calcium [Mass/Vol] 9.4 mg/dL Normal 8.6-10.3 [facility] Comment on above: Performed By: #### C BC, [id number], CMP, LIPID, T4F, TSH3 #### [facility] [address] [place] [address] [place] Carbon dioxide, total [Moles /volume] in Serum or PlasmaOrdered By: Salvador Hernandez on 01-18-2024 CO2 [Moles/Vol] 26.8 mmol/L Normal 21.0-31.0 [facility] Comment on above: Performed By: #### C BC, [id number], CMP, LIPID, T4F, TSH3 #### [place] [address] [place] Chloride [Moles/volume] in S inocente or PlasmaOrdered By: Salvador Hernandez on 01-18-2024 Chloride [Moles/Vol] 107 mmol/L Normal 98-107 [facility] Comment on above: Performed By: #### C BC, [id number], CMP, LIPID, T4F, TSH3 #### [place] [address] [place] Cholesterol [Mass/volume] in Serum or PlasmaOrdered By: Salvador Hernandez on 01-18-2024 Cholesterol [Mass/Vol] 185 mg/dL Normal 140-200 [facility] Comment on above: Chol less than 200 m g/dl low riskChol 201-239 mg/dl borderline riskChol 240 mg/dl and greater high risk Result Comment: Chol less than 200 mg/dl low risk Chol 201-239 mg/dl borderline risk Chol 240 mg/dl and greater high risk Performed By: #### C BC, [id number], CMP, LIPID, T4F, TSH3 #### [place] [address] [place] Cholesterol in LDL Calc [Mas s/Vol]Ordered By: Salvador Hernandez on 01-18-2024 Cholesterol in LDL [Mass/Vol] 103 mg/dL High 0-100 [facility] Comment on above: LDL ATP III CLASSIFI CATIONLDL less than 100 mg/dL OptimalLDL 100-129 mg/dL Near or above optimalLDL 130-159 mg/dL Borderline highLDL 160-189 mg/dL HighLDL greater than 189 mg/dL Very high Cholesterol in VLDL Calc [Ma ss/Vol]Ordered By: Salvador Hernandez on 01-18-2024 Cholesterol in VLDL [Mass/Vol] 21 mg/dL [facility] Complete Blood Count Auto Di ffon 01-18-2024 Mean Corpuscular HGB Conc 34.6 g/dL Normal 32.0-35.0 [facility] Comment on above: Performed By: #### C BC, [id number], CMP, LIPID, T4F, TSH3 #### [address] NRBC% 0.1 /100{WBC} Normal 0-0.5 [facility] Comment on above: Performed By: #### C BC, [id number], CMP, LIPID, T4F, TSH3 #### [facility] [address] [place] [address] Comprehensive Metabolic Pane maury 01-18-2024 Albumin [Mass/Vol] 4.1 g/dL Normal 3.5-5.7 [facility] Comment on above: Performed By: #### C BC, [id number], CMP, LIPID, T4F, TSH3 #### [address] GFR/1.73 sq M.predicted MDRD (S/P/Bld) [Vol rate/Area] mL/min/{1.73_m2} Normal [facility] Comment on above: Performed By: #### C BC, [id number], CMP, LIPID, T4F, TSH3 #### [address] Creatinine [Mass/volume] in Serum or PlasmaOrdered By: Salvador Hernandez on 01-18-2024 Creatinine [Mass/Vol] 0.77 mg/dL Normal 0.60-1.20 [facility] Comment on above: Performed By: #### C BC, [id number], CMP, LIPID, T4F, TSH3 #### [facility] [address] Erythrocyte distribution wid th [Ratio] by Automated countOrdered By: Salvador Hernandez on 01-18-2024 Erythrocyte distribution width (RBC) [Ratio] 13.3 % Normal 11.9-15.3 [facility] Comment on above: Performed By: #### C BC, [id number], CMP, LIPID, T4F, TSH3 #### [facility] [address] Erythrocytes [#/volume] in B lood by Automated countOrdered By: Salvador Hernandez on 01-18-2024 RBC (Bld) [#/Vol] 4.15 10*6/uL Normal 3.60-5.00 [facility] Comment on above: Performed By: #### C BC, [id number], CMP, LIPID, T4F, TSH3 #### [address] Glucose [Mass/volume] in Ser um or PlasmaOrdered By: Salvador Hernandez on 01-18-2024 Glucose [Mass/Vol] 81 mg/dL Normal 70-100 [facility] Comment on above: ADA recommended refe rence rangeRandom Glucose Reference Range is dependent on time and content of last meal. Glucose of more than 200 mg/dL in a nonstressed, ambulatory subject supports the diagnosis of Diabetes Mellitus. Result Comment: [place] om Glucose Reference Range is dependent on time and content of last meal. Glucose of more than 200 mg/dL in a nonstressed, ambulatory subject supports the diagnosis of Diabetes Mellitus. ADA recommended reference range Performed By: #### C BC, [id number], CMP, LIPID, T4F, TSH3 #### [facility] [address] Hematocrit [Volume Fraction] of Blood by Automated countOrdered By: Salvador Hernandez on 01-18-2024 Hematocrit (Bld) [Volume fraction] 38.8 % Normal 34.0-46.4 [facility] Comment on above: Performed By: #### C BC, [id number], CMP, LIPID, T4F, TSH3 #### [facility] [address] Hemoglobin [Mass/volume] in BloodOrdered By: Salvador Hernandez on 01-18-2024 Hemoglobin (Bld) [Mass/Vol] 13.4 g/dL Normal 11.8-15.4 [facility] Comment on above: Performed By: #### C BC, [id number], CMP, LIPID, T4F, TSH3 #### [facility] [address] Leukocytes [#/volume] correc maurice for nucleated erythrocytes in Blood by Automated counOrdered By: Salvador Hernandez on 01-18-2024 WBC corrected for nucl RBC Auto (Bld) [#/Vol] 4.5 10*3/uL 3.8-11.6 [facility] Leukocytes [#/volume] in Blo od by Automated countOrdered By: Salvador Hernandez on 01-18-2024 WBC (Bld) [#/Vol] 4.5 10*3/uL Normal 3.8-11.6 [facility] Comment on above: Performed By: #### C BC, [id number], CMP, LIPID, T4F, TSH3 #### [address] Lipid Panelon 01-18-2024 LDL Cholesterol,Calculated 103 mg/dL High 0-100 [facility] Comment on above: Result Comment: LDL ATP III CLASSIFICATION LDL less than 100 mg/dL Optimal LDL 100-129 mg/dL Near or above optimal LDL 130-159 mg/dL Borderline high LDL 160-189 mg/dL High LDL greater than 189 mg/dL Very high Performed By: #### C BC, [id number], CMP, LIPID, T4F, TSH3 #### [facility] [address] Triglyceride w/Reflex 109 mg/dL Normal 0-149 [facility] Comment on above: Result Comment: TRIG ATP III CLASSIFICATION TRIG less than 150 mg/dL Normal TRIG 150-199 mg/dL Borderline high TRIG 200-500 mg/dL High TRIG greater than 500 mg/dL Very high Standard traceable to the Center for Disease Conrtrol and Prevention (CDC) test method. Performed By: #### C BC, [id number], CMP, LIPID, T4F, TSH3 #### [address] VLDL CHOLESTEROL 21 mg/dL Normal [facility] Comment on above: Performed By: #### C BC, [id number], CMP, LIPID, T4F, TSH3 #### [address] Lymphocytes [#/volume] in Bl ood by Automated countOrdered By: Salvador Hernandez on 01-18-2024 Lymphocytes (Bld) [#/Vol] 1.0 10*3/uL Normal 1.00-4.8 [facility] Comment on above: Performed By: #### C BC, [id number], CMP, LIPID, T4F, TSH3 #### [address] Lymphocytes/100 leukocytes i n Blood by Automated countOrdered By: Salvador Hernandez on 01-18-2024 Lymphocytes/100 WBC (Bld) 22.8 % Normal . [facility] Comment on above: Performed By: #### C BC, [id number], CMP, LIPID, T4F, TSH3 #### [address] MCH [Entitic mass] by Automa maurice countOrdered By: Salvador Hernandez on 01-18-2024 MCH (RBC) [Entitic mass] 32.4 pg Normal 24.7-34.3 [facility] Comment on above: Performed By: #### C BC, [id number], CMP, LIPID, T4F, TSH3 #### [address] MCHC Auto (RBC) [Mass/Vol]Or dered By: Salvador Hernandez on 01-18-2024 MCHC (RBC) [Mass/Vol] 34.6 g/dL 32.0-35.0 [facility] MCV [Entitic volume] by Auto mated countOrdered By: Salvador Hernandez on 01-18-2024 MCV (RBC) [Entitic vol] 93.6 fL Normal 80-100 [facility] Comment on above: Performed By: #### C BC, [id number], CMP, LIPID, T4F, TSH3 #### [facility] [address] Neutrophils [#/volume] in Bl ood by Automated countOrdered By: Salvador Hernandez on 01-18-2024 Neutrophils (Bld) [#/Vol] 2.7 10*3/uL Normal 1.8-7.7 [facility] Comment on above: Performed By: #### C BC, [id number], CMP, LIPID, T4F, TSH3 #### [address] No Panel InformationOrdered By: Salvador Hernandez on 01-18-2024 Estimated GFR (CKD-EPI) > 60.0 mL/Min [facility] Creatinine Clearance (Chem N/A [facility] Nucleated erythrocytes [Pres ence] in Blood by Automated countOrdered By: Salvador Hernandez on 01-18-2024 Nucleated RBC Auto Ql (Bld) 0.1 /100{WBC} 0-0.5 [facility] Platelet mean volume [Entiti c volume] in Blood by Automated countOrdered By: Salvador Hernandez on 01-18-2024 Platelet mean volume (Bld) [Entitic vol] 10.1 fL Normal 6.3-10.7 [facility] Comment on above: Performed By: #### C BC, [id number], CMP, LIPID, T4F, TSH3 #### [address] Platelets [#/volume] in Bloo d by Automated countOrdered By: Salvador Hernandez on 01-18-2024 Platelets (Bld) [#/Vol] 183 10*3/uL Normal 150-450 [facility] Comment on above: Performed By: #### C BC, [id number], CMP, LIPID, T4F, TSH3 #### [place] [address] [place] Potassium [Moles/volume] in Serum or PlasmaOrdered By: Salvador Hernandez on 01-18-2024 Potassium [Moles/Vol] 4.3 mmol/L Normal 3.5-5.1 [facility] Comment on above: Performed By: #### C BC, [id number], CMP, LIPID, T4F, TSH3 #### [facility] [address] Protein [Mass/volume] in Ser um or PlasmaOrdered By: Salvador Hernandez on 01-18-2024 Protein [Mass/Vol] 6.3 g/dL Low 6.4-8.9 [facility] Comment on above: Performed By: #### C BC, [id number], CMP, LIPID, T4F, TSH3 #### [address] Serum globulin measurement b y calculation (mass/volume)Ordered By: Salvador Hernandez on 01-18-2024 Globulin (S) [Mass/Vol] 2.2 g/dL Normal [facility] Comment on above: Performed By: #### C BC, [id number], CMP, LIPID, T4F, TSH3 #### [address] Serum or plasma albumin/glob ulin mass ratioOrdered By: Salvador Hernandez on 01-18-2024 Albumin/Globulin [Mass ratio] 1.9 {ratio} [facility] Comment on above: Performed By: #### C BC, [id number], CMP, LIPID, T4F, TSH3 #### [address] Serum or plasma anion gap de terminationOrdered By: Salvador Hernandez on 01-18-2024 Anion gap [Moles/Vol] 11.5 mmol/L Normal 6.0-15.0 [facility] Comment on above: Performed By: #### C BC, [id number], CMP, LIPID, T4F, TSH3 #### [address] Serum or plasma high density lipoprotein (HDL) cholesterol measurementOrdered By: Salvador Hernandez on 01-18-2024 Cholesterol in HDL [Mass/Vol] 60 mg/dL Normal 23-92 [facility] Comment on above: HDL CHOL ATP-III CLA SSIFICATION Cardiovascular RiskHDL > or equal to 60 mg/dL LOWHDL < 40 mg/dL HIGH Result Comment: HDL CHOL ATP-III CLASSIFICATION Cardiovascular Risk HDL > or equal to 60 mg/dL LOW HDL < 40 mg/dL HIGH Performed By: #### C BC, [id number], CMP, LIPID, T4F, TSH3 #### [address] Serum or plasma total choles terol/high density lipoprotein (HDL) cholesterol mass ratOrdered By: Salvador Hernandez on 01-18-2024 Cholesterol.total/Frances sterol in HDL [Mass ratio] 3.1 {ratio} Normal <5.0 [facility] Comment on above: Performed By: #### C BC, [id number], CMP, LIPID, T4F, TSH3 #### [address] Sodium [Moles/volume] in Ser um or PlasmaOrdered By: Salvador Hernandez on 01-18-2024 Sodium [Moles/Vol] 141 mmol/L Normal 136-145 [facility] Comment on above: Performed By: #### C BC, [id number], CMP, LIPID, T4F, TSH3 #### [address] Thyrotropin [Units/volume] i n Serum or PlasmaOrdered By: Salvador Hernandez on 01-18-2024 TSH Qn 1.64 m[IU]/L Normal 0.45-5.33 [facility] Comment on above: Performed By: #### C BC, [id number], CMP, LIPID, T4F, TSH3 #### [address] Thyroxine (T4) free [Mass/vo lume] in Serum or PlasmaOrdered By: Salvador Hernandez on 01-18-2024 Free T4 [Mass/Vol] 0.82 ng/dL Normal 0.61-1.12 [facility] Comment on above: Performed By: #### C BC, [id number], CMP, LIPID, T4F, TSH3 #### [facility] [address] Triglyceride [Mass/volume] i n Serum or [...] Urea nitrogen [Mass/Vol] 12 mg/dL Normal 7-25 [facility] Comment on above: Performed By: #### C BC, [id number], CMP, LIPID, T4F, TSH3 #### [facility] [address] [id number] [facility] Vitamin D 25 Hydroxy Totalon 01-18-2024 Vitamin D 25 Hydroxy Total 34.7 ng/mL Normal 30-100 [facility] Comment on above: Result Comment: KIANNA MIN D STATUS 25(OH)VITAMIN D RANGE (ng/mL) Deficient <20 Insufficient 20 to <30 Sufficient 30 to 100 Reference: Sahn MF,Kalyan NC, Hawa CARDOZO, et al. Evaluation,treatment, and prevention of vitamin D deficiency; an Endocrine Society clinical practice guideline. JCEM. 2010; 96(7):1911-30. PERFORMED BY: [place] [address] PATHOLOGIST [employer]PER JAEL REED M.D. Performed By: #### C BC, [id number], CMP, LIPID, T4F, TSH3 #### [facility] [address] Vitamin D+Metabolites [Mass/ volume] in Serum or PlasmaOrdered By: Salvador Hernandez on 01-18-2024 Vitamin D+Metabolites [Mass/Vol] 34.7 ng/mL 30-100 [facility] Comment on above: VITAMIN D STATUS 25( OH)VITAMIN D RANGE (ng/mL) Deficient <20 Insufficient 20 to <30Sufficient 30 to 100Reference: Shan MF,Kalyan SERVIN, Hawa CARDOZO, et al. Evaluation,treatment, and prevention of vitamin D deficiency; an Endocrine Society clinical practice guideline. JCEM. 2010; 96(7):1911-30. Alanine aminotransferase [En zymatic activity/volume] in Serum or PlasmaOrdered By: Salvador Hernandez on 01-19-2023 ALT [Catalytic activity/Vol] 11 U/L 7-52 [facility] Albumin [Mass/volume] in Ser um or Plasma by Bromocresol green (BCG) dye binding methoOrdered By: Salvador Hernandez on 01-19-2023 Albumin BCG dye [Mass/Vol] 3.9 g/dL 3.5-5.7 [facility] Alkaline phosphatase [Enzyma tic activity/volume] in Serum or PlasmaOrdered By: Salvador Hernandez on 01-19-2023 ALP [Catalytic activity/Vol] 72 U/L 34-104 [facility] Aspartate aminotransferase [ Enzymatic activity/volume] in Serum or PlasmaOrdered By: Salvador Hernandez on 01-19-2023 AST [Catalytic activity/Vol] 15 U/L 13-39 [facility] Basophils Auto (Bld) [#/Vol] Ordered By: Salvador Hernandez on 01-19-2023 Basophils (Bld) [#/Vol] 0.1 10*3/uL 0.0-0.2 [facility] Basophils/100 WBC Auto (Bld) Ordered By: Salvador Hernandez on 01-19-2023 Basophils/100 WBC (Bld) 1.0 % . [facility] Bilirubin.total [Mass/volume ] in Serum or PlasmaOrdered By: Salvador Hernandez on 01-19-2023 Bilirubin [Mass/Vol] 0.6 mg/dL 0.3-1.0 [facility] Calcium [Mass/volume] in Ser um or PlasmaOrdered By: Salvador Hernandez 01-19-2023 Calcium [Mass/Vol] 9.3 mg/dL 8.6-10.3 [facility] Carbon dioxide, total [Moles /volume] in Serum or PlasmaOrdered By: Salvador Hernandez on 01-19-2023 CO2 [Moles/Vol] 27.6 mmol/L 21.0-31.0 [facility] Chloride [Moles/volume] in S inocente or PlasmaOrdered By: Salvador Hernandez on 01-19-2023 Chloride [Moles/Vol] 111 mmol/L 98-107 [facility] Cholesterol [Mass/volume] in Serum or PlasmaOrdered By: Salvador Hernandez on 01-19-2023 Cholesterol [Mass/Vol] 195 mg/dL 140-200 [facility] Comment on above: Chol less than 200 m g/dl low riskChol 201-239 mg/dl borderline riskChol 240 mg/dl and greater high risk Cholesterol in LDL Calc [Mas s/Vol]Ordered By: Salvador Hernandez on 01-19-2023 Cholesterol in LDL [Mass/Vol] 112 mg/dL 0-100 [facility] Comment on above: LDL ATP III CLASSIFI CATIONLDL less than 100 mg/dL OptimalLDL 100-129 mg/dL Near or above optimalLDL 130-159 mg/dL Borderline highLDL 160-189 mg/dL HighLDL greater than 189 mg/dL Very high Cholesterol in VLDL Calc [Ma ss/Vol]Ordered By: Salvador Hernandez on 01-19-2023 Cholesterol in VLDL [Mass/Vol] 20 mg/dL [facility] Creatinine [Mass/volume] in Serum or PlasmaOrdered By: Salvador Hernandez on 01-19-2023 Creatinine [Mass/Vol] 0.65 mg/dL 0.60-1.20 [facility] Eosinophils Auto (Bld) [#/Vo l]Ordered By: Salvador Hernandez on 01-19-2023 Eosinophils (Bld) [#/Vol] 0.3 10*3/uL 0.0-0.45 [facility] Eosinophils/100 WBC Auto (Bl d)Ordered By: Salvador Hernandez on 01-19-2023 Eosinophils/100 WBC (Bld) 4.8 % . [facility] Erythrocyte distribution wid th Auto (RBC) [Ratio]Ordered By: Salvador Hernandez on 01-19-2023 Erythrocyte distribution width (RBC) [Ratio] 14.7 % 11.9-15.3 [facility] Globulin Calc (S) [Mass/Vol] Ordered By: Salvador Hernandez on 01-19-2023 Globulin (S) [Mass/Vol] 2.1 g/dL [facility] Glucose [Mass/volume] in Ser um or PlasmaOrdered By: Salvador Hernandez on 01-19-2023 Glucose [Mass/Vol] 86 mg/dL 70-100 [facility] Comment on above: ADA recommended refe rence rangeRandom Glucose Reference Range is dependent on time and content of last meal. Glucose of more than 200 mg/dL in a nonstressed, ambulatory subject supports the diagnosis of Diabetes Mellitus. Hematocrit Auto (Bld) [Volum e fraction]Ordered By: Salvador Hernandez on 01-19-2023 Hematocrit (Bld) [Volume fraction] 39.1 % 34.0-46.4 [facility] Hemoglobin [Mass/volume] in BloodOrdered By: Salvador Hernandez on 01-19-2023 Hemoglobin (Bld) [Mass/Vol] 13.1 g/dL 11.8-15.4 [facility] Leukocytes [#/volume] correc maurice for nucleated erythrocytes in Blood by Automated counOrdered By: Salvador Hernandez on 01-19-2023 WBC corrected for nucl RBC Auto (Bld) [#/Vol] 5.6 10*3/uL 3.8-11.6 [facility] Lymphocytes Auto (Bld) [#/Vo l]Ordered By: Salvador Hernandez on 01-19-2023 Lymphocytes (Bld) [#/Vol] 1.0 10*3/uL 1.00-4.8 [facility] Lymphocytes/100 WBC Auto (Bl d)Ordered By: Salvador Hernandez on 01-19-2023 Lymphocytes/100 WBC (Bld) 17.6 % . [facility] MCH Auto (RBC) [Entitic mass ]Ordered By: Salvador Hernandez on 01-19-2023 MCH (RBC) [Entitic mass] 30.5 pg 24.7-34.3 [facility] MCHC Auto (RBC) [Mass/Vol]Or dered By: Salvador Hernandez on 01-19-2023 MCHC (RBC) [Mass/Vol] 33.5 g/dL 32.0-35.0 [facility] MCV Auto (RBC) [Entitic vol] Ordered By: Salvador Hernandez on 01-19-2023 MCV (RBC) [Entitic vol] 90.9 fL 80-100 [facility] Monocytes Auto (Bld) [#/Vol] Ordered By: Salvador Hernandez on 01-19-2023 Monocytes (Bld) [#/Vol] 0.7 10*3/uL 0.0-0.8 [facility] Monocytes/100 WBC Auto (Bld) Ordered By: Salvador Hernandez on 01-19-2023 Monocytes/100 WBC (Bld) 13.1 % . [facility] Neutrophils Auto (Bld) [#/Vo l]Ordered By: Salvador Hernandez on 01-19-2023 Neutrophils (Bld) [#/Vol] 3.6 10*3/uL 1.8-7.7 [facility] Neutrophils/100 WBC Auto (Bl d)Ordered By: Salvador Hernandez on 01-19-2023 Neutrophils/100 WBC (Bld) 63.5 % . [facility] No Panel InformationOrdered By: Salvador Hernandez on 01-19-2023 Estimated GFR (CKD-EPI) > 60.0 mL/Min [facility] Creatinine Clearance (Chem N/A [facility] Nucleated erythrocytes [Pres ence] in Blood by Automated countOrdered By: Salvador Hernandez on 01-19-2023 Nucleated RBC Auto Ql (Bld) 0.1 /100{WBC} 0-0.5 [facility] Platelet mean volume Auto (B ld) [Entitic vol]Ordered By: Salvador Hernandez on 01-19-2023 Platelet mean volume (Bld) [Entitic vol] 9.9 fL 6.3-10.7 [facility] Platelets Auto (Bld) [#/Vol] Ordered By: Salvador Hernandez on 01-19-2023 Platelets (Bld) [#/Vol] 202 10*3/uL 150-450 [facility] Potassium [Moles/volume] in Serum or PlasmaOrdered By: Salvador Hernandez on 01-19-2023 Potassium [Moles/Vol] 4.1 mmol/L 3.5-5.1 [facility] Protein [Mass/volume] in Ser um or PlasmaOrdered By: Salvador Hernandez on 01-19-2023 Protein [Mass/Vol] 6.0 g/dL 6.4-8.9 [facility] RBC Auto (Bld) [#/Vol]Ordere d By: Salvador Hernandez on 01-19-2023 RBC (Bld) [#/Vol] 4.30 10*6/uL 3.60-5.00 [facility] Serum or plasma albumin/glob ulin mass ratioOrdered By: Salvador Hernandez on 01-19-2023 Albumin/Globulin [Mass ratio] 1.9 {ratio} [facility] Serum or plasma anion gap de terminationOrdered By: Salvador Hernandez on 01-19-2023 Anion gap [Moles/Vol] 9.5 mmol/L 6.0-15.0 [facility] Serum or plasma high density lipoprotein (HDL) cholesterol measurementOrdered By: Salvador Hernandez on 01-19-2023 Cholesterol in HDL [Mass/Vol] 62 mg/dL 23- [facility] Comment on above: HDL CHOL ATP-III CLA SSIFICATION Cardiovascular RiskHDL > or equal to 60 mg/dL LOWHDL < 40 mg/dL HIGH Serum or plasma total choles terol/high density lipoprotein (HDL) cholesterol mass ratOrdered By: Salvador Hernandez on 01-19-2023 Cholesterol.total/Frances sterol in HDL [Mass ratio] 3.1 {ratio} <5.0 [facility] Sodium [Moles/volume] in Ser um or PlasmaOrdered By: Salvador Hernandez on 01-19-2023 Sodium [Moles/Vol] 144 mmol/L 136-145 [facility] Thyrotropin [Units/volume] i n Serum or PlasmaOrdered By: Salvador Hernandez on 01-19-2023 TSH Qn 1.44 m[IU]/L 0.45-5.33 [facility] Thyroxine (T4) free [Mass/vo lume] in Serum or PlasmaOrdered By: Salvador Hernandez on 01-19-2023 Free T4 [Mass/Vol] 0.95 ng/dL 0.61-1.12 [facility] Triglyceride [Mass/volume] i n Serum or PlasmaOrdered [...] on 01-19-2023 Urea nitrogen [Mass/Vol] 10 mg/dL 7 [facility] WBC Auto (Bld) [#/Vol]Ordere d By: Salvador Hernandez on 01-19-2023 WBC (Bld) [#/Vol] 5.6 10*3/uL 3.8-11.6 [facility] Basophils Auto (Bld) [#/Vol] Ordered By: Chanelle Cho on 10-07-2022 Basophils (Bld) [#/Vol] 0.0 10*3/uL 0.0-0.2 [facility] Basophils/100 WBC Auto (Bld) Ordered By: Chanelle Cho on 10-07-2022 Basophils/100 WBC (Bld) 0.4 % . [facility] C reactive protein [Mass/vol ume] in Serum or PlasmaOrdered By: Chanelle Cho on 10-07-2022 CRP [Mass/Vol] 3.1 mg/dL 0.0-0.5 [facility] Eosinophils Auto (Bld) [#/Vo l]Ordered By: Chanelle Cho on 10-07-2022 Eosinophils (Bld) [#/Vol] 0.1 10*3/uL 0.0-0.45 [facility] Eosinophils/100 WBC Auto (Bl d)Ordered By: Chanelle Cho on 10-07-2022 Eosinophils/100 WBC (Bld) 2.2 % . [facility] Erythrocyte distribution wid th Auto (RBC) [Ratio]Ordered By: Chanelle Cho on 10-07-2022 Erythrocyte distribution width (RBC) [Ratio] 13.9 % 11.9-15.3 [facility] Erythrocyte sedimentation ra te by Photometric methodOrdered By: Chanelle Cho on 10-07-2022 ESR Photometric method (Bld) [Velocity] 26 mm/hr 0-29 [facility] Hematocrit Auto (Bld) [Volum e fraction]Ordered By: Chanelle Cho on 10-07-2022 Hematocrit (Bld) [Volume fraction] 41.8 % 34.0-46.4 [facility] Hemoglobin [Mass/volume] in BloodOrdered By: Chanelle Cho on 10-07-2022 Hemoglobin (Bld) [Mass/Vol] 14.1 g/dL 11.8-15.4 [facility] Leukocytes [#/volume] correc maurice for nucleated erythrocytes in Blood by Automated counOrdered By: Chanelle Cho on 10-07-2022 WBC corrected for nucl RBC Auto (Bld) [#/Vol] 6.1 10*3/uL 3.8-11.6 [facility] Lymphocytes Auto (Bld) [#/Vo l]Ordered By: Chanelle Cho on 10-07-2022 Lymphocytes (Bld) [#/Vol] 1.5 10*3/uL 1.00-4.8 [facility] Lymphocytes/100 WBC Auto (Bl d)Ordered By: Chanelle Cho on 10-07-2022 Lymphocytes/100 WBC (Bld) 24.2 % . [facility] MCH Auto (RBC) [Entitic mass ]Ordered By: Chanelle Cho on 10-07-2022 MCH (RBC) [Entitic mass] 31.1 pg 24.7-34.3 [facility] MCHC Auto (RBC) [Mass/Vol]Or dered By: Chanelle Cho on 10-07-2022 MCHC (RBC) [Mass/Vol] 33.7 g/dL 32.0-35.0 [facility] MCV Auto (RBC) [Entitic vol] Ordered By: Chanelle Cho on 10-07-2022 MCV (RBC) [Entitic vol] 92.2 fL 80-100 [facility] Monocytes Auto (Bld) [#/Vol] Ordered By: Chanelle Cho on 10-07-2022 Monocytes (Bld) [#/Vol] 0.7 10*3/uL 0.0-0.8 [facility] Monocytes/100 WBC Auto (Bld) Ordered By: Chanelle Cho on 10-07-2022 Monocytes/100 WBC (Bld) 11.7 % . [facility] Neutrophils Auto (Bld) [#/Vo l]Ordered By: Chanelle Cho on 10-07-2022 Neutrophils (Bld) [#/Vol] 3.8 10*3/uL 1.8-7.7 [facility] Neutrophils/100 WBC Auto (Bl d)Ordered By: Chanelle Cho on 10-07-2022 Neutrophils/100 WBC (Bld) 61.5 % . [facility] Nucleated erythrocytes [Pres ence] in Blood by Automated countOrdered By: Chanelle Cho on 10-07-2022 Nucleated RBC Auto Ql (Bld) 0.2 /100{WBC} 0-0.5 [facility] Platelet mean volume Auto (B ld) [Entitic vol]Ordered By: Chanelle Cho on 10-07-2022 Platelet mean volume (Bld) [Entitic vol] 9.5 fL 6.3-10.7 [facility] Platelets Auto (Bld) [#/Vol] Ordered By: Chanelle Cho on 10-07-2022 Platelets (Bld) [#/Vol] 250 10*3/uL 150-450 [facility] RBC Auto (Bld) [#/Vol]Ordere d By: Chanelle Cho on 10-07-2022 RBC (Bld) [#/Vol] 4.53 10*6/uL 3.60-5.00 [facility] WBC Auto (Bld) [#/Vol]Ordere d By: Chanelle Cho on 10-07-2022 WBC (Bld) [#/Vol] 6.1 10*3/uL 3.8-11.6 [facility] CBC AUTO DIFFon 09-29-2022 BASO # 0.0 103/ul Normal 0.0-0.1 [facility] Comment on above: Performed By: #### C BC #### [facility] [address] [address] [address] Quintin Kaur Basophils/100 WBC (Bld) 0.5 % Normal 0.2-2.0 [facility] Comment on above: Performed By: #### C BC #### [facility] [address] [place] [address] Dr. Quintin Kaur EO # 0.2 103/ul Normal 0.0-0.7 [facility] Comment on above: Performed By: #### C BC #### [facility] [address] [place] [address] Dr. Quintin Kaur Eosinophils/100 WBC (Bld) 3.2 % Normal 0.9-7.0 [facility] Comment on above: Performed By: #### C BC #### [facility] [address] [place] [address] Dr. Quintin Kaur Erythrocyte distribution width (RBC) [Ratio] 13.2 % Normal 11.0-15.0 [facility] Comment on above: Performed By: #### C BC #### [facility] [address] [place] [address] Dr. Quintin Kaur Hematocrit (Bld) [Volume fraction] 41.3 % Normal 36.0-48.0 [facility] Comment on above: Performed By: #### C BC #### [facility] [address] [place] [address] Dr. Quintin Kaur Hemoglobin (Bld) [Mass/Vol] 13.9 g/dL Normal 12.0-16.0 [facility] Comment on above: Performed By: #### C BC #### [facility] [address] [place] [address] Dr. Quintin Kaur IG # 0.02 10e3/ul Normal 0.00-0.03 [facility] Comment on above: Performed By: #### C BC #### [facility] [address] [place] [address] Dr. Quintin Kaur IG % 0.3 % Normal 0.0-0.5 [facility] Comment on above: Performed By: #### C BC #### [facility] [address] [place] [address] Dr. Quintin Kaur LYMPH # 1.0 103/ul Critically low 1.2-3.8 [facility] Comment on above: Performed By: #### C BC #### [facility] [address] [place] [address] Dr. Quintin Kaur Lymphocytes/100 WBC (Bld) 13.9 % Critically low 20.5-60.0 [facility] Comment on above: Performed By: #### C BC #### [facility] [address] [place] [address] Dr. Quintin Kaur MANUAL DIFF REQ NO Normal [facility] Comment on above: Performed By: #### C BC #### [facility] [address] [place] [address] Dr. Quintin Kaur MCH (RBC) [Entitic mass] 30.9 pg Normal 26.7-34.0 [facility] Comment on above: Performed By: #### C BC #### [facility] [address] [place] [address] Dr. Quintin Kaur MCHC (RBC) [Mass/Vol] 33.7 g/dL Normal 29.9-35.2 [facility] Comment on above: Performed By: #### C BC #### [facility] [address] [place] [address] Dr. Quintin Kaur MCV (RBC) [Entitic vol] 91.8 fL Normal 81.0-99.0 [facility] Comment on above: Performed By: #### C BC #### [facility] [address] [place] [address] Dr. Quintin Kaur MONO # 0.6 103/ul Normal 0.3-0.8 [facility] Comment on above: Performed By: #### C BC #### [facility] [address] [place] [address] Dr. Quintin Kaur Monocytes/100 WBC (Bld) 8.1 % Normal 1.7-12.0 [facility] Comment on above: Performed By: #### C BC #### [facility] [address] [place] [address] Dr. Quintin Kaur NEUT # 5.4 103/ul Normal 1.4-6.5 [facility] Comment on above: Performed By: #### C BC #### [facility] [address] [place] [address] Dr. Quintin Kaur Neutrophils/100 WBC (Bld) 74.0 % Normal 43.0-75.0 [facility] Comment on above: Performed By: #### C BC #### [facility] [address] [place] [address] Dr. Quintin Kaur Platelet mean volume (Bld) [Entitic vol] 10.7 fL Normal 9.5-13.5 [facility] Comment on above: Performed By: #### C BC #### [facility] [address] [place] [address] Dr. Quintin Kaur PLT 228 103/ul Normal 150-450 [facility] Comment on above: Performed By: #### C BC #### [facility] [address] [place] [address] Dr. Quintin Kaur RBC 4.50 106/ul Normal 4.20-5.40 [facility] Comment on above: Performed By: #### C BC #### [facility] [address] [place] [address] Dr. Quintin Kaur WBC 7.3 103/ul Normal 4.0-11.0 [facility] Comment on above: Performed By: #### C BC #### [facility] [address] [place] [address] Dr. Quintin aKur CREATININEon 09-29-2022 Creatinine [Mass/Vol] 0.72 mg/dL Normal 0.55-1.02 [facility] Comment on above: Performed By: #### SERGEI WEAVER #### [facility] [address] [place] [address] Dr. Quintin Kaur EGFR-AF [place] >60 Normal >=60 [facility] Comment on above: Performed By: #### SERGEI WEAVER #### [facility] [address] [place] [address] Dr. Quintin Kaur EGFR-NON AF [place] >60 Normal >=60 [facility] Comment on above: Performed By: #### TREVON WEAVERA #### [facility] [address] [place] [address] Dr. Quintin Kaur LIVER PROFILEon 09-29-2022 Albumin [Mass/Vol] 3.7 g/dL Normal 3.4-5.0 [facility] Comment on above: Performed By: #### Andrei HARDY CREA #### [facility] [address] [place] [address] Dr. Quintin Kaur Albumin/Globulin [Mass ratio] 1.0 {ratio} Normal [facility] Comment on above: Performed By: #### Andrei HARDY CREA #### [facility] [address] [place] [address] Dr. Quintin Kaur ALP [Catalytic activity/Vol] 100 U/L Normal 46-116 [facility] Comment on above: Performed By: #### TREVON WEAVERA #### [facility] [address] [place] [address] Dr. Quintin Kaur ALT [Catalytic activity/Vol] 22 U/L Normal 14-59 [facility] Comment on above: Performed By: #### TREVON WEAVERA #### [facility] [address] [place] [address] Dr. Quintin Kaur AST [Catalytic activity/Vol] 12 U/L Critically low 15-37 [facility] Comment on above: Performed By: #### TREVON WEAVERA #### [facility] [address] [place] [address] Dr. Quintin Kaur BILI, CONJUGATED 0.1 mg/dL Normal 0.0-0.2 [facility] Comment on above: Performed By: #### Andrei HARDY CREA #### [facility] [address] [place] [address] Dr. Quintin Kaur Bilirubin [Mass/Vol] 0.3 mg/dL Normal 0.2-1.0 [facility] Comment on above: Performed By: #### Andrei HARDY CREA #### [facility] [address] [place] [address] Dr. Quintin Kaur Globulin (S) [Mass/Vol] 3.6 g/dL Normal [facility] Comment on above: Performed By: #### SERGEI WEAVER #### [facility] [address] [place] [address] Dr. Quintin Kaur Protein [Mass/Vol] 7.3 g/dL Normal 6.4-8.2 [facility] Comment on above: Performed By: #### TREVON WEAVERA #### [facility] [address] [place] [address] Dr. Quintin Kaur SED RATE WESTERGRENon 2022 SED RATE 10 mm/hr Normal <=30 [facility] Comment on above: Performed By: #### SERGEI WEAVER #### [facility] [address] [place] [address] Dr. Quintin Kaur CBC AUTO DIFFon 06-02-2022 BASO # 0.0 103/ul Normal 0.0-0.1 [facility] Comment on above: Performed By: #### SERGEI WEAVER #### [facility] [address] [place] [address] Dr. Quintin Kaur Basophils/100 WBC (Bld) 0.6 % Normal 0.2-2.0 [facility] Comment on above: Performed By: #### TREVON WEAVERA #### [facility] [address] [place] [address] Dr. Quintin Kaur EO # 0.2 103/ul Normal 0.0-0.7 [facility] Comment on above: Performed By: #### TREVON WEAVERA #### [facility] [address] [place] [address] Dr. Quintin Kaur Eosinophils/100 WBC (Bld) 3.9 % Normal 0.9-7.0 [facility] Comment on above: Performed By: #### TREVON WEAVERA #### [facility] [address] [place] [address] Dr. Quintin Kaur Erythrocyte distribution width (RBC) [Ratio] 12.2 % Normal 11.0-15.0 [facility] Comment on above: Performed By: #### L HAYLEY CREA #### [facility] [address] [place] [place] [address] Dr. Quintin Kaur Hematocrit (Bld) [Volume fraction] 40.8 % Normal 36.0-48.0 [facility] Comment on above: Performed By: #### L HAYLEY CREA #### [facility] [place] [facility] [address] [place] [address] Dr. Quintin Kaur Hemoglobin (Bld) [Mass/Vol] 13.7 g/dL Normal 12.0-16.0 [facility] Comment on above: Performed By: #### L HAYLEY CREA #### [facility] [address] [place] [address] Dr. Quintin Kaur IG # 0.01 10e3/ul Normal 0.00-0.03 [facility] Comment on above: Performed By: #### Andrei HARDY CREA #### [facility] [address] [place] [address] Dr. Quintin Kaur IG % 0.2 % Normal 0.0-0.5 [facility] Comment on above: Performed By: #### Andrei HARDY CREA #### [facility] [place] [facility] [address] [place] [address] Dr. Quintin Kaur LYMPH # 1.2 103/ul Normal 1.2-3.8 [facility] Comment on above: Performed By: #### Andrei HARDY CREA #### [facility] [place] [facility] [address] [place] [address] Dr. Quintin Kaur Lymphocytes/100 WBC (Bld) 25.2 % Normal 20.5-60.0 [facility] Comment on above: Performed By: #### L HAYLEY CREA #### [facility] [address] [place] [address] Dr. Quintin Kaur MANUAL DIFF REQ NO Normal [facility] Comment on above: Performed By: #### L HAYLEY CREA #### [facility] [address] [place] [address] Dr. Quintin Kaur MCH (RBC) [Entitic mass] 30.5 pg Normal 26.7-34.0 [facility] Comment on above: Performed By: #### SERGEI WEAVER #### [facility] [address] [place] [address] Dr. Quintin Kaur MCHC (RBC) [Mass/Vol] 33.6 g/dL Normal 29.9-35.2 [facility] Comment on above: Performed By: #### SERGEI WEAVER #### [facility] [address] [place] [address] Dr. Quintin Kaur MCV (RBC) [Entitic vol] 90.9 fL Normal 81.0-99.0 [facility] Comment on above: Performed By: #### SERGEI WEAVER #### [facility] [address] [place] [address] Dr. Quintin Kaur MONO # 0.6 103/ul Normal 0.3-0.8 [facility] Comment on above: Performed By: #### SERGEI WEAVER #### [facility] [address] [place] [address] Dr. Quintin Kaur Monocytes/100 WBC (Bld) 12.3 % Critically high 1.7-12. 0 [facility] Comment on above: Performed By: #### SERGEI WEAVER #### [facility] [address] [place] [address] Dr. Quintin Kaur NEUT # 2.7 103/ul Normal 1.4-6.5 [facility] Comment on above: Performed By: #### TREVON WEAVERA #### [facility] [address] [place] [address] Dr. Quintin Kaur Neutrophils/100 WBC (Bld) 57.8 % Normal 43.0-75.0 [facility] Comment on above: Performed By: #### SERGEI WEAVER #### [facility] [address] [place] [address] Dr. Quintin Kaur Platelet mean volume (Bld) [Entitic vol] 10.9 fL Normal 9.5-13.5 [facility] Comment on above: Performed By: #### SERGEI WEAVER #### [facility] [address] [place] [address] Dr. Quintin Kaur PLT 204 103/ul Normal 150-450 [facility] Comment on above: Performed By: #### SERGEI WEAVER #### [facility] [address] [place] [address] Dr. Quintin Kaur RBC 4.49 106/ul Normal 4.20-5.40 [facility] Comment on above: Performed By: #### SERGEI WEAVER #### [facility] [address] [place] [address] Dr. Quintin Kaur WBC 4.6 103/ul Normal 4.0-11.0 [facility] Comment on above: Performed By: #### SERGEI WEAVER #### [facility] [address] [place] [address] Dr. Quintin Kaur CREATININEon 06-02-2022 Creatinine [Mass/Vol] 0.66 mg/dL Normal 0.55-1.02 [facility] Comment on above: Performed By: #### SERGEI WEAVER #### [facility] [address] [place] [address] Dr. Quintin Kaur EGFR-AF SOUTH [place]OREAN >60 Normal >=60 [facility] Comment on above: Performed By: #### SERGEI WEAVER #### [facility] [address] [place] [address] Dr. Quintin Kaur EGFR-NON AF [place]OU[place]OREAN >60 Normal >=60 [facility] Comment on above: Performed By: #### SERGEI WEAVER #### [facility] [address] [place] [address] Dr. Quintin Kaur LIVER PROFILEon 06-02-2022 Albumin [Mass/Vol] 3.6 g/dL Normal 3.4-5.0 [facility] Comment on above: Performed By: #### SERGEI WEAVER #### [facility] [address] [place] [address] Dr. Quintin Kaur Albumin/Globulin [Mass ratio] 1.2 {ratio} Normal [facility] [place] Comment on above: Performed By: #### SERGEI WEAVER #### [facility] [place] [facility] [address] [place] [address] Dr. Quintin Kaur ALP [Catalytic activity/Vol] 92 U/L Normal 46-116 [facility] Comment on above: Performed By: #### L HAYLEY, CREA #### [facility] [address] [place] [address] Dr. Quintin Kaur ALT [Catalytic activity/Vol] 16 U/L Normal 14-59 [facility] Comment on above: Performed By: #### L HAYLEY, CREA #### [facility] [address] [place] [address] Dr. Quintin Kaur AST [Catalytic activity/Vol] 17 U/L Normal 15-37 [facility] Comment on above: Performed By: #### L HAYLEY, CREA #### [facility] [address] [place] [address] Dr. Quintin Kaur BILI, CONJUGATED 0.1 mg/dL Normal 0.0-0.2 [facility] Comment on above: Performed By: #### L HAYLEY CREA #### [facility] [address] [place] [address] Dr. Quintin Kaur Bilirubin [Mass/Vol] 0.4 mg/dL Normal 0.2-1.0 [facility] Comment on above: Performed By: #### L HAYLEY, CREA #### [facility] [address] [place] [address] Dr. Quintin Kaur Globulin (S) [Mass/Vol] 3.1 g/dL Normal [facility] Comment on above: Performed By: #### L HAYLEY, CREA #### [facility] [address] [place] [address] Dr. Quintin Kaur Protein [Mass/Vol] 6.7 g/dL Normal 6.4-8.2 [facility] Comment on above: Performed By: #### L HAYLEY, CREA #### [facility] [address] [place] [address] Dr. Quintin Kaur SED RATE [facility] 2022 SED RATE 6 mm/hr Normal <=30 [facility] Comment on above: Performed By: #### S EDR #### [facility] [address] [place] [address] Dr. Quintin Kaur CBC AUTO DIFFon 12-12-2021 BASO # 0.0 103/ul Normal 0.0-0.1 [facility] Comment on above: Performed By: #### C BC #### [facility] [address] [place] [address] Dr. Quintin Kaur Basophils/100 WBC (Bld) 0.6 % Normal 0.2-2.0 [facility] Comment on above: Performed By: #### C BC #### [facility] [place] [facility] [address] [place] [address] Dr. Quintin Kaur EO # 0.3 103/ul Normal 0.0-0.7 [facility] Comment on above: Performed By: #### C BC #### [facility] [place] [facility] [address] [place] [address] Dr. Quintin Kaur Eosinophils/100 WBC (Bld) 5.3 % Normal 0.9-7.0 [facility] Comment on above: Performed By: #### C BC #### [facility] [address] [place] [address] Dr. Quintin Kaur Erythrocyte distribution width (RBC) [Ratio] 13.4 % Normal 11.0-15.0 [facility] Comment on above: Performed By: #### C BC #### [facility] [address] [place] [address] Dr. Quintin Kaur Hematocrit (Bld) [Volume fraction] 38.1 % Normal 36.0-48.0 [facility] Comment on above: Performed By: #### C BC #### [facility] [address] [place] [address] Dr. Quintin Kaur Hemoglobin (Bld) [Mass/Vol] 13.0 g/dL Normal 12.0-16.0 [facility] Comment on above: Performed By: #### C BC #### [facility] [address] [place] [address] Dr. Quintin Kaur IG # 0.01 10e3/ul Normal 0.00-0.03 [facility] Comment on above: Performed By: #### C BC #### [facility] [address] [place] [address] Dr. Quintin Kaur IG % 0.2 % Normal 0.0-0.5 [facility] Comment on above: Performed By: #### C BC #### [facility] [address] [place] [address] Dr. Quintin Kaur LYMPH # 1.0 103/ul Critically low 1.2-3.8 [facility] Comment on above: Performed By: #### C BC #### [facility] [address] [place] [address] Dr. Quintin Kaur Lymphocytes/100 WBC (Bld) 19.0 % Critically low 20.5-60.0 [facility] Comment on above: Performed By: #### C BC #### [facility] [address] [place] [address] Dr. Quintin Kaur MANUAL DIFF REQ NO Normal [facility] Comment on above: Performed By: #### C BC #### [facility] [address] [place] [address] Dr. Quintin Kaur MCH (RBC) [Entitic mass] 31.3 pg Normal 26.7-34.0 [facility] Comment on above: Performed By: #### C BC #### [facility] [address] [place] [address] Dr. Quintin Kaur MCHC (RBC) [Mass/Vol] 34.1 g/dL Normal 29.9-35.2 [facility] Comment on above: Performed By: #### C BC #### [facility] [address] [place] [address] Dr. Quintin Kaur MCV (RBC) [Entitic vol] 91.8 fL Normal 81.0-99.0 [facility] Comment on above: Performed By: #### C BC #### [facility] [address] [place] [address] Dr. uQintin Kaur MONO # 0.5 103/ul Normal 0.3-0.8 [facility] Comment on above: Performed By: #### C BC #### [facility] [address] [address] [address] Quintin Kaur Monocytes/100 WBC (Bld) 9.9 % Normal 1.7-12.0 [facility] Comment on above: Performed By: #### C BC #### [facility] [place] [facility] [address] [address] [address] Quintin Kaur NEUT # 3.3 103/ul Normal 1.4-6.5 [facility] Comment on above: Performed By: #### C BC #### [facility] [place] [facility] [address] [place] [address] Dr. Quintin Kaur Neutrophils/100 WBC (Bld) 65.0 % Normal 43.0-75.0 [facility] Comment on above: Performed By: #### C BC #### [facility] [address] [place] [address] Dr. Quintin Kaur Platelet mean volume (Bld) [Entitic vol] 10.7 fL Normal 9.5-13.5 [facility] Comment on above: Performed By: #### C BC #### [facility] [address] [place] [address] Dr. Quintin Kaur PLT 196 103/ul Normal 150-450 [facility] Comment on above: Performed By: #### C BC #### [facility] [place] [facility] [address] [place] [address] Dr. Quintin Kaur RBC 4.15 106/ul Critically low 4.20-5.40 [facility] Comment on above: Performed By: #### C BC #### [facility] [address] [place] [address] Dr. Quintin Kaur WBC 5.1 103/ul Normal 4.0-11.0 [facility] Comment on above: Performed By: #### C BC #### [facility] [address] [place] [address] Dr. Quintin Kaur CREATININEon 12-12-2021 Creatinine [Mass/Vol] 0.85 mg/dL Normal 0.55-1.02 [facility] Comment on above: Performed By: #### L HAYLEY CREA #### [facility] [address] [place] [address] Dr. Quintin Kaur EGFR-AF [place] >60 Normal >=60 [facility] Comment on above: Performed By: #### L IVLOGAN CREA #### [facility] [address] [place] [address] Dr. Quintin Kaur EGFR-NON AF [place] >60 Normal >=60 [facility] Comment on above: Performed By: #### L HAYLEY CREA #### [facility] [address] [place] [address] Dr. Quintin Kaur LIVER PROFILEon 12-12-2021 Albumin [Mass/Vol] 3.7 g/dL Normal 3.4-5.0 [facility] Comment on above: Performed By: #### L HAYLEY CREA #### [facility] [address] [place] [address] Dr. Quintin Kaur Albumin/Globulin [Mass ratio] 1.4 {ratio} Normal [facility] Comment on above: Performed By: #### L HAYLEY CREA #### [facility] [address] [place] [address] Dr. Quintin Kaur ALP [Catalytic activity/Vol] 86 U/L Normal 46-116 [facility] Comment on above: Performed By: #### L HAYLEY CREA #### [facility] [address] [place] [address] Dr. Quintin Kaur ALT [Catalytic activity/Vol] 21 U/L Normal 14-59 [facility] Comment on above: Performed By: #### L HAYLEY CREA #### [facility] [address] [place] [address] Dr. Quintin Kaur AST [Catalytic activity/Vol] 16 U/L Normal 15-37 [facility] Comment on above: Performed By: #### L AHYLEY CREA #### [facility] [address] [place] [address] Dr. Quintin Kaur BILI, CONJUGATED 0.1 mg/dL Normal 0.0-0.2 [facility] Comment on above: Performed By: #### L HAYLEY CREA #### [facility] [address] [place] [address] Dr. Quintin Kaur Bilirubin [Mass/Vol] 0.4 mg/dL Normal 0.2-1.0 [facility] Comment on above: Performed By: #### L HAYLEY CREA #### [facility] [address] [place] [address] Dr. Quintin Kaur Globulin (S) [Mass/Vol] 2.7 g/dL Normal T [facility] Comment on above: Performed By: #### L HAYLEY CREA #### [facility] [address] [place] [address] Dr. Quintin Kaur Protein [Mass/Vol] 6.4 g/dL Normal 6.4-8.2 [facility] Comment on above: Performed By: #### L HAYLEY CREA #### [facility] [address] [place] [address] Dr. Quintin Kaur SED RATE [facility] 2021 SED RATE 3 mm/hr Normal <=30 [facility] Comment on above: Performed By: #### S EDR #### [facility] [address] [place] [address] Dr. Quintin Lorenz 04-09-2017 [facility] Telephone ([employer]) [place] CAMPBELL ([id number]) 1945 [facility] Time Provider Vfyoamrieu79/10/17 NANCY GOODWIN [facility] During your visit today, we recorded the following information about you:Nancy Goodwin MD 04/09/2017 3:39 PM SignedLeft on home phone.ACTH stimulation test for adrenal function was normal. This means patient doesnot need prednisone for adrenal, but she may need it for her rheumatoidarthritis as per her doctor's directions.Please send ACTH stimulation lab result from 04/07/2017 toReferring Physician: Chanelle Cho MD ([facility])[address] [place] [address]Owwsk Obey Gonzales 04/09/2017 4:29 PM SignedOffice note and ACTH stimulation test results faxed to Dr. Chanelle Cho'soffice at [phone].Confirmatio n received.Leah Ornelas R.N.Allergies As of Date: [...] mouth once eac*Problem List As Of Date: 04/09/2017(None)[facility] Number: [id number] Status:Closed by NANCY GOODWIN MD on 04/09/17 Normal [facility] ACTH Stim 3 Time Ptson 04-07 .Cortisol,Basal LK USE ONLY 10.5 ug/dL Normal [facility] Comment on above: Result Comment: Lonnie isol Reference Range: AM = 5.3-22.5, PM = 3.4-16.8 Performed By: #### A CTHST ####[facility] [address], [place] [phone] Cortisol, 30 min 19.8 ug/dL Normal [facility] Comment on above: Performed By: #### A CTHST ####[facility] [address], [place] [phone] Cortisol, 60 min 25.8 ug/dL Normal [facility] Comment on above: Performed By: #### A CTHST ####[facility] [address] [place], [place] [phone] Interpretation A peak value of at l east 18 ug/dL is a normal response to cortrosyn stimulation. Normal [facility] Comment on above: Performed By: #### A CTT ####[facility] [place], [place] [phone] CNOVon 04-07-2017 [facility] [place] CAMPBELL ([id number]) 1945 FDate Time Provider Izunqwcczn98/8/17 2:45 PM NANCY GOODWIN [facility] During your visit today, we recorded the following information about you: Pulse Blood pressure Weight Height 67/minute 104/67 76.1 kg 1.676 Cresencio Goodwin MD 04/07/2017 3:36 PM SignedReason for Consultation: Secondary adrenal insufficiencyReferring Physician: Chanelle Cho MD ([facility])[address] [facility] [phone] final recommendations will be communicated back to [...] Ca/D supplement once daily. She isfollowing with heel dipper Dr. Chanelle [place]. She has been onprednisone for 25 years. [...] kg (167 lb 12.8 oz) BMI 27.08 kg/n0Ktbdbfjo, modifying factors, context and associated signs and [...] kg (167 lb 12.8 oz) BMI 27.08 kg/h3Zjcizmf: Well appearing, alert, in no acute distress, [...] to clinic as needed.Referring Provider: CHANELLE CHO [[id number]]Allergies As of Date: 04/07/2017(No Known Allergies)Date Reviewed: 04/07/2017Reviewed by: Mario Rolon Ma - Fully AssessedReason for Visit: New Patient [172]Primary Visit Diagnosis:Secondary adrenal insufficiency (HCC) [E27.49]Order(s):Omepraz ole (PRILOSEC) 40 mg capsuleTake 1 capsule by mouth once daily.Disp: Rfl: 0 ACTH STIMULATION,3 TIME POINTS [SQACTHST] Order #: [id number] FUTURE cosyntropin (CORTROSYN) 0.25 mg injectionInject 0.25 [...] of Service: NEW PATIENT VISIT LEVEL 4 [[id number]]Follow-up and Disposition History RecordedEncounter Number: [id number] Status:Closed by NANCY GOODWIN MD on 04/07/17 [facility] PROGRESSon 04-07-2017 PROGRESS HNO ID: [id number]: Nancy Prasadervice: (none)Author Type: PhysicianType: Progress NotesFiled: 04/07/2017 3:36 PMNote Text:Reason for Consultation: Secondary adrenal insufficiencyReferring Physician: Chanelle Cho MD ([facility])[address] [place], [place] [address] [address]Bi final recommendations will be communicated back to the requestingphysician by way of shared Medical record or letter via [place] mail.Date: April 07, 2017HISTORY OF PRESENT ILLNESS;Ms. Campbell is a 71 year old female presenting as a [facility] adrenal insufficiency. She reports a longstandinghistory of progressive rheumatoid arthritis. She was treated with Humiraand is now on Rituxan infusions every 6 months in addition to methotrexate7.5 mg per week and folic acid. The patient takes Ca/D supplement oncedaily. She is following with heel dipper Dr. Chanelle Falk. She has been on [...] kg (167 lb 12.8 oz) BMI 27.08 kg/g3Urzdiqtz, modifying factors, context and associated signs and [...] kg (167 lb 12.8 oz) BMI 27.08 kg/x2Cxwehdz: Well appearing, alert, in no acute distress, [...] female [facility] a [facility]. The patient reports longstanding history [...] to clinic as neededNancy Goodwin MD Normal [facility] Vital Signs Date Time Vital Sign Value Performing Clinician Patrice mcghee 05-01-2024 09:47-0500 Body mass index (BMI) [Ratio] 33.2 kg/m2 Sangeetha Delgado MD Work Phone: [facility] 05-01-2024 09:47-0500 Body weight 77.11 kg Sangeetha Delgado MD Work Phone: [facility] 03-23-2023 10:36-0400 Diastolic blood pressure 61 mm[Hg] MD Salvador Hernandez Work Phone: [facility] 03-23-2023 10:36-0400 Heart rate 69 /min MD Salvador Hernandez Work Phone: [facility] 03-23-2023 10:36-0400 Respiratory rate 16 /min MD Salvador Hernandez Work Phone: [facility] 03-23-2023 10:36-0400 SaO2% (BldA) [Mass fraction] 97 % MD Salvador Hernandez Work Phone: [facility] 03-23-2023 10:36-0400 Systolic blood pressure 110 mm[Hg] MD Salvador Hernandez Work Phone: [facility] 03-23-2023 09:17-0400 Body height 152.4 cm MD Salvador Hernandez Work Phone: [facility] 03-23-2023 09:17-0400 Body weight 63.5 kg MD Salvador Hernandez Work Phone: [facility] Encounters Encounter Date Encounter Type Care Provider Facility Start: 05-01-2024 End: 05-01-2024 Bamboo flowsjulisa Delgado MD Work Phone: [facility] Start: 05-01-2024 End: 05-01-2024 Bamboo flowsjulisa Delgado MD Work Phone: [facility] Start: 05-01-2024 End: 05-01-2024 Office outpatient new 30 minutes Sangeetha Delgado MD Work Phone: [facility] Comment on above: Low immunoglobulin l evel (Primary Dx); Recurrent sinus infections Start: 05-01-2024 End: 05-01-2024 ambulatory SANGEETHA DELGADO Not Available Start: 04-04-2024 End: 04-04-2024 Patient encounter procedure MD Salvador Hernandez Work Phone: [facility] [address] Work Phone: Start: 04-04-2024 End: 04-04-2024 ambulatory MD Salvador Hernandez Work Phone: [facility] Work Phone: Start: 03-08-2024 End: 03-08-2024 Bamboo flowsheet Aleksandr Claire DPM Work Phone: [facility] Start: 03-08-2024 End: 03-08-2024 Bamboo flowsheet Aleksandr Claire DPM Work Phone: [facility] Start: 03-08-2024 End: 03-08-2024 Patient encounter procedure Aleksandr Claire DPM Work Phone: [facility] Comment on above: Onychomycosis (Prima ry Dx); Pain in both feet; Corns and callosities; Neuropathy Start: 03-08-2024 End: 03-08-2024 ambulatory ALEKSANDR CLAIRE Not Available Start: 01-18-2024 End: 01-18-2024 Patient encounter procedure MD Salvador Hernandez Work Phone: [facility] Start: 01-18-2024 End: 01-18-2024 ambulatory MD Salvador Hernandez Work Phone: [facility] Work Phone: Start: 01-14-2024 End: 01-14-2024 Patient encounter procedure MD Salvador Hernandez Work Phone: [facility] Work Phone: Start: 01-14-2024 End: 01-14-2024 ambulatory MD Salvador Hernandez Work Phone: [facility] Work Phone: Start: 12-07-2023 End: 12-07-2023 ambulatory ALEKSANDR CLAIRE Not Available Start: 09-13-2023 End: 09-13-2023 ambulatory ALEKSANDR CLAIRE Not Available Start: 08-02-2023 End: 08-02-2023 ambulatory JOSE LEVINE Not Available Start: 07-06-2023 Chart abstracting Aleksandr Claire DPM Work Phone: [facility] Start: 07-06-2023 End: 07-06-2023 ambulatory ALEKSANDR CLAIRE Not Available Start: 03-23-2023 End: 03-23-2023 Admission to same day surgery center MD Salvador Hernandez Work Phone: [facility] Work Phone: Start: 03-23-2023 End: 03-23-2023 ambulatory MD Salvador Hernandez Work Phone: [facility] Work Phone: Start: 01-19-2023 End: 01-19-2023 ambulatory MD Salvador Hernandez Work Phone: [facility] Work Phone: Start: 01-19-2023 End: 01-19-2023 Patient encounter procedure MD Salvador Hernandez Work Phone: [facility] Start: 10-07-2022 End: 10-07-2022 ambulatory MD Salvador Hernandez Work Phone: [facility] Work Phone: Start: 10-07-2022 End: 10-07-2022 Patient encounter procedure MD Salvador Hernandez Work Phone: [facility] [address] Work Phone: Start: 09-29-2022 End: 09-30-[address] CHANELLE CHO Facility:[facility]1 Start: 06-02-2022 End: 06-03-[address] CHANELLE CHO Facility:[facility] Start: 01-01-[address] CHANELLE CHO [facility] ity:[facility]1 Start: 12-12-2021 End: 12-13-[address] CHANELLE CHO Facility:[facility] Start: 04-07-2017 End: 04-07-2017 Ambulatory NANCY GOODWIN [facility] Procedures Date Procedure Procedure Detail Performing Clinician Start: 01-14-2024 Dual energy X-ray absorptiometry MD Salvador Hernandez Work Phone: Start: 03-23-2023 Screening colonoscopy Matt Hernandez Work Phone: Plan of Treatment Date Care Activity Detail Author Start: 06-15-2024 End: 06-15-2024 Patient encounter procedure 06/15/2024 10:15 AM EST Procedure Visit [facility] [address] [place] [address] Aleksandr Claire DPM [address] [place] [address] [facility] Start: 06-07-2024 End: 06-07-2024 Patient encounter procedure 06/07/2024 9:40 AM EST Office Visit [facility] [address] [place] [id number] Sangeetha Delgado MD [address] [place] [address] [facility] Start: 05-01-2024 End: 05-01-2025 CBC W Auto Differential panel - Blood CBC and differential Lab Routine Low immunoglobulin level Expected: 05/01/2024 (Approximate), Expires: 05/01/2025 [facility] Comment on above: Expected: 05/01/2024 (Approximate), Expires: 05/01/2025 Start: 05-01-2024 End: 05-01-2025 Diphtheria / Tetanus Antibody Panel Diphtheria / Tetanus Antibody Panel Lab Routine Low immunoglobulin level Expected: 05/01/2024 (Approximate), Expires: 05/01/2025 [facility] Comment on above: Expected: 05/01/2024 (Approximate), Expires: 05/01/2025 Start: 05-01-2024 End: 05-01-2025 IgA [Mass/volume] in Serum or Plasma IgA Lab Routine Low immunoglobulin level Expected: 05/01/2024 (Approximate), Expires: 05/01/2025 [facility] Comment on above: Expected: 05/01/2024 (Approximate), Expires: 05/01/2025 Start: 05-01-2024 End: 05-01-2025 IgE [Units/volume] in Serum or Plasma IgE Lab Routine Low immunoglobulin level Expected: 05/01/2024 (Approximate), Expires: 05/01/2025 [facility] Comment on above: Expected: 05/01/2024 (Approximate), Expires: 05/01/2025 Start: 05-01-2024 End: 05-01-2025 IgG [Mass/volume] in Serum or Plasma IgG Lab Routine Low immunoglobulin level Expected: 05/01/2024 (Approximate), Expires: 05/01/2025 [facility] Work Phone: Comment on above: Expected: 05/01/2024 (Approximate), Expires: 05/01/2025 Start: 05-01-2024 End: 05-01-2025 IgM [Mass/volume] in Serum or Plasma IgM Lab Routine Low immunoglobulin level Expected: 05/01/2024 (Approximate), Expires: 05/01/2025 [facility] Comment on above: Expected: 05/01/2024 (Approximate), Expires: 05/01/2025 Start: 05-01-2024 End: 05-01-2025 Tetanus toxoid, IgG Tetanus toxoid, IgG Lab Routine Low immunoglobulin level Expected: 05/01/2024 (Approximate), Expires: 05/01/2025 [facility] Comment on above: Expected: 05/01/2024 (Approximate), Expires: 05/01/2025 Start: 05-01-2024 End: 05-01-2024 Patient encounter procedure 05/01/2024 9:40 AM EST Office Visit [facility] [address] [place] [address] Sangeetha Delgado MD [address] [place] [address] Arrived [facility] Comment on above: Arrived Start: 04-04-2024 [facility] Start: 03-08-2024 End: 03-08-2024 Patient encounter procedure 03/08/2024 10:15 AM EDT Procedure Visit [facility] [address] [place] [id number] Aleksandr Claire DPM [address] [place] [address] Arrived [facility] Comment on above: Arrived Start: 07-06-2023 End: 07-06-2023 Patient encounter procedure 07/06/2023 11:00 AM EST Office Visit [facility] [address] [place] [phone] Aleksandr Claire DPM [address] [place] [address] [facility] Start: 03-23-2023 [facility] Start: 10-07-2022 [facility] Albumin [Mass/volume ] in Serum or Plasma [facility] Albumin [Mass/volume ] in Serum or Plasma [facility] Albumin/Globulin ratio [facility] Albumin/Globulin ratio [facility] Electrophoresis: [id number] [facility] Electrophoresis: [id number] [facility] Electrophoresis: hyrii-9-[id number] [facility] Electrophoresis: [id number] [facility] Electrophoresis: beta-globulin [facility] Electrophoresis: beta-globulin [facility] Electrophoresis: roberto ma globulin [facility] Electrophoresis: roberto ma globulin [facility] Globulin [Mass/volum e] in Serum [facility] Globulin [Mass/volum e] in Serum [facility] IgA [Mass/volume] in Serum or Plasma [facility] IgA [Mass/volume] in Serum or Plasma [facility] IgE [Units/volume] i n Serum or Plasma [facility] IgG [Mass/volume] in Serum or Plasma [facility] IgG [Mass/volume] in Serum or Plasma [facility] IgM [Mass/volume] in Serum or Plasma [facility] IgM [Mass/volume] in Serum or Plasma [facility] Interferon gamma assay [facility] Mycobacterium tuberculosis stimulated gamma interferon [Interpretation] in Blood Qualitative [facility] Mycobacterium tuberculosis stimulated gamma interferon release by CD4+ and CD8+ T-cells [Units/volume] corrected for background in Blood [facility] Mycobacterium tuberculosis tuberculin stimulated gamma interferon [Presence] in Blood [facility] Patient Education Hemorrhoids (D C) Diverticulosis (DC) [facility] Work Phone: Protein [Mass/volume ] in Serum or Plasma [facility] Protein [Mass/volume ] in Serum or Plasma [facility] Serum immunofixation [facility] Serum immunofixation [facility] STREPTOCOCCUS PNEUMO HUMBLE AB (IGG) (23 SEROTYPES) STREPTOCOCCUS PNEUMONIA AB (IGG) (23 SEROTYPES) Lab Routine Low immunoglobulin level Ordered: 05/01/2024 [facility] Comment on above: Ordered: 05/01/2024 Payers Date Payer Category Payer Self-pay [id number] 2023 Private Health Insurance [id number] 2009 Medicare [id number] 1959 Medicare [id number] 1959 Private Health Insurance [id number] 1959 Self-pay [id number] 1944 Unknown [id number] 2.16.84 [id number] 1944 Unknown [id number] 2.16.84 [id number] 1944 Unknown [id number] 2.16.84 [id number] 1944 Unknown [id number] 2.16.84 [id number] 1944 Unknown [id number] 2.16.84 [id number] 1944 Unknown [id number] 2.16.84 [id number] 1944 Unknown [id number] 2.16.84 [id number] 1944 Unknown [id number] 2.16.84 [id number] 1944 Unknown [id number] 2.16.84 [id number] 1944 Unknown [id number] 2.16.84 [id number] Unknown [id number] 2.16.8 [id number] Unknown [id number] 2.16.8 [id number] Unknown [id number] 2.16.8 [id number] Social History Date Type Detail Facility Start: 01-22-2021 End: 07-06-2023 Tobacco smoking status NHIS Never smoked tobacco (finding) [facility] Start: 1945 Sex Assigned At Female F [facility] Start: 07-06-2023 Tobacco use and exposure Smokeless tobacco non-user [facility] Start: 07-06-2023 End: 05-01-2024 Alcohol intake Lifetime non-drinker (finding) [facility] Start: 1945 Sex Assigned At Not on file [facility] Start: 12-07-2023 End: 05-01-2024 Gender identity Not on file [facility] Start: 12-07-2023 End: 05-01-2024 History of Social function [facility] Medical Equipment Procedure Code Equipment Code Equipment Origin al Text Equipment Identifier Dates ORIF, fracture, patella Orthopaedic bone screw, non-bioabsorbable, non-sterile ()[id number] FDA Start: 10-15-2020 ORIF, fracture, patella Orthopaedic bone screw, non-bioabsorbable, non-sterile ()[id number] FDA Start: 10-15-2020 ORIF, fracture, patella Orthopaedic bone screw, non-bioabsorbable, non-sterile ()[id number] FDA Start: 10-15-2020 ORIF, fracture, patella Orthopaedic bone wire ()[id number] FDA Start: 10-15-2020 Goals Date Patient Goal Desired Activity /State History of Present illness Narrative 05-01-2024 Sangeetha Delgado MD - 05/01/2024 9:40 AM EST Note Date & Type Note Facility 05-01-2024 History of Presen t illness Narrative Fihs Campbell is a very pleasant 78 y.o. year old female who comes to the office today with the chief complaint of low IgE. She is due for an infusion of Rituxan which has been placed on hold due to a low IgE. She has not had any needs for antibiotics in the past year. She has had one episode of pneumonia when she was in the s. She has had no other unusual infections since that time. EXAM The patient appears comfortable in the office today. Lungs are clear to auscultation bilaterally. The oral mucosa is pink and healthy without any lesions or ulcers. The palate elevates in the midline. The nasal mucosa is pink and healthy. There is no epistaxis mucopus or nasal polyposis noted. The nasal septum is approximately in the midline. The skin is clear of any lesions, excoriations, or erythema. IMPRESSION: low IgE - I explained to the patient that low IgE level as long as her immunoglobulin G is within normal limits should not preclude use of Rituxan. Her labs were not available for review today so we agreed to obtain a humoral immune survey and have her follow-up in 4 weeks for reassessment and to review her labs. She has not been having any infections and I have no report that her immunoglobulin G is low so we agreed to continue her Rituxan for the time being. documented in this encounter [facility] History of Present illness Narrative 03-08-2024 Aleksandr [...] of the toenails. documented in this encounter [facility] Procedure note 03-23-2023 Note Date & Type Note Facility 03-23-2023 Procedure note [facility] Evaluation note Note Date & Type Note Facility Evaluation note No assessment information availa ble [facility] Work Phone: Evaluation note Note Date & Type Note Facility Evaluation note Diagnosis Onset Date Heme + stool acute [facility] Work Phone: Evaluation note Note Date & Type Note Facility Evaluation note Diagnosis Onychomycosis- Primary Dermatophytosis of nail Pain in both feet Corns and callosities Neuropathy Mononeuritis of unspecified site documented in this encounter [facility] Evaluation note Note Date & Type Note Facility Evaluation note Diagnosis Low immunoglobulin level- Primary Recurrent sinus infections Unspecified sinusitis (chronic) documented in this encounter [facility] Hospital Discharge instructions Note Date & Type [...] if you have any problems. 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 Specialty Start Date End Date Salvador Hernandez MD [address] [id number] PCP - General Family Medicine 07/06/23 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 Operator Relationship Specialty Start Date End Date Salvador Hernandez MD [facility] [place] [address] PCP - General Family Medicine 07/06/23 Team Status: Inactive Member Role Status Dates Salvador Hernandez MD Primary Care Provider Active Start: April 04, 2024 End: April 04, 2024 Chanelle Cho MD Attending Provider Active St art: April 04, 2024 End: April 04, 2024 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 Operator Relationship Specialty Start Date End Date Salvador Hernandez MD [address] [place] [address] PCP - General Family Medicine 07/06/23 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 Her doctor would like you to clear her for the infusion. FOR RECORDS PERTAINING TO PATIENTS WHO ARE [...] BE BASED ON THE PRIMARY CLINICAL RECORDS. [employer] provides no warranty or guarantee of the accuracy or completeness of information in this document.
--- NOTE | 2024-05-16 19:24 | ED_ITS ---
HPI HPI - General Adult General Chief complaint: Extremity Problem, Nontraumatic Stated complaint: UE PAIN Time Seen by Provider: 05/16/24 19:11 Source: patient Mode of arrival: walk-in Limitations: no limitations History of Present Illness HPI narrative: 78-year-old female to the emergency department with chief complaint of pain in her left wrist. She noticed it a few days ago. She denies any fever, redness, warmth. She does have a history of rheumatoid arthritis and has frequent joint pain. She noticed some swelling over the ulnar aspect of her wrist anteriorly. No specific injury. No trauma. She is otherwise at her baseline health. Related Data Home Medications ?Medication ?Instructions ?Recorded ?Confirmed folic acid 1 mg tablet 1 mg PO DAILY 12/16/22 05/16/24 methotrexate sodium 2.5 mg tablet 2.5 mg PO .weekly 12/16/22 05/16/24 prednisone 5 mg tablet 5 mg PO Q12H PRN pain 12/16/22 05/16/24 Allergies Allergy/AdvReac Type Severity Reaction Status Date / Time No Known Drug Allergies Allergy Verified 05/16/24 19:10 Opioid HPI Opioid Management Most Recent Opioid Data: Last Pain Scale 3 12/16/22 06:16 12/16/22 Review of Systems ROS Status of ROS 10 or more systems reviewed and unremark able except as noted in history and below [facility] Medical History (Updated 05/16/24 @ 19:29 by Rodolfo Dai MD) Rheumatoid arthritis ?M06.9 - Rheumatoid arthritis, unspecified (ICD-10) Social History Little interest or pleasure in doing things: not at all Feeling down, depressed, or hopeless: not at all Exam Narrative Exam Narrative: VITALS: I have reviewed the triage vital signs. GENERAL: Well developed, well appearing adult in no acute distress. NEURO: Alert and oriented. Moves all extremities. Face is symmetric and expressive. EYES: PERRL. No scleral icterus or conjunctival injection. No discharge. HENT: Normocephalic, atraumatic. Hearing is grossly intact. Nares grossly patent and without discharge. Mucous membranes moist. NECK: No JVD. Patient moves neck without restriction. Left upper extremity: Radial pulses intact. Sensation is intact over the hand and forearm. Inorganic Chemical Technician strength is intact. Finger abduction adduction is intact. Wrist extension is intact. There is a small amount of swelling over the expected course of the ulnar bursa. There is no erythema or warmth. She has normal range of motion of the wrist. SKIN: Warm and dry. Normal turgor. No rash or lesions appreciated. PSYCH: Mood, affect, and interaction is appropriate to the setting. Constitutional Vital Signs, click to edit/add: Last Vital Signs Temp 98.0 F 05/16/24 19:05 Pulse 83 05/16/24 19:05 Resp 18 05/16/24 19:05 BP 139/71 05/16/24 19:05 Pulse Ox 96 05/16/24 19:05 O2 Del Method Room Air 05/16/24 19:05 Course Vital Signs Vital signs: Vital Signs Temperature 98.0 F 05/16/24 19:05 Pulse Rate 83 05/16/24 19:05 Respiratory Rate 18 05/16/24 19:05 Blood Pressure 139/71 05/16/24 19:05 Pulse Oximetry 96 05/16/24 19:05 Oxygen Delivery Method Room Air 05/16/24 19:05 Temperature 98.0 F 05/16/24 19:05 Pulse Rate 83 05/16/24 19:05 Respiratory Rate 18 05/16/24 19:05 Blood Pressure 139/71 05/16/24 19:05 Pulse Oximetry 96 05/16/24 19:05 Oxygen Delivery Method Room Air 05/16/24 19:05 Medical Decision Making MDM Narrative Medical decision making narrative: 78-year-old female to the emergency department with chief complaint of pain in her left wrist. Vital stable, the patient is afebrile. Her left upper extremity is neurovascularly intact. There is some swelling about the expected course of the ulnar bursa which I believe represents an acute bursitis. 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 No evidence that this is an acute infectious process. There is no trauma. No indication for imaging at this time. Will treat with a Velcro wrist splint for 5 days. Follow-up with her PCP. I offered prednisone which she stopped taking a few days ago she has run out and she is on chronically. She would like a shot of Kenalog which I believe is reasonable. The patient was discharged home. Medical Records Medical records reviewed: Yes I reviewed the patient's medical records Discharge Plan Discharge Chief Complaint: Extremity Problem, Nontraumatic Clinical Impression: Bursitis Patient Disposition: Home, Self-Care Time of Disposition Decision: 19:27 Condition: Good Mode of Transportation: Private Vehicle Prescriptions / Home Meds: No Action methotrexate sodium 2.5 mg tablet 2.5 mg PO .weekly prednisone 5 mg tablet 5 mg PO Q12H PRN (Reason: pain) folic acid 1 mg tablet 1 mg PO DAILY Print Language: Vietnamese Instructions: Swollen Joint (ED) Additional Instructions: Call the office of your primary care doctor to arrange for follow-up within the above-stated timeframe. Your ED visit was focused on your acute issue and does not replace primary care. You should review your labs, imaging, and diagnoses from this ED visit with your primary care physician. There may be non-emergent/ incidental findings that need further evaluation. You should review your vital signs including blood pressure with your PCP. If you were prescribed medications you should discuss possible side-effects and drug interactions with your pharmacist. Call 911 or go to the nearest Emergency Department if you develop any new or worsening symptoms. Wear splint for 5 days. You may take off for bathing and hygiene. Gentle stretches when you take it off. Return to the ED with fever, redness, warmth to the wrist. Referrals: ELAINE AGUILAR [Primary Care Provider] - 1 week
[2024-05-16] MEDS: TRIAMCINOLONE ACETONIDE 40 MG/ML VIAL IM (19:51)
== END 2024-05-16 20:01 | disposition home or self-care (01) ==
PROVIDERS: Emergency Provider Student in an Organized Health Care Education/Training Program; PCP Family Medicine
DX: M71.532 Other bursitis, not elsewhere classified, left wrist (principal); M06.9 Rheumatoid arthritis, unspecified; Z79.52 Long term (current) use of systemic steroids
CPT/HCPCS: 96372; 99284; J3301

== ENCOUNTER 2024-07-10 12:04 | Outpatient (OUT) | payer MEDICARE, OTHER, SELFPAY ==
--- OUTSIDE RECORDS SUMMARY | 2024-07-10 12:22 | XMS_ITS | CCD ---
Author Organization [facility] Inform ion [facility] Care Team Providers Care Senior Payroll Manager Name Role Phone NANCY GOODWIN Unavailable Unavailable NANCY GOODWIN Unavailable Unavailable CHANELLE CHO Unavailable Unavailable BRENDA, DR ROCA Consulting Unavailable BRENDA, DR ROCA Admitting Unavailable JEFF, DR HENRY Primary Care Unavailable HALADAY, DR ROCA Attending Unavailable BRENDA, DR ROCA Admitting Unavailable DWIGHTADAJeannine, DR ROCA Attending Unavailable JEFF, DR HENRY Referring Unavailable JEFF, DR HENRY Primary Care Unavailable HALADAY, DR ROCA Consulting Unavailable DWIGHTADAJeannine, DR ROCA Consulting Unavailable HALADAY, DR ROCA Admitting Unavailable JEFF, DR HENRY Primary Care Unavailable HALADAY, DR ROCA Attending Unavailable HALADAY, DR ROCA Admitting Unavailable JEFF, DR HENRY Primary Care Unavailable BRENDA, DR ROCA Attending Unavailable MD Salvador Hernandez Primary Care Provider MD Chanelle Cho Attending Provider MD Salvador Hernandez Primary Care Provider [phone] MD Salvador Hernandez Attending Provider [phone] MD Joe Anderson Attending Provider Unavailable Primary Care Provider UnavailMD Salvador Ross Primary Care Provider MD Chanelle Cho Attending Provider MD Salvador Hernandez Attending Provider Salvador Hernandez MD Primary Care Provider [phone] MD Salvador Hernandez Primary Care Provider MD Chanelle Cho Attending Provider MD Salvador Hernandez Attending Provider Chanelle Cho Attending Unavailable Chanelle Cho Admitting Unavailable Salvador Hernandez Primary Care Unavailable Salvador Hernandez Attending Unavailable Salvador Hernandez Primary Care Unavailable Salvador Hernandez Admitting Unavailable Chanelle Cho Attending Unavailable Chanelle Cho Admitting Unavailable Salvador Hernandez Primary Care Unavailable ALEKSANDR CLAIRE Attending Unavailable JOSE LEVINE Attending Unavailable ALEKSANDR CLAIRE Attending Unavailable ALEKSANDR CLAIRE Attending Unavailable ALEKSANDR CLAIRE Attending Unavailable SANGEETHA DELGADO Attending Unavailable SANGEETHA DELGADO Attending Unavailable CHANELLE CHO Referring Unavailable ALEKSANDR CLAIRE Attending Unavailable Medications Current Medications Medication Drug Class(es) Dates Sig (Normalized) Sig (Original) acetaminophen 325 mg / HYDROcodone bitartrate 5 mg oral tablet (16 sources) Opioid Agonist Start: 12-16-2022 take 0.5-1 tablets by mouth every four to six hours as needed for pain HYDROcodone-aceta minophen (Palouse) 5-325 MG tablet TAKE 1/2 - 1 [...] 2023 11:00pm ciprofloxacin 500 mg oral tablet (10 sources) Quinolone Antimicrobial Start: 12-16-2022 take 1 tablet by mouth in the morning ciprofloxacin (Cipro) 500 MG tablet Take 500 mg by mouth in the morning and 500 mg before bedtime. 12/16/2022 Active folic acid 1 mg oral tablet (16 sources) Start: 02-16-2017 take 1 mg by mouth once daily Folic Acid Active 1 MG PO Daily February 15, 2017 11:00pm hydroxychloroquine sulfate 200 mg oral tablet (14 sources) Antimalarial, Antirheumatic Agent Start: 03-23-2023 take 1 tablet by mouth once daily Hydroxychloroquine (Plaquenil) 200 mg Tablet Active 200 MG PO Daily March 22, 2023 11:00pm methotrexate 2.5 mg oral tablet (16 sources) Folate Analog Metabolic Inhibitor Start: 06-30-2023 methotrexate 2.5 MG tablet TAKE 7 TABS BY MOUTH EVERY WEEK, ONCE A WEEK, [facility] 06/30/2023 Active Start: 02-16-2017 take 20 mg by mouth every week Methotrexate Sodium Active 20 MG PO every week February 15, 2017 11:00pm Start: 02-16-2017 take 17.5 mg by mout h every week Methotrexate Sodium Active 17.5 MG PO every week February 16, 2017 12:00am metroNIDAZOLE 500 mg oral tablet (10 sources) Nitroimidazole Antimicrobial Start: 12-16-2022 take 1 tablet by mouth in the morning metroNIDAZOLE (Flagyl) 500 MG tablet Take 500 mg by mouth in the morning and 500 mg before bedtime. 12/16/2022 Active pantoprazole 40 mg delayed release oral tablet (14 sources) Proton Pump Inhibitor Start: 03-23-2023 take [...] 14, 2020 11:00pm March 23, 2023 8:08am Opmdqcth-Rzr-Ys-Lyc open-Lutein (Centrum Silver) 0.4-300-250 mg-mcg-mcg Tablet (6 sources) Start: 02-16-2017 End: 07-19-2019 take 1 tablet by mouth once daily Yjcnpwar-Uew-Fu-Lyc open-Lutein (Centrum Silver) 0.4-300-250 mg-mcg-mcg Tablet Discontinued 1 TAB PO Daily February 15, 2017 11:00pm July 19, 2019 8:51am Start: 02-16-2017 End: 07-19-2019 take 1 tablet by mouth once daily Xuinbqit-Yxp-Iw-Lycopen-Lutein (Centrum Silver) 0.4-300-250 mg-mcg-mcg Tablet Discontinued 1 [...] Episodic Immunizations and screening for infectious disease (4 sources) Decreased immunoglobulin; Translations: [Other specified abnormal immunological findings in serum] 05-01-2024 Episodic Mycoses (2 sources) Onychomycosis; Translations: [Tinea unguium] 03-08-2024 Episodic Osteoporosis (1 source) Age-related osteoporosis without current pathological fracture; Translations: [Age-related osteoporosis without current pathological fracture] Onset: 01-14-2024 Chronic Other aftercare (1 source) 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; Translations: [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] Onset: 10-06-2022 Episodic Other connective tissue disease (2 sources) Pain in both feet; Translations: [Pain in right foot] 03-08-2024 Episodic Other endocrine disorders (1 source) Other adrenocortical insufficiency; Translations: [Other adrenocortical insufficiency] Onset: 04-07-2017 Chronic Other gastrointestinal disorders (4 sources) Occult blood in stools; Translations: [Other fecal abnormalities] 03-23-2023 Episodic Other gastrointestinal disorders (1 source) Other fecal abnormalities; Translations: [Nonspecific abnormal findings in stool contents] 03-23-2023 Episodic Other nervous system disorders (2 sources) Neuropathy; Translations: [Polyneuropathy, unspecified] 03-08-2024 Chronic Other skin disorders (2 sources) Callosity; Translations: [Corns and callosities] 03-08-2024 Episodic [...] 04-04 Immunofixation, Serum Comment Normal . [facility] Comment on above: Result Comment: No m onoclonality detected. Performed By: #### S PE, ROSA SERUM, IGE #### [facility] , Immunoglobulin A, Serum 368 mg/dL Normal 64-422 [facility] Comment on above: Performed By: #### S PE, ROSA SERUM, IGE #### [facility] , Immunoglobulin G 747 mg/dL Normal [phone] [facility] Comment on above: Performed By: #### S PE, ROSA SERUM, IGE #### [facility] , Immunoglobulin M, Serum 72 mg/dL Normal 26-217 [facility] Comment on above: Result Comment: Perf ormed at: CB - [facility] [address] [id number] Edi Specialist: Nish Russell PhD, Phone: [phone] Performed By: #### S PE, ROSA SERUM, IGE #### [facility] , Immunoglobulin Tristan 4 Immunoglobulin E 4 Low 6-495 [facility] Comment on above: Result Comment: Perf ormed at: BN - [facility] [address] [id number] Edi Specialist: Nancy Ley MD, Phone: [phone] Performed By: #### S PE, ROSA SERUM, IGE #### [facility] , Protein Electrophoresis, Ser umon 04-04-2024 Albumin [Mass/Vol] 3.7 g/dL Normal 2.9-4.4 [facility] Comment on above: Performed By: #### S PE, ROSA SERUM, IGE #### [facility] , Albumin/Globulin [Mass ratio] 1.3 {ratio} Normal 0.7-1.7 [facility] Comment on above: Performed By: #### S PE, ROSA SERUM, IGE #### [facility] , Osfft-2-Bsvozszx 0.3 g/dL Normal 0.0-0.4 [facility] Comment on above: Performed By: #### S PE, ROSA SERUM, IGE #### [facility] , Lgubh-8-Tptxpsgu 0.7 g/dL Normal 0.4-1.0 [facility] Comment on above: Performed By: #### S PE, ROSA SERUM, IGE #### [facility] , Beta Globulin 1.1 g/dL Normal 0.7-1.3 [facility] Comment on above: Performed By: #### S PE, ROSA SERUM, IGE #### [facility] , Gamma Globulin 0.7 g/dL Normal 0.4-1.8 [facility] Comment on above: Performed By: #### S PE, ROSA SERUM, IGE #### [facility] , Globulin (S) [Mass/Vol] 2.9 g/dL Normal 2.2-3.9 [facility] Comment on above: Performed By: #### S PE, ROSA SERUM, IGE #### [facility] , M-Kvng Not Observed Normal Not Observed [facility] Comment on above: Performed By: #### S PE, ROSA SERUM, IGE #### [facility] , Protein [Mass/Vol] 6.6 g/dL Normal 6.0-8.5 [facility] Comment on above: Performed By: #### S PE, ROSA SERUM, IGE #### [facility] , SPE-Note Comment Normal . [facility] Comment on above: Result Comment: Prot ein electrophoresis scan will follow via computer, mail, or cook house supervisor delivery. Performed at: [address] [id number] Edi Specialist: Nish Russell PhD, Phone: [phone] PERFORMED BY: [place] [address] PATHOLOGIST AROMATHERAPIST JAEL REED M.D. Performed By: #### S PE, ROSA SERUM, IGE #### [facility] , Alanine aminotransferase [En zymatic activity/volume] in Serum or PlasmaOrdered By: Salvador Hernandez on 01-18-2024 ALT [Catalytic activity/Vol] 11 U/L Normal 7-52 [facility] Comment on above: Performed By: #### C BC, [id number], CMP, LIPID, T4F, TSH3 #### [place] [address] [place] Albumin [Mass/volume] in Ser um or Plasma by Bromocresol green (BCG) dye binding methoOrdered By: Salvador Hernandez on 01-18-2024 Albumin BCG dye [Mass/Vol] 4.1 g/dL 3.5-5.7 [facility] Alkaline phosphatase [Enzyma tic activity/volume] in Serum or PlasmaOrdered By: Salvador Hernandez on 01-18-2024 ALP [Catalytic activity/Vol] 77 U/L Normal 34-104 [facility] Comment on above: Performed By: #### C BC, [id number], CMP, LIPID, T4F, TSH3 #### [facility] [address] Aspartate aminotransferase [ Enzymatic activity/volume] in Serum or PlasmaOrdered By: Salvador Hernandez on 01-18-2024 AST [Catalytic activity/Vol] 15 U/L Normal 13-39 [facility] Comment on above: Performed By: #### C BC, [id number], CMP, LIPID, T4F, TSH3 #### [address] Automated basophil %Ordered By: Salvador Hernandez on 01-18-2024 Basophils/100 WBC (Bld) 0.7 % Normal . [facility] Comment on above: Performed By: #### C BC, [id number], CMP, LIPID, T4F, TSH3 #### [address] Automated basophil countOrde red By: Salvador Hernandez on 01-18-2024 Basophils (Bld) [#/Vol] 0.0 10*3/uL Normal 0.0-0.2 [facility] Comment on above: Result Comment: PERF ORMED BY: [place] [address] PATHOLOGIST AROMATHERAPIST JAEL REED M.D. Performed By: #### C BC, [id number], CMP, LIPID, T4F, TSH3 #### [address] Automated blood monocyte cou ntOrdered By: Salvador Hernandez on 01-18-2024 Monocytes (Bld) [#/Vol] 0.5 10*3/uL Normal 0.0-0.8 [facility] Comment on above: Performed By: #### C BC, [id number], CMP, LIPID, T4F, TSH3 #### [facility] [address] Automated eosinophil %Ordere d By: Salvador Hernandez on 01-18-2024 Eosinophils/100 WBC (Bld) 5.3 % Normal . [facility] Comment on above: Performed By: #### C BC, [id number], CMP, LIPID, T4F, TSH3 #### [facility] [address] Automated eosinophil countOr dered By: Salvador Hernandez on 01-18-2024 Eosinophils (Bld) [#/Vol] 0.2 10*3/uL Normal 0.0-0.45 [facility] Comment on above: Performed By: #### C BC, [id number], CMP, LIPID, T4F, TSH3 #### [address] Automated monocyte %Ordered By: Salvador Hernandez on 01-18-2024 Monocytes/100 WBC (Bld) 11.7 % Normal . [facility] Comment on above: Performed By: #### C BC, [id number], CMP, LIPID, T4F, TSH3 #### [facility] [address] [place] [address] Automated neutrophil %Ordere d By: Salvador Hernandez on 01-18-2024 Neutrophils/100 WBC (Bld) 59.5 % Normal . [facility] Comment on above: Performed By: #### C BC, [id number], CMP, LIPID, T4F, TSH3 #### [address] Bilirubin.total [Mass/volume ] in Serum or PlasmaOrdered By: Salvador Hernandez on 01-18-2024 Bilirubin [Mass/Vol] 0.7 mg/dL Normal 0.3-1.0 [facility] Comment on above: Performed By: #### C BC, [id number], CMP, LIPID, T4F, TSH3 #### [facility] [address] [place] [address] [place] Calcium [Mass/volume] in Ser um or PlasmaOrdered By: Salvador Hernandez on 01-18-2024 Calcium [Mass/Vol] 9.4 mg/dL Normal 8.6-10.3 [facility] Comment on above: Performed By: #### C BC, [id number], CMP, LIPID, T4F, TSH3 #### [facility] [address] Carbon dioxide, total [Moles /volume] in Serum or PlasmaOrdered By: Salvador Hernandez on 01-18-2024 CO2 [Moles/Vol] 26.8 mmol/L Normal 21.0-31.0 [facility] Comment on above: Performed By: #### C BC, [id number], CMP, LIPID, T4F, TSH3 #### [place] [address] [place] Chloride [Moles/volume] in S inocente or PlasmaOrdered By: Salvador Hernandez on 01-18-2024 Chloride [Moles/Vol] 107 mmol/L Normal 98-107 [facility] Comment on above: Performed By: #### C BC, [id number], CMP, LIPID, T4F, TSH3 #### [place] [address] [place] Cholesterol [Mass/volume] in Serum or PlasmaOrdered By: Salvador Hernandez on 01-18-2024 Cholesterol [Mass/Vol] 185 mg/dL Normal 140-200 [facility] Comment on above: Chol less than 200 m g/dl low riskChol 201-239 mg/dl borderline riskChol 240 mg/dl and greater high risk Result Comment: Chol less than 200 mg/dl low risk Chol 201-239 mg/dl borderline risk Chol 240 mg/dl and greater high risk Performed By: #### C BC, [id number], CMP, LIPID, T4F, TSH3 #### [place] [address] [place] Cholesterol in LDL Calc [Mas s/Vol]Ordered By: Salvador Hernandez on 01-18-2024 Cholesterol in LDL [Mass/Vol] 103 mg/dL High 0-100 [facility] Comment on above: LDL ATP III CLASSIFI CATIONLDL less than 100 mg/dL OptimalLDL 100-129 mg/dL Near or above optimalLDL 130-159 mg/dL Borderline highLDL 160-189 mg/dL HighLDL greater than 189 mg/dL Very high Cholesterol in VLDL Calc [Ma ss/Vol]Ordered By: Salvador Hernandez on 01-18-2024 Cholesterol in VLDL [Mass/Vol] 21 mg/dL [facility] Complete Blood Count Auto Di ffon 01-18-2024 Mean Corpuscular HGB Conc 34.6 g/dL Normal 32.0-35.0 [facility] Comment on above: Performed By: #### C BC, [id number], CMP, LIPID, T4F, TSH3 #### [address] NRBC% 0.1 /100{WBC} Normal 0-0.5 [facility] Comment on above: Performed By: #### C BC, [id number], CMP, LIPID, T4F, TSH3 #### [address] Comprehensive Metabolic Pane maury 01-18-2024 Albumin [Mass/Vol] 4.1 g/dL Normal 3.5-5.7 [facility] Comment on above: Performed By: #### C BC, [id number], CMP, LIPID, T4F, TSH3 #### [address] GFR/1.73 sq M.predicted MDRD (S/P/Bld) [Vol rate/Area] mL/min/{1.73_m2} Normal [facility] Comment on above: Performed By: #### C BC, [id number], CMP, LIPID, T4F, TSH3 #### [address] Creatinine [Mass/volume] in Serum or PlasmaOrdered By: Salvador Hernandez on 01-18-2024 Creatinine [Mass/Vol] 0.77 mg/dL Normal 0.60-1.20 [facility] Comment on above: Performed By: #### C BC, [id number], CMP, LIPID, T4F, TSH3 #### [facility] [address] Erythrocyte distribution wid th [Ratio] by Automated countOrdered By: Salvador Hernandez on 01-18-2024 Erythrocyte distribution width (RBC) [Ratio] 13.3 % Normal 11.9-15.3 [facility] Comment on above: Performed By: #### C BC, [id number], CMP, LIPID, T4F, TSH3 #### [facility] [address] Erythrocytes [#/volume] in B lood by Automated countOrdered By: Salvador Hernandez on 01-18-2024 RBC (Bld) [#/Vol] 4.15 10*6/uL Normal 3.60-5.00 [facility] Comment on above: Performed By: #### C BC, [id number], CMP, LIPID, T4F, TSH3 #### [facility] [address] Glucose [Mass/volume] in Ser um or PlasmaOrdered By: Salvador Hernandez on 01-18-2024 Glucose [Mass/Vol] 81 mg/dL Normal 70-100 [facility] Comment on above: ADA recommended refe rence rangeRandom Glucose Reference Range is dependent on time and content of last meal. Glucose of more than 200 mg/dL in a nonstressed, ambulatory subject supports the diagnosis of Diabetes Mellitus. Result Comment: [place] om Glucose Reference Range is dependent on time and content of last meal. Glucose of more than 200 mg/dL in a nonstressed, ambulatory subject supports the diagnosis of Diabetes Mellitus. ADA recommended reference range Performed By: #### C BC, [id number], CMP, LIPID, T4F, TSH3 #### [facility] [address] Hematocrit [Volume Fraction] of Blood by Automated countOrdered By: Salvador Hernandez on 01-18-2024 Hematocrit (Bld) [Volume fraction] 38.8 % Normal 34.0-46.4 [facility] Comment on above: Performed By: #### C BC, [id number], CMP, LIPID, T4F, TSH3 #### [facility] [address] Hemoglobin [Mass/volume] in BloodOrdered By: Salvador Hernandez on 01-18-2024 Hemoglobin (Bld) [Mass/Vol] 13.4 g/dL Normal 11.8-15.4 [facility] Comment on above: Performed By: #### C BC, [id number], CMP, LIPID, T4F, TSH3 #### [facility] [address] Leukocytes [#/volume] correc maurice for nucleated erythrocytes in Blood by Automated counOrdered By: Salvador Hernandez on 01-18-2024 WBC corrected for nucl RBC Auto (Bld) [#/Vol] 4.5 10*3/uL 3.8-11.6 [facility] Leukocytes [#/volume] in Blo od by Automated countOrdered By: Salvador Hernandez on 01-18-2024 WBC (Bld) [#/Vol] 4.5 10*3/uL Normal 3.8-11.6 [facility] Comment on above: Performed By: #### C BC, [id number], CMP, LIPID, T4F, TSH3 #### [facility] [address] Lipid Panelon 01-18-2024 LDL Cholesterol,Calculated 103 mg/dL High 0-100 [facility] Comment on above: Result Comment: LDL ATP III CLASSIFICATION LDL less than 100 mg/dL Optimal LDL 100-129 mg/dL Near or above optimal LDL 130-159 mg/dL Borderline high LDL 160-189 mg/dL High LDL greater than 189 mg/dL Very high Performed By: #### C BC, [id number], CMP, LIPID, T4F, TSH3 #### [facility] [address] Triglyceride w/Reflex 109 mg/dL Normal 0-149 [facility] Comment on above: Result Comment: TRIG ATP III CLASSIFICATION TRIG less than 150 mg/dL Normal TRIG 150-199 mg/dL Borderline high TRIG 200-500 mg/dL High TRIG greater than 500 mg/dL Very high Standard traceable to the Center for Disease Conrtrol and Prevention (CDC) test method. Performed By: #### C BC, [id number], CMP, LIPID, T4F, TSH3 #### [address] VLDL CHOLESTEROL 21 mg/dL Normal [facility] Comment on above: Performed By: #### C BC, [id number], CMP, LIPID, T4F, TSH3 #### [address] Lymphocytes [#/volume] in Bl ood by Automated countOrdered By: Salvador Hernandez on 01-18-2024 Lymphocytes (Bld) [#/Vol] 1.0 10*3/uL Normal 1.00-4.8 [facility] Comment on above: Performed By: #### C BC, [id number], CMP, LIPID, T4F, TSH3 #### [address] Lymphocytes/100 leukocytes i n Blood by Automated countOrdered By: Salvador Hernandez on 01-18-2024 Lymphocytes/100 WBC (Bld) 22.8 % Normal . [facility] Comment on above: Performed By: #### C BC, [id number], CMP, LIPID, T4F, TSH3 #### [address] MCH [Entitic mass] by Automa maurice countOrdered By: Salvador Hernandez on 01-18-2024 MCH (RBC) [Entitic mass] 32.4 pg Normal 24.7-34.3 [facility] Comment on above: Performed By: #### C BC, [id number], CMP, LIPID, T4F, TSH3 #### [address] MCHC Auto (RBC) [Mass/Vol]Or dered By: Salvador Hernandez on 01-18-2024 MCHC (RBC) [Mass/Vol] 34.6 g/dL 32.0-35.0 [facility] MCV [Entitic volume] by Auto mated countOrdered By: Salvador Hernandez on 01-18-2024 MCV (RBC) [Entitic vol] 93.6 fL Normal 80-100 [facility] Comment on above: Performed By: #### C BC, [id number], CMP, LIPID, T4F, TSH3 #### [facility] [address] Neutrophils [#/volume] in Bl ood by Automated countOrdered By: Salvador Hernandez on 01-18-2024 Neutrophils (Bld) [#/Vol] 2.7 10*3/uL Normal 1.8-7.7 [facility] Comment on above: Performed By: #### C BC, [id number], CMP, LIPID, T4F, TSH3 #### [facility] [address] [place] [address] No Panel InformationOrdered By: Salvador Hernandez on 01-18-2024 Estimated GFR (CKD-EPI) > 60.0 mL/Min [facility] Creatinine Clearance (Chem N/A [facility] Nucleated erythrocytes [Pres ence] in Blood by Automated countOrdered By: Salvador Hernandez on 01-18-2024 Nucleated RBC Auto Ql (Bld) 0.1 /100{WBC} 0-0.5 [facility] Platelet mean volume [Entiti c volume] in Blood by Automated countOrdered By: Salvador Hernandez on 01-18-2024 Platelet mean volume (Bld) [Entitic vol] 10.1 fL Normal 6.3-10.7 [facility] Comment on above: Performed By: #### C BC, [id number], CMP, LIPID, T4F, TSH3 #### [facility] [address] [place] [address] Platelets [#/volume] in Bloo d by Automated countOrdered By: Salvador Hernandez on 01-18-2024 Platelets (Bld) [#/Vol] 183 10*3/uL Normal 150-450 [facility] Comment on above: Performed By: #### C BC, [id number], CMP, LIPID, T4F, TSH3 #### [address] Potassium [Moles/volume] in Serum or PlasmaOrdered By: Salvador Hernandez on 01-18-2024 Potassium [Moles/Vol] 4.3 mmol/L Normal 3.5-5.1 [facility] Comment on above: Performed By: #### C BC, [id number], CMP, LIPID, T4F, TSH3 #### [address] Protein [Mass/volume] in Ser um or PlasmaOrdered By: Salvador Hernandez on 01-18-2024 Protein [Mass/Vol] 6.3 g/dL Low 6.4-8.9 [facility] Comment on above: Performed By: #### C BC, [id number], CMP, LIPID, T4F, TSH3 #### [address] Serum globulin measurement b y calculation (mass/volume)Ordered By: Salvador Hernandez on 01-18-2024 Globulin (S) [Mass/Vol] 2.2 g/dL Normal [facility] Comment on above: Performed By: #### C BC, [id number], CMP, LIPID, T4F, TSH3 #### [address] Serum or plasma albumin/glob ulin mass ratioOrdered By: Salvador Hernandez on 01-18-2024 Albumin/Globulin [Mass ratio] 1.9 {ratio} [facility] Comment on above: Performed By: #### C BC, [id number], CMP, LIPID, T4F, TSH3 #### [address] Serum or plasma anion gap de terminationOrdered By: Salvador Hernandez on 01-18-2024 Anion gap [Moles/Vol] 11.5 mmol/L Normal 6.0-15.0 [facility] Comment on above: Performed By: #### C BC, [id number], CMP, LIPID, T4F, TSH3 #### [address] Serum or plasma high density lipoprotein (HDL) cholesterol measurementOrdered By: Salvador Hernandez on 01-18-2024 Cholesterol in HDL [Mass/Vol] 60 mg/dL Normal 23-92 [facility] Comment on above: HDL CHOL ATP-III CLA SSIFICATION Cardiovascular RiskHDL > or equal to 60 mg/dL LOWHDL < 40 mg/dL HIGH Result Comment: HDL CHOL ATP-III CLASSIFICATION Cardiovascular Risk HDL > or equal to 60 mg/dL LOW HDL < 40 mg/dL HIGH Performed By: #### C BC, [id number], CMP, LIPID, T4F, TSH3 #### [facility] [address] [place] [address] Serum or plasma total choles terol/high density lipoprotein (HDL) cholesterol mass ratOrdered By: Salvador Hernandez on 01-18-2024 Cholesterol.total/Frances sterol in HDL [Mass ratio] 3.1 {ratio} Normal <5.0 [facility] Comment on above: Performed By: #### C BC, [id number], CMP, LIPID, T4F, TSH3 #### [facility] [address] [place] [address] Sodium [Moles/volume] in Ser um or PlasmaOrdered By: Salvador Hernandez on 01-18-2024 Sodium [Moles/Vol] 141 mmol/L Normal 136-145 [facility] Comment on above: Performed By: #### C BC, [id number], CMP, LIPID, T4F, TSH3 #### [facility] [address] [place] [address] Thyrotropin [Units/volume] i n Serum or PlasmaOrdered By: Salvador Hernandez on 01-18-2024 TSH Qn 1.64 m[IU]/L Normal 0.45-5.33 [facility] Comment on above: Performed By: #### C BC, [id number], CMP, LIPID, T4F, TSH3 #### [facility] [address] [place] [address] Thyroxine (T4) free [Mass/vo lume] in Serum or PlasmaOrdered By: Salvador Hernandez on 01-18-2024 Free T4 [Mass/Vol] 0.82 ng/dL Normal 0.61-1.12 [facility] Comment on above: Performed By: #### C BC, [id number], CMP, LIPID, T4F, TSH3 #### [facility] [address] [id number] [facility] Triglyceride [Mass/volume] i n Serum or PlasmaOrdered By: Salvador Hernandez on 01-18-2024 Triglyceride [Mass/Vol] 109 mg/dL 0-149 [facility] Comment on above: TRIG ATP III CLASSIF ICATIONTRIG less than 150 mg/dL NormalTRIG 150-199 mg/dL Borderline highTRIG 200-500 mg/dL High TRIG greater than 500 mg/dL Very highStandard traceable to the Center for Disease Conrtrol and Prevention (CDC) test method. Urea nitrogen [Mass/volume] in Serum or PlasmaOrdered By: Salvador Hernandez on 01-18-2024 Urea nitrogen [Mass/Vol] 12 mg/dL Normal 7-25 [facility] Comment on above: Performed By: #### C BC, [id number], CMP, LIPID, T4F, TSH3 #### [facility] [address] [id number] [facility] Vitamin D 25 Hydroxy Totalon 01-18-2024 Vitamin D 25 Hydroxy Total 34.7 ng/mL Normal 30-100 [facility] Comment on above: Result Comment: KIANNA MIN D STATUS 25(OH)VITAMIN D RANGE (ng/mL) Deficient <20 Insufficient 20 to <30 Sufficient 30 to 100 Reference: Shan MF,Kalyan NC, Hawa CARDOZO, et al. Evaluation,treatment, and prevention of vitamin D deficiency; an Endocrine Society clinical practice guideline. JCEM. 2010; 96(7):1911-30. PERFORMED BY: [place] [address] PATHOLOGIST AROMATHERAPIST JAEL REED M.D. Performed By: #### C BC, [id number], CMP, LIPID, T4F, TSH3 #### [facility] [address] [id number] [facility] Vitamin D+Metabolites [Mass/ volume] in Serum or PlasmaOrdered By: Salvador Hernandez on 01-18-2024 Vitamin D+Metabolites [Mass/Vol] 34.7 ng/mL 30-100 [facility] Comment on above: VITAMIN D STATUS 25( OH)VITAMIN D RANGE (ng/mL) Deficient <20 Insufficient 20 to <30Sufficient 30 to 100Reference: Shan MF,Kalyan NC, Hawa CARDOZO, et al. Evaluation,treatment, and prevention of vitamin D deficiency; an Endocrine Society clinical practice guideline. JCEM. 2010; 96(7):1911-30. Alanine aminotransferase [En zymatic activity/volume] in Serum or PlasmaOrdered By: Salvador Hernandez on 01-19-2023 ALT [Catalytic activity/Vol] 11 U/L 7-52 [facility] Albumin [Mass/volume] in Ser um or Plasma by Bromocresol green (BCG) dye binding methoOrdered By: Salvador Hernandez on 01-19-2023 Albumin BCG dye [Mass/Vol] 3.9 g/dL 3.5-5.7 [facility] Alkaline phosphatase [Enzyma tic activity/volume] in Serum or PlasmaOrdered By: Salvador Hernandez on 01-19-2023 ALP [Catalytic activity/Vol] 72 U/L 34-104 [facility] Aspartate aminotransferase [ Enzymatic activity/volume] in Serum or PlasmaOrdered By: Salvador Hernandez on 01-19-2023 AST [Catalytic activity/Vol] 15 U/L 13-39 [facility] Basophils Auto (Bld) [#/Vol] Ordered By: Salvador Hernandez 01-19-2023 Basophils (Bld) [#/Vol] 0.1 10*3/uL 0.0-0.2 [facility] Basophils/100 WBC Auto (Bld) Ordered By: Salvador Hernandez on 01-19-2023 Basophils/100 WBC (Bld) 1.0 % . [facility] Bilirubin.total [Mass/volume ] in Serum or PlasmaOrdered By: Salvador Hernandez on 01-19-2023 Bilirubin [Mass/Vol] 0.6 mg/dL 0.3-1.0 [facility] Calcium [Mass/volume] in Ser um or PlasmaOrdered By: Salvador Hernandez on 01-19-2023 Calcium [Mass/Vol] 9.3 mg/dL 8.6-10.3 [facility] Carbon dioxide, total [Moles /volume] in Serum or PlasmaOrdered By: Salvador Hernandez on 01-19-2023 CO2 [Moles/Vol] 27.6 mmol/L 21.0-31.0 [facility] Chloride [Moles/volume] in S inocente or PlasmaOrdered By: Salvador Hernandez on 01-19-2023 Chloride [Moles/Vol] 111 mmol/L 98-107 [facility] Cholesterol [Mass/volume] in Serum or PlasmaOrdered By: Salvador Hernandez on 01-19-2023 Cholesterol [Mass/Vol] 195 mg/dL 140-200 [facility] Comment on above: Chol less than 200 m g/dl low riskChol 201-239 mg/dl borderline riskChol 240 mg/dl and greater high risk Cholesterol in LDL Calc [Mas s/Vol]Ordered By: Salvador Hernandez on 01-19-2023 Cholesterol in LDL [Mass/Vol] 112 mg/dL 0-100 [facility] Comment on above: LDL ATP III CLASSIFI CATIONLDL less than 100 mg/dL OptimalLDL 100-129 mg/dL Near or above optimalLDL 130-159 mg/dL Borderline highLDL 160-189 mg/dL HighLDL greater than 189 mg/dL Very high Cholesterol in VLDL Calc [Ma ss/Vol]Ordered By: Salvador Hernandez on 01-19-2023 Cholesterol in VLDL [Mass/Vol] 20 mg/dL [facility] Creatinine [Mass/volume] in Serum or PlasmaOrdered By: Salvador Hernandez on 01-19-2023 Creatinine [Mass/Vol] 0.65 mg/dL 0.60-1.20 [facility] Eosinophils Auto (Bld) [#/Vo l]Ordered By: Salvador Hernandez on 01-19-2023 Eosinophils (Bld) [#/Vol] 0.3 10*3/uL 0.0-0.45 [facility] Eosinophils/100 WBC Auto (Bl d)Ordered By: Salvador Hernandez on 01-19-2023 Eosinophils/100 WBC (Bld) 4.8 % . [facility] Erythrocyte distribution wid th Auto (RBC) [Ratio]Ordered By: Salvador Hernandez on 01-19-2023 Erythrocyte distribution width (RBC) [Ratio] 14.7 % 11.9-15.3 [facility] Globulin Calc (S) [Mass/Vol] Ordered By: Salvador Hernandez on 01-19-2023 Globulin (S) [Mass/Vol] 2.1 g/dL [facility] Glucose [Mass/volume] in Ser um or PlasmaOrdered By: Salvador Hernandez on 01-19-2023 Glucose [Mass/Vol] 86 mg/dL 70-100 [facility] Comment on above: ADA recommended refe rence rangeRandom Glucose Reference Range is dependent on time and content of last meal. Glucose of more than 200 mg/dL in a nonstressed, ambulatory subject supports the diagnosis of Diabetes Mellitus. Hematocrit Auto (Bld) [Volum e fraction]Ordered By: Salvador Hernandez on 01-19-2023 Hematocrit (Bld) [Volume fraction] 39.1 % 34.0-46.4 [facility] Hemoglobin [Mass/volume] in BloodOrdered By: Salvador Hernandez on 01-19-2023 Hemoglobin (Bld) [Mass/Vol] 13.1 g/dL 11.8-15.4 [facility] Leukocytes [#/volume] correc maurice for nucleated erythrocytes in Blood by Automated counOrdered By: Salvador Hernandez on 01-19-2023 WBC corrected for nucl RBC Auto (Bld) [#/Vol] 5.6 10*3/uL 3.8-11.6 [facility] Lymphocytes Auto (Bld) [#/Vo l]Ordered By: Salvador Hernandez on 01-19-2023 Lymphocytes (Bld) [#/Vol] 1.0 10*3/uL 1.00-4.8 [facility] Lymphocytes/100 WBC Auto (Bl d)Ordered By: Salvador Hernandez on 01-19-2023 Lymphocytes/100 WBC (Bld) 17.6 % . [facility] MCH Auto (RBC) [Entitic mass ]Ordered By: Salvador Hernandez on 01-19-2023 MCH (RBC) [Entitic mass] 30.5 pg 24.7-34.3 [facility] MCHC Auto (RBC) [Mass/Vol]Or dered By: Salvador Hernandez on 01-19-2023 MCHC (RBC) [Mass/Vol] 33.5 g/dL 32.0-35.0 [facility] MCV Auto (RBC) [Entitic vol] Ordered By: Salvador Hernandez on 01-19-2023 MCV (RBC) [Entitic vol] 90.9 fL 80-100 [facility] Monocytes Auto (Bld) [#/Vol] Ordered By: Salvador Hernandez on 01-19-2023 Monocytes (Bld) [#/Vol] 0.7 10*3/uL 0.0-0.8 [facility] Monocytes/100 WBC Auto (Bld) Ordered By: Salvador Hernandez on 01-19-2023 Monocytes/100 WBC (Bld) 13.1 % . [facility] Neutrophils Auto (Bld) [#/Vo l]Ordered By: Salvador Hernandez on 01-19-2023 Neutrophils (Bld) [#/Vol] 3.6 10*3/uL 1.8-7.7 [facility] Neutrophils/100 WBC Auto (Bl d)Ordered By: Salvador Hernandez on 01-19-2023 Neutrophils/100 WBC (Bld) 63.5 % . [facility] No Panel InformationOrdered By: Salvador Hernandez on 01-19-2023 Estimated GFR (CKD-EPI) > 60.0 mL/Min [facility] Creatinine Clearance (Chem N/A [facility] Nucleated erythrocytes [Pres ence] in Blood by Automated countOrdered By: Salvador Hernandez on 01-19-2023 Nucleated RBC Auto Ql (Bld) 0.1 /100{WBC} 0-0.5 [facility] Platelet mean volume Auto (B ld) [Entitic vol]Ordered By: Salvador Hernandez on 01-19-2023 Platelet mean volume (Bld) [Entitic vol] 9.9 fL 6.3-10.7 [facility] Platelets Auto (Bld) [#/Vol] Ordered By: Salvador Hernandez on 01-19-2023 Platelets (Bld) [#/Vol] 202 10*3/uL 150-450 [facility] Potassium [Moles/volume] in Serum or PlasmaOrdered By: Salvador Hernandez on 01-19-2023 Potassium [Moles/Vol] 4.1 mmol/L 3.5-5.1 [facility] Protein [Mass/volume] in Ser um or PlasmaOrdered By: Salvador Hernandez on 01-19-2023 Protein [Mass/Vol] 6.0 g/dL 6.4-8.9 [facility] RBC Auto (Bld) [#/Vol]Ordere d By: Salvador Hernandez on 01-19-2023 RBC (Bld) [#/Vol] 4.30 10*6/uL 3.60-5.00 [facility] Serum or plasma albumin/glob ulin mass ratioOrdered By: Salvador Hernandez on 01-19-2023 Albumin/Globulin [Mass ratio] 1.9 {ratio} [facility] Serum or plasma anion gap de terminationOrdered By: Salvador Hernandez on 01-19-2023 Anion gap [Moles/Vol] 9.5 mmol/L 6.0-15.0 [facility] Serum or plasma high density lipoprotein (HDL) cholesterol measurementOrdered By: Salvador Hernandez on 01-19-2023 Cholesterol in HDL [Mass/Vol] 62 mg/dL 23-92 [facility] Comment on above: HDL CHOL ATP-III CLA SSIFICATION Cardiovascular RiskHDL > or equal to 60 mg/dL LOWHDL < 40 mg/dL HIGH Serum or plasma total choles terol/high density lipoprotein (HDL) cholesterol mass ratOrdered By: Salvador Hernandez on 01-19-2023 Cholesterol.total/Frances sterol in HDL [Mass ratio] 3.1 {ratio} <5.0 [facility] Sodium [Moles/volume] in Ser um or PlasmaOrdered By: Salvador Hernandez on 01-19-2023 Sodium [Moles/Vol] 144 mmol/L 136-145 [facility] Thyrotropin [Units/volume] i n Serum or PlasmaOrdered By: Salvador Hernandez on 01-19-2023 TSH Qn 1.44 m[IU]/L 0.45-5.33 [facility] Thyroxine (T4) free [Mass/vo lume] in Serum or PlasmaOrdered By: Salvador Hernandez on 01-19-2023 Free T4 [Mass/Vol] 0.95 ng/dL 0.61-1.12 [facility] Triglyceride [Mass/volume] i n Serum or PlasmaOrdered By: Slavador Hernandez on 01-19-2023 Triglyceride [Mass/Vol] 103 mg/dL 0-149 [facility] Comment on above: TRIG ATP III CLASSIF ICATIONTRIG less than 150 mg/dL NormalTRIG 150-199 mg/dL Borderline highTRIG 200-500 mg/dL High TRIG greater than 500 mg/dL Very highStandard traceable to the Center for Disease Conrtrol and Prevention (CDC) test method. Urea nitrogen [Mass/volume] in Serum or PlasmaOrdered By: Salvador Hernandez on 01-19-2023 Urea nitrogen [Mass/Vol] 10 mg/dL 7-25 [facility] WBC Auto (Bld) [#/Vol]Ordere d By: Salvador Hernandez on 01-19-2023 WBC (Bld) [#/Vol] 5.6 10*3/uL 3.8-11.6 [facility] Basophils Auto (Bld) [#/Vol] Ordered By: Chanelle Cho on 10-07-2022 Basophils (Bld) [#/Vol] 0.0 10*3/uL 0.0-0.2 [facility] Basophils/100 WBC Auto (Bld) Ordered By: Chanelle Cho on 10-07-2022 Basophils/100 WBC (Bld) 0.4 % . [facility] C reactive protein [Mass/vol ume] in Serum or PlasmaOrdered By: Chanelle Cho on 10-07-2022 CRP [Mass/Vol] 3.1 mg/dL 0.0-0.5 [facility] Eosinophils Auto (Bld) [#/Vo l]Ordered By: Chanelle Cho on 10-07-2022 Eosinophils (Bld) [#/Vol] 0.1 10*3/uL 0.0-0.45 [facility] Eosinophils/100 WBC Auto (Bl d)Ordered By: Chanelle Cho on 10-07-2022 Eosinophils/100 WBC (Bld) 2.2 % . [facility] Erythrocyte distribution wid th Auto (RBC) [Ratio]Ordered By: Chanelle Cho on 10-07-2022 Erythrocyte distribution width (RBC) [Ratio] 13.9 % 11.9-15.3 [facility] Erythrocyte sedimentation ra te by Photometric methodOrdered By: Chanelle Cho on 10-07-2022 ESR Photometric method (Bld) [Velocity] 26 mm/hr 0-29 [facility] Hematocrit Auto (Bld) [Volum e fraction]Ordered By: Chanelle Cho on 10-07-2022 Hematocrit (Bld) [Volume fraction] 41.8 % 34.0-46.4 [facility] Hemoglobin [Mass/volume] in BloodOrdered By: Chanelle Cho on 10-07-2022 Hemoglobin (Bld) [Mass/Vol] 14.1 g/dL 11.8-15.4 [facility] Leukocytes [#/volume] correc maurice for nucleated erythrocytes in Blood by Automated counOrdered By: Chanelle Cho on 10-07-2022 WBC corrected for nucl RBC Auto (Bld) [#/Vol] 6.1 10*3/uL 3.8-11.6 [facility] Lymphocytes Auto (Bld) [#/Vo l]Ordered By: Chanelle Cho on 10-07-2022 Lymphocytes (Bld) [#/Vol] 1.5 10*3/uL 1.00-4.8 [facility] Lymphocytes/100 WBC Auto (Bl d)Ordered By: Chanelle Cho on 10-07-2022 Lymphocytes/100 WBC (Bld) 24.2 % . [facility] MCH Auto (RBC) [Entitic mass ]Ordered By: Chanelle Cho on 10-07-2022 MCH (RBC) [Entitic mass] 31.1 pg 24.7-34.3 [facility] MCHC Auto (RBC) [Mass/Vol]Or dered By: Chanelle Cho on 10-07-2022 MCHC (RBC) [Mass/Vol] 33.7 g/dL 32.0-35.0 [facility] MCV Auto (RBC) [Entitic vol] Ordered By: Chanelle Cho on 10-07-2022 MCV (RBC) [Entitic vol] 92.2 fL 80-100 [facility] Monocytes Auto (Bld) [#/Vol] Ordered By: Chanelle Cho on 10-07-2022 Monocytes (Bld) [#/Vol] 0.7 10*3/uL 0.0-0.8 [facility] Monocytes/100 WBC Auto (Bld) Ordered By: Chanelle Cho on 10-07-2022 Monocytes/100 WBC (Bld) 11.7 % . [facility] Neutrophils Auto (Bld) [#/Vo l]Ordered By: Chanelle Cho on 10-07-2022 Neutrophils (Bld) [#/Vol] 3.8 10*3/uL 1.8-7.7 [facility] Neutrophils/100 WBC Auto (Bl d)Ordered By: Chanelle Cho on 10-07-2022 Neutrophils/100 WBC (Bld) 61.5 % . [facility] Nucleated erythrocytes [Pres ence] in Blood by Automated countOrdered By: Chanelle Cho on 10-07-2022 Nucleated RBC Auto Ql (Bld) 0.2 /100{WBC} 0-0.5 [facility] Platelet mean volume Auto (B ld) [Entitic vol]Ordered By: Chanelle Cho on 10-07-2022 Platelet mean volume (Bld) [Entitic vol] 9.5 fL 6.3-10.7 [facility] Platelets Auto (Bld) [#/Vol] Ordered By: Chanelle Cho on 10-07-2022 Platelets (Bld) [#/Vol] 250 10*3/uL 150-450 [facility] RBC Auto (Bld) [#/Vol]Ordere d By: Chanelle Cho on 10-07-2022 RBC (Bld) [#/Vol] 4.53 10*6/uL 3.60-5.00 [facility] WBC Auto (Bld) [#/Vol]Ordere d By: Chanelle Cho on 10-07-2022 WBC (Bld) [#/Vol] 6.1 10*3/uL 3.8-11.6 [facility] CBC AUTO DIFFon 09-29-2022 BASO # 0.0 103/ul Normal 0.0-0.1 [facility] Comment on above: Performed By: #### C BC #### [facility] [address] [place] [address] Dr. Quintin Kaur Basophils/100 WBC (Bld) 0.5 % Normal 0.2-2.0 [facility] Comment on above: Performed By: #### C BC #### [facility] [address] [place] [address] Dr. Quintin Kaur EO # 0.2 103/ul Normal 0.0-0.7 [facility] Comment on above: Performed By: #### C BC #### [facility] [address] [place] [address] Dr. Quintin Kaur Eosinophils/100 WBC (Bld) 3.2 % Normal 0.9-7.0 [facility] Comment on above: Performed By: #### C BC #### [facility] [address] [place] [address] Dr. Quintin Kaur Erythrocyte distribution width (RBC) [Ratio] 13.2 % Normal 11.0-15.0 [facility] Comment on above: Performed By: #### C BC #### [facility] [address] [place] [address] Dr. Quintin Kaur Hematocrit (Bld) [Volume fraction] 41.3 % Normal 36.0-48.0 [facility] Comment on above: Performed By: #### C BC #### [facility] [address] [place] [address] Dr. Quintin Kaur Hemoglobin (Bld) [Mass/Vol] 13.9 g/dL Normal 12.0-16.0 [facility] Comment on above: Performed By: #### C BC #### [facility] [address] [place] [address] Dr. Quintin Kaur IG # 0.02 10e3/ul Normal 0.00-0.03 [facility] Comment on above: Performed By: #### C BC #### [facility] [address] [place] [address] Dr. Quintin Kaur IG % 0.3 % Normal 0.0-0.5 [facility] Comment on above: Performed By: #### C BC #### [facility] [address] [address] [address] Quintin Kaur LYMPH # 1.0 103/ul Critically low 1.2-3.8 [facility] Comment on above: Performed By: #### C BC #### [facility] [address] [place] [address] Dr. Quintin Kaur Lymphocytes/100 WBC (Bld) 13.9 % Critically low 20.5-60.0 [facility] Comment on above: Performed By: #### C BC #### [facility] [address] [place] [address] Dr. Quintin Kaur MANUAL DIFF REQ NO Normal [facility] Comment on above: Performed By: #### C BC #### [facility] [address] [place] [address] Dr. Quintin Kaur MCH (RBC) [Entitic mass] 30.9 pg Normal 26.7-34.0 [facility] Comment on above: Performed By: #### C BC #### [facility] [address] [place] [address] Dr. Quintin Kaur MCHC (RBC) [Mass/Vol] 33.7 g/dL Normal 29.9-35.2 [facility] Comment on above: Performed By: #### C BC #### [facility] [address] [place] [address] Dr. Quintin Kaur MCV (RBC) [Entitic vol] 91.8 fL Normal 81.0-99.0 [facility] Comment on above: Performed By: #### C BC #### [facility] [address] [place] [address] Dr. Quintin Kaur MONO # 0.6 103/ul Normal 0.3-0.8 [facility] Comment on above: Performed By: #### C BC #### [facility] [address] [place] [address] Dr. Quintin Kaur Monocytes/100 WBC (Bld) 8.1 % Normal 1.7-12.0 [facility] Comment on above: Performed By: #### C BC #### [facility] [address] [place] [address] Dr. Quintin Kaur NEUT # 5.4 103/ul Normal 1.4-6.5 [facility] Comment on above: Performed By: #### C BC #### [facility] [address] [place] [address] Dr. Quintin Kaur Neutrophils/100 WBC (Bld) 74.0 % Normal 43.0-75.0 [facility] Comment on above: Performed By: #### C BC #### [facility] [address] [place] [address] Dr. Quintin Kaur Platelet mean volume (Bld) [Entitic vol] 10.7 fL Normal 9.5-13.5 [facility] Comment on above: Performed By: #### C BC #### [facility] [address] [place] [address] Dr. Quintin Kaur PLT 228 103/ul Normal 150-450 [facility] Comment on above: Performed By: #### C BC #### [facility] [address] [place] [address] Dr. Quintin Kaur RBC 4.50 106/ul Normal 4.20-5.40 [facility] Comment on above: Performed By: #### C BC #### [facility] [address] [place] [address] Dr. Quintin Kaur WBC 7.3 103/ul Normal 4.0-11.0 [facility] Comment on above: Performed By: #### C BC #### [facility] [address] [place] [address] Dr. Quintin Kaur CREATININEon 09-29-2022 Creatinine [Mass/Vol] 0.72 mg/dL Normal 0.55-1.02 [facility] Comment on above: Performed By: #### SERGEI WEAVER #### [facility] [address] [place] [address] Dr. Quintin Kaur EGFR-AF MALIAN >60 Normal >=60 [facility] Comment on above: Performed By: #### SERGEI WEAVER #### [facility] [address] [place] [address] Dr. Quintin Kaur EGFR-NON AF MALIAN >60 Normal >=60 [facility] Comment on above: Performed By: #### SERGEI WEAVER #### [facility] [address] [place] [address] Dr. Quintin Kaur LIVER PROFILEon 09-29-2022 Albumin [Mass/Vol] 3.7 g/dL Normal 3.4-5.0 [facility] Comment on above: Performed By: #### SERGEI WEAVER #### [facility] [address] [place] [address] Dr. Quintin Kaur Albumin/Globulin [Mass ratio] 1.0 {ratio} Normal [facility] Comment on above: Performed By: #### SERGEI WEAVER #### [facility] [address] [place] [address] Dr. Quintin Kaur ALP [Catalytic activity/Vol] 100 U/L Normal 46-116 [facility] Comment on above: Performed By: #### SERGEI WEAVER #### [facility] [address] [place] [address] Dr. Quintin Kaur ALT [Catalytic activity/Vol] 22 U/L Normal 14-59 [facility] Comment on above: Performed By: #### SERGEI WEAVER #### [facility] [address] [place] [address] Dr. Quintin Kaur AST [Catalytic activity/Vol] 12 U/L Critically low 15-37 [facility] Comment on above: Performed By: #### SERGEI WEAVER #### [facility] [address] [place] [address] Dr. Quintin Kaur BILI, CONJUGATED 0.1 mg/dL Normal 0.0-0.2 [facility] Comment on above: Performed By: #### SERGEI WEAVER #### [facility] [address] [place] [address] Dr. Quintin Kaur Bilirubin [Mass/Vol] 0.3 mg/dL Normal 0.2-1.0 [facility] Comment on above: Performed By: #### SERGEI WEAVER #### [facility] [address] [place] [address] Dr. Quintin Kaur Globulin (S) [Mass/Vol] 3.6 g/dL Normal [facility] Comment on above: Performed By: #### L HAYLEY CREA #### [facility] [address] [place] [address] Dr. Quintin Kaur Protein [Mass/Vol] 7.3 g/dL Normal 6.4-8.2 [facility] Comment on above: Performed By: #### L HAYLEY CREA #### [facility] [address] [place] [address] Dr. Quintin Kaur SED RATE WESTBANNERRENon 2022 SED RATE 10 mm/hr Normal <=30 [facility] Comment on above: Performed By: #### TREVON WEAVERA #### [facility] [address] [place] [address] Dr. Quintin Kaur CBC AUTO DIFFon 06-02-2022 BASO # 0.0 103/ul Normal 0.0-0.1 [facility] Comment on above: Performed By: #### TREVON WEAVERA #### [facility] [address] [place] [address] Dr. Quintin Kaur Basophils/100 WBC (Bld) 0.6 % Normal 0.2-2.0 [facility] Comment on above: Performed By: #### Andrei HARDY CREA #### [facility] [address] [place] [address] Dr. Quintin Kaur EO # 0.2 103/ul Normal 0.0-0.7 [facility] Comment on above: Performed By: #### TREVON WEAVERA #### [facility] [address] [place] [address] Dr. Quintin Kaur Eosinophils/100 WBC (Bld) 3.9 % Normal 0.9-7.0 [facility] Comment on above: Performed By: #### Andrei HARDY CREA #### [facility] [address] [place] [address] Dr. Quintin Kaur Erythrocyte distribution width (RBC) [Ratio] 12.2 % Normal 11.0-15.0 [facility] Comment on above: Performed By: #### SERGEI WEAVER #### [facility] [address] [place] [address] Dr. Quintin Kaur Hematocrit (Bld) [Volume fraction] 40.8 % Normal 36.0-48.0 [facility] Comment on above: Performed By: #### SERGEI WEAVER #### [facility] [address] [place] [address] Dr. Quintin Kaur Hemoglobin (Bld) [Mass/Vol] 13.7 g/dL Normal 12.0-16.0 [facility] Comment on above: Performed By: #### SERGEI WEAVER #### [facility] [address] [place] [address] Dr. Quintin Kaur IG # 0.01 10e3/ul Normal 0.00-0.03 [facility] Comment on above: Performed By: #### SERGEI WEAVER #### [facility] [address] [place] [address] Dr. Quintin Kaur IG % 0.2 % Normal 0.0-0.5 [facility] Comment on above: Performed By: #### SERGEI WEAVER #### [facility] [address] [place] [address] Dr. Quintin Kaur LYMPH # 1.2 103/ul Normal 1.2-3.8 [facility] Comment on above: Performed By: #### SERGEI WEAVER #### [facility] [address] [place] [address] Dr. Quintin Kaur Lymphocytes/100 WBC (Bld) 25.2 % Normal 20.5-60.0 [facility] Comment on above: Performed By: #### SERGEI WEAVER #### [facility] [address] [place] [address] Dr. Quintin Kaur MANUAL DIFF REQ NO Normal [facility] Comment on above: Performed By: #### SERGEI WEAVER #### [facility] [address] [place] [address] Dr. Quintin Kaur MCH (RBC) [Entitic mass] 30.5 pg Normal 26.7-34.0 [facility] Comment on above: Performed By: #### L HAYLEY CREA #### [facility] [address] [place] [address] Dr. Quintin Kaur MCHC (RBC) [Mass/Vol] 33.6 g/dL Normal 29.9-35.2 [facility] Comment on above: Performed By: #### L HAYLEY CREA #### [facility] [address] [place] [address] Dr. Quintin Kaur MCV (RBC) [Entitic vol] 90.9 fL Normal 81.0-99.0 [facility] Comment on above: Performed By: #### L HAYLEY CREA #### [facility] [address] [place] [address] Dr. Quintin Kaur MONO # 0.6 103/ul Normal 0.3-0.8 [facility] Comment on above: Performed By: #### L HAYLEY CREA #### [facility] [address] [place] [address] Dr. Quintin Kaur Monocytes/100 WBC (Bld) 12.3 % Critically high 1.7-12. 0 [facility] Comment on above: Performed By: #### Andrei HARDY CREA #### [facility] [address] [place] [address] Dr. Quintin Kaur NEUT # 2.7 103/ul Normal 1.4-6.5 [facility] Comment on above: Performed By: #### L HAYLEY CREA #### [facility] [address] [place] [address] Dr. Quintin Kaur Neutrophils/100 WBC (Bld) 57.8 % Normal 43.0-75.0 [facility] Comment on above: Performed By: #### L HAYLEY CREA #### [facility] [address] [place] [address] Dr. Quintni Kaur Platelet mean volume (Bld) [Entitic vol] 10.9 fL Normal 9.5-13.5 [facility] Comment on above: Performed By: #### L HAYLEY CREA #### [facility] [address] [address] [address] Quintin Kaur PLT 204 103/ul Normal 150-450 [facility] Comment on above: Performed By: #### L HAYLEY CREA #### [facility] [address] [place] [address] Dr. Quintin Kaur RBC 4.49 106/ul Normal 4.20-5.40 [facility] Comment on above: Performed By: #### L HAYLEY CREA #### [facility] [address] [place] [address] Dr. Quintin Kaur WBC 4.6 103/ul Normal 4.0-11.0 [facility] Comment on above: Performed By: #### Andrei HARDY CREA #### [facility] [address] [place] [address] Dr. Quintin Kaur CREATININEon 06-02-2022 Creatinine [Mass/Vol] 0.66 mg/dL Normal 0.55-1.02 [facility] Comment on above: Performed By: #### TREVON WEAVERA #### [facility] [address] [place] [address] Dr. Quintin Kaur EGFR-AF MALIAN >60 Normal >=60 [facility] Comment on above: Performed By: #### Andrei HARDY CREA #### [facility] [address] [place] [address] Dr. Quintin Kaur EGFR-NON AF MALIAN >60 Normal >=60 [facility] Comment on above: Performed By: #### L HAYLEY CREA #### [facility] [address] [place] [address] Dr. Quintin Kaur LIVER PROFILEon 06-02-2022 Albumin [Mass/Vol] 3.6 g/dL Normal 3.4-5.0 [facility] Comment on above: Performed By: #### L HAYLEY CREA #### [facility] [address] [place] [address] Dr. Quintin Kaur Albumin/Globulin [Mass ratio] 1.2 {ratio} Normal [facility] Comment on above: Performed By: #### L HAYLEY CREA #### [facility] [address] [place] [address] Dr. Quintin Kaur ALP [Catalytic activity/Vol] 92 U/L Normal 46-116 [facility] Comment on above: Performed By: #### L HAYLEY CREA #### [facility] [address] [place] [address] Dr. Quintin Kaur ALT [Catalytic activity/Vol] 16 U/L Normal 14-59 [facility] Comment on above: Performed By: #### Andrei HARDY CREA #### [facility] [address] [place] [address] Dr. Quintin Kaur AST [Catalytic activity/Vol] 17 U/L Normal 15-37 [facility] Comment on above: Performed By: #### Andrei HARDY CREA #### [facility] [address] [place] [address] Dr. Quintin Kaur BILI, CONJUGATED 0.1 mg/dL Normal 0.0-0.2 [facility] Comment on above: Performed By: #### TREVON WEAVERA #### [facility] [address] [place] [address] Dr. Quintin Kaur Bilirubin [Mass/Vol] 0.4 mg/dL Normal 0.2-1.0 [facility] Comment on above: Performed By: #### Andrei HARDY CREA #### [facility] [address] [place] [address] Dr. Quintin Kaur Globulin (S) [Mass/Vol] 3.1 g/dL Normal [facility] Comment on above: Performed By: #### Andrei HARDY CREA #### [facility] [address] [place] [address] Dr. Quintin Kaur Protein [Mass/Vol] 6.7 g/dL Normal 6.4-8.2 [facility] Comment on above: Performed By: #### Andrei HARDY CREA #### [facility] [address] [place] [address] Dr. Quintin Kaur SED RATE WESTBANNERREN 2022 SED RATE 6 mm/hr Normal <=30 [facility] Comment on above: Performed By: #### S EDR #### [facility] [address] [place] [address] Dr. Quintin Kaur CBC AUTO DIFFon 12-12-2021 BASO # 0.0 103/ul Normal 0.0-0.1 [facility] Comment on above: Performed By: #### C BC #### [facility] [address] [place] [address] Dr. Quintin Kaur Basophils/100 WBC (Bld) 0.6 % Normal 0.2-2.0 [facility] Comment on above: Performed By: #### C BC #### [facility] [address] [place] [address] Dr. Quintin Kaur EO # 0.3 103/ul Normal 0.0-0.7 [facility] Comment on above: Performed By: #### C BC #### [facility] [address] [place] [address] Dr. Quintin Kaur Eosinophils/100 WBC (Bld) 5.3 % Normal 0.9-7.0 [facility] Comment on above: Performed By: #### C BC #### [facility] [address] [place] [address] Dr. Quintin Kaur Erythrocyte distribution width (RBC) [Ratio] 13.4 % Normal 11.0-15.0 [facility] Comment on above: Performed By: #### C BC #### [facility] [address] [place] [address] Dr. Quintin Kaur Hematocrit (Bld) [Volume fraction] 38.1 % Normal 36.0-48.0 [facility] Comment on above: Performed By: #### C BC #### [facility] [address] [place] [address] Dr. Quintin Kaur Hemoglobin (Bld) [Mass/Vol] 13.0 g/dL Normal 12.0-16.0 [facility] Comment on above: Performed By: #### C BC #### [facility] [address] [place] [address] Dr. Quintin Kaur IG # 0.01 10e3/ul Normal 0.00-0.03 [facility] Comment on above: Performed By: #### C BC #### [facility] [address] [place] [address] Dr. Quintin Kaur IG % 0.2 % Normal 0.0-0.5 [facility] Comment on above: Performed By: #### C BC #### [facility] [address] [place] [address] Dr. Quintin Kaur LYMPH # 1.0 103/ul Critically low 1.2-3.8 [facility] Comment on above: Performed By: #### C BC #### [facility] [address] [place] [address] Dr. Quintin Kaur Lymphocytes/100 WBC (Bld) 19.0 % Critically low 20.5-60.0 [facility] Comment on above: Performed By: #### C BC #### [facility] [address] [place] [address] Dr. Quintin Kaur MANUAL DIFF REQ NO Normal [facility] Comment on above: Performed By: #### C BC #### [facility] [address] [place] [address] Dr. Quintin Kaur MCH (RBC) [Entitic mass] 31.3 pg Normal 26.7-34.0 [facility] Comment on above: Performed By: #### C BC #### [facility] [address] [place] [address] Dr. Quintin Kaur MCHC (RBC) [Mass/Vol] 34.1 g/dL Normal 29.9-35.2 [facility] Comment on above: Performed By: #### C BC #### [facility] [address] [place] [address] Dr. Quintin Kaur MCV (RBC) [Entitic vol] 91.8 fL Normal 81.0-99.0 [facility] Comment on above: Performed By: #### C BC #### [facility] [address] [place] [address] Dr. Quintin Kaur MONO # 0.5 103/ul Normal 0.3-0.8 [facility] Comment on above: Performed By: #### C BC #### [facility] [address] [place] [address] Dr. Quintin Kaur Monocytes/100 WBC (Bld) 9.9 % Normal 1.7-12.0 [facility] Comment on above: Performed By: #### C BC #### [facility] [address] [place] [address] Dr. Quintin Kaur NEUT # 3.3 103/ul Normal 1.4-6.5 [facility] Comment on above: Performed By: #### C BC #### [facility] [address] [place] [address] Dr. Quintin Kaur Neutrophils/100 WBC (Bld) 65.0 % Normal 43.0-75.0 [facility] Comment on above: Performed By: #### C BC #### [facility] [address] [place] [address] Dr. Quintin Kaur Platelet mean volume (Bld) [Entitic vol] 10.7 fL Normal 9.5-13.5 [facility] Comment on above: Performed By: #### C BC #### [facility] [address] [place] [address] Dr. Quintin Kaur PLT 196 103/ul Normal 150-450 [facility] Comment on above: Performed By: #### C BC #### [facility] [address] [place] [address] Dr. Quintin Kaur RBC 4.15 106/ul Critically low 4.20-5.40 [facility] Comment on above: Performed By: #### C BC #### [facility] [address] [place] [address] Dr. Quintin Kaur WBC 5.1 103/ul Normal 4.0-11.0 [facility] Comment on above: Performed By: #### C BC #### [facility] [address] [place] [address] Dr. Quintin Kaur CREATININEon 12-12-2021 Creatinine [Mass/Vol] 0.85 mg/dL Normal 0.55-1.02 [facility] Comment on above: Performed By: #### SERGEI WEAVER #### [facility] [address] [place] [address] Dr. Quintin Kaur EGFR-AF MALIAN >60 Normal >=60 [facility] Comment on above: Performed By: #### TREVON WEAVERA #### [facility] [address] [place] [address] Dr. Quintin Kaur EGFR-NON AF MALIAN >60 Normal >=60 [facility] Comment on above: Performed By: #### SERGEI WEAVER #### [facility] [address] [place] [address] Dr. Quintin Kaur LIVER PROFILEon 12-12-2021 Albumin [Mass/Vol] 3.7 g/dL Normal 3.4-5.0 [facility] Comment on above: Performed By: #### SERGEI WEAVER #### [facility] [address] [place] [address] Dr. Quintin Kaur Albumin/Globulin [Mass ratio] 1.4 {ratio} Normal [facility] Comment on above: Performed By: #### SERGEI WEAVER #### [facility] [address] [place] [address] Dr. Quintin Kaur ALP [Catalytic activity/Vol] 86 U/L Normal 46-116 [facility] Comment on above: Performed By: #### TREVON WEAVERA #### [facility] [address] [place] [address] Dr. Quintin Kaur ALT [Catalytic activity/Vol] 21 U/L Normal 14-59 [facility] Comment on above: Performed By: #### SERGEI WEAVER #### [facility] [address] [place] [address] Dr. Quintin Kaur AST [Catalytic activity/Vol] 16 U/L Normal 15-37 [facility] Comment on above: Performed By: #### SERGEI WEAVER #### [facility] [address] [place] [address] Dr. Quintin Kaur BILI, CONJUGATED 0.1 mg/dL Normal 0.0-0.2 [facility] Comment on above: Performed By: #### L SERGEI HARDY #### [facility] [address] [place] [address] Dr. Quintin Kaur Bilirubin [Mass/Vol] 0.4 mg/dL Normal 0.2-1.0 [facility] Comment on above: Performed By: #### L SERGEI HARDY #### [facility] [address] [place] [address] Dr. Quintin Kaur Globulin (S) [Mass/Vol] 2.7 g/dL Normal [facility] Comment on above: Performed By: #### L SERGEI HARDY #### [facility] [address] [place] [address] Dr. Quintin Kaur Protein [Mass/Vol] 6.4 g/dL Normal 6.4-8.2 [facility] Comment on above: Performed By: #### SERGEI WEAVER #### [facility] [address] [place] [address] Dr. Quintin Kaur SED RATE [facility] 2021 SED RATE 3 mm/hr Normal <=30 [facility] Comment on above: Performed By: #### S EDR #### [facility] [address] [place] [address] Dr. Quintin Lorenz 04-09-2017 [facility] [place] CAMPBELL ([id number]) 1945 [facility] Time Provider Iyeamsymxr59/10/17 NANCY GOODWIN During your visit today, we recorded the following information about you:Nancy Goodwin MD 04/09/2017 3:39 PM SignedLeft on home phone.ACTH stimulation test for adrenal function was normal. This means patient doesnot need prednisone for adrenal, but she may need it for her rheumatoidarthritis as per her doctor's directions.Please send ACTH stimulation lab result from 04/07/2017 toReferring Physician: Chanelle Cho MD ([facility])[address] [facility] [place] [id number] Obey Gonzales 04/09/2017 4:29 PM SignedOffice note and ACTH stimulation test results faxed to Dr. Chanelle Cho'soffice at [phone].Confirmatio n received.Leah Ornelas R.N.Allergies As of Date: [...] mouth once eac*Problem List As Of Date: 04/09/2017(None)[facility] r Number: [id number] Status:Closed by NANCY GOODWIN MD on 04/09/17 Normal [facility] ACTH Stim 3 Time Ptson 04-07 .Cortisol,Basal LK USE ONLY 10.5 ug/dL Normal [facility] Comment on above: Result Comment: Lonnie isol Reference Range: AM = 5.3-22.5, PM = 3.4-16.8 Performed By: #### A CTHST ####[facility] [address] [place], [place] [phone] Cortisol, 30 min 19.8 ug/dL Normal [facility] Comment on above: Performed By: #### A CTHST ####[facility] [address] [place], [place] [phone] Cortisol, 60 min 25.8 ug/dL Normal [facility] Comment on above: Performed By: #### A CTHST ####[facility] [address] [place], [place] [phone] Interpretation A peak value of at l east 18 ug/dL is a normal response to cortrosyn stimulation. Normal [facility] Comment on above: Performed By: #### A CTHST ####[facility] [address], [place] [phone] CNOVon 04-07-2017 [facility] [place] CAMPBELL ([id number]) 1945 [facility] Time Provider Jsbqjuihwt01/8/17 2:45 PM NANCY GOODWIN [facility] During your visit today, we recorded the following information about you: Pulse Blood pressure Weight Height 67/minute 104/67 76.1 kg 1.676 Cresencio Goodwin MD 04/07/2017 3:36 PM SignedReason for Consultation: Secondary adrenal insufficiencyReferring Physician: Chanelle Cho MD ([facility])[address] [facility] [id number] final recommendations will be communicated back to [...] Ca/D supplement once daily. She isfollowing with plant and equipment worker Dr. Chanelle Cho in [place]. She has been onprednisone for 25 years. Her maintenance prednisone dose is 5 mg daily, butlluvia has not taken it in 2 weeks [...] kg (167 lb 12.8 oz) BMI 27.08 kg/r4Ukiaziaf, modifying factors, context and associated signs and [...] kg (167 lb 12.8 oz) BMI 27.08 kg/u3Paqzffw: Well appearing, alert, in no acute distress, [...] to clinic as needed.Referring Provider: CHANELLE CHO [[id number]]Allergies As of Date: 04/07/2017(No Known Allergies)Date Reviewed: 04/07/2017Reviewed by: Mario Rolon Ma - Fully AssessedReason for Visit: New Patient [172]Primary Visit Diagnosis:Secondary adrenal insufficiency (HCC) [E27.49]Order(s):Omepraz ole (PRILOSEC) 40 mg capsuleTake 1 capsule by mouth once daily.Disp: Rfl: 0 ACTH STIMULATION,3 TIME POINTS [SQACTHST] Order #: [id number] FUTURE cosyntropin (CORTROSYN) 0.25 mg injectionInject 0.25 [...] of Service: NEW PATIENT VISIT LEVEL 4 [[id number]]Follow-up and Disposition History RecordedEncounter Number: [id number] Status:Closed by NANCY GOODWIN MD on 04/07/17 [facility] PROGRESSon 04-07-2017 PROGRESS HNO ID: [id number]: Nancy Prasadervice: (none)Author Type: PhysicianType: Progress NotesFiled: 04/07/2017 3:36 PMNote Text:Reason for Consultation: Secondary adrenal insufficiencyReferring Physician: Chanelle Cho MD ([facility])[address] [place] [id number] final recommendations will be communicated back to the requestingphysician by way of shared Medical record or letter via [place] mail.Date: April 07, 2017HISTORY OF PRESENT ILLNESS;Ms. Campbell is a 71 year old female presenting as a new patient to [facility] assessment of adrenal insufficiency. She reports a longstandinghistory of progressive rheumatoid arthritis. She was treated with Humiraand is now on Rituxan infusions every 6 months in addition to methotrexate7.5 mg per week and folic acid. The patient takes Ca/D supplement oncedaily. She is following with plant and equipment worker Dr. Chanelle Falk. She has been on [...] kg (167 lb 12.8 oz) BMI 27.08 kg/z8Pgomillw, modifying factors, context and associated signs and [...] kg (167 lb 12.8 oz) BMI 27.08 kg/p3Nzydzpo: Well appearing, alert, in no acute distress, [...] female presenting as a new patient to [facility] function. The patient reports longstanding history ofrheumatoid [...] to clinic as neededNancy Goodwin MD Normal [facility] Vital Signs Date Time Vital Sign Value Performing Clinician Facility 06-01-2024 09:48-0500 Body mass index (BMI) [Ratio] 32.61 kg/m2 Sangeetha Delgado MD Work Phone: [facility] 06-01-2024 09:48-0500 Body weight 75.75 kg Sangeetha Delgado MD Work Phone: [facility] 05-01-2024 09:47-0500 Body mass index (BMI) [Ratio] 33.2 kg/m2 Sangeetha Delgado MD Work Phone: [facility] 05-01-2024 09:47-0500 Body weight 77.11 kg Sangeetha Delgado MD Work Phone: [facility] 03-23-2023 10:36-0400 Diastolic blood pressure 61 mm[Hg] MD Salvador Hernandez Work Phone: [facility] 03-23-2023 10:36-0400 Heart rate 69 /min MD Salvador Hernandez Work Phone: [facility] 03-23-2023 10:36-0400 Respiratory rate 16 /min MD Salvador Hernandez Work Phone: [facility] 03-23-2023 10:36-0400 SaO2% (BldA) [Mass fraction] 97 % MD Salvador Hernandez Work Phone: [facility] 03-23-2023 10:36-0400 Systolic blood pressure 110 mm[Hg] MD Salvador Hernandez Work Phone: [facility] 03-23-2023 09:17-0400 Body height 152.4 cm MD Salvador Hernandez Work Phone: [facility] 03-23-2023 09:17-0400 Body weight 63.5 kg MD Salvador Hernandez Work Phone: [facility] Encounters Encounter Date Encounter Type Care Provider Facility Start: 06-15-2024 End: 06-15-2024 Bamboo flowsjulisa Claire DPM Work Phone: [facility] Start: 06-15-2024 End: 06-15-2024 Bamboo flowsheet Aleksandr Claire DPM Work Phone: [facility] Start: 06-15-2024 End: 06-15-2024 ambulatory ALEKSANDR CLAIRE Not Available Start: 06-15-2024 End: 06-15-2024 Patient encounter procedure Aleksandr Claire DPM Work Phone: [facility] Comment on above: Onychomycosis (Prima ry Dx); Pain in both feet; Corns and callosities; Neuropathy Start: 06-01-2024 End: 06-02-2024 Telephone encounter Sangeetha Delgado MD Work Phone: [facility] Start: 06-01-2024 End: 06-01-2024 Office outpatient visit 15 minutes Sangeetha Delgado MD Work Phone: [facility] Comment on above: Low serum IgE (Prima ry Dx) Start: 06-01-2024 End: 06-01-2024 ambulatory SANGEETHA Acevedo RAMBASEK Not Available Start: 05-01-2024 End: 05-01-2024 Bamboo flowsjulisa Delgado MD Work Phone: [facility] Start: 05-01-2024 End: 05-01-2024 Bamboo flowsjulisa Delgado MD Work Phone: [facility] Start: 05-01-2024 End: 05-01-2024 Office outpatient new 30 minutes Sangeetha Delgado MD Work Phone: [facility] Comment on above: Low immunoglobulin l evel (Primary Dx); Recurrent sinus infections Start: 05-01-2024 End: 05-01-2024 ambulatory SANGEETHA BECKBASEK Not Available Start: 04-04-2024 End: 04-04-2024 Patient encounter procedure MD Salvador Hernandez Work Phone: [facility] [address] Work Phone: Start: 04-04-2024 End: 04-04-2024 ambulatory MD Salvador Hernandez Work Phone: [facility] Work Phone: Start: 03-08-2024 End: 03-08-2024 [...] encounter procedure MD Salvador Hernandez Work Phone: [facility] Start: 01-18-2024 End: 01-18-2024 ambulatory MD Salvador Hernandez Work Phone: [facility] Work Phone: Start: 01-14-2024 End: 01-14-2024 Patient encounter procedure MD Salvador Hernandez Work Phone: [facility] Work Phone: Start: 01-14-2024 End: 01-14-2024 ambulatory MD Salvador Hernandez Work Phone: [facility] Work Phone: Start: 12-07-2023 End: 12-07-2023 ambulatory ALEKSANDR CLAIRE Not Available Start: 09-13-2023 End: 09-13-2023 ambulatory ALEKSANDR CLAIRE Not Available Start: 08-02-2023 End: 08-02-2023 ambulatory JOSE LEVINE Not Available Start: 07-06-2023 Chart abstracting Aleksandr Claire DPM Work Phone: [facility] Start: 07-06-2023 End: 07-06-2023 ambulatory ALEKSANDR CLAIRE Not Available Start: 03-23-2023 End: 03-23-2023 Admission to same day surgery center MD Salvador Hernandez Work Phone: [facility] Work Phone: Start: 03-23-2023 End: 03-23-2023 ambulatory MD Salvador Hernandez Work Phone: [facility] Work Phone: Start: 01-19-2023 End: 01-19-2023 ambulatory MD Salvador Hernandez Work Phone: [facility] Work Phone: Start: 01-19-2023 End: 01-19-2023 Patient encounter procedure MD Salvador Hernandez Work Phone: [facility] Start: 10-07-2022 End: 10-07-2022 ambulatory MD Salvador Hernandez Work Phone: [facility] Work Phone: Start: 10-07-2022 End: 10-07-2022 Patient encounter procedure MD Salvador Hernandez Work Phone: [facility] [address] Work Phone: Start: 09-29-2022 End: 09-30-[address] CHANELLE CHO Facility:[facility] Start: 06-02-2022 End: 06-03-[address] CHANELLE CHO Facility:[facility] Start: 01-01-[address] CHANELLE CHO [facility] ity:[facility] Start: 12-12-2021 End: 12-13-[address] CHANELLE CHO Facility:[facility] Start: 04-07-2017 End: 04-07-2017 Ambulatory NANCY GOODWIN [facility] Procedures Date Procedure Procedure Detail Performing Clinician Start: 01-14-2024 Dual energy X-ray absorptiometry MD Salvador Hernandez Work Phone: Start: 03-23-2023 Screening colonoscopy Matt Hernandez Work Phone: Plan of Treatment Date Care Activity Detail Author Start: 08-21-2024 End: 08-21-2024 Patient encounter procedure 08/21/2024 8:00 AM EDT Procedure Visit [facility] [address] [place] [phone] Aleksandr Claire DPM [address] [place] [address] [facility] Start: 06-15-2024 End: 06-15-2024 Patient encounter procedure 06/15/2024 10:15 AM EST Procedure Visit [facility] [address] [place] [address] Aleksandr Claire DPM [address] [place] [address] [facility] Start: 06-07-2024 End: 06-07-2024 Patient encounter procedure 06/07/2024 9:40 AM EST Office Visit [facility] [address] [place] [address] Sangeetha Delgado MD [address] [place] [address] [facility] Start: 05-01-2024 End: 05-01-2025 CBC W Auto Differential panel - Blood CBC and differential Lab Routine Low immunoglobulin level Expected: 05/01/2024 (Approximate), Expires: 05/01/2025 [facility] Comment on above: Expected: 05/01/2024 (Approximate), Expires: 05/01/2025 Start: 05-01-2024 End: 05-01-2025 Diphtheria / Tetanus Antibody Panel Diphtheria / Tetanus Antibody Panel Lab Routine Low immunoglobulin level Expected: 05/01/2024 (Approximate), Expires: 05/01/2025 [facility] Comment on above: Expected: 05/01/2024 (Approximate), Expires: 05/01/2025 Start: 05-01-2024 End: 05-01-2025 IgA [Mass/volume] in Serum or Plasma IgA Lab Routine Low immunoglobulin level Expected: 05/01/2024 (Approximate), Expires: 05/01/2025 [facility] Comment on above: Expected: 05/01/2024 (Approximate), Expires: 05/01/2025 Start: 05-01-2024 End: 05-01-2025 IgE [Units/volume] in Serum or Plasma IgE Lab Routine Low immunoglobulin level Expected: 05/01/2024 (Approximate), Expires: 05/01/2025 [facility] Comment on above: Expected: 05/01/2024 (Approximate), Expires: 05/01/2025 Start: 05-01-2024 End: 05-01-2025 IgG [Mass/volume] in Serum or Plasma IgG Lab Routine Low immunoglobulin level Expected: 05/01/2024 (Approximate), Expires: 05/01/2025 [facility] Work Phone: Comment on above: Expected: 05/01/2024 (Approximate), Expires: 05/01/2025 Start: 05-01-2024 End: 05-01-2025 IgM [Mass/volume] in Serum or Plasma IgM Lab Routine Low immunoglobulin level Expected: 05/01/2024 (Approximate), Expires: 05/01/2025 [facility] Comment on above: Expected: 05/01/2024 (Approximate), Expires: 05/01/2025 Start: 05-01-2024 End: 05-01-2025 Tetanus toxoid, IgG Tetanus toxoid, IgG Lab Routine Low immunoglobulin level Expected: 05/01/2024 (Approximate), Expires: 05/01/2025 [facility] Comment on above: Expected: 05/01/2024 (Approximate), Expires: 05/01/2025 Start: 05-01-2024 End: 05-01-2024 Patient encounter procedure 05/01/2024 9:40 AM EST Office Visit [facility] [address] [place] [address] Sangeetha Delgado MD [address] [place] [address] Arrived [facility] Comment on above: Arrived Start: 04-04-2024 [facility] Start: 03-08-2024 End: 03-08-2024 Patient encounter procedure 03/08/2024 10:15 AM EDT Procedure Visit [facility] [address] [place] [id number] Aleksandr Claire DPM [address] [place] [address] Arrived [facility] Comment on above: Arrived Start: 07-06-2023 End: 07-06-2023 Patient encounter procedure 07/06/2023 11:00 AM EST Office Visit [facility] [address] [place] [address] Aleksandr Claire DPM [address] [place] [address] [facility] Start: 03-23-2023 [facility] Start: 10-07-2022 [facility] Albumin [Mass/volume ] in Serum or Plasma [facility] Albumin [Mass/volume ] in Serum or Plasma [facility] Albumin/Globulin ratio [facility] Albumin/Globulin ratio [facility] Electrophoresis: [id number] [facility] Electrophoresis: bpien-0-wowxuhny [facility] Electrophoresis: [id number]-[id number] [facility] Electrophoresis: [id number]-2-[id number] [facility] Electrophoresis: beta-globulin [facility] Electrophoresis: beta-globulin [facility] Electrophoresis: roberto ma globulin [facility] Electrophoresis: roberto ma globulin [facility] Globulin [Mass/volum e] in Serum [facility] Globulin [Mass/volum e] in Serum [facility] IgA [Mass/volume] in Serum or Plasma [facility] IgA [Mass/volume] in Serum or Plasma [facility] IgE [Units/volume] i n Serum or Plasma [facility] IgG [Mass/volume] in Serum or Plasma [facility] IgG [Mass/volume] in Serum or Plasma [facility] IgM [Mass/volume] in Serum or Plasma [facility] IgM [Mass/volume] in Serum or Plasma [facility] Interferon gamma assay [facility] Mycobacterium tuberculosis stimulated gamma interferon [Interpretation] in Blood Qualitative [facility] Mycobacterium tuberculosis stimulated gamma interferon release by CD4+ and CD8+ T-cells [Units/volume] corrected for background in Blood [facility] Mycobacterium tuberculosis tuberculin stimulated gamma interferon [Presence] in Blood [facility] Patient Education Hemorrhoids (D C) Diverticulosis (DC) [facility] Work Phone: Protein [Mass/volume ] in Serum or Plasma [facility] Protein [Mass/volume ] in Serum or Plasma [facility] Serum immunofixation [facility] STREPTOCOCCUS PNEUMO HUMBLE AB (IGG) (23 SEROTYPES) STREPTOCOCCUS PNEUMONIA AB (IGG) (23 SEROTYPES) Lab Routine Low immunoglobulin level Ordered: 05/01/2024 [facility] Comment on above: Ordered: 05/01/2024 Payers Date Payer Category Payer Self-pay [id number] 2023 Private Health Insurance [id number] 2009 Medicare [id number] 1959 Medicare [id number] 1959 Private Health Insurance [id number] 1959 Self-pay [id number] 1944 Unknown [id number] 2.16.84 [id number] 1944 Unknown [id number] 2.16.84 0.1.702522.3.579.2.593 1944 Unknown [id number] 2.16.84 0.1.450585.3.579.2.593 1944 Unknown [id number] 2.16.84 0.1.495830.3.579.2.593 1944 Unknown [id number] 2.16.84 0.1.420863.3.579.2.1259 1944 Unknown [id number] 2.16.84 0.1.890680.3.579.2.1259 1944 Unknown [id number] 2.16.84 0.1.757953.3.579.2.1259 1944 Unknown [id number] 2.16.84 0.1.713925.3.579.2.1259 1944 Unknown [id number] 2.16.84 0.1.165905.3.579.2.1259 1944 Unknown [id number] 2.16.84 0.1.762325.3.579.2.1259 1944 Unknown [id number] 2.16.84 0.1.361862.3.579.2.1259 1944 Unknown [id number] 2.16.84 0.1.302486.3.579.2.1259 Unknown [id number] 2.16.8 40.1.938663.3.579.2.531 Unknown [id number] 2.16.8 [id number] Unknown [id number] 2.16.8 [id number] Social History Date Type Detail Facility Start: 01-22-2021 End: 07-06-2023 Tobacco smoking status HIIS Never smoked tobacco (finding) [facility] Start: 1945 Sex Assigned At Female F [facility] Start: 07-06-2023 Tobacco use and exposure Smokeless tobacco non-user [facility] Start: 07-06-2023 End: 06-15-2024 Alcohol intake Lifetime non-drinker (finding) [facility] Start: 1945 Sex Assigned At Not on file N [facility] Start: 12-07-2023 End: 06-15-2024 Gender identity Not on file [facility] Start: 12-07-2023 End: 06-15-2024 History of [address] [facility] Medical Equipment Procedure Code Equipment Code Equipment Origin al Text Equipment Identifier Dates ORIF, fracture, patella Orthopaedic bone screw, non-bioabsorbable, non-sterile ()[id number] FDA Start: 10-15-2020 ORIF, fracture, patella Orthopaedic bone screw, non-bioabsorbable, non-sterile ()[id number] FDA Start: 10-15-2020 ORIF, fracture, patella Orthopaedic bone screw, non-bioabsorbable, non-sterile ()[id number] FDA Start: 10-15-2020 ORIF, fracture, patella Orthopaedic bone wire ()[id number] FDA Start: 10-15-2020 Goals Date Patient Goal Desired Activity /State Clinical Notes 03-23-2023 to 06-15-2024 Aleksandr Claire DPM - 06/15/2024 10:15 AM Neel Delgado MD - 06/01/2024 9:40 AM Neel Delgado MD - 05/01/2024 9:40 AM Rupali Claire DPM - 03/08/2024 10:15 AM EDT Note Date & Type Note Facility 06-15-2024 History of Present illness Narrative Images from the original note [...] of the toenails. documented in this encounter [facility] 06-01-2024 History of Present illness Narrative Fish Campbell returns to the office today for follow-up assessment for her immunologic evaluation. Serum total IgG is 708 and her serum IgE level is low at 4. She has had no infections since we last saw her. She is still on Rituxan. EXAM The patient appears comfortable in the [...] of any lesions, excoriations, or erythema. IMPRESSION: Low serum IgE- I explained that her normal IgG level is relatively reassuring that she is not having significant B-cell immunosuppression from her Rituxan. She is also clinically doing well without any infections. We agreed that follow-up would be on an as needed basis and I let her know that she may continue to receive her Rituxan on a regular basis. documented in this encounter [facility] 05-01-2024 History of Present illness Narrative Fish Campbell is a very pleasant 78 y.o. [...] of pneumonia when she was in the 1970's. She has had no other unusual infections [...] the time being. documented in this encounter [facility] 03-08-2024 History of Present illness Narrative Images from the original note [...] of the toenails. documented in this encounter [facility] 03-23-2023 Procedure note [facility] Evaluation note No assessment inform ation available [facility] Work Phone: Evaluation note Diagnosis Onset Date Heme + stool acute [facility] Work Phone: Evaluation note* Diagnosis Onychomycosis- Primary Dermatophytosis of nail Pain in both feet Corns and callosities Neuropathy Mononeuritis of unspecified site [facility] Diagnosis Low immunoglobulin level- Primary Recurrent sinus infections Unspecified sinusitis (chronic) [facility] Diagnosis Low serum IgE- Primary [facility] Additional Instructions DISCHARGE INSTRUCTIONS FOR [...] if you have any problems. -Office number [phone] Work Phone: Summary Purpose Family History [...] section and content) DATE CREATED AUTHOR 11/23/2017 [facility] DATE CREATED AUTHOR AUTHOR'S ORGANIZ ATION 10/07/2022 [facility] DATE CREATED AUTHOR AUTHOR'S ORGANIZ ATION 04/15/2024 [facility] DATE CREATED AUTHOR AUTHOR'S ORGANIZ ATION 06/18/2024 [facility] Care Teams (unrecognized sec tion and content) [...] January 18, 2024 End: January 18, 2024 Senior Payroll Manager Relationship Specialty Start Date End Date Salvador Hernandez MD [address] [place] [id number] PCP - General Family Medicine 07/06/23 Senior Payroll Manager Relationship Specialty Start Date End Date Salvador Hernandez MD [address] [place] [id number] PCP - General Family Medicine 07/06/23 Team Status: Inactive Member Role Status Dates Salvador Hernandez MD Primary Care Provider Active Start: April 04, 2024 End: April 04, 2024 Chanelle Cho MD Attending Provider Active St art: April 04, 2024 End: April 04, 2024 Senior Payroll Manager Relationship Specialty Start Date End Date Salvador Hernandez MD [address] [place] [phone] PCP - General Family Medicine 07/06/23 Senior Payroll Manager Relationship Specialty Start Date End Date Salvador Hernandez MD [address] [place] [phone] PCP - General Family Medicine 07/06/23 Senior Payroll Manager Relationship Specialty Start Date End Date Salvador Hernandez MD [address] [place] [id number] PCP - General Family Medicine 07/06/23 Senior Payroll Manager Relationship Specialty Start Date End Date Salvador Hernandez MD [address] [place] [id number] PCP - General Family Medicine 07/06/23 Goals [...] you to clear her for the infusion. Reason Comments Follow-up Pt here for follow u p visit has no complaints at this time no hospital stays or surgeries Specialty Diagnoses / Procedures Referred By Contac t Referred To Contact Allergy and Immunology / Allergy Diagnoses Low IgE Procedures [employer] Chanelle Cho MD [address] [place] [address] Phone: tel: fax: Sangeetha Delgado MD [address] [facility] [address] [place] [address] Phone: tel: fax: Referral ID Status Reason Start Date Expiration Date V isits Requested Visits Authorized [id number] Pending Review 04/20/2024 10/17/2024 1 1 FOR RECORDS PERTAINING TO PATIENTS WHO ARE [...] BE BASED ON THE PRIMARY CLINICAL RECORDS. [employer] provides no warranty or guarantee of the accuracy or completeness of information in this document.
[2024-07-10 13:05] LABS: Erythrocyte Sedimentation Rate 6 mm/hr (<=30)
[2024-07-10 13:23] LABS: C Reactive Protein <0.50 mg/dL (<=0.50)
[2024-07-11 13:07] LABS: Immunoglobulin G, Qn 643 mg/dL (586-1602)
[2024-07-11 16:08] LABS: Albumin 3.7 g/dL (2.9-4.4); Alpha-1-Globulin 0.3 g/dL (0.0-0.4); Alpha-2-Globulin 0.7 g/dL (0.4-1.0); Gamma Globulin 0.6 g/dL (0.4-1.8); Protein, Total 6.3 g/dL (6.0-8.5)
== END 2024-07-10 12:05 | disposition home or self-care (01) ==
LOC: LAB 12:05
PROVIDERS: PCP Family Medicine; Visit Provider Internal Medicine Rheumatology
DX: M05.79 Rheumatoid arthritis with rheumatoid factor of multiple sites without organ or systems involvement (principal); Z79.899 Other long term (current) drug therapy
CPT/HCPCS: 36415; 82784; 84155; 84165; 85652; 86140

== ENCOUNTER 2024-09-13 14:57 | Outpatient (RCR) | payer MEDICARE, OTHER, SELFPAY | END 2024-10-14 09:32 | disposition home or self-care (01) | LOC: PT 14:57 | PROVIDERS: PCP Family Medicine; Visit Provider Neurological Surgery | DX: M47.14 Other spondylosis with myelopathy, thoracic region (principal) | CPT/HCPCS: 97110; 97112; 97162 ==